=== PATIENT | female | born 1955 | race Caucasian/White ===

== ENCOUNTER → 2017-05-24 | Outpatient (CLI) | payer BC ==
[~2017-05-24] MED LIST: ALBUAER19 INH; EPP3/2 IM; LEVO50TA PO; LIRA18IN SQ; OMEP40CA PO; ROPI1TAB PO; SYMIN/8045 INH; VENL-271 PO
[2017-05-24 10:05] LABS: ESTIMATED AVERAGE GLUCOSE 137 mg/dl; HA1C FLAG Normal (Normal)
[2017-05-24 10:18] LABS: ALT/SGPT 18 U/L (12-78); AST/SGOT 10 U/L (15-37); BLOOD UREA NITROGEN 12 mg/dl (7-18); BUN/CREATININE RATIO 15.1 (10-20); CALCIUM 9.1 mg/dl (8.5-10.1); CARBON DIOXIDE 30 mmol/L (21-32); CHLORIDE 105 mmol/L (98-107); CHOLESTEROL 181 mg/dl (0-200); CREATININE 0.82 mg/dl (0.60-1.20); GLUCOSE 112 mg/dl (70-99); POTASSIUM 4.3 mmol/L (3.5-5.1); SODIUM 140 mmol/L (136-145)
[2017-05-24 10:28] LABS: ALB/GLOB RATIO 1.2 (0.9-2); ALKALINE PHOSPHATASE 81 U/L (45-117); CHOLESTEROL/HDL RATIO 3.2; HDL CHOLESTEROL 56 mg/dl; LDL CHOLESTEROL CALCULATED 110 mg/dl; TRIGLYCERIDES 73 mg/dl (0-150); VERY LOW DENSITY LIPOPROT CALC 15 mg/dl
== END | disposition home or self-care (01) ==
LOC: C.LAB 08:24
PROVIDERS: ATTEND Physician Assistant
DX: E11.9 Type 2 diabetes mellitus without complications (principal)

== ENCOUNTER → 2017-05-30 | Outpatient (CLI) | payer BC ==
--- NOTE | 2017-05-30 16:01 | DIAGNOSTIC IMAGING REPORT ---
CHEST 2 VIEWS ROUTINE CLINICAL HISTORY: R05 cough COMPARISON STUDY: 07/14/2016 FINDINGS: The cardiac and mediastinal contours are normal. There is no evidence of focal pulmonary consolidation. There is no evidence of failure. No pleural effusions are visualized.[ IMPRESSION: No active disease in the chest. Electronically signed by: Jean-Claude Solorio M.D. 05/30/2017 4:00 PM Dictated Date/Time: 05/30/2017 4:00 PM
== END | disposition home or self-care (01) ==
LOC: C.RAD 15:24
PROVIDERS: ATTEND Nurse Practitioner Family
DX: R05 Cough (principal)

== ENCOUNTER → 2017-08-27 | Outpatient (CLI) | payer BC ==
[2017-08-27 13:03] LABS: ESTIMATED AVERAGE GLUCOSE 137 mg/dl; HA1C FLAG Normal (Normal)
[2017-08-27 13:29] LABS: THYROID STIMULATING HORMONE 1.76 uIu/ml (0.300-4.500)
[2017-08-27 13:46] LABS: RATIO 4.8 mcg/mg (0-30.0)
== END | disposition home or self-care (01) ==
LOC: C.LABPVFM 07:48
PROVIDERS: ATTEND Physician Assistant
DX: E11.9 Type 2 diabetes mellitus without complications (principal)

== ENCOUNTER → 2018-01-08 | Outpatient (CLI) | payer BC ==
--- NOTE | 2018-01-08 12:41 | DIAGNOSTIC IMAGING REPORT ---
CT LUNG SCREENING, LOW DOSE WITH COMPUTER-AIDED DETECTION (CAD) CLINICAL HISTORY: 62 years-old Female presenting with LOW DOSE LUNG SCREENING. CT DOSE (mGy.cm): The estimated cumulative dose is 94.72 mGy.cm. TECHNIQUE: Multidetector CT imaging of the chest was performed without the use of intravenous contrast. IV contrast: None. A dose lowering technique was used consistent with the principles of ALARA (as low as reasonably achievable). Additional postprocessing was performed on a separate In[employer] workstation by the radiologist for computer-aided detection and 3-D volumetric segmentation of pulmonary nodules. COMPARISON: None. FINDINGS: Manager Ems topogram: Unremarkable. On soft tissue windows, normal thyroid and thoracic inlet. No axillary, supraclavicular, or mediastinal lymphadenopathy. Evaluation of the sandi limited without intravenous contrast. Atherosclerosis of the aorta. Normal heart size. Minimal aortic valve calcification. No pericardial or pleural effusion. Minimal calcification noted in the liver. Upper abdomen otherwise normal. On lung windows, upper lobe predominant mild centrilobular emphysema. No focal nodule or infiltrate. Central airways patent. On bone windows, degenerative changes of the spine. CAD FINDINGS: Overall Lung RADS Category: 1 Lung RADS Management Recommendation: Continue annual lung cancer screening. Lung RADS Follow Up Date: 2019-01-08 Lung RADS Nodule ID: IMPRESSION: 1. Continue annual lung cancer screening. Electronically signed by: Zhang Courtney M.D. 01/08/2018 12:39 PM Dictated Date/Time: 01/08/2018 12:28 PM
== END | disposition home or self-care (01) ==
LOC: C.CTS 12:09
PROVIDERS: ATTEND Nurse Practitioner Family
DX: Z12.2 Encounter for screening for malignant neoplasm of respiratory organs (principal)

== ENCOUNTER 2021-09-14 17:15 | Inpatient (IN) ==
[2021-09-14] MEDS ORDERED: ALBUT/IPRATROP 3MG/0.5MG NEB 3 ML VIAL NEB STA (17:50)
[2021-09-14] MEDS ORDERED: SODIUM CHLORIDE 0.9% 1000ML 500 ML IV ONE (17:50)
--- NOTE | 2021-09-14 17:50 | Emergency Department Note ---
Impression & Plan Breathlessness, Tachycardia, Hypoxia, Acute exacerbation of chronic obstructive pulmonary disease ED Provider Note Provider: Miguel Thompson MD DATE OF SERVICE: 09/14/2021 CHIEF COMPLAINT: Shortness of breath HISTORY OF PRESENT ILLNESS: Patient is a 66-year-old female history of smoking and COPD presenting here today reporting worsening shortness of breath and cough over the past several days but worse this afternoon. Reports has had some breathing issues since Thanksgiving when she had a bit of a cough. Using a new ProAir inhaler the last several days and now her cough is nonproductive. Reports some mild fevers at times and again worsening breathing this afternoon. Took a nebulizer at home that did not seem to help much. No syncope or trauma reported. Denies pain. Denies abdominal symptoms including any nausea or diarrhea. Patient denies any leg swelling or recent travel. She states is vaccinated for pneumonia, flu, and Covid. Patient states her 's been a bit sick at home but minimally and no other sick contacts reported. She denies a history of blood clotting to me. She reports she has a history of persistent tachycardia and was previously evaluated by cardiology without significant finding. REVIEW OF SYSTEMS: A total of 10 review of systems was obtained and negative except as stated above in the HPI. PAST MEDICAL HISTORY: As noted above MEDICATIONS: Reviewed home medications SOCIAL HISTORY: Lives at home with , smoker PHYSICAL EXAM: GENERAL: alert and oriented laying on stretcher. Head: normocephalic and atraumatic EYES: No injection, discharge or icterus. NECK: Trachea midline. ENT: Mucous membranes pink and moist. LUNGS: Airway patent. No retractions. Breath sounds with some scattered wheeze, mild tachypnea noted. HEART: Regular tachycardic rate and rhythm. No chest wall tenderness ABDOMEN: Soft and non-tender, without guarding or rebound. SKIN: Acyanotic, warm, dry, without rashes EXTREMITIES: Without swelling, tenderness or deformity NEUROLOGICAL: No focal deficits. No aphasia. No facial droop or slurred speech. Ambulatory. EK bpm sinus tachycardia. No PVC or PAC. No acute ST segment elevation or depression. QTC 435. CONTINUOUS CARDIAC MONITORING: was ordered and showed a heart rate of 80s-150s bpm in sinus tachycardia/NSR with rare sinus arrhythmia Patient's laboratory studies and imaging reviewed. Differential includes pulmonary, infection, dehydration, metabolic abnormality, hypo/hyperglycemia, electrolyte disturbance, anemia, hypoxia, cardiac sources, intracerebral event, toxicologic, neurologic, as well as other pathologies. IMPRESSION/MEDICAL DECISION MAKING: Patient tachycardic with borderline fever upon arrival. Mildly hypoxic in triage and wheezing on exam. DuoNeb ordered. Covid and flu testing sent. Basic labs in addition to lactate and cultures as well as CRP and procalcitonin sent. X-ray ordered. EKG obtained shows a sinus tachycardia. Some IV fluids given as well as some Tylenol. Fever did come down. Still significantly tachycardic. Patient is unsure if she had significant improvement with DuoNeb. White blood cell count of 21.8 noted with elevated CRP. Negative Covid influenza and RSV testing. Procalcitonin 0.23. No troponin elevation. No severe electrolyte abnormality signs of renal dysfunction. Negative D-dimer but given the significant leukocytosis persistent tachycardia and mild oxygen requirement CT of the chest was completed to exclude PE other occult pathology. No evidence of PE but some tree-in-bud inflammatory changes noted. Given allergy profile given a dose of azithromycin for atypical coverage for any atypical bacteria present with the bronchitis/COPD exacerbation component. Discussed with patient given a dose of Solu-Medrol for steroid coverage as well. Patient's heart rate is improving some and she is less dyspneic on reevaluation. Discussed with her and her findings. Still requiring a small amount of oxygen. In discussion hospitalist will be consulted for further care. DIAGNOSIS: Shortness of breath, hypoxia, tachycardia, COPD exacerbation DISPOSITION: Hospitalist will evaluate Patient was agreeable with this plan. 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 Chronic obstructive pulmonary disease inhalers daily Chronic reflux esophagitis Depression currently off meds for 3 weeks Depression with anxiety Diabetes mellitus, type 2 Fibromyalgia Gastropathy GERD (gastroesophageal reflux disease) History of colon polyps Hypercholesterolemia Hypothyroidism Kidney stones Lichen sclerosus et atrophicus Lumbar canal stenosis Memory loss Nocturnal hypoxia Obesity Osteoarthritis Overweight Restless legs syndrome Sleep apnea had sleep study performed 07/2018 was instructed to start oxygen at night (drops to 86% when sleeping), has not started yet Snoring Tobacco use Urinary incontinence Surgical History History of colonoscopy History of dilatation and curettage History of right cataract extraction during procedure "pupil was damaged and no longer dilates" History of tooth extraction History of total right knee replacement (TKR) History of umbilical hernia repair History of wisdom tooth extraction Hx of eye surgery left laser for retinal bleed Family History Aunt History of anesthesia reaction Grandmother (Paternal) Family history of diabetes mellitus Grandfather (Maternal) Family hx of colon cancer Colon cancer Father Heart disease Stroke Mother Dementia Diabetes Macular degeneration Alzheimer disease Autoimmune disease Brother Squamous cell carcinoma of skin Atrial fibrillation Other Basal cell carcinoma Denies family history of Ovarian cancer Prostate cancer Myocardial infarction Breast cancer Social History (Updated 09/14/21 @ 21:23 by Luci Hollins MD) Smoking Status: Current every day smoker Age Started Using Tobacco: 18; packs per day: 1; Cigarettes Per Day: 1 pack; Second Hand Exposure: Yes (self); Do You Dip or Chew Tobacco: No; Hx Alcohol Use: Yes Alcohol type: hard liquor Alcohol Intake Frequency: Monthly or Less Hx Substance Use: No Preferred Language: Italian Communication Ability: Effective Visual Impairment: No Limitations Hearing Ability: Normal Interlocker Required: No Beliefs That Will Affect Care: None marital status: Current Living Situation: Spouse current occupational status: retired How many Children do You have: 2 Other Information That Helps Us Care for You: No Feels Safe at Home: Yes Childhood Exposure to Second-Hand Smoke: Yes Diet Comment: no specific diet Dental Care, Regularly: Yes Physical Activity Frequency: 1-2 Times per Week Seatbelt Use: always Sunscreen Use: Yes Do you think of yourself as: straight/heterosexual Assistive Devices: Glasses Allergies Allergies Allergy/AdvReac Type Severity Reaction Status Date / Time bee venom protein (honey bee) Allergy Severe HIVES AND Verified 09/14/21 20:31 ANAPHYLAXIS Penicillins Allergy Severe HIVES Verified 09/14/21 20:31 Sulfa (Sulfonamide Allergy Severe High Verified 09/14/21 20:31 Antibiotics) fever, broke out with spider veins all over doxycycline Allergy Unknown Unknown Verified 09/14/21 20:31 egg Allergy Unknown Unknown Verified 09/14/21 20:31 grass pollen Allergy Verified 09/14/21 20:31 milk AdvReac Mild Diarrhea Verified 09/14/21 20:31 BUG BITES Allergy EXTREME Uncoded 09/14/21 20:31 SWELLING Home Meds Home Medications Medication Instructions Recorded Confirmed albuterol sulfate 90 mcg/actuation 1 - 2 puff INHALATION Q4 PRN 02/20/19 aerosol inhaler (ProAir HFA) clobetasol 0.05 % topical ointment 1 appln TOP BID PRN gm 02/18/20 09/14/21 cyclobenzaprine 5 mg tablet 5 mg PO HS 09/14/21 09/14/21 rosuvastatin 5 mg tablet 5 mg PO WK 09/14/21 09/14/21 Previous Rx's Medication Instructions Recorded epinephrine 0.3 mg/0.3 mL 0.3 mg IM Q3H PRN #1 ea 03/02/20 injection, auto-injector (EpiPen) ipratropium 0.5 mg-albuterol 3 mg 3 ml INHALATION QID PRN #90 ml 07/01/20 (2.5 mg base)/3 mL nebulization soln omeprazole 40 mg capsule,delayed 40 mg PO DAILY PRN #30 cap 12/28/20 release venlafaxine 75 mg capsule,extended 75 mg PO DAILY #90 cap 12/30/20 release 24 hr (Effexor XR) metformin 500 mg tablet,extended 1,000 mg PO BID 30 Days #120 tab 06/03/21 release 24 hr fluticasone propionate 115 2 puff INH BID #12 g 07/12/21 mcg-salmeterol 21 mcg/actuation HFA inhaler (Advair HFA) levothyroxine 75 mcg tablet 75 mcg PO DAILY #30 tab 07/18/21 terbinafine HCl 250 mg tablet 250 mg PO DAILY 14 Days #14 tab 08/31/21 Results & Data (ED) Vital Signs Vital Signs - 24 hr 09/14/21 17:26 09/14/21 17:41 09/14/21 17:58 Temperature 37.8 C H Temperature Source Oral Pulse Rate 134 H 109 H Pulse Rate [Apical] 109 H Pulse Rhythm Regular Pulse Strength Normal Respiratory Rate Respiratory Effort / Characteristics Labored Spontaneous Short of Breath Respiratory Depth Respiratory Pattern Regular Blood Pressure 135/79 Blood Pressure [Right Arm] 120/83 Blood Pressure Mean 97 Blood Pressure Mean [Right Arm] 95 Blood Pressure Position Sitting Blood Pressure Position [Right Arm] Semi-fowlers Pulse Oximetry 87 L 91 91 Oxygen Delivery Method Room Air Room Air Room Air Oxygen Flow Rate Sepsis Recent Fever Within 48 Hours No Sepsis New/Unexplained Change in Mental Status No Sepsis Action Taken by Nursing No Action Required Oxygen Flow Rate - Titration Pulse Oximetry Post Tiitration 09/14/21 18:29 09/14/21 18:48 09/14/21 20:22 Temperature 37.4 C Temperature Source Oral Pulse Rate Pulse Rate [Apical] 110 H 115 H 98 H Pulse Rhythm Pulse Strength Respiratory Rate 25 H 26 H 26 H Respiratory Effort / Characteristics Non-Labored Spontaneous Respiratory Depth Normal Respiratory Pattern Blood Pressure Blood Pressure [Right Arm] 129/83 137/86 Blood Pressure Mean Blood Pressure Mean [Right Arm] 98 103 Blood Pressure Position Blood Pressure Position [Right Arm] Sitting Pulse Oximetry 91 94 93 Oxygen Delivery Method Room Air Nasal Cannula Nasal Cannula Oxygen Flow Rate 1.5 1 Sepsis Recent Fever Within 48 Hours Sepsis New/Unexplained Change in Mental Status Sepsis Action Taken by Nursing Oxygen Flow Rate - Titration 1.5 Pulse Oximetry Post Tiitration 94 Laboratory Data Result diagrams: 09/14/21 17:55 09/14/21 17:55 Lab Results 09/14/21 09/14/21 09/14/21 Range/Units 17:50 17:55 17:55 WBC 21.88 H (4.8-10.8) K/uL RBC 5.13 (4.2-5.4) M/uL Hgb 14.9 (12.0-16.0) g/dL Hct 45.3 (37-47) % MCV 88.3 (80-100) fL MCH 29.0 (25-34) pg MCHC 32.9 (32-36) g/dL RDW Std Deviation 46.0 (36.4-46.3) fL RDW Coeff of Palak 14.2 (11.5-14.5) % Plt Count 338 (130-400) K/uL MPV 9.5 (7.4-10.4) fL Immature Gran % (Auto) 0.3 % Neut % (Auto) 87.1 % Lymph % (Auto) 8.0 % Callaway % (Auto) 4.6 % Eos % (Auto) 0.0 % Baso % (Auto) 0.0 % Neut # (Auto) 19.04 H (1.4-6.5) K/uL Lymph # (Auto) 1.75 (1.2-3.4) K/uL Callaway # (Auto) 1.01 H (0.11-0.59) K/uL Eos # (Auto) 0.01 (0-0.5) K/uL Baso # (Auto) 0.01 (0-0.2) K/uL Immature Gran # (Auto) 0.06 H (0.00-0.02) K/uL PT (9.0-12.0) Seconds INR (0.9-1.1) D-Dimer (0-500) ug/L FEU Sodium 136 (136-145) mmol/L Potassium 4.3 (3.5-5.1) mmol/L Chloride 104 (98-107) mmol/L Carbon Dioxide 28 (21-32) mmol/L Anion Gap 4.0 (3-11) BUN 15 (7-18) mg/dl Creatinine 0.85 (0.6-1.2) mg/dl Est Cr Clr Drug Dosing 69.9 ml/min Est GFR ( Amer) 82.2 ml/min Est GFR (Non-Af Amer) 70.9 ml/min BUN/Creatinine Ratio 17.1 (10-20) Glucose 260 H (70-99) mg/dl Lactate (0.4-2.0) mmol/L Calcium 8.9 (8.5-10.1) mg/dl Total Bilirubin 0.7 (0.2-1) mg/dl AST 10 L (15-37) U/L ALT 29 (12-78) Alkaline Phosphatase 84 (45-117) U/L Troponin I < 0.015 (0-0.045) ng/ml C-Reactive Protein 18.50 H (0-0.29) mg/dl Total Protein 7.3 (6.4-8.2) gm/dl Albumin 3.2 L (3.4-5.0) gm/dl Globulin 4.1 H (2.5-4.0) gm/dl Albumin/Globulin Ratio 0.8 L (0.9-2) Procalcitonin (0-0.5) ng/ml SARS-CoV-2 (PCR) NEGATIVE (Negative) Influenza Type A (PCR) Negative (Neg) Influenza Type B (PCR) Negative (Neg) RSV (RT-PCR) Negative (Neg) 09/14/21 09/14/21 09/14/21 Range/Units 17:55 17:55 17:55 WBC (4.8-10.8) K/uL RBC (4.2-5.4) M/uL Hgb (12.0-16.0) g/dL Hct (37-47) % MCV (80-100) fL MCH (25-34) pg MCHC (32-36) g/dL RDW Std Deviation (36.4-46.3) fL RDW Coeff of Palak (11.5-14.5) % Plt Count (130-400) K/uL MPV (7.4-10.4) fL Immature Gran % (Auto) % Neut % (Auto) % Lymph % (Auto) % Callaway % (Auto) % Eos % (Auto) % Baso % (Auto) % Neut # (Auto) (1.4-6.5) K/uL Lymph # (Auto) (1.2-3.4) K/uL Callaway # (Auto) (0.11-0.59) K/uL Eos # (Auto) (0-0.5) K/uL Baso # (Auto) (0-0.2) K/uL Immature Gran # (Auto) (0.00-0.02) K/uL PT 10.4 (9.0-12.0) Seconds INR 1.0 (0.9-1.1) D-Dimer 490 (0-500) ug/L FEU Sodium (136-145) mmol/L Potassium (3.5-5.1) mmol/L Chloride (98-107) mmol/L Carbon Dioxide (21-32) mmol/L Anion Gap (3-11) BUN (7-18) mg/dl Creatinine (0.6-1.2) mg/dl Est Cr Clr Drug Dosing ml/min Est GFR ( Amer) ml/min Est GFR (Non-Af Amer) ml/min BUN/Creatinine Ratio (10-20) Glucose (70-99) mg/dl Lactate 1.2 (0.4-2.0) mmol/L Calcium (8.5-10.1) mg/dl Total Bilirubin (0.2-1) mg/dl AST (15-37) U/L ALT (12-78) Alkaline Phosphatase (45-117) U/L Troponin I (0-0.045) ng/ml C-Reactive Protein (0-0.29) mg/dl Total Protein (6.4-8.2) gm/dl Albumin (3.4-5.0) gm/dl Globulin (2.5-4.0) gm/dl Albumin/Globulin Ratio (0.9-2) Procalcitonin 0.23 (0-0.5) ng/ml SARS-CoV-2 (PCR) (Negative) Influenza Type A (PCR) (Neg) Influenza Type B (PCR) (Neg) RSV (RT-PCR) (Neg) Administered Medications Albuterol (Albut/Ipratrop 3mg/0.5mg Neb 3 Ml Vial) 3 ml NEB QIDR ISMAEL; Protocol Stop: 10/14/21 21:09 Last Admin: 09/14/21 21:29 Dose: 3 ml Documented by: [id number] Discontinued Medications Acetaminophen (Acetaminophen 500 Mg Tab) 1,000 mg PO NOW STA Stop: 09/14/21 17:55 Last Admin: 09/14/21 18:06 Dose: 1,000 mg Documented by: [id number] Albuterol (Albut/Ipratrop 3mg/0.5mg Neb 3 Ml Vial) 3 ml NEB NOW STA; Protocol Stop: 09/14/21 17:51 Last Admin: 09/14/21 18:08 Dose: 3 ml Documented by: [id number] Azithromycin (Azithromycin 250 Mg Tab) 500 mg PO NOW ONE Stop: 09/14/21 20:21 Last Admin: 09/14/21 20:26 Dose: 500 mg Documented by: [id number] Sodium Chloride (Nss 1000ml) 500 mls @ 999 mls/hr IV .Q31M ONE Stop: 09/14/21 18:20 Last Infusion: 09/14/21 18:49 Dose: 0 mls/hr Documented by: [id number] Admin: 09/14/21 18:08 Dose: 999 mls/hr Documented by: [id number] Ioversol (Optiray 320 125ml) 120 ml IV ONCE ONE Stop: 09/14/21 19:46 Last Admin: 09/14/21 19:47 Dose: 120 ml Documented by: [id number] Methylprednisolone (Methylprednisolone 125 Mg/2 Ml Vial) 60 mg IV NOW STA Stop: 09/14/21 19:56 Last Admin: 09/14/21 20:20 Dose: 60 mg Documented by: [id number] Imaging Data Radiologist's Impression: Chest X-Ray 09/14/21 17:41 SINGLE VIEW CHEST CLINICAL HISTORY: Dyspnea. FINDINGS: 2 AP, portable, upright chest radiographs are compared to study dated 03/02/2019. Correlation is made with chest CT dated 01/08/2018. The examination is degraded by portable technique and apical lordotic positioning. The heart is top normal for projection. The pulmonary vasculature is noncongested. Emphysema and chronic interstitial thickening is similar to previous. Scarring/atelectasis is noted at the lung bases. No airspace consolidation or large pleural effusion is identified. No pneumothorax is seen. The skeletal structures are osteopenic. The bony thorax is grossly intact. Calcific tendinopathy is noted in the right shoulder. IMPRESSION: Emphysematous change with no acute cardiopulmonary abnormality. ACT 112: Negative or not required by law. Electronically signed by: Andrea White M.D. 09/14/2021 6:46 PM Chest CTA 09/14/21 18:52 CT ANGIOGRAM OF THE CHEST CLINICAL HISTORY: Tachycardia. Hypoxia. Leukocytosis. Fever. COMPARISON STUDY: Chest x-ray dated 09/14/2021. Chest CT dated 01/08/2018. TECHNIQUE: Following the IV administration of 120 cc of Optiray 320, CT angiogram of the chest was performed from the upper abdomen to the thoracic inlet utilizing the pulmonary embolus protocol. Images are reviewed in the axial, sagittal, and coronal planes. 3-D MIPS images are created and assessed. IV contrast was administered without complication. A dose lowering technique was utilized adhering to the principles of ALARA. The examination is modestly degraded by motion artifact. CT DOSE: 385.81 mGy.cm FINDINGS: Thyroid: Imaged portions of the thyroid gland are normal in size and attenuation. Thoracic aorta: There is mild atherosclerotic calcification of the thoracic aorta, which is normal in caliber and demonstrates standard 3-vessel arch anatomy. No dissection is seen. Pulmonary vasculature: The pulmonary trunk is normal in caliber. There are no filling defects identified in main, lobar, or segmental pulmonary branches to suggest pulmonary embolus. Heart: The heart is normal in size and without pericardial effusion. Lungs and pleural spaces: Evaluation of the lung parenchyma is degraded by motion artifact. Moderate emphysematous change is identified. There are scattered tiny foci of tree-in-bud nodularity. No lobar consolidation or pleural effusion is identified. The trachea and central airways are clear. Diffuse peribronchial thickening is observed. A small fat-containing Bochdalek hernia is seen at the right lung base. A 2 mm right apical pulmonary nodule on image #269 is unchanged from 18 and of doubtful significance. Mediastinum: Mildly enlarged prevascular nodes measure up to 10 mm in short axis. Christa: Mildly enlarged hilar nodes measure up to 12 mm in short axis. Axillae: There is no axillary lymphadenopathy. Upper abdomen: A 2.8 cm right adrenal nodule meets CT criteria for a fat- containing adenoma. There is a tiny hiatal hernia. Partially visualized upper abdominal viscera is otherwise grossly unremarkable. Skeletal structures: The skeletal structures are osteopenic. No lytic or blastic bony lesions are seen. Degenerative change is noted in the shoulders and t horacic spine. IMPRESSION: 1. There is no evidence of pulmonary embolus in the main, lobar, or segmental pulmonary arteries. 2. Emphysema. 3. There is no lobar consolidation or pleural effusion. 4. Mild scattered foci of tree-in-bud nodularity are likely on an infectious/inflammatory basis. Clinical correlation required. 5. Diffuse peribronchial thickening suggests bronchitis/reactive airway disease. Clinical correlation will be required. 6. Mildly enlarged mediastinal and hilar lymph nodes are likely reactive ACT 112: Negative or not required by law. Electronically signed by: Andrea White M.D. 09/14/2021 8:17 PM Discharge Plan Visit Data Chief Complaint: Shortness of Breath/Dyspnea Stated Complaint: DIFF BREATHING, COUGH, DR REFERRED ED Provider: Miguel Thompson Discharge Problem: Breathlessness, Tachycardia, Hypoxia, Acute exacerbation of chronic obstructive pulmonary disease Patient Disposition: Being Evaluated by Hospitalist Discharge Instructions Interventions: ED Discharge Assessment Last Done: 09/14/21 22:31
[2021-09-14] MEDS ORDERED: ACETAMINOPHEN 500 MG TAB PO STA (17:54)
[2021-09-14 18:09] LABS: Basophils # (auto) 0.01 K/uL (0-0.2); Eosinophils # (auto) 0.01 K/uL (0-0.5); Hematocrit (blood only) 45.3 % (37-47); Hemoglobin 14.9 g/dL (12.0-16.0); Immature Granulocytes # (auto) 0.06 K/uL (0.00-0.02); Immature Granulocytes % (auto) 0.3 %; Lymphocytes # (auto) 1.75 K/uL (1.2-3.4); Mean Corpuscular Hgb Conc 32.9 g/dL (32-36); Mean Corpuscular Volume 88.3 fL (80-100); Mean Platelet Volume 9.5 fL (7.4-10.4); Monocytes # (auto) 1.01 K/uL (0.11-0.59); Monocytes % (auto) 4.6 %; Neutrophils # (auto) 19.04 K/uL (1.4-6.5); Neutrophils % (auto) 87.1 %; Platelet Count 338 K/uL (130-400); RDW Coefficient of Variation 14.2 % (11.5-14.5); Red Blood Count 5.13 M/uL (4.2-5.4); White Blood Count 21.88 K/uL (4.8-10.8)
[2021-09-14 18:29] LABS: Alanine Aminotransferase 29 (12-78); Albumin Level 3.2 gm/dl (3.4-5.0); Aspartate Aminotransferase 10 U/L (15-37); BUN Creatinine Ratio 17.1 (10-20); Blood Urea Nitrogen 15 mg/dl (7-18); Calcium 8.9 mg/dl (8.5-10.1); Carbon Dioxide 28 mmol/L (21-32); Chloride 104 mmol/L (98-107); Creatinine Clr Calc Pharmacy 69.9 ml/min; Est GFR (African American) 82.2 ml/min; Est GFR (Non-African American) 70.9 ml/min; Glucose 260 mg/dl (70-99); Potassium 4.3 mmol/L (3.5-5.1); Sodium 136 mmol/L (136-145)
[2021-09-14 18:34] LABS: Albumin Globulin Ratio 0.8 (0.9-2); Alkaline Phosphatase 84 U/L (45-117); D Dimer 490 ug/L FEU (0-500); Globulin 4.1 gm/dl (2.5-4.0); Prothrombin Time 10.4 Seconds (9.0-12.0); Total Protein 7.3 gm/dl (6.4-8.2); Troponin I < 0.015 ng/ml (0-0.045)
--- NOTE | 2021-09-14 18:48 | XRay Report ---
SINGLE VIEW CHEST CLINICAL HISTORY: Dyspnea. FINDINGS: 2 AP, portable, upright chest radiographs are compared to study dated 03/02/2019. Correlatio n is made with chest CT dated 01/08/2018. The examination is degraded by portable technique and apical lordotic positioning. The heart is top normal for projection. The pulmonary vasculature is noncongest ed. Emphysema and chronic interstitial thickening is similar to previous. Scarring/atelectasis is not ed at the lung bases. No airspace consolidation or large pleural effusion is identified. No pneumotho rax is seen. The skeletal structures are osteopenic. The bony thorax is grossly intact. Calcific tend inopathy is noted in the right shoulder. IMPRESSION: Emphysematous change with no acute cardiopulmonary abnormality. ACT 112: Negative or not required by law. Electronically signed by: Andrea White M.D. 09/14/2021 6:46 PM
[2021-09-14 18:49] LABS: Influenza A virus by PCR Negative (Neg); Influenza B virus by PCR Negative (Neg); RSV by PCR Negative (Neg); SARS CoV2 RNA(COVID-19) InHosp NEGATIVE (Negative)
[2021-09-14 19:15] LABS: Bilirubin,Total 0.7 mg/dl (0.2-1)
[2021-09-14] MEDS ORDERED: OPTIRAY 320 125ml IV ONE (19:45)
[2021-09-14] MEDS ORDERED: methylPREDNISolone 125 MG/2 ML VIAL IV STA (19:55)
--- NOTE | 2021-09-14 20:18 | CT Scan Report ---
CT ANGIOGRAM OF THE CHEST CLINICAL HISTORY: Tachycardia. Hypoxia. Leukocytosis. Fever. COMPARISON STUDY: Chest x-ray dated 09/14/2021. Chest CT dated 01/08/2018. TECHNIQUE: Following the IV administration of 120 cc of Optiray 320, CT angiogram of the chest was pe rformed from the upper abdomen to the thoracic inlet utilizing the pulmonary embolus protocol. Images are reviewed in the axial, sagittal, and coronal planes. 3-D MIPS images are created and assessed. I V contrast was administered without complication. A dose lowering technique was utilized adhering to the principles of ALARA. The examination is modestly degraded by motion artifact. CT DOSE: 385.81 mGy.cm FINDINGS: Thyroid: Imaged portions of the thyroid gland are normal in size and attenuation. Thoracic aorta: There is mild atherosclerotic calcification of the thoracic aorta, which is normal in caliber and demonstrates standard 3-vessel arch anatomy. No dissection is seen. Pulmonary vasculature: The pulmonary trunk is normal in caliber. There are no filling defects identif ied in main, lobar, or segmental pulmonary branches to suggest pulmonary embolus. Heart: The heart is normal in size and without pericardial effusion. Lungs and pleural spaces: Evaluation of the lung parenchyma is degraded by motion artifact. Moderate emphysematous change is identified. There are scattered tiny foci of tree-in-bud nodularity. No lobar consolidation or pleural effusion is identified. The trachea and central airways are clear. Diffuse peribronchial thickening is observed. A small fat-containing Bochdalek hernia is seen at the right vivek ng base. A 2 mm right apical pulmonary nodule on image #269 is unchanged from 18 and of doubtful sign ificance. Mediastinum: Mildly enlarged prevascular nodes measure up to 10 mm in short axis. Christa: Mildly enlarged hilar nodes measure up to 12 mm in short axis. Axillae: There is no axillary lymphadenopathy. Upper abdomen: A 2.8 cm right adrenal nodule meets CT criteria for a fat-containing adenoma. There is a tiny hiatal hernia. Partially visualized upper abdominal viscera is otherwise grossly unremarkable . Skeletal structures: The skeletal structures are osteopenic. No lytic or blastic bony lesions are see n. Degenerative change is noted in the shoulders and thoracic spine. IMPRESSION: 1. There is no evidence of pulmonary embolus in the main, lobar, or segmental pulmonary arteries. 2. Emphysema. 3. There is no lobar consolidation or pleural effusion. 4. Mild scattered foci of tree-in-bud nodularity are likely on an infectious/inflammatory basis. Clin ical correlation required. 5. Diffuse peribronchial thickening suggests bronchitis/reactive airway disease. Clinical correlation will be required. 6. Mildly enlarged mediastinal and hilar lymph nodes are likely reactive ACT 112: Negative or not required by law. Electronically signed by: Andrea White M.D. 09/14/2021 8:17 PM
[2021-09-14] MEDS ORDERED: AZITHROMYCIN 250 MG TAB PO ONE (20:20)
--- NOTE | 2021-09-14 21:07 | History & Physical Report ---
Date of Service September 14, 2021 Assessment & Plan (1) Acute exacerbation of chronic obstructive pulmonary disease: Plan: 66 yo F with HLD, DM2, COPD, PAD, PACs, current smoker admitted for management of COPD exacerbation. COPD Exacerbation with Hypoxia - new oxygen requirement of 1L NC - chronically requires oxygen at nighttime per sleep study in 2018 - iv methylpred 60 given in ER, continued daily steroids - iv azithromycin - reportedly not using her daily advair inhaler. Ordered for BID dosing. - QID duonebs scheduled, PRN Q4h. 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 States that she and her were both ill with viral infections around ,and have been dealing with remnant coughs afterward. She was seen by her PCP and told her lungs were clear and cough should self resolve. Shortly after ari, her cough changed from being productive to nonproductive. Denies any fevers or chills. Over the last two days has been increasingly short of breath at rest. She denies using any daily inh sidney. She started using her proair HFA 2 days ago 4 times a day, and yesterday started using an albuterol nebulizer treatment for the shortness of breath. 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 She has a 40+ pack year hx, and actively smokes a pack per day. She has received her influenza, pneumonia and covid19 vaccines as well as her booster. Allergies Allergy/AdvReac Type Severity Reaction Status Date / Time bee venom protein (honey bee) Allergy Severe HIVES AND Verified 09/14/21 20:31 ANAPHYLAXIS Penicillins Allergy Severe HIVES Verified 09/14/21 20:31 Sulfa (Sulfonamide Allergy Severe High Verified 09/14/21 20:31 Antibiotics) fever, broke out with spider veins all over doxycycline Allergy Unknown Unknown Verified 09/14/21 20:31 egg Allergy Unknown Unknown Verified 09/14/21 20:31 grass pollen Allergy Unknown Unknown Verified 09/15/21 20:28 milk AdvReac Mild Diarrhea Verified 09/14/21 20:31 Home Medications Medication Instructions Recorded Confirmed Type albuterol sulfate 90 mcg/actuation 1 - 2 puff INHALATION Q4 PRN 02/20/19 09/14/21 History aerosol inhaler (ProAir HFA) clobetasol 0.05 % topical ointment 1 appln TOP BID PRN gm 02/18/20 09/14/21 History epinephrine 0.3 mg/0.3 mL 0.3 mg IM Q3H PRN #1 ea 03/02/20 09/14/21 Rx injection, auto-injector (EpiPen) ipratropium 0.5 mg-albuterol 3 mg 3 ml INHALATION QID PRN #90 ml 07/01/20 09/14/21 Rx (2.5 mg base)/3 mL nebulization soln omeprazole 40 mg capsule,delayed 40 mg PO DAILY PRN #30 cap 12/28/20 09/14/21 Rx release venlafaxine 75 mg capsule,extended 75 mg PO DAILY #90 cap 12/30/20 09/14/21 Rx release 24 hr (Effexor XR) metformin 500 mg tablet,extended 1,000 mg PO BID 30 Days #120 tab 06/03/21 09/14/21 Rx release 24 hr fluticasone propionate 115 2 puff INH BID #12 g 07/12/21 09/14/21 Rx mcg-salmeterol 21 mcg/actuation HFA inhaler (Advair HFA) levothyroxine 75 mcg tablet 75 mcg PO DAILY #30 tab 07/18/21 09/14/21 Rx terbinafine HCl 250 mg tablet 250 mg PO DAILY 14 Days #14 tab 08/31/21 09/14/21 Rx cyclobenzaprine 5 mg tablet 5 mg PO HS 09/14/21 09/14/21 History rosuvastatin 5 mg tablet 5 mg PO WK 09/14/21 09/14/21 History Past Med/Surg History Medical History (Updated 09/14/21 @ 21:25 by Luci Hollins MD) Allergy to bugs Cardiac murmur 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 Chronic obstructive pulmonary disease inhalers daily Chronic reflux esophagitis Depression currently off meds for 3 weeks Depression with anxiety Diabetes mellitus, type 2 Fibromyalgia Gastropathy GERD (gastroesophageal reflux disease) History of colon polyps Hypercholesterolemia Hypothyroidism Kidney stones Lichen sclerosus et atrophicus Lumbar canal stenosis Memory loss Nocturnal hypoxia Obesity Osteoarthritis Overweight Restless legs syndrome Sleep apnea had sleep study performed 07/2018 was instructed to start oxygen at night (drops to 86% when sleeping), has not started yet Snoring Tobacco use Urinary incontinence Surgical History History of colonoscopy History of dilatation and curettage History of right cataract extraction during procedure "pupil was damaged and no longer dilates" History of tooth extraction History of total right knee replacement (TKR) History of umbilical hernia repair History of wisdom tooth extraction Hx of eye surgery left laser for retinal bleed Family History Aunt History of anesthesia reaction Grandmother (Paternal) Family history of diabetes mellitus Grandfather (Maternal) Family hx of colon cancer Colon cancer Father Heart disease Stroke Mother Dementia Diabetes Macular degeneration Alzheimer disease Autoimmune disease Brother Squamous cell carcinoma of skin Atrial fibrillation Other Basal cell carcinoma Denies family history of Ovarian cancer Prostate cancer Myocardial infarction Breast cancer Social History (Updated 09/14/21 @ 21:23 by Luci Hollins MD) Smoking Status: Current every day smoker Age Started Using Tobacco: 18; packs per day: 1; Cigarettes Per Day: 1 pack; Second Hand Exposure: Yes (self); Do You Dip or Chew Tobacco: No; Hx Alcohol Use: Yes Alcohol type: hard liquor Alcohol Intake Frequency: Monthly or Less Hx Substance Use: No Preferred Language: Yoruba Communication Ability: Effective Visual Impairment: No Limitations Hearing Ability: Normal Software Support Representative Required: No Beliefs That Will Affect Care: None marital status: Current Living Situation: Spouse current occupational status: retired How many Children do You have: 2 Other Information That Helps Us Care for You: No Feels Safe at Home: Yes Childhood Exposure to Second-Hand Smoke: Yes Diet Comment: no specific diet Dental Care, Regularly: Yes Physical Activity Frequency: 1-2 Times per Week Seatbelt Use: always Sunscreen Use: Yes Do you think of yourself as: straight/heterosexual Assistive Devices: Oxygen - at Night Review of Systems Constitutional: no fever, no chills, no body aches and no fatigue Respiratory: + cough, + change in sputum, + dyspnea and + wheezing; no hemoptysis, no pain on inspiration and no pain with cough Cardiovascular: + dyspnea at rest; no chest pain, no dyspnea, no lightheadedness and no edema Gastrointestinal: no abdominal pain, no nausea, no vomiting, no constipation and no diarrhea/loose stools Genitourinary: no dysuria Neurologic: no tingling, no numbness, no dizziness and no confusion Physical Exam Physical Exam: Constitutional: middle aged woman in no apparent distress, sitting comfortably in bed. Eyes: EOMI, pupils equal and reactive bilaterally, no scleral icterus Cardiac: RRR, no murmurs, gallops or rubs. Normal S1, S2 Pulm: breathing comfortably on 1L NC, inspiratory and expiratory wheezes throughout all sections, no focal rhonchi or crackles Abd: soft, nontender, nondistended, normal bowel sounds, no rebound or guarding Extremities: 2+ peripheral pulses, no edema Neuro: no focal deficits, moving all 4 limbs, A&Ox3 Results & Data Results & Data ([facility]) Vital Signs (Past 12 Hours) Vital Signs Temp Pulse Pulse Resp BP BP Pulse Ox 09/14/21 20:22 98 H 26 H 137/86 93 09/14/21 18:48 37.4 C 115 H 26 H 94 09/14/21 18:29 110 H 25 H 129/83 91 09/14/21 17:58 109 H 21 120/83 91 09/14/21 17:41 109 H 22 91 09/14/21 17:26 37.8 C H 134 H 24 135/79 87 L Laboratory Results Laboratory Results WBC 21.88 K/uL (4.8-10.8) H 09/14/21 17:55 RBC 5.13 M/uL (4.2-5.4) 09/14/21 17:55 Hgb 14.9 g/dL (12.0-16.0) 09/14/21 17:55 Hct 45.3 % (37-47) 09/14/21 17:55 MCV 88.3 fL (80-100) 09/14/21 17:55 MCH 29.0 pg (25-34) 09/14/21 17:55 MCHC 32.9 g/dL (32-36) 09/14/21 17:55 RDW Std Deviation 46.0 fL (36.4-46.3) 09/14/21 17:55 RDW Coeff of Palak 14.2 % (11.5-14.5) 09/14/21 17: Plt Count 338 K/uL (130-400) 09/14/21 17:55 MPV 9.5 fL (7.4-10.4) 09/14/21 17:55 Immature Gran % (Auto) 0.3 % 09/14/21 17:55 Neut % (Auto) 87.1 % 09/14/21 17:55 Lymph % (Auto) 8.0 % 09/14/21 17:55 Stevens % (Auto) 4.6 % 09/14/21 17:55 Eos % (Auto) 0.0 % 09/14/21 17:55 Baso % (Auto) 0.0 % 09/14/21 17:55 Neut # (Auto) 19.04 K/uL (1.4-6.5) H 09/14/21 17:55 Lymph # (Auto) 1.75 K/uL (1.2-3.4) 09/14/21 17:55 Stevens # (Auto) 1.01 K/uL (0.11-0.59) H 09/14/21 17:55 Eos # (Auto) 0.01 K/uL (0-0.5) 09/14/21 17:55 Baso # (Auto) 0.01 K/uL (0-0.2) 09/14/21 17:55 Immature Gran # (Auto) 0.06 K/uL (0.00-0.02) H 09/14/21 17:55 PT 10.4 Seconds (9.0-12.0) 09/14/21 17:55 INR 1.0 (0.9-1.1) 09/14/21 17:55 D-Dimer 490 ug/L FEU (0-500) 09/14/21 17:55 Sodium 136 mmol/L (136-145) 09/14/21 17:55 Potassium 4.3 mmol/L (3.5-5.1) 09/14/21 17:55 Chloride 104 mmol/L (98-107) 09/14/21 17:55 Carbon Dioxide 28 mmol/L (21-32) 09/14/21 17:55 Anion Gap 4.0 (3-11) 09/14/21 17:55 BUN 15 mg/dl (7-18) 09/14/21 17:55 Creatinine 0.85 mg/dl (0.6-1.2) 09/14/21 17:55 Est Cr Clr Drug Dosing 69.9 ml/min 09/14/21 17:55 Est GFR ( Amer) 82.2 ml/min 09/14/21 17:55 Est GFR (Non-Af Amer) 70.9 ml/min 09/14/21 17:55 BUN/Creatinine Ratio 17.1 (10-20) 09/14/21 17:55 Glucose 260 mg/dl (70-99) H 09/14/21 17:55 Lactate 1.2 mmol/L (0.4-2.0) 09/14/21 17:55 Calcium 8.9 mg/dl (8.5-10.1) 09/14/21 17:55 Total Bilirubin 0.7 mg/dl (0.2-1) 09/14/21 17:55 AST 10 U/L (15-37) L 09/14/21 17:55 ALT 29 (12-78) 09/14/21 17:55 Alkaline Phosphatase 84 U/L (45-117) 09/14/21 17:55 Troponin I < 0.015 ng/ml (0-0.045) 09/14/21 17:55 C-Reactive Protein 18.50 mg/dl (0-0.29) H 09/14/21 17:55 Total Protein 7.3 gm/dl (6.4-8.2) 09/14/21 17:55 Albumin 3.2 gm/dl (3.4-5.0) L 09/14/21 17:55 Globulin 4.1 gm/dl (2.5-4.0) H 09/14/21 17:55 Albumin/Globulin Ratio 0.8 (0.9-2) L 09/14/21 17:55 Procalcitonin 0.23 ng/ml (0-0.5) 09/14/21 17:55 SARS-CoV-2 (PCR) NEGATIVE (Negative) 09/14/21 17:50 Influenza Type A (PCR) Negative (Neg) 09/14/21 17:50 Influenza Type B (PCR) Negative (Neg) 09/14/21 17:50 RSV (RT-PCR) Negative (Neg) 09/14/21 17:50 Impressions Chest X-Ray 09/14/21 17:41 SINGLE VIEW CHEST CLINICAL HISTORY: Dyspnea. FINDINGS: 2 AP, portable, upright chest radiographs are compared to study dated 03/02/2019. Correlation is made with chest CT dated 01/08/2018. The examination is degraded by portable technique and apical lordotic positioning. The heart is top normal for projection. The pulmonary vasculature is noncongested. Emphysema and chronic interstitial thickening is similar to previous. Scarring/atelectasis is noted at the lung bases. No airspace consolidation or large pleural effusion is identified. No pneumothorax is seen. The skeletal structures are osteopenic. The bony thorax is grossly intact. Calcific tendinopathy is noted in the right shoulder. IMPRESSION: Emphysematous change with no acute cardiopulmonary abnormality. ACT 112: Negative or not required by law. Electronically signed by: Andrea White M.D. 09/14/2021 6:46 PM Chest CTA 09/14/21 18:52 CT ANGIOGRAM OF THE CHEST CLINICAL HISTORY: Tachycardia. Hypoxia. Leukocytosis. Fever. COMPARISON STUDY: Chest x-ray dated 09/14/2021. Chest CT dated 01/08/2018. TECHNIQUE: Following the IV administration of 120 cc of Optiray 320, CT angiogram of the chest was performed from the upper abdomen to the thoracic inlet utilizing the pulmonary embolus protocol. Images are reviewed in the axial , sagittal, and coronal planes. 3-D MIPS images are created and assessed. IV contrast was administered without complication. A dose lowering technique was utilized adhering to the principles of ALARA. The examination is modestly degraded by motion artifact. CT DOSE: 385.81 mGy.cm FINDINGS: Thyroid: Imaged portions of the thyroid gland are normal in size and attenuation. Thoracic aorta: There is mild atherosclerotic calcification of the thoracic aorta, which is normal in caliber and demonstrates standard 3-vessel arch anatomy. No dissection is seen. Pulmonary vasculature: The pulmonary trunk is normal in caliber. There are no filling defects identified in main, lobar, or segmental pulmonary branches to suggest pulmonary embolus. Heart: The heart is normal in size and without pericardial effusion. Lungs and pleural spaces: Evaluation of the lung parenchyma is degraded by motion artifact. Moderate emphysematous change is identified. There are scattered tiny foci of tree-in-bud nodularity. No lobar consolidation or pleural effusion is identified. The trachea and central airways are clear. Diffuse peribronchial thickening is observed. A small fat-containing Bochdalek hernia is seen at the right lung base. A 2 mm right apical pulmonary nodule on image #269 is unchanged from 18 and of doubtful significance. Mediastinum: Mildly enlarged prevascular nodes measure up to 10 mm in short axis. Christa: Mildly enlarged hilar nodes measure up to 12 mm in short axis. Axillae: There is no axillary lymphadenopathy. Upper abdomen: A 2.8 cm right adrenal nodule meets CT criteria for a fat- containing adenoma. There is a tiny hiatal hernia. Partially visualized upper abdominal viscera is otherwise grossly unremarkable. Skeletal structures: The skeletal structures are osteopenic. No lytic or blastic bony lesions are seen. Degenerative change is noted in the shoulders and thoracic spine. IMPRESSION: 1. There is no evidence of pulmonary embolus in the main, lobar, or segmental pulmonary arteries. 2. Emphysema. 3. There is no lobar consolidation or pleural effusion. 4. Mild scattered foci of tree-in-bud nodularity are likely on an infectious/inflammatory basis. Clinical correlation required. 5. Diffuse peribronchial thickening suggests bronchitis/reactive airway disease. Clinical correlation will be required. 6. Mildly enlarged mediastinal and hilar lymph nodes are likely reactive ACT 112: Negative or not required by law. Electronically signed by: Andrea White M.D. 09/14/2021 8:17 PM Supervising Physician Co-Signing Physician Notes Attending addendum: I have physically seen this patient, have supervised the medical residents activities, and agree with the H&P unless as otherwise noted. Assessment and Plan: COPD exacerbation/bronchitis with hypoxia- Status post methylprednisolone 60 mg IV, azithromycin 500 mg IV, Tylenol 1 g IV and NSS 500 cc bolus by the ED Duonebs every 4 hours while awake and every 2 hours when necessary. Azithromycin 500 milligrams IV daily Guaifenesin extended release 12 mg p.o. twice daily Methylprednisolone 40 mg IV every 8 hours Oxygen supplementation titrate to keep pulse ox 92-94% Remaining orders and notations as noted Resident Activity Tracking Resident Involvement: Resident Care Provided Care Provided: Adult Hospital Medicine (1) Hypothyroidism Hypothyroidism type: acquired Qualified Code(s): E03.9 - Hypothyroidism, unspecified
[2021-09-14] MEDS: ALBUT/IPRATROP 3MG/0.5MG NEB 3 ML VIAL NEB SCH (21:29)
[2021-09-14] MEDS ORDERED: GLUCOSE 10 TABS/TUBE PO PRN (22:33)
[2021-09-14] MEDS ORDERED: CARBOHYDRATES FOR HYPOGLYCEMIA PO PRN (22:33)
[2021-09-14] MEDS ORDERED: GLUCOSE 40% GEL 15 GM TUBE PO PRN (22:33)
[2021-09-14] MEDS ORDERED: GLUCAGON FOR INJ 1 MG VIAL SQ PRN (22:33)
[2021-09-14] MEDS ORDERED: ACETAMINOPHEN 325 MG TAB PO PRN (22:33)
[2021-09-14] MEDS ORDERED: POLYETHYLENE (MIRALAX) 17 GM PACK PO PRN (22:33)
[2021-09-14] MEDS ORDERED: DEXTROSE 50% 50 ML SYRINGE IV PRN (22:33)
[2021-09-14] MEDS ORDERED: NITROGLYCERIN SL 0.4 MG/TAB TAB SL PRN (22:33)
[2021-09-14 22:36] LABS: Appearance Urine Clear (Clear); Bacteria Urine Automated Negative (Negative); Bilirubin Urine Negative (Negative); Blood Urine 1+ (Negative); Color Urine Yellow; Epithelial Cell Urine Auto >30 /lpf (0-5); Glucose Urine UA Trace (Negative); Ketones Urine Trace (Negative); Leukocyte Esterase Urine Negative (Negative); Nitrite Urine Negative (Negative); Protein Urine Trace (Negative); Specific Gravity Urine > 1.045 (1.000-1.030); Urobilinogen Urine Negative (Negative); pH Urine 5.5 (4.5-7.5)
[2021-09-14] MEDS ORDERED: PANTOprazole 40 MG TAB PO PRN (23:20)
[2021-09-15] MEDS ORDERED: INSULIN ASPART PER UNIT SC SCH
[2021-09-15 05:59] LABS: Basophils # (auto) 0.01 K/uL (0-0.2); Basophils % (auto) 0.1 %; Hematocrit (blood only) 46.5 % (37-47); Immature Granulocytes # (auto) 0.05 K/uL (0.00-0.02); Immature Granulocytes % (auto) 0.3 %; Lymphocytes # (auto) 0.59 K/uL (1.2-3.4); Lymphocytes % (auto) 3.6 %; Mean Corpuscular Hemoglobin 28.8 pg (25-34); Mean Corpuscular Hgb Conc 32.3 g/dL (32-36); Mean Corpuscular Volume 89.4 fL (80-100); Mean Platelet Volume 9.4 fL (7.4-10.4); Monocytes # (auto) 0.35 K/uL (0.11-0.59); Monocytes % (auto) 2.1 %; Neutrophils # (auto) 15.52 K/uL (1.4-6.5); Neutrophils % (auto) 93.9 %; Platelet Count 322 K/uL (130-400); RDW Coefficient of Variation 14.2 % (11.5-14.5); RDW Standard Deviation 46.2 fL (36.4-46.3); White Blood Count 16.52 K/uL (4.8-10.8)
[2021-09-15] MEDS: LEVOTHYROXINE SODIUM 75 MCG TABLET PO SCH (06:34)
[2021-09-15 07:08] LABS: Estimated Average Glucose 137 mg/dl; Hemoglobin A1C 6.4 % (4.5-5.6)
[2021-09-15] MEDS: ALBUT/IPRATROP 3MG/0.5MG NEB 3 ML VIAL NEB SCH ×2 (07:10→10:28)
--- NOTE | 2021-09-15 07:28 | Hospitalist Progress Note ---
Date of Service September 15, 2021 Assessment & Plan (1) Acute exacerbation of chronic obstructive pulmonary disease: Plan: 66 yo F with HLD, DM2, COPD, PAD, PACs, current smoker admitted for management of COPD exacerbation. COPD Exacerbation with Hypoxia - new oxygen requirement of 1L NC - chronically requires oxygen at nighttime per sleep study in 2018 - iv methylpred 60 given in ER, continued daily steroids, possible transition to PO prednisone tomorrow. - iv azithromycin and ceftriaxone added. - reportedly not using her daily advair inhaler. Fluticasone/vilante ordered for BID dosing. - QID duonebs scheduled, PRN Q4h. - Monitor vitals, O2 saturation to get back to baseline no oxygen use. Leukocytosis - wbc 21.88, likely due to COPD exacerbation - wbc this morning 16.52 - crp elevated but afebrile, mostly neutrophils - procal negative - CT chest not showing any signs of pneumonia, postinflammatory changes as above exacerbation - AM CBC, continue to trend. DM2 - holding metformin - SSI while on steroids Tobacco use - Discussed smoking cessation with patient, she has tried to quit in the past without much success, going for only a couple days at a time. - Told patient her COPD may get worse with her continued cigarette use and encouraged quitting again. - ppd smoker, 14 mcg nicotine patch Chronic Conditions HLD: statin weekly Restless legs/lumbar stenosis and pain: flexeril HS Depression/Anxiety: cont venlafaxine Hypothyroidism: cont levothyroxine DVT ppx: low risk, ambulate PRN FEN/GI: Dm2 diet, on pantoprazole Bowel regimen: prn miralax Code Status: FULL CODE, does not wish to be maintained on life support/ventilated long-term Dispo: Med/TEle (2) PAD (peripheral artery disease): (3) PAC (premature atrial contraction): (4) Type II diabetes mellitus with manifestations: (5) Hypothyroidism: (6) Tobacco use: (7) Nocturnal hypoxia: (8) Depression with anxiety: (9) Chronic reflux esophagitis: Admission and Anticipated Discharge Date Admission Date: September 14, 2021 Supervising Physician Co-Signing Physician Notes Patient seen and examined at bedside. Patient has acute COPD exacerbation. During face to face encounter, performed obtained brief history of today's symptoms and physical examination. Patient reports no signficant improvement from yesterday. Will add ceftriaxone. will continue current IV steroids. O2 sat goal 88-92 Discussed plan of care with Dr. Wood and patient. I reviewed above note and agree with it. Subjective Patient seen at bedside this morning. Patient states that she feels her shortness of breath has improved while at rest and laying down in bed but is still experiencing dyspnea on exertion when walking to and from bathroom. Patient says at home she usually uses her advair inhaler once or twice every 1 to 2 months. Patient has had frequent night time wakenings with coughing over the past few days. 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 Denies fevers, chills. Review of Systems Review of Systems: All systems reviewed & are unremarkable except as noted in HPI & below Physical Exam Constitutional: WD/WN, vitals as above Respiratory: Expiratory wheeze present at left upper lung field, otherwise clear. Cardiovascular: RRR, no murmur, no edema Gastrointestinal (Abdomen): normal bowel sounds, soft, nontender, no hepatosplenomegaly Results & Data Results & Data ([facility]) Vital Signs (Past 12 Hours) Vital Signs Temp Pulse Resp BP Pulse Ox 09/15/21 07:18 100 H 16 98 09/15/21 06:35 36.5 C 104 H 21 141/87 H 97 09/15/21 02:43 36.4 C L 93 H 18 124/72 95 09/14/21 22:16 36.8 C 103 H 18 140/93 96 09/14/21 20:22 98 H 26 H 137/86 93 Resident Activity Tracking Resident Involvement: Resident Care Provided Care Provided: Adult Hospital Medicine (1) Hypothyroidism Hypothyroidism type: acquired Qualified Code(s): E03.9 - Hypothyroidism, unspecified
[2021-09-15] MEDS: INSULIN ASPART PER UNIT SC SCH ×4 (09:06→21:10)
[2021-09-15] MEDS: NICOTINE 14 MG/24 HR PATCH TD SCH (09:13)
[2021-09-15] MEDS: methylPREDNISolone 40 MG in SYRINGE 0 ML IV SCH (09:43)
[2021-09-15] MEDS: VENLAFAXINE HCL XR 75 MG CAPXR PO SCH (09:43)
[2021-09-15] MEDS: FLUTICASONE/VILANTEROL 100/25MCG 14 PUFFS/INHALER INH SCH (09:44)
[2021-09-15] MEDS ORDERED: cefTRIAXone SODIUM 1,000 MG in DEXTROSE 5% 50 ML IV ONE (21:00)
[2021-09-15] MEDS ORDERED: CYCLOBENZAPRINE HCL 5 MG TAB PO SCH (21:00)
--- NOTE | 2021-09-15 21:02 | Billing Data ---
Date of Service September 15, 2021 Coding Level of Care Code 83015 Subseq Hosp Care Lvl 3 Time Spent (min) 35 Comment update patient, discussion with resident
[2021-09-15] MEDS ORDERED: cefTRIAXone SODIUM 1,000 MG in DEXTROSE 5% 50 ML IV SCH (21:13)
[2021-09-15] MEDS: ALBUT/IPRATROP 3MG/0.5MG NEB 3 ML VIAL NEB PRN (21:15)
[2021-09-15] MEDS: AZITHROMYCIN 500 MG in DEXTROSE 5% 250 ML IV SCH (21:15)
--- NOTE | 2021-09-15 21:45 | Electrocardiogram Report ---
Test Reason : Blood Pressure : / mmHG Vent. Rate : 132 BPM Atrial Rate : 132 BPM P-R Int : 146 ms QRS Dur : 072 ms QT Int : 294 ms P-R-T Axes : 074 089 065 degrees QTc Int : 435 ms Sinus tachycardia Premature atrial complexes When compared with ECG of 02-MAR-2019 20:36, Vent. rate has increased BY 48 BPM Premature atrial complexes are now Present Confirmed by Gerson Colon ([id number]) on 09/15/2021 9:45:12 PM Referred By: REFERRED SELF Confirmed By:Gerson Colon
--- NOTE | 2021-09-15 22:07 | Billing Data ---
Date of Service September 15, 2021 Coding Level of Care Code 20937 Initial Inpt Care Lvl 3
[2021-09-16] MEDS ORDERED: LORazepam 0.5 MG/1 ML VIAL IV STA (01:24)
[2021-09-16] MEDS ORDERED: MoRPHine SULFATE 2 MG/ML CARP IV STA ×2 (01:56→02:58)
[2021-09-16 02:23] LABS: Hematocrit (blood only) 46.6 % (37-47); Hemoglobin 15.2 g/dL (12.0-16.0); Mean Corpuscular Hemoglobin 29.4 pg (25-34); Mean Corpuscular Hgb Conc 32.6 g/dL (32-36); Mean Corpuscular Volume 90.1 fL (80-100); Mean Platelet Volume 9.6 fL (7.4-10.4); Platelet Count 430 K/uL (130-400); RDW Coefficient of Variation 14.2 % (11.5-14.5); RDW Standard Deviation 46.8 fL (36.4-46.3); Red Blood Count 5.17 M/uL (4.2-5.4); White Blood Count 27.19 K/uL (4.8-10.8)
[2021-09-16] MEDS: ALBUT/IPRATROP 3MG/0.5MG NEB 3 ML VIAL NEB PRN (02:25)
[2021-09-16 02:29] LABS: Base Excess ABG -0.4 mEq/L (-9-1.8); HCO3 ABG 30 mmol/L (19-24); Oxygen Saturation ABG 95.6 % (90-95); PCO2 ABG 75 mmHg (35-46); PO2 ABG 89 mmHg (80-95); pH ABG 7.22 (7.35-7.45)
[2021-09-16 02:30] LABS: Allen Test Pos (Pos)
--- NOTE | 2021-09-16 02:36 | Communication Note ---
Date of Service: September 16, 2021 Notified by nursing of patient having tachycardia 120s. Patient seen at bedside, visibly anxious, tachypneic. Satting 94 on 1LNC. 0.5 mg IV ativan ordered to help with anxiety and patient coached to slow breathing. On re-examination, O2 sat 91-94 on 4LNC, increased work of breathing, diaphoretic, tachypneic and tachycardic. ABG, CBC ordered. Respiratory called to place her on bipap mask. Received continuous duoneb treatment, but remains persistently tachycardic and increased work of breathing. ABG resulted 7.22/75/89/30 on 1LNC. WBC increased from 16k to 27k. Afebrile. CXR ordered. MRSA nares ordered. Currently on ceftriaxone and azithromycin.
[2021-09-16 02:37] LABS: Basophils # (auto) 0.02 K/uL (0-0.2); Basophils % (auto) 0.1 %; Immature Granulocytes # (auto) 0.09 K/uL (0.00-0.02); Immature Granulocytes % (auto) 0.3 %; Lymphocytes % (auto) 8.8 %; Monocytes # (auto) 4.85 K/uL (0.11-0.59); Monocytes % (auto) 17.8 %; Neutrophils # (auto) 19.83 K/uL (1.4-6.5); RBC Morphology Unremarkable
[2021-09-16] MEDS ORDERED: ALBUT/IPRATROP 3MG/0.5MG NEB 3 ML VIAL NEB ONE (02:38)
[2021-09-16 02:39] LABS: Calcium 9.2 mg/dl (8.5-10.1); Creatinine Clr Calc Pharmacy 69.7 ml/min; Est GFR (African American) 82.2 ml/min; Est GFR (Non-African American) 70.9 ml/min; Potassium 4.5 mmol/L (3.5-5.1)
[2021-09-16] MEDS ORDERED: methylPREDNISolone 125 MG in SYRINGE 0 ML IV STA (02:58)
[2021-09-16] MEDS ORDERED: methylPREDNISolone 125 MG/2 ML VIAL IV STA (03:03)
[2021-09-16] MEDS ORDERED: LORazepam 1 MG/2 ML VIAL IV PRN (03:10)
[2021-09-16] MEDS ORDERED: LORazepam 3 MG/6 ML VIAL IV PRN (03:10)
[2021-09-16] MEDS ORDERED: LORazepam 2 MG/4 ML VIAL IV PRN ×2 (03:10→11:03)
[2021-09-16] MEDS ORDERED: ATIVAN IV ALCOHOL WITHDRAWL IV PRN (03:10)
[2021-09-16] MEDS ORDERED: METOPROLOL TARTRATE 1 MG/ML VIAL IV ONE (03:52)
[2021-09-16] MEDS ORDERED: METOPROLOL TARTRATE 1 MG/ML VIAL IV STA (03:52)
[2021-09-16] MEDS ORDERED: ETOMIDATE 2 MG/ML 20 ML VIAL IV ONE (04:05)
[2021-09-16] MEDS ORDERED: SUCCINYLCHOLINE CHLORIDE 20 MG/ML 10 ML VIAL IV ONE (04:06)
[2021-09-16] MEDS ORDERED: PROPOFOL IV EMULSION 10 MG/ML 100 ML VIAL IV ONE (04:06)
--- NOTE | 2021-09-16 04:25 | Procedure Note ---
Procedure Note Date of Service September 16, 2021 Note I was asked by the inpatient team to assist with intubation of this patient for decompensating respiratory status, acute respiratory failure with hypercarbia. On my evaluation the patient is in respiratory distress on BiPAP, her mentation is diminished and she does not respond well to sternal rub. We will proceed with endotracheal intubation emergently. Endotracheal intubation: Rapid sequence intubation medications: 20 mg of etomidate, 80 mg of succinylcholine Utilizing glide scope sized [3.0] glide scope blade was advanced to the vallecula with visualization of the vocal cords following suctioning of thick mucus surrounding the vocal cords. Size [7.5] endotracheal tube was advanced utilizing glide scope stylette and passed through the vocal cords under direct visualization. ET tube balloon was inflated and secured at 23 cm at the lip. Appropriate color change was achieved with capnography. Breath sounds auscultated bilaterally following placement of the ET tube. Postprocedural chest x-ray was reviewed and shows appropriate positioning of the ET tube several centimeters above the madie. Patient tolerated the procedure well. Coding
[2021-09-16] MEDS: propofoL 1,000 MG/100 ML VIAL IV SCH ×6 (05:00→20:10)
[2021-09-16] MEDS ORDERED: STAT IV Infusion **Titration per Protocol STA ×3 (05:23→10:57)
[2021-09-16] MEDS ORDERED: PROPOFOL BOLUS FROM BAG IV PRN (05:23)
[2021-09-16] MEDS ORDERED: fentaNYL citrate 2,500 MCG/250 ML BAG IV ONE (05:25)
[2021-09-16] MEDS: fentaNYL citrate 2,500 MCG/250 ML BAG IV SCH (05:31)
[2021-09-16] MEDS ORDERED: ICU PROTOCOL FOR HYPERGLYCEMIA PRN (06:00)
--- NOTE | 2021-09-16 06:00 | Critical Care Consultation ---
Date of Consultation September 16, 2021 Assessment & Plan (1) Admitted to intensive care unit: Reason Critically Ill: 66-year-old female with acute COPD exacerbation with hypercapnic respiratory failure requiring emergent endotracheal intubation. NEURO - * CAM ICU: Unable to assess secondary to level of sedation. * Sedation: Propofol * Pain: Fentanyl CARDIAC/VASCULAR - * Tachycardia: * Patient has been evaluated in the outpatient setting for intermittent episodes of asymptomatic tachycardia. * Patient hemodynamically stable. * EKG: Sinus tachycardia at [address] or T wave changes noted. QTc 444 ms. * Monitor on telemetry. RESPIRATORY - * Acute hypoxic respiratory failure with hypercapnia in the setting of COPD exacerbation. * Per nursing staff, the patient became increasingly anxious and tachypneic throughout the night. She did not respond to anxiolytics. Did not appear to improve with BiPAP. Patient required emergent endotracheal intubation. * ABG as follows: 7.//30 * Will increase sedation to help better ventilate patient. * Continue w/ DuoNebs. * Currently receiving IV Solu-Medrol, Rocephin, Azithromycin. * Serial ABGs to aid in ventilator management. * Encourage smoking cessation when appropriate. GI/NUTRITION - * OGT in place * Prophylaxis: Famotidine RENAL/LYTES - * No significant electrolyte derangements. - * Peña in place - Strict I&Os. ENDO - * DMII * BSGs per unit protocol. ISS --> gtt per unit policy. HEME - * Stable H&H. * Marked leukocytosis on this AMs labs. * Again, broadly covered with antibiotics. * Possible degree of demargination w/ increased steroid dosing. ID - * COPD exacerbation: * Given patient's underlying lung pathology, chronicity of illness, and worsening respiratory status, agree w/ current antibiotics. * Order for sputum cultures. LINES/IV ACCESS - * PIVs x2 * ET Tube * Peña * OG DVT PROPHYLAXIS - * Lovenox * SCDs I have personally spent 45 minutes of critical care time in the direct management of this patient. This is a life/limb threatening event. This includes time spent evaluating patient, direct bedside care, chart review, placing orders, interpretation of diagnostic studies, discussion with consultants, patient, and family members, as well as other required patient management activities. This time is exclusive of all separately billable procedures, and teaching time and separate from and in addition to any other critical care service time. Thank you for allowing us to participate in the care of this patient. Please refer to my attending physician's documentation for any further recommendations. (2) Acute exacerbation of chronic obstructive pulmonary disease: (3) Respiratory failure with hypercapnia: (4) Tachycardia: (5) Hypoxia: History of Present Illness Attending Physician: Zhang Thompson MD History of Present Illness Patient is a 66-year-old female with a significant past medical history of COPD, depression with anxiety, hypercholesterolemia, restless leg syndrome, type 2 diabetes, and intermittent tachycardia. Patient presented to the emergency department on 09/14 with complaints of worsening shortness of breath and nonproductive cough. The patient has been ill for approximately 1 month. She continues to smoke approximately 1 pack/day. Patient had been receiving IV steroids, ceftriaxone, and azithromycin with concerns for COPD exacerbation with possible secondary pneumonia. Unfortunately, earlier this morning, the patient developed worsening tachypnea. Blood gas was suggestive of respiratory acidosis with hypercapnia. Patient required intubation in the emergency department. Upon my assessment in the emergency department, the patient is intubated and sedated. She has diffuse wheezing throughout all lung mina. She is dyssynchronous with the ventilator. Increase in sedation in progress. Allergies Allergy/AdvReac Type Severity Reaction Status Date / Time bee venom protein (honey bee) Allergy Severe HIVES AND Verified 09/14/21 20:31 ANAPHYLAXIS Penicillins Allergy Severe HIVES Verified 09/14/21 20:31 Sulfa (Sulfonamide Allergy Severe High Verified 09/14/21 20:31 Antibiotics) fever, broke out with spider veins all over doxycycline Allergy Unknown Unknown Verified 09/14/21 20:31 egg Allergy Unknown Unknown Verified 09/14/21 20:31 grass pollen Allergy Unknown Unknown Verified 09/15/21 20:28 milk AdvReac Mild Diarrhea Verified 09/14/21 20:31 Home Medications Medication Instructions Recorded Confirmed Type albuterol sulfate 90 mcg/actuation 1 - 2 puff INHALATION Q4 PRN 02/20/19 09/14/21 History aerosol inhaler (ProAir HFA) clobetasol 0.05 % topical ointment 1 appln TOP BID PRN gm 02/18/20 09/14/21 History epinephrine 0.3 mg/0.3 mL 0.3 mg IM Q3H PRN #1 ea 03/02/20 09/14/21 Rx injection, auto-injector (EpiPen) ipratropium 0.5 mg-albuterol 3 mg 3 ml INHALATION QID PRN #90 ml 07/01/20 09/14/21 Rx (2.5 mg base)/3 mL nebulization soln omeprazole 40 mg capsule,delayed 40 mg PO DAILY PRN #30 cap 12/28/20 09/14/21 Rx release venlafaxine 75 mg capsule,extended 75 mg PO DAILY #90 cap 12/30/20 09/14/21 Rx release 24 hr (Effexor XR) metformin 500 mg tablet,extended 1,000 mg PO BID 30 Days #120 tab 06/03/21 09/14/21 Rx release 24 hr fluticasone propionate 115 2 puff INH BID #12 g 07/12/21 09/14/21 Rx mcg-salmeterol 21 mcg/actuation HFA inhaler (Advair HFA) levothyroxine 75 mcg tablet 75 mcg PO DAILY #30 tab 07/18/21 09/14/21 Rx terbinafine HCl 250 mg tablet 250 mg PO DAILY 14 Days #14 tab 08/31/21 09/14/21 Rx cyclobenzaprine 5 mg tablet 5 mg PO HS 09/14/21 09/14/21 History rosuvastatin 5 mg tablet 5 mg PO WK 09/14/21 09/14/21 History Patient History Medical History (Updated 09/16/21 @ 05:51 by Wali Newby PA-C) Allergy to bugs 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 Chronic obstructive pulmonary disease inhalers daily Chronic reflux esophagitis Depression currently off meds for 3 weeks Depression with anxiety Diabetes mellitus, type 2 Fibromyalgia Gastropathy GERD (gastroesophageal reflux disease) History of colon polyps Hypercholesterolemia Hypothyroidism Kidney stones Lichen sclerosus et atrophicus Lumbar canal stenosis Memory loss Nocturnal hypoxia Obesity Osteoarthritis Overweight Restless legs syndrome Sleep apnea had sleep study performed 07/2018 was instructed to start oxygen at night (drops to 86% when sleeping), has not started yet Snoring Tobacco use Urinary incontinence Surgical History History of colonoscopy History of dilatation and curettage History of right cataract extraction during procedure "pupil was damaged and no longer dilates" History of tooth extraction History of total right knee replacement (TKR) History of umbilical hernia repair History of wisdom tooth extraction Hx of eye surgery left laser for retinal bleed Family History Aunt History of anesthesia reaction "her heart stopped with any anesthesia"--no one else in the family has any issues Grandmother (Paternal) Family history of diabetes mellitus Grandfather (Maternal) Family hx of colon cancer Colon cancer Father Heart disease Stroke Mother Dementia Diabetes Macular degeneration Alzheimer disease Autoimmune disease Brother Squamous cell carcinoma of skin Atrial fibrillation Other Basal cell carcinoma Denies family history of Ovarian cancer Prostate cancer Myocardial infarction Breast cancer Social History Smoking Status: Current every day smoker Age Started Using Tobacco: 18; packs per day: 1; Cigarettes Per Day: 1 pack; Second Hand Exposure: Yes (self); Do You Dip or Chew Tobacco: No; Hx Alcohol Use: Yes Alcohol type: hard liquor Alcohol Intake Frequency: Monthly or Less Hx Substance Use: No Preferred Language: Korean Communication Ability: Effective Visual Impairment: No Limitations Hearing Ability: Normal Lease Administration Supervisor Required: No Beliefs That Will Affect Care: None marital status: Current Living Situation: Spouse current occupational status: retired How many Children do You have: 2 Other Information That Helps Us Care for You: No Feels Safe at Home: Yes Childhood Exposure to Second-Hand Smoke: Yes Diet Comment: no specific diet Dental Care, Regularly: Yes Physical Activity Frequency: 1-2 Times per Week Seatbelt Use: always Sunscreen Use: Yes Do you think of yourself as: straight/heterosexual Assistive Devices: Oxygen - Continuous Review of Systems Review of Systems: Unobtainable due to endotracheal tube and Unobtainable due to reduced consciousness Physical Exam Physical Exam: VITAL SIGNS - Vital signs and nursing notes were reviewed. GENERAL - 66-year-old female appearing her stated age who is intubated and sedated. HEAD - NC/AT. EYES - PERRL with EOMI bilaterally. Sclera anicteric. EARS - No deformities of external structures noted on gross examination bilaterally. NOSE - Midline and without cyanosis. No epistaxis or purulent drainage noted. MOUTH/OROPHARYNX - ET Tube in place. Without perioral cyanosis. NECK - Neck with FROM. Supple to palpation. LUNGS - Accessory muscle use noted. Diffuse inspiratory and expiratory wheezes noted throughout all lung mina. CARDIAC - RRR with S1/S2. No murmur, rubs, or gallops appreciated. ABDOMEN - Abdominal contour obese without pulsations or visible masses. BS normoactive all four quadrants. No tenderness, palpable masses, hepatosplenomeg alina, or ascites noted. EXTREMITIES - No clubbing or peripheral cyanosis. No pretibial edema present. +3/5 radial and dorsalis pedis pulses palpated throughout. NEUROLOGIC - Cranial nerves II through XII grossly intact. Moves upper and lower extremities equally bilaterally. Unable to perform further assessment secondary to level of sedation. Results & Data Results & Data ([facility]) Vital Signs (Past 12 Hours) Vital Signs Temp Pulse Pulse Resp BP Pulse Ox 09/16/21 04:34 109 H 24 125/107 H 97 09/16/21 04:20 98 H 26 H 95 09/16/21 02:40 84 36 H 95 09/16/21 02:39 127 H 35 H 95 09/16/21 02:38 36.4 C L 09/16/21 02:25 130 H 30 H 96 09/16/21 02:17 127 H 36 H 95 09/16/21 02:00 136 H 34 H 94 09/16/21 00:11 36.9 C 110 H 24 139/96 94 09/15/21 23:00 124 H 20 135/88 92 09/15/21 21:13 37.0 C 110 H 18 136/94 93 09/15/21 18:43 99 H 22 141/81 H 95 Coding Level of Care Code Critical Care 1st 30-74 mins Diagnoses Admitted to intensive care unit Z78.9 Acute exacerbation of chronic obstructive pulmonary disease J44.1 Respiratory failure with hypercapnia J96.92 Tachycardia R00.0 Hypoxia R09.02 Time Spent (min) 45
[2021-09-16] MEDS: FAMOTIDINE 20 MG in SYRINGE 3 ML IV SCH ×2 (06:21→16:49)
[2021-09-16] MEDS: LEVOTHYROXINE SODIUM 75 MCG TABLET PO SCH (06:21)
[2021-09-16] MEDS: ENOXAPARIN INJ 40 MG/0.4 ML SYR SQ SCH (06:23)
[2021-09-16] MEDS ORDERED: NOREPINEPHRINE/D5W 8 MG/508 ML IV ONE (06:24)
[2021-09-16] MEDS: NOREPINEPHRINE/D5W 8 MG/508 ML BAG IV SCH (06:26)
--- NOTE | 2021-09-16 07:04 | Hospitalist Progress Note ---
Date of Service September 16, 2021 Assessment & Plan (1) Acute exacerbation of chronic obstructive pulmonary disease: Plan: 66 yo F with HLD, DM2, COPD, PAD, PACs, current smoker admitted for management of COPD exacerbation. COPD Exacerbation with Hypoxia - Patient came in with new O2 requirement of 1L - Night of 09/15 developed tachypnea, tachycardia, diaphoresis without improvement with duoneb, ativan, or Bipap. - Required intubation for worsening respiratory effort despite the above interventions. - Transferred to ICU. - Monitor vitals, continue current regimen for COPD exacerbation, serial ABGs to aid in vent management. - chronically requires oxygen at nighttime per sleep study in 2018 - IV methylpred 60 given in ER, given Solu-medrol for possible vocal cord spasm. - IV azithromycin and ceftriaxone for COPD exacerbation and possible underlying infection. - reportedly not using her daily advair inhaler. Fluticasone/vilante ordered for BID dosing. - QID duonebs scheduled, PRN Q4h. - Continue ICU monitoring. Leukocytosis - wbc 21.88, likely due to COPD exacerbation - wbc this morning 27.19, likely increased this morning 2/2 stress from last night. - crp elevated but afebrile, mostly neutrophils - procal negative - CT chest not showing any signs of pneumonia, postinflammatory changes as above exacerbation - Sputum cultures ordered. DM2 - holding metformin - SSI while on steroids Tobacco use - Discussed smoking cessation with patient, she has tried to quit in the past without much success, going for only a couple days at a time. - Told patient her COPD may get worse with her continued cigarette use and encouraged quitting again. - ppd smoker, 14 mcg nicotine patch Chronic Conditions HLD: statin weekly Restless legs/lumbar stenosis and pain: flexeril HS Depression/Anxiety: cont venlafaxine Hypothyroidism: cont levothyroxine DVT ppx: Lovenox, SCDs FEN/GI: Dm2 diet, on pantoprazole Bowel regimen: prn miralax Code Status: FULL CODE, does not wish to be maintained on life support/ventilated machine long goods helper Dispo: ICU (2) PAD (peripheral artery disease): (3) PAC (premature atrial contraction): (4) Type II diabetes mellitus with manifestations: (5) Hypothyroidism: (6) Tobacco use: (7) Nocturnal hypoxia: (8) Depression with anxiety: (9) Chronic reflux esophagitis: Admission and Anticipated Discharge Date Admission Date: September 15, 2021 Supervising Physician Co-Signing Physician Notes Patient seen and examined, chart reviewed, case discussed with Dr. Wood and I agree with the assessment and plan as above except as otherwise noted a brenda. General: Sedated. Opens eyes transiently to touch. NAD. Cooperative. HEENT: Atraumatic, normocephalic. Pulm:Ventilated. Symmetrical chest rise. No increase work of breathing. No respiratory distress. Cardiac: RRR, -mrg. Radial pulses intact and symmetrical. Abdominal: Nontender, nondistended, soft. BS present. All labs and images reviewed [facility]2 Ao COPD: Anxious with tachypnea, several days of worsening sx. COVID negative at admit. Steroids/Azithro/Rocephin. ABG 7.22/75/89/30, intubated and sedated. Hypotensive following sedative agents, on low dose norepi. Sputum culture pending. Leukocytosis 27, NLR ~8.3. Procal 0.23. CTA: There is no evidence of pulmonary embolus in the main, lobar, or segmental pulmonary arteries. Emphysema. There is no lobar consolidation or pleural effusion. Mild scattered foci of tree-in-bud nodularity are likely on an infectious/inflammatory basis. Clinical correlation required. Diffuse peribronchial thickening suggests bronchitis/reactive airway disease. Clinical correlation will be required. Mildly enlarged mediastinal and hilar lymph nodes are likely reactive DM2: Insulin gtt ICU protocol Lovenox DVT PPx NPO 2/2 mechanical vent, OG with trickle feeds Subjective Patient seen at the bedside this morning. Patient had developed tachypnea, tachycardia, and diaphoresis last night without improvement with duonebs, ativan, or bipap. Subsequently patient intubated and moved to ICU. Physical Exam Eyes: PERRL, conjunctivae normal, anicteric sclerae Respiratory: Wheezes throughout lungs bilaterally. On ventilator. Cardiovascular: RRR, no murmur, no edema Psychiatric: Sedated. Results & Data Results & Data ([facility]) Vital Signs (Past 12 Hours) Vital Signs Temp Pulse Pulse Resp BP BP Pulse Ox 09/16/21 06:21 37.2 C 94 H 20 75/51 L 94 09/16/21 06:14 37.1 C 95 H 20 76/49 L 94 09/16/21 06:13 37.2 C 94 H 20 66/49 L 95 09/16/21 06:00 37.1 C 99 H 14 123/98 89 L 09/16/21 05:34 36.7 C 102 H 22 107/73 94 09/16/21 05:33 36.6 C 103 H 21 92/74 L 94 09/16/21 05:30 36.4 C L 104 H 22 98/73 L 95 09/16/21 05:21 35.0 C L 113 H 23 149/80 H 94 09/16/21 05:18 34.1 C L 108 H 22 99/77 L 96 09/16/21 04:34 109 H 24 125/107 H 97 09/16/21 04:20 98 H 26 H 95 09/16/21 02:40 84 36 H 95 09/16/21 02:39 127 H 35 H 95 09/16/21 02:38 36.4 C L 09/16/21 02:25 130 H 30 H 96 09/16/21 02:17 127 H 36 H 95 09/16/21 02:00 136 H 34 H 94 09/16/21 00:11 36.9 C 110 H 24 139/96 94 09/15/21 23:00 124 H 20 135/88 92 09/15/21 21:13 37.0 C 110 H 18 136/94 93 Resident Activity Tracking Resident Involvement: Resident Care Provided Care Provided: Adult Hospital Medicine (1) Hypothyroidism Hypothyroidism type: acquired Qualified Code(s): E03.9 - Hypothyroidism, unspecified
--- NOTE | 2021-09-16 07:25 | XRay Report ---
XR chest 1V portable HISTORY: 66 years-old Female tachypneia acute shortness of breath COMPARISON: Chest radiograph and CTA chest 09/14/2021 TECHNIQUE: Portable AP view of the chest FINDINGS: The cardiomediastinal and hilar silhouettes are within normal limits. There is no pneumothorax, pleur al effusion or overt pulmonary edema. No airspace consolidation typical for pneumonia. Emphysema. Sub tle reticular nodular densities are better seen on the comparison CTA of the chest. Degenerative thomas ges of the shoulders and spine. IMPRESSION: Emphysema with subtle reticular nodular opacities suggestive of an infectious or inflamma tory bronchiolitis are better characterized on the 09/14/2021 CTA of the chest. ACT 112: Negative or not required by law. The above report was generated using voice recognition software. It may contain grammatical, syntax o r spelling errors. Electronically signed by: Jose Cao M.D. 09/16/2021 7:24 AM
--- NOTE | 2021-09-16 07:27 | XRay Report ---
XR chest 1V portable HISTORY: 66 years-old Female s/p intubation acute respiratory failure COMPARISON: Chest radiograph 09/16/2021, CTA chest 09/14/2021 TECHNIQUE: Portable AP view of the chest FINDINGS: Endotracheal tube overlies the midline, 2.5 cm superior to the madie. The cardiomediastinal and sandi r silhouettes are within normal limits. There is no pneumothorax, pleural effusion or overt pulmonary edema. No airspace consolidation typical for pneumonia. Emphysema. Subtle reticular nodular densitie s are better seen on the comparison CTA of the chest. Corticated bone fragment along the suture dawson n of the right humeral head is suggestive of a chronic fracture fragment versus rotator cuff calcific tendinosis. Degenerative changes of the shoulders and spine. IMPRESSION: 1. Endotracheal tube overlies the midline, 2.5 cm superior to the madie. 2. Emphysema with subtle reticular nodular opacities suggestive of an infectious or inflammatory bron chiolitis are better characterized on the 09/14/2021 CTA of the chest. ACT 112: Negative or not required by law. The above report was generated using voice recognition software. It may contain grammatical, syntax o r spelling errors. Electronically signed by: Jose Cao M.D. 09/16/2021 7:26 AM
[2021-09-16] MEDS: FLUTICASONE/VILANTEROL 100/25MCG 14 PUFFS/INHALER INH SCH (08:11)
[2021-09-16] MEDS: NICOTINE 14 MG/24 HR PATCH TD SCH (08:12)
[2021-09-16] MEDS: methylPREDNISolone 40 MG in SYRINGE 0 ML IV SCH (08:12)
[2021-09-16] MEDS: VENLAFAXINE HCL XR 75 MG CAPXR PO SCH (08:12)
[2021-09-16] MEDS: INSULIN ASPART PER UNIT SC SCH ×4 (08:13→20:09)
[2021-09-16 09:16] LABS: Magnesium 2.3 mg/dl (1.8-2.4); Phosphorus 3.9 mg/dl (2.5-4.9)
[2021-09-16 09:40] LABS: iSTAT Allen Test Pass; iSTAT Arterial Blood Gas HCO3 29 meg/L (19-24); iSTAT Arterial Blood Gas pCO2 55 mmHg (35-46); iSTAT Arterial Blood Gas pH 7.33 (7.35-7.45); iSTAT Arterial Blood Gas pO2 74 mmHg (80-95); iSTAT Carbon Dioxide 30 mmol/L (24-31); iSTAT FiO2 30 %; iSTAT Site R Radial
[2021-09-16] MEDS ORDERED: INSULIN PROTOCOL GOAL RANGE ONE (10:57)
[2021-09-16] MEDS ORDERED: NovoLIN-R BOLUS FROM BAG IV ONE (11:15)
[2021-09-16] MEDS ORDERED: PEPTAMEN INTENSE VHP 1.0 CAL 1,000 ML BAG OG SCH (11:30)
[2021-09-16] MEDS: INSULIN REGULAR 250 UNITS in SODIUM CHLORIDE 0.9% 247.5 ML IV SCH (11:39)
[2021-09-16] MEDS: TUBE FEEDING WATER FLUSH OG SCH ×4 (12:11→23:49)
--- NOTE | 2021-09-16 16:14 | Electrocardiogram Report ---
Test Reason : Blood Pressure : / mmHG Vent. Rate : 125 BPM Atrial Rate : 125 BPM P-R Int : 150 ms QRS Dur : 072 ms QT Int : 308 ms P-R-T Axes : 078 076 065 degrees QTc Int : 444 ms Sinus tachycardia Otherwise normal ECG When compared with ECG of 14-SEP-2021 17:41, Premature atrial complexes are no longer Present Confirmed by Saleem Rosario ([id number]) on 09/16/2021 4:14:23 PM Referred By: REFERRED SELF Confirmed By:Saleem Rosario
--- NOTE | 2021-09-16 17:38 | Billing Data ---
Date of Service September 16, 2021 Coding Level of Care Code 39352 Subseq Hosp Care Lvl 1
--- NOTE | 2021-09-16 17:53 | Communication Note ---
Date of Service: September 16, 2021 Critical CARE addendum: Patient seen and examined at bedside. No acute distress, no adverse events overnight. On propofol 50 and fentanyl 50 at the time of examination. She was also on Levophed 0.05 Patient was breathing event. Constitutional: No acute distress HEENT: PERRLA, positive ETT Respiratory system: Decreased air entry bilaterally, no wheeze, rhonchi, mild crackles bilateral lower lobes CVS: S1-S2 positive, no murmurs or gallops Abdomen: Soft, nontender, nondistended, positive bowel sounds x4 Extremities: +2 pulses bilaterally radialis/ dorsalis pedis, no cyanosis, no edema Neuro: Breathing with the vent, positive corneal, positive gag Psych: Unable to assess G/U: Positive Peña --Prophylaxis VTE: Lovenox GI: Pepcid Lines: Peripheral Diet: N.p.o. Plan: In/out: +601, urine output 150 AB.22/75/89 on FiO2 30%, tidal volume 400 with respiratory 20 Tidal volume was increased to 430 Chest x-ray does not show any clear infiltrate. Continue with Solu-Medrol along with azithromycin and Rocephin. QTC 446 Change patient's Effexor ER to regular release. Discussed with RN and pharmacy I have personally spent additional 30 minutes of critical care time in the direct management of this patient. This is a life/limb threatening event. This includes time spent evaluating patient, direct bedside care, chart review, placing orders, interpretation of diagnostic studies, discussion with consultants, patient, and family members, as well as other required patient management activities. This time is exclusive of all separately billable procedures, and teaching time and separate from and in addition to any other critical care service time. Please note the above document was generated using voice recognition software. It may contain grammatical, syntax or spelling errors. Coding Level of Care Code Critical Care dez whittingtont'l 30 min
[2021-09-16] MEDS: VENLAFAXINE HCL 37.5 MG TAB PO SCH (20:10)
[2021-09-16] MEDS: AZITHROMYCIN 500 MG in DEXTROSE 5% 250 ML IV SCH (20:12)
[2021-09-16] MEDS: cefTRIAXone SODIUM 2,000 MG in DEXTROSE 5% 50 ML IV SCH (23:49)
[2021-09-17] MEDS: propofoL 1,000 MG/100 ML VIAL IV SCH ×8 (02:04→20:59)
[2021-09-17] MEDS: TUBE FEEDING WATER FLUSH OG SCH ×5 (04:05→20:58)
[2021-09-17 04:59] LABS: iSTAT Allen Test Pass; iSTAT Arterial Blood Gas HCO3 27 meg/L (19-24); iSTAT Arterial Blood Gas pCO2 46 mmHg (35-46); iSTAT Arterial Blood Gas pH 7.38 (7.35-7.45); iSTAT Arterial Blood Gas pO2 75 mmHg (80-95); iSTAT Carbon Dioxide 29 mmol/L (24-31); iSTAT FiO2 30 %; iSTAT Site R Radial
[2021-09-17] MEDS: FAMOTIDINE 20 MG in SYRINGE 3 ML IV SCH ×2 (06:06→17:42)
[2021-09-17] MEDS: ENOXAPARIN INJ 40 MG/0.4 ML SYR SQ SCH (06:06)
[2021-09-17] MEDS: LEVOTHYROXINE SODIUM 75 MCG TABLET PO SCH (06:07)
[2021-09-17 06:32] LABS: Hematocrit (blood only) 39.9 % (37-47); Hemoglobin 12.9 g/dL (12.0-16.0); Mean Corpuscular Hemoglobin 28.5 pg (25-34); Mean Corpuscular Hgb Conc 32.3 g/dL (32-36); Mean Corpuscular Volume 88.1 fL (80-100); Mean Platelet Volume 9.5 fL (7.4-10.4); Platelet Count 399 K/uL (130-400); RDW Coefficient of Variation 14.3 % (11.5-14.5); RDW Standard Deviation 46.1 fL (36.4-46.3); Red Blood Count 4.53 M/uL (4.2-5.4); White Blood Count 17.12 K/uL (4.8-10.8)
[2021-09-17 06:33] LABS: Basophils # (auto) 0.03 K/uL (0-0.2); Basophils % (auto) 0.2 %; Immature Granulocytes # (auto) 0.04 K/uL (0.00-0.02); Immature Granulocytes % (auto) 0.2 %; Lymphocytes # (auto) 1.57 K/uL (1.2-3.4); Lymphocytes % (auto) 9.2 %; Monocytes # (auto) 2.67 K/uL (0.11-0.59); Monocytes % (auto) 15.6 %; Neutrophils # (auto) 12.81 K/uL (1.4-6.5); Neutrophils % (auto) 74.8 %
[2021-09-17 07:08] LABS: BUN Creatinine Ratio 29.8 (10-20); Calcium 9.2 mg/dl (8.5-10.1); Creatinine Clr Calc Pharmacy 33.3 ml/min; Est GFR (African American) 34.3 ml/min; Est GFR (Non-African American) 29.6 ml/min; Magnesium 2.6 mg/dl (1.8-2.4); Phosphorus 4.9 mg/dl (2.5-4.9); Potassium 4.6 mmol/L (3.5-5.1)
--- NOTE | 2021-09-17 07:12 | Hospitalist Progress Note ---
Date of Service September 17, 2021 Assessment & Plan (1) Acute exacerbation of chronic obstructive pulmonary disease: Plan: 66 yo F with HLD, DM2, COPD, PAD, PACs, current smoker admitted for management of COPD exacerbation. COPD Exacerbation with Hypoxia - Patient came in with new O2 requirement of 1L - Night of 09/15 developed tachypnea, tachycardia, diaphoresis without improvement with duoneb, ativan, or Bipap. - Required intubation for worsening respiratory effort despite the above interventions. - Transferred to ICU. - Monitor vitals, continue current regimen for COPD exacerbation, serial ABGs to aid in vent management. - chronically requires oxygen at nighttime per sleep study in 2018 - IV methylpred 60 given in ER, given Solu-medrol for possible vocal cord spasm. - IV azithromycin and ceftriaxone for COPD exacerbation and possible underlying infection. - reportedly not using her daily advair inhaler. Fluticasone/vilante ordered for BID dosing. - QID duonebs scheduled, PRN Q4h. - Continue ICU monitoring. Leukocytosis - wbc 21.88, likely due to COPD exacerbation - wbc this morning 17.12, down from 27.19, likely increased this morning 2/2 stress from last night. - crp elevated but afebrile, mostly neutrophils - procal negative - CT chest not showing any signs of pneumonia, postinflammatory changes as above exacerbation - Sputum cultures ordered, blood cultures negative 2/2. DM2 - holding metformin - SSI while on steroids Tobacco use - Discussed smoking cessation with patient, she has tried to quit in the past without much success, going for only a couple days at a time. - Told patient her COPD may get worse with her continued cigarette use and encouraged quitting again. 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 Wood and I agree with the assessment and plan as above except as otherwise noted above. General: Sedated. Opens eyes transiently to touch. NAD. Cooperative. HEENT: Atraumatic, normocephalic. Pulm:Ventilated. Symmetrical chest rise. No increase work of breathing. No respiratory distress. Cardiac: RRR, -mrg. Radial pulses intact and symmetrical. Abdominal: Nontender, nondistended, soft. BS present. labs and images reviewed [facility] 2/2 Ao COPD: Anxious with tachypnea, several days of worsening sx. COVID negative at admit. Continued on Rocephin, Solu-Medrol, and azithromycin. Intubated and sedated. Hypotensive following sedative agents, on low dose norepi weaned and restarted, currently at 0.03 MCG/KG/MIN. Leukocytosis 27 initially, downtrending. On admit NLR ~8.3. Procal 0.23. CTA: There is no evidence of pulmonary embolus in the main, lobar, or segmental pulmonary arteries. Emphysema. There is no lobar consolidation or pleural effusion. Mild scattered foci of tree-in-bud nodularity are likely on an infectious/inflammatory basis. Clinical correlation required. Diffuse peribronchial thickening suggests bronchitis/reactive airway disease. Clinical correlation will be required. Mildly enlarged mediastinal and hilar lymph nodes are likely reactive. Repeat chest x-ray Interval improvement of peribronchial thickening. Findings likely represent improving infectious/inflammatory process. morning blood gas 7.3 /75/27 Creatinine: Elevated to 1.75 from normal baseline, likely prerenal. On trickle feeds, NSS 125/h fluid maintenance, norepi as above. DM2: Insulin gtt ICU protocol Lovenox DVT PPx NPO 2/2 mechanical vent, OG with trickle feeds Subjective Patient seen at the bedside this morning. Patient laying in bed with intubation and sedated. Physical Exam Respiratory: Expiratory wheezes present bilaterally. Intubated. Cardiovascular: RRR, no murmur, no edema Gastrointestinal (Abdomen): normal bowel sounds, soft, nontender, no hepatosplenomegaly Results & Data Results & Data ([facility]) Vital Signs (Past 12 Hours) Vital Signs Temp Pulse Resp BP Pulse Ox 09/17/21 03:00 68 20 94 09/16/21 23:25 71 21 93 09/16/21 23:00 37.4 C 73 20 102/64 93 09/16/21 22:45 37.4 C 74 20 98/65 L 93 09/16/21 22:30 37.4 C 77 20 101/65 93 09/16/21 22:15 37.4 C 77 20 98/63 L 92 09/16/21 22:00 37.4 C 78 20 98/64 L 92 09/16/21 21:45 37.4 C 81 20 102/64 92 09/16/21 21:30 37.4 C 82 20 99/63 L 91 09/16/21 21:15 37.5 C 82 20 100/65 91 09/16/21 21:00 37.5 C 87 20 106/65 93 09/16/21 20:45 37.5 C 74 20 90/60 L 93 09/16/21 20:30 37.6 C H 69 18 96/62 L 94 09/16/21 20:20 85 20 94 09/16/21 20:15 37.5 C 69 18 94/60 L 94 09/16/21 20:00 37.5 C 71 17 91/59 L 94 09/16/21 19:45 37.6 C H 72 18 95/61 L 93 09/16/21 19:30 37.5 C 72 20 93/61 L 93 09/16/21 19:15 37.5 C 72 18 90/59 L 93 Resident Activity Tracking Resident Involvement: Resident Care Provided Care Provided: Adult Hospital Medicine (1) Hypothyroidism Hypothyroidism type: acquired Qualified Code(s): E03.9 - Hypothyroidism, unspecified
[2021-09-17] MEDS: INSULIN ASPART PER UNIT SC SCH ×4 (07:56→20:59)
[2021-09-17] MEDS: NICOTINE 14 MG/24 HR PATCH TD SCH (08:45)
[2021-09-17] MEDS: VENLAFAXINE HCL 37.5 MG TAB PO SCH ×2 (08:45→21:00)
[2021-09-17] MEDS: MULTI VIT W/MINERALS LIQUID 15 ML UDP NG SCH (08:45)
[2021-09-17] MEDS: methylPREDNISolone 40 MG in SYRINGE 0 ML IV SCH (08:46)
--- NOTE | 2021-09-17 08:46 | Critical Care Progress Note ---
Date of Service September 17, 2021 Assessment & Plan (1) Respiratory failure with hypercapnia: (2) Admitted to intensive care unit: (3) Acute exacerbation of chronic obstructive pulmonary disease: (4) Family history of atrial fibrillation: (5) Lumbosacral radiculopathy at L4: (6) Type II diabetes mellitus with manifestations: (7) Chronic obstructive pulmonary disease: (8) Tobacco use: Plan: Reason Critically Ill: 66-year-old female with acute COPD exacerbation with hypercapnic respiratory failure requiring emergent endotracheal intubation. NEURO - * CAM ICU: Unable to assess secondary to level of sedation. * Sedation: Propofol * Pain: Fentanyl CARDIAC/VASCULAR - * EKG: Sinus tachycardia at [address] or T wave changes noted. QTc 444 ms. * Monitor on telemetry RESPIRATORY - * VDRF secondary to acute hypoxic respiratory failure with hypercapnia in the setting of COPD exacerbation. * Intubated 09/16/2021 * COVID-19 PCR negative * Nasal MRSA negative * Sputum culture negative to date * Continue w/ DuoNebs. * Currently receiving IV Solu-Medrol, Rocephin, Azithromycin. GI/NUTRITION - * OGT in place * Prophylaxis: Famotidine RENAL/LYTES - * -- BRANDON Likely prerenal from hypotension Monitor BUN/creatinine Avoid nephrotoxic medications Strict ins and outs - * Peña in place - Strict I&Os. ENDO - * DMII * BSGs per unit protocol. ISS --> gtt per unit policy. HEME - * Stable H&H. ID - * COPD exacerbation: * Given patient's underlying lung pathology, chronicity of illness, and worsening respiratory status, agree w/ current antibiotics. * Sputum culture negative to date --Prophylaxis VTE: Lovenox GI: Pepcid Lines: Peripheral Diet: Tube feeds Plan: In/out: +682, urine output 600 AB.38/46/75 on PEEP of 530% We'll try to go down on the sedation so the patient is breathing over the vent. There is no active wheeze once the patient starts to wake up will give a trial of SBT For the BRANDON and will give the patient normal saline 125 mils an hour for 12 hours. Keep a close eye on urine output. I have personally spent additional 35 minutes of critical care time in the direct management of this patient. This is a life/limb threatening event. This includes time spent evaluating patient, direct bedside care, chart review, placing orders, interpretation of diagnostic studies, discussion with consultants, patient, and family members, as well as other required patient management activities. This time is exclusive of all separately billable procedures, and teaching time and separate from and in addition to any other critical care service time. Please note the above document was generated using voice recognition software. It may contain grammatical, syntax or spelling errors. Admission and Anticipated Discharge Date Admission Date: September 15, 2021 Subjective Patient seen and examined at bedside. No acute distress, no adverse events overnight. Patient was breathing with the vent. She was on propofol 40, fentanyl 50 at the time of examination She was only responding to sternal rub. RASS -3 Review of Systems Review of Systems: Unobtainable due to endotracheal tube Physical Exam Physical Exam: Constitutional: No acute distress HEENT: PERRLA on the left, right pupil deformed, positive ETT Respiratory system: Decreased air entry bilaterally, no wheeze, rhonchi, mild crackles bilateral lower lobes CVS: S1-S2 positive, no murmurs or gallops Abdomen: Soft, nontender, nondistended, positive bowel sounds x4 Extremities: +2 pulses bilaterally radialis/ dorsalis pedis, no cyanosis, no edema Neuro: Breathing with the vent, positive corneal, positive gag, moves all extremities on sternal rub Psych: Unable to assess G/U: Positive Peña Skin: no rashes, warm and dry Lymphatic: no cervical or axillary lymphadenopathy Results & Data Results & Data ([facility]) Vital Signs (Past 12 Hours) Vital Signs Temp Pulse Resp BP Pulse Ox 09/17/21 03:00 68 20 94 09/16/21 23:25 71 21 93 09/16/21 23:00 37.4 C 73 20 102/64 93 09/16/21 22:45 37.4 C 74 20 98/65 L 93 09/16/21 22:30 37.4 C 77 20 101/65 93 09/16/21 22:15 37.4 C 77 20 98/63 L 92 09/16/21 22:00 37.4 C 78 20 98/64 L 92 09/16/21 21:45 37.4 C 81 20 102/64 92 09/16/21 21:30 37.4 C 82 20 99/63 L 91 09/16/21 21:15 37.5 C 82 20 100/65 91 09/16/21 21:00 37.5 C 87 20 106/65 93 09/16/21 20:45 37.5 C 74 20 90/60 L 93 Laboratory Results 09/17/21 05:31 09/17/21 05:31 Coding Level of Care Code Critical Care 1st 30-74 mins Diagnoses Respiratory failure with hypercapnia J96.92 Admitted to intensive care unit Z78.9 Acute exacerbation of chronic obstructive pulmonary disease J44.1 Family history of atrial fibrillation Z82.49 Lumbosacral radiculopathy at L4 M54.17 Type II diabetes mellitus with manifestations E11.8 Chronic obstructive pulmonary disease J43.9 COPD type: emphysema Emphysema type: unspecified Tobacco use Z72.0 Time Spent (min) 35 (1) Chronic obstructive pulmonary disease COPD type: emphysema Emphysema type: unspecified Qualified Code(s): J43.9 - Emphysema, unspecified
[2021-09-17] MEDS: SODIUM CHLORIDE 0.9% 1,000 ML IV SCH ×2 (09:00→17:34)
--- NOTE | 2021-09-17 12:28 | XRay Report ---
XR chest 1V portable CLINICAL HISTORY: Presurgery failure TECHNIQUE: Single frontal radiograph of the chest was obtained. Comparison: Comparison is made to chest one view 09/16/2021 FINDINGS: Lines and tubes are stable. The cardiomediastinal silhouette is normal. Previous seen noted peribronc hial thickening is less evident on today's exam. No evidence of pleural effusion or pneumothorax. IMPRESSION: Interval improvement of peribronchial thickening. Findings likely represent improving infectious/infl ammatory process. ACT 112: Negative or not required by law. Electronically signed by: Chung Barksdale M.D. 09/17/2021 12:26 PM
--- NOTE | 2021-09-17 13:03 | Billing Data ---
Date of Service September 17, 2021 Coding Level of Care Code 04038 Subseq Hosp Care Lvl 1
[2021-09-17] MEDS: ALBUT/IPRATROP 3MG/0.5MG NEB 3 ML VIAL NEB PRN (15:15)
[2021-09-17] MEDS: NOREPINEPHRINE/D5W 8 MG/508 ML BAG IV SCH (17:34)
[2021-09-17] MEDS: INSULIN REGULAR 250 UNITS in SODIUM CHLORIDE 0.9% 247.5 ML IV SCH (19:30)
[2021-09-17] MEDS: AZITHROMYCIN 500 MG in DEXTROSE 5% 250 ML IV SCH (21:00)
[2021-09-18] MEDS: TUBE FEEDING WATER FLUSH OG SCH ×6 (00:08→20:32)
[2021-09-18] MEDS: cefTRIAXone SODIUM 2,000 MG in DEXTROSE 5% 50 ML IV SCH (00:08)
[2021-09-18] MEDS: fentaNYL citrate 2,500 MCG/250 ML BAG IV SCH ×3 (02:10→19:33)
[2021-09-18] MEDS: propofoL 1,000 MG/100 ML VIAL IV SCH ×6 (02:10→19:34)
[2021-09-18 06:15] LABS: iSTAT Allen Test Pass; iSTAT Arterial Blood Gas HCO3 27 meg/L (19-24); iSTAT Arterial Blood Gas pCO2 44 mmHg (35-46); iSTAT Arterial Blood Gas pH 7.39 (7.35-7.45); iSTAT Arterial Blood Gas pO2 81 mmHg (80-95); iSTAT Carbon Dioxide 28 mmol/L (24-31); iSTAT FiO2 30 %; iSTAT Site R Radial
[2021-09-18] MEDS: ENOXAPARIN INJ 40 MG/0.4 ML SYR SQ SCH (06:15)
[2021-09-18] MEDS: FAMOTIDINE 20 MG in SYRINGE 3 ML IV SCH ×2 (06:15→17:32)
[2021-09-18] MEDS: LEVOTHYROXINE SODIUM 75 MCG TABLET PO SCH (06:16)
--- NOTE | 2021-09-18 07:01 | Hospitalist Progress Note ---
Date of Service September 18, 2021 Assessment & Plan (1) Acute exacerbation of chronic obstructive pulmonary disease: Plan: 66 yo F with HLD, DM2, COPD, PAD, PACs, current smoker admitted for management of COPD exacerbation. COPD Exacerbation with Hypoxia - Patient came in with new O2 requirement of 1L - Night of 09/15 developed tachypnea, tachycardia, diaphoresis without improvement with duoneb, ativan, or Bipap. - Required intubation for worsening respiratory effort despite the above interventions. - Transferred to ICU. - Monitor vitals, continue current regimen for COPD exacerbation, serial ABGs to aid in vent management. - Patient on 0.03mcg/min Norepi, attempted to wean off yesterday w/o success. -ABG this morning pH 7.39, Co2 44, O2 81, HCO3 27 - chronically requires oxygen at nighttime per sleep study in 2018 - IV methylpred 60 given in ER, given Solu-medrol for possible vocal cord spasm. - IV azithromycin and ceftriaxone for COPD exacerbation and possible underlying infection. - reportedly not using her daily advair inhaler. Fluticasone/vilante ordered for BID dosing. - QID duonebs scheduled, PRN Q4h. - Sedated on propofol 20mg - Wean off pressor (levophed) and spontaneous trial of breathing as ICU sees fi t. - Continue ICU monitoring. Leukocytosis - wbc 21.88, likely due to COPD exacerbation - wbc this morning 13.88, down from 27.19, likely increased this morning 2/2 stress from last night. - crp elevated but afebrile, mostly neutrophils - procal negative - CT chest not showing any signs of pneumonia, postinflammatory changes as above exacerbation - Sputum cultures showed light normal yancy, blood cultures negative 2/2. DM2 - holding metformin - insulin gtt, ICU protocol. Tobacco use - Discussed smoking cessation with patient, she has tried to quit in the past without much success, going for only a couple days at a time. - Told patient her COPD may get worse with her continued cigarette use and encouraged quitting again. 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 Wood and I agree with the assessment and plan as above except as otherwise noted above. Failed weaning due to nausea/vomiting. General: Sedated. Opens eyes transiently to touch. NAD. Cooperative. HEENT: Atraumatic, normocephalic. Pulm:Ventilated. Symmetrical chest rise. No increase work of breathing. No respiratory distress. Cardiac: RRR, -mrg. Radial pulses intact and symmetrical. Abdominal: Nontender, nondistended, soft. BS present. labs and images reviewed [facility] 2/2 [facility] COPD: Anxious with tachypnea, several days of worsening sx. COVID negative at admit. Continued on Rocephin, Solu-Medrol, and azithromycin. Intubated and sedated. Hypotensive following sedative agents, on low dose norepi weaned and restarted, currently at 0.03 MCG/KG/MIN. Leukocytosis 27 initially, downtrending. On admit NLR ~8.3. Procal 0.23. CTA: There is no evidence of pulmonary embolus in the main, lobar, or segmental pulmonary arteries. Emphysema. There is no lobar consolidation or pleural effusion. Mild scattered foci of tree-in-bud nodularity are likely on an infectious/inflammatory basis. Clinical correlation required. Diffuse peribronchial thickening suggests bronchitis/reactive airway disease. Clinical correlation will be required. Mildly enlarged mediastinal and hilar lymph nodes are likely reactive. Repeat chest x-ray Interval improvement of peribronchial thickening. Findings likely represent improving infectious/inflammatory process. morning blood gas 7.3 8/46/75/27 Creatinine: IMPROVED TO 0.95 likely prerenal. On trickle feeds, NSS fluid maintenance, norepi as above. DM2: Insulin gtt ICU protocol Lovenox DVT PPx NPO 2/2 mechanical vent, OG with trickle feeds Subjective Patient seen at the bedside this morning. Patient sedated at current time resting in bed. Physical Exam Respiratory: Auscultation: + rhonchi Intubated. Cardiovascular: Rate/Rhythm: regular rate and regular rhythm Heart Sounds: normal S1 and normal S2 Chest (Breasts): Additional Comments: Even chest rise. Psychiatric: Sedated. Results & Data Results & Data ([facility]) Vital Signs (Past 12 Hours) Vital Signs Temp Pulse Resp BP Pulse Ox 09/18/21 02:00 36.6 C 63 20 129/71 98 09/18/21 01:45 36.6 C 65 20 137/70 98 09/18/21 01:30 36.6 C 64 20 127/64 97 09/18/21 01:15 36.5 C 65 20 120/65 96 09/18/21 01:00 36.5 C 65 20 134/76 96 09/18/21 00:45 36.6 C 64 20 137/67 98 09/18/21 00:30 36.6 C 63 20 127/65 96 09/18/21 00:15 36.6 C 71 20 110/58 L 95 09/18/21 00:00 36.6 C 68 20 117/57 L 96 09/17/21 23:45 36.6 C 70 20 122/70 94 09/17/21 23:30 36.6 C 72 20 111/61 97 09/17/21 23:29 69 20 97 09/17/21 23:15 36.7 C 77 20 112/58 L 96 09/17/21 23:00 36.7 C 79 20 108/68 96 09/17/21 22:46 36.6 C 85 20 142/72 H 09/17/21 22:30 36.6 C 78 20 114/62 95 09/17/21 22:15 36.7 C 77 20 120/65 94 09/17/21 22:00 36.6 C 94 H 20 135/66 78 L 09/17/21 21:45 36.6 C 73 20 125/64 96 09/17/21 21:30 36.6 C 71 20 120/67 95 09/17/21 21:15 36.6 C 52 L 22 144/79 H 94 09/17/21 21:00 36.6 C 59 L 20 141/75 H 93 09/17/21 20:45 36.6 C 60 20 142/76 H 95 09/17/21 20:30 36.6 C 58 L 20 141/76 H 95 09/17/21 20:15 36.6 C 60 20 146/78 H 95 09/17/21 20:00 36.7 C 60 20 135/77 94 09/17/21 19:55 73 21 95 Resident Activity Tracking Resident Involvement: Resident Care Provided Care Provided: Adult Hospital Medicine (1) Hypothyroidism Hypothyroidism type: acquired Qualified Code(s): E03.9 - Hypothyroidism, unspecified
[2021-09-18 07:02] LABS: Basophils # (auto) 0.03 K/uL (0-0.2); Basophils % (auto) 0.2 %; Eosinophils # (auto) 0.03 K/uL (0-0.5); Eosinophils % (auto) 0.2 %; Hematocrit (blood only) 39.3 % (37-47); Hemoglobin 12.6 g/dL (12.0-16.0); Immature Granulocytes # (auto) 0.13 K/uL (0.00-0.02); Immature Granulocytes % (auto) 0.9 %; Lymphocytes # (auto) 2.35 K/uL (1.2-3.4); Lymphocytes % (auto) 16.9 %; Mean Corpuscular Hemoglobin 28.3 pg (25-34); Mean Corpuscular Hgb Conc 32.1 g/dL (32-36); Mean Corpuscular Volume 88.1 fL (80-100); Mean Platelet Volume 9.2 fL (7.4-10.4); Monocytes # (auto) 1.82 K/uL (0.11-0.59); Monocytes % (auto) 13.1 %; Neutrophils # (auto) 9.52 K/uL (1.4-6.5); Neutrophils % (auto) 68.7 %; Platelet Count 366 K/uL (130-400); RDW Coefficient of Variation 14.2 % (11.5-14.5); Red Blood Count 4.46 M/uL (4.2-5.4); White Blood Count 13.88 K/uL (4.8-10.8)
[2021-09-18 07:35] LABS: BUN Creatinine Ratio 39.5 (10-20); Calcium 8.6 mg/dl (8.5-10.1); Creatinine Clr Calc Pharmacy 62.4 ml/min; Est GFR (African American) 71.8 ml/min; Magnesium 2.7 mg/dl (1.8-2.4); Phosphorus 3.2 mg/dl (2.5-4.9); Potassium 4.1 mmol/L (3.5-5.1)
[2021-09-18] MEDS: INSULIN ASPART PER UNIT SC SCH ×4 (07:58→20:32)
[2021-09-18] MEDS: NICOTINE 14 MG/24 HR PATCH TD SCH (08:57)
[2021-09-18] MEDS: VENLAFAXINE HCL 37.5 MG TAB PO SCH ×2 (08:57→20:33)
[2021-09-18] MEDS: methylPREDNISolone 40 MG in SYRINGE 0 ML IV SCH ×2 (08:57→17:33)
[2021-09-18] MEDS: MULTI VIT W/MINERALS LIQUID 15 ML UDP NG SCH (08:57)
--- NOTE | 2021-09-18 09:03 | XRay Report ---
XR chest 1V portable HISTORY: Shortness of breath. COMPARISON: Chest 09/17/2021. FINDINGS: No pneumothorax. No pleural effusions. The heart is normal in size. The endotracheal tube t erminates 3.1 cm from the madie. Nasogastric tube terminates below the diaphragm. Mild chronic inter stitial thickening persists. No new focal lung consolidations to suggest pneumonia. No evidence for p ulmonary edema. IMPRESSION: 1. Satisfactory support line placement. 2. Mild chronic interstitial thickening persists. No new focal lung consolidations. ACT 112: Negative or not required by law. Electronically signed by: Efren Cardozo M.D. 09/18/2021 9:02 AM
[2021-09-18] MEDS ORDERED: STAT IV Infusion **Titration per Protocol STA (09:44)
[2021-09-18] MEDS: DEXMEDETOMIDINE HCL 200 MCG in SODIUM CHLORIDE 0.9% 48 ML IV SCH ×3 (10:03→20:33)
--- NOTE | 2021-09-18 13:39 | Critical Care Progress Note ---
Date of Service September 18, 2021 Assessment & Plan (1) Respiratory failure with hypercapnia: (2) Admitted to intensive care unit: (3) Acute exacerbation of chronic obstructive pulmonary disease: (4) Family history of atrial fibrillation: (5) Lumbosacral radiculopathy at L4: (6) Type II diabetes mellitus with manifestations: (7) Chronic obstructive pulmonary disease: (8) Tobacco use: Plan: Reason Critically Ill: 66-year-old female with acute COPD exacerbation with hypercapnic respiratory failure requiring emergent endotracheal intubation. NEURO - * CAM ICU: Negative * Sedation: Propofol * Pain: Fentanyl CARDIAC/VASCULAR - * EKG: Sinus tachycardia at [address] or T wave changes noted. QTc 444 ms. * Monitor on telemetry RESPIRATORY - * VDRF secondary to acute hypoxic respiratory failure with hypercapnia in the setting of COPD exacerbation. * Intubated 09/16/2021 * COVID-19 PCR negative * Nasal MRSA negative * Sputum culture negative to date * Continue w/ DuoNebs. * Currently receiving IV Solu-Medrol, Rocephin, Azithromycin. GI/NUTRITION - * OGT in place * Prophylaxis: Famotidine RENAL/LYTES - * -- BRANDON --> improving Likely prerenal from hypotension Monitor BUN/creatinine Avoid nephrotoxic medications Strict ins and outs - * Peña in place - Strict I&Os. ENDO - * DMII * BSGs per unit protocol. ISS --> gtt per unit policy. HEME - * Stable H&H. ID - * COPD exacerbation: * Given patient's underlying lung pathology, chronicity of illness, and worsening respiratory status, agree w/ current antibiotics. * Sputum culture negative to date --Prophylaxis VTE: Lovenox GI: Pepcid Lines: Peripheral Diet: Tube feeds --> on hold Plan: In/out: +1.7 L, urine output 1525 AB.39/44/71 on PEEP of 5,30% Patient was actively wheezing on spontaneous breathing trial. I will increase her Solu-Medrol to 40 mg every 8 While the patient was on SVBT patient had 2 bouts of vomiting. I will hold on extubation for the time being. Patient does have copious secretions. Sputum culture have been negative to date Hold tube feeds. DC IV fluids SBT trial tomorrow if feasible. Will likely need Precedex prior to extubation I have personally spent additional 35 minutes of critical care time in the direct management of this patient. This is a life/limb threatening event. This includes time spent evaluating patient, direct bedside care, chart review, placing orders, interpretation of diagnostic studies, discussion with consultants, patient, and family members, as well as other required patient management activities. This time is exclusive of all separately billable procedures, and teaching time and separate from and in addition to any other critical care service time. Please note the above document was generated using voice recognition software. It may contain grammatical, syntax or spelling errors. Admission and Anticipated Discharge Date Admission Date: September 15, 2021 Subjective Patient seen and examined at bedside. No acute distress Patient was on propofol and fentanyl at time of examination She was RASS -1, following simple commands. Patient was on feeding which was stopped Any headache, no chest pain Wanted the note Review of Systems Review of Systems: All systems reviewed & are unremarkable except as noted in Subjective Physical Exam Physical Exam: Constitutional: No acute distress HEENT: PERRLA on the left, right pupil deformed, positive ETT Respiratory system: Decreased air entry bilaterally, no wheeze, rhonchi, mild crackles bilateral lower lobes CVS: S1-S2 positive, no murmurs or gallops Abdomen: Soft, nontender, nondistended, positive bowel sounds x4 Extremities: +2 pulses bilaterally radialis/ dorsalis pedis, no cyanosis, no edema Neuro: Breathing with the vent, following simple commands Psych: Unable to assess G/U: Positive Peña Skin: no rashes, warm and dry Lymphatic: no cervical or axillary lymphadenopathy Results & Data Results & Data ([facility]) Vital Signs (Past 12 Hours) Vital Signs Temp Pulse Resp BP Pulse Ox 09/18/21 11:45 36.7 C 93 H 95 09/18/21 11:30 36.6 C 94 H 94 09/18/21 11:15 36.6 C 107 H 93 09/18/21 11:00 36.6 C 107 H 150/100 H 95 09/18/21 10:54 36.6 C 119 H 154/92 H 93 09/18/21 10:50 20 09/18/21 10:45 36.6 C 125 H 100 09/18/21 10:30 36.6 C 111 H 24 100 09/18/21 10:15 36.8 C 121 H 29 H 94 09/18/21 10:01 36.7 C 123 H 26 H 167/101 H 100 09/18/21 10:00 36.7 C 122 H 33 H 93 09/18/21 09:55 29 H 09/18/21 09:45 36.8 C 108 H 24 100 09/18/21 09:30 36.8 C 113 H 20 97 09/18/21 09:15 36.9 C 97 H 19 95 09/18/21 09:00 36.8 C 78 20 127/66 96 09/18/21 08:45 36.8 C 76 20 120/63 95 09/18/21 08:30 36.8 C 79 20 121/65 94 09/18/21 08:15 36.8 C 80 20 126/64 95 09/18/21 08:00 36.8 C 98 H 22 131/72 97 09/18/21 07:46 36.8 C 100 H 21 117/74 95 09/18/21 07:45 36.8 C 98 H 20 96 09/18/21 07:30 36.8 C 129 H 26 H 177/98 H 100 09/18/21 07:16 36.8 C 105 H 22 150/80 H 100 09/18/21 07:15 36.9 C 108 H 24 100 09/18/21 07:00 36.8 C 86 16 110/82 98 09/18/21 06:45 36.8 C 83 20 131/73 98 09/18/21 06:30 36.8 C 78 20 137/79 98 09/18/21 06:15 36.8 C 73 20 124/78 97 09/18/21 06:00 36.7 C 78 20 135/78 99 09/18/21 05:45 36.7 C 61 20 122/72 98 09/18/21 05:30 36.7 C 61 20 122/67 98 09/18/21 05:15 36.7 C 60 20 136/71 98 09/18/21 05:00 36.7 C 61 20 122/68 98 09/18/21 04:45 36.7 C 63 20 126/69 98 09/18/21 04:30 36.7 C 62 20 129/69 98 09/18/21 04:22 63 20 98 09/18/21 04:15 36.7 C 63 20 123/67 98 09/18/21 04:00 36.6 C 63 20 126/72 99 09/18/21 03:45 36.6 C 62 20 136/68 98 09/18/21 03:30 36.6 C 62 20 129/67 98 09/18/21 03:15 36.6 C 117 H 20 128/72 98 09/18/21 03:00 36.6 C 121 H 20 132/66 98 09/18/21 02:45 36.6 C 122 H 20 136/68 97 09/18/21 02:30 36.6 C 63 20 126/72 98 09/18/21 02:15 36.6 C 60 20 127/75 97 09/18/21 02:00 36.6 C 63 20 129/71 98 09/18/21 01:45 36.6 C 65 20 137/70 98 Laboratory Results 09/18/21 06:43 09/18/21 06:43 Coding Level of Care Code Critical Care 1st 30-74 mins Diagnoses Respiratory failure with hypercapnia J96.92 Admitted to intensive care unit Z78.9 Acute exacerbation of chronic obstructive pulmonary disease J44.1 Family history of atrial fibrillation Z82.49 Lumbosacral radiculopathy at L4 M54.17 Type II diabetes mellitus with manifestations E11.8 Chronic obstructive pulmonary disease J43.9 COPD type: emphysema Emphysema type: unspecified Tobacco use Z72.0 Time Spent (min) 35 (1) Chronic obstructive pulmonary disease COPD type: emphysema Emphysema type: unspecified Qualified Code(s): J43.9 - Emphysema, unspecified
--- NOTE | 2021-09-18 18:18 | Billing Data ---
Date of Service September 18, 2021 Coding Level of Care Code 73689 Subseq Hosp Care Lvl 2
[2021-09-18] MEDS: INSULIN REGULAR 250 UNITS in SODIUM CHLORIDE 0.9% 247.5 ML IV SCH (19:32)
[2021-09-18] MEDS: NOREPINEPHRINE/D5W 8 MG/508 ML BAG IV SCH (19:32)
[2021-09-18] MEDS: AZITHROMYCIN 500 MG in DEXTROSE 5% 250 ML IV SCH (20:31)
[2021-09-18] MEDS ORDERED: ROSUVASTATIN CALCIUM 5 MG TAB PO SCH (21:00)
[2021-09-19] MEDS: TUBE FEEDING WATER FLUSH OG SCH ×4 (00:23→12:32)
[2021-09-19] MEDS: propofoL 1,000 MG/100 ML VIAL IV SCH ×5 (00:23→09:12)
[2021-09-19] MEDS: methylPREDNISolone 40 MG in SYRINGE 0 ML IV SCH ×3 (00:25→16:15)
[2021-09-19] MEDS: cefTRIAXone SODIUM 2,000 MG in DEXTROSE 5% 50 ML IV SCH (00:25)
[2021-09-19] MEDS: DEXMEDETOMIDINE HCL 200 MCG in SODIUM CHLORIDE 0.9% 48 ML IV SCH ×2 (03:40→09:12)
[2021-09-19 04:00] LABS: iSTAT Allen Test Pass; iSTAT Art Bld Gas pCO2 Correct 47 mmHg (35-46); iSTAT Arterial Blood Gas HCO3 28 meg/L (19-24); iSTAT Arterial Blood Gas pCO2 48 mmHg (35-46); iSTAT Arterial Blood Gas pH 7.38 (7.35-7.45); iSTAT Arterial Blood Gas pO2 67 mmHg (80-95); iSTAT Arterial Blood Gas pO2 C 66; iSTAT Carbon Dioxide 30 mmol/L (24-31); iSTAT FiO2 30 %; iSTAT Hematocrit 37 % (37-47); iSTAT Hemoglobin 12.6 g/dl (12.0-16.0); iSTAT Potassium 4.9 mmol/L (3.3-5.0); iSTAT Site R Radial; iSTAT Sodium 139 mmol/L (135-144)
[2021-09-19 05:51] LABS: Basophils # (auto) 0.02 K/uL (0-0.2); Basophils % (auto) 0.2 %; Hematocrit (blood only) 36.2 % (37-47); Hemoglobin 11.6 g/dL (12.0-16.0); Immature Granulocytes # (auto) 0.13 K/uL (0.00-0.02); Immature Granulocytes % (auto) 1.4 %; Lymphocytes # (auto) 0.99 K/uL (1.2-3.4); Lymphocytes % (auto) 10.9 %; Mean Corpuscular Hemoglobin 28.4 pg (25-34); Mean Corpuscular Volume 88.7 fL (80-100); Mean Platelet Volume 9.3 fL (7.4-10.4); Monocytes # (auto) 0.39 K/uL (0.11-0.59); Monocytes % (auto) 4.3 %; Neutrophils # (auto) 7.57 K/uL (1.4-6.5); Neutrophils % (auto) 83.2 %; Platelet Count 334 K/uL (130-400); RDW Coefficient of Variation 14.2 % (11.5-14.5); RDW Standard Deviation 46.5 fL (36.4-46.3); Red Blood Count 4.08 M/uL (4.2-5.4)
[2021-09-19] MEDS: ENOXAPARIN INJ 40 MG/0.4 ML SYR SQ SCH (06:13)
[2021-09-19] MEDS: LEVOTHYROXINE SODIUM 75 MCG TABLET PO SCH (06:14)
[2021-09-19] MEDS: FAMOTIDINE 20 MG in SYRINGE 3 ML IV SCH (06:15)
[2021-09-19 06:31] LABS: BUN Creatinine Ratio 31.9 (10-20); Calcium 8.6 mg/dl (8.5-10.1); Creatinine Clr Calc Pharmacy 73.1 ml/min; Est GFR (African American) 85.8 ml/min; Magnesium 2.6 mg/dl (1.8-2.4); Phosphorus 4.3 mg/dl (2.5-4.9)
--- NOTE | 2021-09-19 06:46 | Hospitalist Progress Note ---
Date of Service September 19, 2021 Assessment & Plan (1) Acute exacerbation of chronic obstructive pulmonary disease: Plan: 66 yo F with HLD, DM2, COPD, PAD, PACs, current smoker admitted for management of COPD exacerbation. Acute respiratory distress w/ hypoxia: - Patient came in with new O2 requirement of 1L - Night of 09/15 developed tachypnea, tachycardia, diaphoresis without improvement with duoneb, ativan, or Bipap. - Required intubation for worsening respiratory effort despite the above interventions. - Transferred to ICU. - Extubated today and transitioned to nasal cannula on 1L. - Keep oxygen saturation between 88-92%, O2 as needed. - Continue monitoring progress. Hypotensive shock - ? sec to Sepsis due to pneumonia - Was kept on pressors. - now off pressors and hypertensive COPD Exacerbation sec to pneumonia: - Hx COPD w/ lingering cough since July and recent exacerbation. - CT chest not showing any signs of pneumonia, postinflammatory changes as above exacerbation - Sputum cultures showed light normal yancy, blood cultures negative 2/2 - Procal neg - IV methylpred 60 given in ER, continued on methylprednisolone 40mg Q8H. - IV azithromycin. d/edil ceftriaxone since cultures neg. - reportedly not using her daily advair inhaler. Fluticasone/vilante ordered for BID dosing. - QID duonebs scheduled, PRN Q4h. Nocturnal Hypoxia - chronically requires oxygen at nighttime per sleep study in 2017 DM2 - holding metformin - insulin gtt d/edil. - continue ssi - consulted pharmacy Tobacco use - ppd smoker, 14 mcg nicotine patch - Discussed smoking cessation with patient, she has tried to quit in the past without much success, going for only a couple days at a time. Concern of AUD per chart - AWSS scoring ordered. - thiamine daily. - get better history once more awake. Chronic Conditions HLD: statin weekly Restless legs/lumbar stenosis and pain: flexeril HS Depression/Anxiety: cont venlafaxine Hypothyroidism: cont levothyroxine DVT ppx: Lovenox, SCDs FEN/GI: Dm2 diet, on pantoprazole Bowel regimen: prn miralax Code Status: FULL CODE, does not wish to be maintained on life support/ventilated skilled nursing Dispo: ICU (2) PAD (peripheral artery disease): (3) PAC (premature atrial contraction): (4) Type II diabetes mellitus with manifestations: (5) Hypothyroidism: (6) Tobacco use: (7) Nocturnal hypoxia: (8) Depression with anxiety: (9) Chronic reflux esophagitis: Admission and Anticipated Discharge Date Admission Date: September 15, 2021 Supervising Physician Co-Signing Physician Notes Resident Physician Supervision Note: I independently interviewed and examined the patient and verified the haro history and physical, reviewed labs and image studies and agree with resident Dr. Wood findings and care plan. Subjective Patient seen at the bedside this morning. Undergoing extubation when I saw her earlier today. When I saw her later in the evening she was feeling like she wanted to sleep. Breathing comfortably on nasal cannula. Physical Exam Constitutional: Patient not in any acute distress, breathing comfortably on nasal cannula. Eyes: PERRL, conjunctivae normal, anicteric sclerae Respiratory: normal respiratory effort, lungs clear to auscultation On nasal cannula. Cardiovascular: RRR, no murmur, no edema Gastrointestinal (Abdomen): normal bowel sounds, soft, nontender, no hepatosplenomegaly Results & Data Results & Data ([facility]) Vital Signs (Past 12 Hours) Vital Signs Temp Pulse Resp BP Pulse Ox 09/19/21 01:00 36.6 C 56 L 20 102/60 09/19/21 00:00 36.7 C 54 L 20 102/58 L 94 09/18/21 23:00 36.8 C 56 L 20 101/57 L 94 09/18/21 22:47 56 L 20 96 09/18/21 22:00 37.0 C 55 L 20 92/57 L 94 09/18/21 21:00 37.0 C 56 L 20 103/58 L 91 09/18/21 20:00 37.1 C 60 20 91/58 L 96 09/18/21 19:45 77 27 H 96 09/18/21 19:00 37.3 C 75 20 108/67 Resident Activity Tracking Resident Involvement: Resident Care Provided Care Provided: Adult Hospital Medicine (1) Hypothyroidism Hypothyroidism type: acquired Qualified Code(s): E03.9 - Hypothyroidism, unspecified
--- NOTE | 2021-09-19 08:05 | XRay Report ---
XR chest 1V portable CLINICAL HISTORY: Dyspnea TECHNIQUE: Single frontal radiograph of the chest was obtained. Comparison: Comparison is made to chest one view 09/18/2021 FINDINGS: Lines and tubes are stable. The cardiomediastinal silhouette is normal. Stable mild chronic interstit ial thickening without evidence of airspace opacity. No evidence of pleural effusion or pneumothorax. IMPRESSION: Stable exam. Lines and tubes are stable and no new focal consolidations are seen. Mild chronic inters titial thickening is again noted. ACT 112: Negative or not required by law. Electronically signed by: Chung Barksdale M.D. 09/19/2021 8:04 AM
[2021-09-19] MEDS: MULTI VIT W/MINERALS LIQUID 15 ML UDP NG SCH (08:10)
[2021-09-19] MEDS ORDERED: METOPROLOL TARTRATE 1 MG/ML VIAL IV STA (08:10)
[2021-09-19] MEDS: NICOTINE 14 MG/24 HR PATCH TD SCH (08:10)
[2021-09-19] MEDS: INSULIN ASPART PER UNIT SC SCH ×5 (08:10→20:52)
[2021-09-19] MEDS: VENLAFAXINE HCL 37.5 MG TAB PO SCH ×2 (08:10→20:52)
--- NOTE | 2021-09-19 08:19 | Critical Care Progress Note ---
Date of Service September 19, 2021 Assessment & Plan (1) Respiratory failure with hypercapnia: (2) Admitted to intensive care unit: (3) Acute exacerbation of chronic obstructive pulmonary disease: (4) Family history of atrial fibrillation: (5) Lumbosacral radiculopathy at L4: (6) Type II diabetes mellitus with manifestations: (7) Chronic obstructive pulmonary disease: (8) Tobacco use: Plan: Impression: 66-year-old female with acute COPD exacerbation with hypercapnic respiratory failure requiring emergent endotracheal intubation. 24 hour events: Attempted SBT yesterday. Terminated due to agitation and episode of emesis. This morning she is back on pressure support ventilation. Her sedation is being weaned. She is hemodynamically stable. Recommendations: NEURO -currently sedated on fentanyl and propofol. We will continue to wean. If she has issues, may consider low-dose antipsychotics versus Precedex. Continue effexor CARDIAC/VASCULAR -sinus tach this morning. Slightly hypertensive as well. Will give low-dose of metoprolol this morning. Precedex may be beneficial if additional sedation is required RESPIRATORY -hypoxemic hypercarbic respiratory failure secondary to COPD. Intubated 09/16/2021. Currently on pressure support. We will wean sedation and once mental status is conducive, will liberate from mechanical ventilator. Currently receiving azithromycin. Will decrease to 250 mg. No indication for secondary pneumonia so Rocephin can be discontinued. Continue Solu-Medrol for now, patient is not bronchospastic and anticipate we should be able to transition to prednisone and relative short order. GI/NUTRITION - OGT in place, holding tube feeding in hopes of ventilator liberation today. H2 jocelin in place RENAL/LYTES -acid-base status improving. Mild chronic hypercapnic respiratory failure. Serum creatinine at baseline. Electrolytes stable. -no current issues. Peña while intubated ENDO -glycemic control per protocol. Continue Synthroid HEME -no current issues ID -COPD exacerbation: Decrease azithromycin to 50 mg daily. Discontinue Rocephin. Sputum cultures and all other cultures negative. --Prophylaxis VTE: Lovenox GI: Pepcid Lines: Peripheral Diet: Tube feeds --> on hold Discussed with ICU nurse at bedside and on multidisciplinary rounds. Total of 40 minutes spent reviewing case and coronation care of this patient. Please note the above document was generated using voice recognition software. It may contain grammatical, syntax or spelling errors. Admission and Anticipated Discharge Date Admission Date: September 15, 2021 Subjective intubated and sedated Review of Systems Review of Systems: Unobtainable due to endotracheal tube Physical Exam Constitutional: + mechanically ventilated sedated Neck: trachea midline, no thyromegaly Respiratory: normal respiratory effort, lungs clear to auscultation Cardiovascular: RRR, no murmur, no edema Gastrointestinal (Abdomen): normal bowel sounds, soft, nontender, no hepatosplenomegaly Musculoskeletal: Extremities: extremities normal to inspection Skin: no rashes, warm and dry Lymphatic: no cervical lymphadenopathy Results & Data Results & Data ([facility]) Vital Signs (Past 12 Hours) Vital Signs Temp Pulse Resp BP Pulse Ox 09/19/21 03:50 73 20 96 09/19/21 01:00 36.6 C 56 L 20 102/60 09/19/21 00:00 36.7 C 54 L 20 102/58 L 94 09/18/21 23:00 36.8 C 56 L 20 101/57 L 94 09/18/21 22:47 56 L 20 96 09/18/21 22:00 37.0 C 55 L 20 92/57 L 94 09/18/21 21:00 37.0 C 56 L 20 103/58 L 91 Critical Care Results & Data Vital Signs (Past 12 Hours) Vital Signs Temp Pulse Resp BP Pulse Ox 09/19/21 03:50 73 20 96 09/19/21 01:00 36.6 C 56 L 20 102/60 09/19/21 00:00 36.7 C 54 L 20 102/58 L 94 09/18/21 23:00 36.8 C 56 L 20 101/57 L 94 09/18/21 22:47 56 L 20 96 09/18/21 22:00 37.0 C 55 L 20 92/57 L 94 09/18/21 21:00 37.0 C 56 L 20 103/58 L 91 Lab & Micro Results (Past 24 Hours) RBC 4.08 M/uL (4.2-5.4) L 09/19/21 WBC 9.10 K/uL (4.8-10.8) 09/19/21 Hgb 11.6 g/dL (12.0-16.0) L 09/19/21 Hct 36.2 % (37-47) L 09/19/21 MCV 88.7 fL (80-100) 09/19/21 MCH 28.4 pg (25-34) 09/19/21 MCHC 32.0 g/dL (32-36) 09/19/21 RDW Standard Deviation 46.5 fL (36.4-46.3) H 09/19/21 RDW Coefficient of Variation 14.2 % (11.5-14.5) 09/19/21 Plt Count 334 K/uL (130-400) 09/19/21 MPV 9.3 fL (7.4-10.4) 09/19/21 Neutrophils (%) (Auto) 83.2 % 09/19/21 Lymphocytes (%) (Auto) 10.9 % 09/19/21 Monocytes # (Auto) 0.39 K/uL (0.11-0.59) 09/19/21 Eosinophils # (Auto) 0.00 K/uL (0-0.5) 09/19/21 Immature Granulocyte % (Auto) 1.4 % 09/19/21 Neutrophils # (Auto) 7.57 K/uL (1.4-6.5) H 09/19/21 Lymphocytes # (Auto) 0.99 K/uL (1.2-3.4) L 09/19/21 Monocytes # (Auto) 0.39 K/uL (0.11-0.59) 09/19/21 Eosinophils # (Auto) 0.00 K/uL (0-0.5) 09/19/21 Basophils # (Auto) 0.02 K/uL (0-0.2) 09/19/21 Immature Granulocyte # (Auto) 0.13 K/uL (0.00-0.02) H 09/19/21 Na 137 mmol/L (136-145) 09/19/21 K 5.0 mmol/L (3.5-5.1) 09/19/21 Cl 105 mmol/L (98-107) 09/19/21 CO2 28 mmol/L (21-32) 09/19/21 Anion Gap 4.0 (3-11) 09/19/21 BUN 26 mg/dl (7-18) H 09/19/21 Creatinine 0.82 mg/dl (0.6-1.2) 09/19/21 Estimated GFR ( Amer) 85.8 ml/min 09/19/21 Estimated GFR (Non-Af Amer) 74.0 ml/min 09/19/21 BUN/Creatinine Ratio 31.9 (10-20) H 09/19/21 Glu 154 mg/dl (70-99) H 09/19/21 Ca 8.6 mg/dl (8.5-10.1) 09/19/21 Phosphorus Level 4.3 mg/dl (2.5-4.9) 09/19/21 Mg 2.6 mg/dl (1.8-2.4) H 09/19/21 05:24 09/19/21 Calcium Level 8.6 mg/dl (8.5-10.1) 09/19/21 05:24 09/19/21 Rishi Test Pass 09/19/21 03:44 09/19/21 Microbiology 09/16/21 06:25 Gram Stain - Final Sputum,Vent Suction Sputum Culture - Final Light normal yancy. Diagnostic Findings (Past 24 Hours) Chest X-Ray 09/18/21 07:00 XR chest 1V portable HISTORY: Shortness of breath. COMPARISON: Chest 09/17/2021. FINDINGS: No pneumothorax. No pleural effusions. The heart is normal in size. The endotracheal tube terminates 3.1 cm from the madie. Nasogastric tube terminates below the diaphragm. Mild chronic interstitial thickening persists. No new focal lung consolidations to suggest pneumonia. No evidence for pulmonary edema. IMPRESSION: 1. Satisfactory support line placement. 2. Mild chronic interstitial thickening persists. No new focal lung consolidations. ACT 112: Negative or not required by law. Electronically signed by: Efren Cardozo M.D. 09/18/2021 9:02 AM Chest X-Ray 09/19/21 07:00 XR chest 1V portable CLINICAL HISTORY: Dyspnea TECHNIQUE: Single frontal radiograph of the chest was obtained. Comparison: Comparison is made to chest one view 09/18/2021 FINDINGS: Lines and tubes are stable. The cardiomediastinal silhouette is normal. Stable mild chronic interstitial thickening without evidence of airspace opacity. No evidence of pleural effusion or pneumothorax. IMPRESSION: Stable exam. Lines and tubes are stable and no new focal consolidations are seen. Mild chronic interstitial thickening is again noted. ACT 112: Negative or not required by law. Electronically signed by: Chung Barksdale M.D. 09/19/2021 8:04 AM I & O Totals 24 Hours 09/18/21 09/19/21 09/20/21 06:59 06:59 06:59 Intake Total 3239.699 / 3241.806 1115.375 / 1115.375 157.675 / 157.675 Output Total 1400 / 1400 1275 / 1275 Balance 1839.699 / 1841.806 -159.625 / -159.625 157.675 / 157.675 Cumulative 09/14/21 17:15 thru 09/19/21 08:08 Intake Total 7046.985 Output Total 3425 Balance 3621.985 RT Ventilator Mngmt (Last Documented) Ventilator Ordered Settings Ventilator Support Mode Assist Control 09/19/21 03:50 Respiratory Rate 20 09/19/21 03 :50 Ventilator Tidal Volume 430 09/19/21 03:50 Setting Minute Ventilation 8.7 09/19/21 03:50 Ventilator Positive Pressure 6 09/18/21 10:15 Support Setting Positive End Expiratory 5 09/19/21 03:50 Pressure Fraction of Inspired Oxygen 30 09/19/21 03:50 Machine Comment held off on extubation (patient 09/18/21 10:50 vomiting)/placed back on previous settings) Ventilator - PT Measurements Respiratory Rate 20 Exhaled Tidal Volume 430 Minute Ventilation 8.7 Peak Inspiratory Airway 26 Pressure Plateau Pressure 17.6 Respiratory Cycle Inspiratory: 1:3.0 Expiratory Ratio Inspiratory Phase Time 0.75 End-Tidal CO2 22 Static Lung Compliance 34.13 Dynamic Lung Compliance 20.48 Normal Static Lung Compliance 46.00 Coding Level of Care Code 84716 Subseq Hosp Care Lvl 3 Diagnoses Respiratory failure with hypercapnia J96.92 Admitted to intensive care unit Z78.9 Acute exacerbation of chronic obstructive pulmonary disease J44.1 Family history of atrial fibrillation Z82.49 Lumbosacral radiculopathy at L4 M54.17 Type II diabetes mellitus with manifestations E11.8 Chronic obstructive pulmonary disease J43.9 COPD type: emphysema Emphysema type: unspecified Tobacco use Z72.0 (1) Chronic obstructive pulmonary disease COPD type: emphysema Emphysema type: unspecified Qualified Code(s): J43.9 - Emphysema, unspecified
[2021-09-19] MEDS: ALBUT/IPRATROP 3MG/0.5MG NEB 3 ML VIAL NEB PRN ×2 (10:16→17:02)
[2021-09-19] MEDS: hydrALAZINE HCL 20 MG/ML VIAL IV PRN (15:45)
[2021-09-19] MEDS ORDERED: PHARMACY GLYCEMIC MGMT CONSULT PRN (20:25)
[2021-09-19] MEDS: AZITHROMYCIN 250 MG in DEXTROSE 5% 250 ML IV SCH (20:51)
[2021-09-20] MEDS ORDERED: ALBUT/IPRATROP 3MG/0.5MG NEB 3 ML VIAL NEB ONE (00:05)
[2021-09-20] MEDS: INSULIN ASPART PER UNIT SC SCH ×6 (00:07→20:20)
[2021-09-20] MEDS: methylPREDNISolone 40 MG in SYRINGE 0 ML IV SCH ×3 (00:07→16:55)
[2021-09-20] MEDS: ALBUT/IPRATROP 3MG/0.5MG NEB 3 ML VIAL NEB PRN ×2 (05:05→16:55)
[2021-09-20] MEDS: ENOXAPARIN INJ 40 MG/0.4 ML SYR SQ SCH (05:32)
[2021-09-20] MEDS: LEVOTHYROXINE SODIUM 75 MCG TABLET PO SCH (05:33)
[2021-09-20 05:44] LABS: Hematocrit (blood only) 42.4 % (37-47); Hemoglobin 13.7 g/dL (12.0-16.0); Mean Corpuscular Hemoglobin 28.5 pg (25-34); Mean Corpuscular Hgb Conc 32.3 g/dL (32-36); Mean Corpuscular Volume 88.3 fL (80-100); Mean Platelet Volume 9.4 fL (7.4-10.4); Platelet Count 394 K/uL (130-400); RDW Standard Deviation 45.6 fL (36.4-46.3); White Blood Count 15.03 K/uL (4.8-10.8)
[2021-09-20 06:27] LABS: BUN Creatinine Ratio 28.6 (10-20); Calcium 9.1 mg/dl (8.5-10.1); Creatinine Clr Calc Pharmacy 76.8 ml/min; Est GFR (African American) 92.6 ml/min; Est GFR (Non-African American) 79.9 ml/min; Magnesium 2.5 mg/dl (1.8-2.4); Potassium 4.5 mmol/L (3.5-5.1)
[2021-09-20 06:30] LABS: Phosphorus 2.8 mg/dl (2.5-4.9)
[2021-09-20 06:33] LABS: Basophils # (auto) 0.08 K/uL (0-0.2); Basophils % (auto) 0.5 %; Lymphocytes # (auto) 1.19 K/uL (1.2-3.4); Lymphocytes % (auto) 7.9 %; Monocytes # (auto) 1.46 K/uL (0.11-0.59); Monocytes % (auto) 9.7 %; Neutrophils % (auto) 77.9 %; RBC Morphology Unremarkable
--- NOTE | 2021-09-20 06:46 | Hospitalist Progress Note ---
Date of Service September 20, 2021 Assessment & Plan (1) Acute exacerbation of chronic obstructive pulmonary disease: Plan: 66 yo F with HLD, DM2, COPD, PAD, PACs, current smoker admitted for management of COPD exacerbation. Acute respiratory distress w/ hypoxia: - Patient came in with new O2 requirement of 1L - Night of 09/15 developed tachypnea, tachycardia, diaphoresis without improvement with duoneb, ativan, or Bipap. - Required intubation for worsening respiratory effort despite the above interventions. Extubated and currently on 1L O2 NC. - Keep oxygen saturation between 88-92%, O2 as needed. Hypotensive shock - ? sec to Sepsis due to pneumonia - Was kept on pressors. - now off pressors and hypertensive COPD Exacerbation sec to pneumonia: - Hx COPD w/ lingering cough since July and recent exacerbation. - CT chest not showing any signs of pneumonia, postinflammatory changes as above exacerbation - Sputum cultures showed light normal yancy, blood cultures negative 2/2 - Procal neg - IV methylpred 60 given in ER, continued on methylprednisolone 40mg Q8H. - IV azithromycin. d/edil ceftriaxone since cultures neg. - reportedly not using her daily advair inhaler. Fluticasone/vilante ordered for BID dosing. - QID duonebs scheduled, PRN Q4h. Nocturnal Hypoxia - chronically requires oxygen at nighttime per sleep study in 2018 DM2 - holding metformin - insulin gtt d/edil. - consulted pharmacy HTN: - systolic BPs in 140's to 180's past 24 hours. - Switched Metoprolol tartrate from 12.5mg to 25mg BID. Tobacco use - ppd smoker, 14 mcg nicotine patch - Discussed smoking cessation with patient, she has tried to quit in the past without much success, going for only a couple days at a time. Chronic Conditions HLD: statin weekly Restless legs/lumbar stenosis and pain: flexeril HS Depression/Anxiety: cont venlafaxine Hypothyroidism: cont levothyroxine DVT ppx: Lovenox, SCDs FEN/GI: Dm2 diet, on pantoprazole Bowel regimen: Loperamide for diarrhea Code Status: FULL CODE, does not wish to be maintained on life support/ventilated half-way Dispo: Med/Surg w/ Tele (2) PAD (peripheral artery disease): (3) PAC (premature atrial contraction): (4) Type II diabetes mellitus with manifestations: (5) Hypothyroidism: (6) Tobacco use: (7) Nocturnal hypoxia: (8) Depression with anxiety: (9) Chronic reflux esophagitis: Admission and Anticipated Discharge Date Admission Date: September 15, 2021 Supervising Physician Co-Signing Physician Notes Resident Physician Supervision Note: I independently interviewed and examined the patient and verified the haro history and physical, reviewed labs and image studies and agree with resident Dr. Wood findings and care plan. Subjective Patient seen at the bedside. Patient is still feeling tired today, otherwise does not endorse any pain, feeling feverish or chills. Patient has been having diarrhea. Physical Exam Constitutional: WD/WN, vitals as above Eyes: PERRL, conjunctivae normal, anicteric sclerae Respiratory: normal respiratory effort, lungs clear to auscultation On 1L O2 NC. Cardiovascular: RRR, no murmur, no edema Gastrointestinal (Abdomen): normal bowel sounds, soft, nontender, no hepatosplenomegaly Results & Data Results & Data ([facility]) Vital Signs (Past 12 Hours) Vital Signs Temp Pulse Pulse Resp BP Pulse Ox 09/20/21 05:09 98 H 16 100 09/20/21 00:24 104 H 104 H 22 100 09/20/21 00:00 37.0 C 104 H 23 159/111 H 100 09/19/21 23:00 36.8 C 86 20 167/90 H 97 09/19/21 22:00 37.1 C 90 16 143/89 H 95 09/19/21 21:00 37.0 C 93 H 14 188/89 H 97 09/19/21 20:00 37.1 C 100 H 19 159/89 H 94 09/19/21 19:00 37.0 C 96 H 16 164/79 H 93 Resident Activity Tracking Resident Involvement: Resident Care Provided Care Provided: Adult Hospital Medicine (1) Hypothyroidism Hypothyroidism type: acquired Qualified Code(s): E03.9 - Hypothyroidism, unspecified
--- NOTE | 2021-09-20 07:40 | XRay Report ---
XR chest 1V portable CLINICAL HISTORY: f/u COMPARISON STUDY: Chest CT September 14, 2021. Chest radiograph September 19, 2021. FINDINGS: Lung volumes are normal. Lungs are clear. There is no pneumothorax or pleural effusion. Car diac size is normal. Mediastinal contours are normal. There is no evidence for pulmonary edema. Emphy sema is better depicted on prior CT. IMPRESSION: No acute cardiopulmonary findings. Emphysema. ACT 112: Negative or not required by law. Electronically signed by: Brian Nieto M.D. 09/20/2021 7:38 AM
[2021-09-20] MEDS: VENLAFAXINE HCL 37.5 MG TAB PO SCH ×2 (08:04→20:19)
[2021-09-20] MEDS: NICOTINE 14 MG/24 HR PATCH TD SCH (08:04)
[2021-09-20] MEDS: INSULIN GLARGINE SOLOSTAR 100 UNITS/ML 3 ML PEN SC SCH (08:06)
[2021-09-20] MEDS: hydrALAZINE HCL 20 MG/ML VIAL IV PRN (08:11)
--- NOTE | 2021-09-20 08:41 | Critical Care Progress Note ---
Date of Service September 20, 2021 Assessment & Plan (1) Respiratory failure with hypercapnia: Plan: (2) Admitted to intensive care unit: (3) Acute exacerbation of chronic obstructive pulmonary disease: (4) Family history of atrial fibrillation: (5) Lumbosacral radiculopathy at L4: (6) Type II diabetes mellitus with manifestations: (7) Chronic obstructive pulmonary disease: (8) Tobacco use: Plan: Impression: 66-year-old female with acute COPD exacerbation with hypercapnic respiratory failure requiring emergent endotracheal intubation. 24 hour events: Patient successfully liberated from ventilator yesterday. She did have an episode of wheezing and shortness of breath overnight in which she underwent 1 hour-long treatment of DuoNeb. This morning she is stable, starting on Perforomist, budesonide and will continue Solu-Medrol. She is mildly tachycardic and hypertensive this morning and started on metoprolol and Norvasc. She is currently hemodynamically stable and maintaining oxygen saturation on 2 L nasal cannula. Patient okay to downgrade from ICU status at this time. Pulmonary consult placed. Recommendations: NEURO -alert and oriented. Continue effexor CARDIAC/VASCULAR -mild sinus tachycardia and hypertensive. Starting on low-dose metoprolol and Norvasc added. IV hydralazine as needed RESPIRATORY -hypoxemic hypercarbic respiratory failure secondary to COPD. Intubated 09/16/2021. Extubated 09/19/2021 and successfully liberated from ventilator. Currently receiving azithromycin 250 mg. Rocephin discontinued yesterday. Continue Solu-Medrol for now, patient is not bronchospastic and anticipate we should be able to transition to prednisone and relative short order. Starting budesonide, Perforomist, Incrus. DuoNeb as needed. Pulmonology consult placed. Patient will likely benefit from outpatient pulmonary clinic as well. GI/NUTRITION -patient passed bedside swallow test this morning and is currently taking p.o. meds and sips of water without issue. Diet advanced to clear liquid. H2 jocelin in place RENAL/LYTES -acid-base status improved. Mild chronic hypercapnic respiratory failure. Serum creatinine at baseline. Electrolytes stable. -remove Peña this a.m. ENDO -glycemic control per protocol. Continue Synthroid HEME -no current issues ID -COPD exacerbation: Azithromycin decreased yesterday to 250 mg daily. Rocephin discontinued yesterday Sputum cultures and all other cultures negative. --Prophylaxis VTE: Lovenox GI: Pepcid Lines: Peripheral Diet: Clear liquid, advance as tolerated Discussed with ICU nurse at bedside and on multidisciplinary rounds. Total of 35 minutes spent reviewing case and coronation care of this patient. Please note the above document was generated using voice recognition software. It may contain grammatical, syntax or spelling errors. Admission and Anticipated Discharge Date Admission Date: September 15, 2021 Supervising Physician Co-Signing Physician Notes Patient seen and examined. EMR reviewed. Discussed with critical care nurse at bedside and with overnight critical care ANN. Patient is doing well this morning. She had an episode last night requiring positive airway pressure. She is better this morning. She feels weak and deconditioned. We are working on getting her out of bed to chair and mobilizing as tolerated. We will start oral antihypertensives. Placed on performance and budesonide. Will need aggressive pulmonary toilet. Okay to transfer out of the intensive care unit. We will continue to follow for pulmonary issues. Physical Exam Constitutional: WD/WN, vitals as above cooperative and comfortable Eyes: PERRL, conjunctivae normal, anicteric sclerae ENMT: external ear and nose normal, oropharynx normal Neck: trachea midline, no thyromegaly Respiratory: normal respiratory effort, lungs clear to auscultation Auscultation: no diminished lung sounds, no crackles, no rales and no wheezes Cardiovascular: Rate/Rhythm: regular rate, regular rhythm and + tachycardic Heart Sounds: normal S1 and normal S2 Extremities: normal capillary refill; no edema Gastrointestinal (Abdomen): normal bowel sounds, soft, nontender, no hepatosplenomegaly Skin: no rashes, warm and dry Neurologic: PERRL, EOMI, accommodation nl, no face palsy, no dysarthria Psychiatric: A+Ox3, euthymic affect Genitourinary: Indwelling Peña catheter present Results & Data Results & Data ([facility]) Vital Signs (Past 12 Hours) Vital Signs Temp Pulse Pulse Resp BP Pulse Ox 09/20/21 05:09 98 H 16 100 09/20/21 00:24 104 H 104 H 22 100 09/20/21 00:00 37.0 C 104 H 23 159/111 H 100 09/19/21 23:00 36.8 C 86 20 167/90 H 97 09/19/21 22:00 37.1 C 90 16 143/89 H 95 09/19/21 21:00 37.0 C 93 H 14 188/89 H 97 Coding Level of Care Code 51397 Subseq Hosp Care Lvl 3 Diagnoses Respiratory failure with hypercapnia J96.92
[2021-09-20] MEDS ORDERED: METOPROLOL TARTRATE 25 MG TAB PO SCH (09:00)
[2021-09-20] MEDS: FORMOTEROL 20 MCG/2 ML VIAL NEB SCH ×2 (09:22→20:18)
[2021-09-20] MEDS: UMECLIDINIUM BROMIDE 62.5MCG/BLISTER 7 PUFFS/INHALER INH SCH (10:00)
[2021-09-20] MEDS: amLODIPine BESYLATE 5 MG TAB PO SCH (10:01)
[2021-09-20] MEDS: MULTI VIT W/MINERALS LIQUID 15 ML UDP NG SCH (10:01)
[2021-09-20] MEDS: FLUTICASONE FUROATE 100MCG 14 PUFFS/INHALER INH SCH (10:08)
[2021-09-20] MEDS: THIAMINE HCL 100 MG TAB PO SCH (11:06)
--- NOTE | 2021-09-20 15:26 | Pharmacy Report ---
Pharmacy Glycemic Short Note 2 - Date of Service September 20, 2021 - Glycemic Short BSG Results (Last 24 hours): 09/19/21 09/19/21 09/20/21 16:10 20:40 00:01 Glucose POC Glucose 145 H 134 H 151 H 09/20/21 09/20/21 09/20/21 04:13 05:17 07:09 Glucose 191 H POC Glucose 189 H 187 H 09/20/21 09/20/21 10:53 11:38 Glucose POC Glucose 166 H 158 H OUTPATIENT ANTIDIABETIC REGIMEN: * Metformin 500mg QD * A1c: 6.4% ASSESSMENT: * Patient admitted for COPD exacerbation likely experiencing steroid induced hyperglycemia. Patient was initiated on an insulin infusion by provider and successfully transitioned off yesterday. * Patient ordered a diet today however no documented carbs consumed thus far. Patient remains on IV solumedrol q8. * Fasting BSG trending up today and thus low dose lantus initiated. PLAN FOR INPATIENT GLYCEMIC CONTROL: * Hold outpatient oral diabetes medications * Basal insulin * Lantus 8 units SQ qam * Lantus scale this evening-See MAR for details. * Bolus insulin * NovoLog per scale ACHS or Q6hrs while NPO * Goal Range: Low 110 mg/dL - High 140 mg/dL * Correction Factor: 30 mg/dL/unit * Nutritional / Prandial insulin per carb ratio of 1 unit per 9 grams CHO consumed
[2021-09-20] MEDS: BENZONATATE 100 MG CAPSULE PO PRN (16:48)
[2021-09-20] MEDS ORDERED: LOPERAMIDE HCL 2 MG CAP PO STA (17:10)
[2021-09-20] MEDS: METOPROLOL TARTRATE 25 MG TAB PO SCH (20:20)
[2021-09-20] MEDS: AZITHROMYCIN 250 MG in DEXTROSE 5% 250 ML IV SCH (20:20)
[2021-09-20] MEDS ORDERED: INSULIN GLARGINE SOLOSTAR 100 UNITS/ML 3 ML PEN SC SCH (21:00)
[2021-09-20] MEDS: ONDANSETRON INJ 2 MG/ML 2 ML VIAL IV PRN (22:33)
[2021-09-21] MEDS: methylPREDNISolone 40 MG in SYRINGE 0 ML IV SCH ×3 (01:38→20:01)
[2021-09-21] MEDS ORDERED: INSULIN ASPART PER UNIT SC SCH (02:00)
[2021-09-21] MEDS: ALBUT/IPRATROP 3MG/0.5MG NEB 3 ML VIAL NEB PRN ×2 (02:53→11:33)
[2021-09-21] MEDS: LEVOTHYROXINE SODIUM 75 MCG TABLET PO SCH (06:35)
[2021-09-21] MEDS: ENOXAPARIN INJ 40 MG/0.4 ML SYR SQ SCH (06:35)
[2021-09-21 06:44] LABS: Hematocrit (blood only) 46.3 % (37-47); Mean Corpuscular Hemoglobin 28.4 pg (25-34); Mean Corpuscular Hgb Conc 32.4 g/dL (32-36); Mean Corpuscular Volume 87.5 fL (80-100); Mean Platelet Volume 9.1 fL (7.4-10.4); Platelet Count 429 K/uL (130-400); RDW Coefficient of Variation 13.9 % (11.5-14.5); RDW Standard Deviation 44.6 fL (36.4-46.3); Red Blood Count 5.29 M/uL (4.2-5.4); White Blood Count 15.71 K/uL (4.8-10.8)
[2021-09-21 07:00] LABS: BUN Creatinine Ratio 36.5 (10-20); Creatinine Clr Calc Pharmacy 93.2 ml/min; Est GFR (African American) 107.6 ml/min; Est GFR (Non-African American) 92.8 ml/min; Potassium 4.6 mmol/L (3.5-5.1)
--- NOTE | 2021-09-21 07:05 | Hospitalist Progress Note ---
Date of Service September 21, 2021 Assessment & Plan (1) Acute exacerbation of chronic obstructive pulmonary disease: Plan: 66 yo F with HLD, DM2, COPD, PAD, PACs, current smoker admitted for management of COPD exacerbation. Acute respiratory distress w/ hypoxia: - Patient came in with new O2 requirement of 1L - Night of 09/15 developed tachypnea, tachycardia, diaphoresis without improvement with duoneb, ativan, or Bipap. - Required intubation for worsening respiratory effort despite the above interventions. Extubated and currently on 1L O2 NC. - Keep oxygen saturation between 88-92%, O2 as needed. - Follow for need of 2 step. Hypotensive shock - ? sec to Sepsis due to pneumonia - Was kept on pressors. - now off pressors COPD Exacerbation sec to pneumonia: - Hx COPD w/ lingering cough since July and recent exacerbation. - CT chest not showing any signs of pneumonia, postinflammatory changes as above exacerbation - Sputum cultures showed light normal yancy, blood cultures negative 2/2 - Procal neg - IV methylpred 60 given in ER, continued on methylprednisolone 40mg Q12H. - IV azithromycin. d/edil ceftriaxone since cultures neg. - reportedly not using her daily advair inhaler. Fluticasone/vilante ordered for BID dosing. - QID duonebs scheduled, PRN Q4h. Nocturnal Hypoxia - chronically requires oxygen at nighttime per sleep study in 2017 DM2 - holding metformin - insulin gtt d/edil. - consulted pharmacy HTN: - systolic BPs in 140's to 180's past 24 hours. - Switched Metoprolol tartrate from 12.5mg to 25mg BID. Tobacco use - ppd smoker, 14 mcg nicotine patch - Discussed smoking cessation with patient, she has tried to quit in the past without much success, going for only a couple days at a time. Chronic Conditions HLD: statin weekly Restless legs/lumbar stenosis and pain: flexeril HS Depression/Anxiety: cont venlafaxine Hypothyroidism: cont levothyroxine DVT ppx: Lovenox, SCDs FEN/GI: Dm2 diet, on pantoprazole Bowel regimen: Loperamide for diarrhea Code Status: FULL CODE, does not wish to be maintained on life support/venti lated prison Dispo: Med/Surg w/ Tele. PT/OT recommend SNF upon discharge. (2) PAD (peripheral artery disease): (3) PAC (premature atrial contraction): (4) Type II diabetes mellitus with manifestations: (5) Hypothyroidism: (6) Tobacco use: (7) Nocturnal hypoxia: (8) Depression with anxiety: (9) Chronic reflux esophagitis: Admission and Anticipated Discharge Date Admission Date: September 15, 2021 Supervising Physician Co-Signing Physician Notes Resident Physician Supervision Note: I independently interviewed and examined the patient and verified the haro history and physical, reviewed labs and image studies and agree with resident Dr. Wood findings and care plan. Subjective Patient seen at the bedside this morning. Patient feeling tired today due to not sleeping well last night. She is still having diarrhea and nausea. Denies fevers, chills, shortness of breath or wheezing at rest. Physical Exam Constitutional: WD/WN, vitals as above Eyes: PERRL, conjunctivae normal, anicteric sclerae Respiratory: normal respiratory effort, lungs clear to auscultation Cardiovascular: RRR, no murmur, no edema Gastrointestinal (Abdomen): normal bowel sounds, soft, nontender, no hepatos plenomegaly Results & Data Results & Data ([facility]) Vital Signs (Past 12 Hours) Vital Signs Temp Pulse Pulse Pulse Resp BP BP 09/21/21 06:00 36.8 C 93 H 18 164/80 H 09/21/21 04:00 36.7 C 80 18 166/98 H 09/21/21 02:55 71 16 09/21/21 01:22 36.9 C 76 18 148/78 H 09/20/21 20:18 82 20 BP Pulse Ox 09/21/21 06:00 95 09/21/21 04:00 176/95 H 96 09/21/21 02:55 95 09/21/21 01:22 95 09/20/21 20:18 94 Resident Activity Tracking Resident Involvement: Resident Care Provided Care Provided: Adult Hospital Medicine (1) Hypothyroidism Hypothyroidism type: acquired Qualified Code(s): E03.9 - Hypothyroidism, u nspecified
[2021-09-21 07:11] LABS: Basophils # (auto) 0.09 K/uL (0-0.2); Basophils % (auto) 0.6 %; Immature Granulocytes # (auto) 1.17 K/uL (0.00-0.02); Immature Granulocytes % (auto) 7.4 %; Lymphocytes % (auto) 8.3 %; Monocytes # (auto) 1.23 K/uL (0.11-0.59); Monocytes % (auto) 7.8 %; Neutrophils # (auto) 11.92 K/uL (1.4-6.5); Neutrophils % (auto) 75.9 %
[2021-09-21] MEDS: FORMOTEROL 20 MCG/2 ML VIAL NEB SCH ×2 (07:32→20:28)
[2021-09-21] MEDS: NICOTINE 14 MG/24 HR PATCH TD SCH (08:17)
[2021-09-21] MEDS: MULTI VIT W/MINERALS LIQUID 15 ML UDP NG SCH (08:18)
[2021-09-21] MEDS: UMECLIDINIUM BROMIDE 62.5MCG/BLISTER 7 PUFFS/INHALER INH SCH (08:19)
[2021-09-21] MEDS: FLUTICASONE FUROATE 100MCG 14 PUFFS/INHALER INH SCH (08:20)
[2021-09-21] MEDS: THIAMINE HCL 100 MG TAB PO SCH (08:21)
[2021-09-21] MEDS: VENLAFAXINE HCL 37.5 MG TAB PO SCH ×2 (08:21→20:05)
[2021-09-21] MEDS: amLODIPine BESYLATE 5 MG TAB PO SCH (08:21)
[2021-09-21] MEDS: METOPROLOL TARTRATE 25 MG TAB PO SCH ×2 (08:21→20:04)
[2021-09-21] MEDS: INSULIN GLARGINE SOLOSTAR 100 UNITS/ML 3 ML PEN SC SCH (08:23)
[2021-09-21] MEDS: INSULIN ASPART PER UNIT SC SCH ×4 (08:26→21:03)
[2021-09-21] MEDS: ONDANSETRON INJ 2 MG/ML 2 ML VIAL IV PRN ×2 (10:06→17:48)
[2021-09-21] MEDS: ADVANCED PROBIOTIC 1250 MG CAPSULE PO SCH (12:43)
--- NOTE | 2021-09-21 17:10 | Pulmonology Progress Note ---
Date of Service September 21, 2021 Assessment & Plan (1) Respiratory failure with hypercapnia: (2) Acute exacerbation of chronic obstructive pulmonary disease: (3) Tobacco use: (4) Snoring: (5) Obesity: Plan: Attending: Dr. Glover Impression: 66-year-old female with 55-syck-nsow smoking history admitted 09/14/2021 with COPD exacerbation. She decompensated and she required endotracheal intubation with mechanical ventilation secondary to hypercarbia. Patient was successfully extubated on the 3 L/min via oxygen mask on 09/19/2021. She is currently saturating at 93% on 2 L/min via nasal cannula. She does not have any evidence of current exacerbation. She has no significant cough. She has no conversational dyspnea. She was seen by physical therapy today and is recommended for inpatient rehabilitation. Recommendations: 1. COPD exacerbation: * Home medications include Symbicort and nebulizer * I do not see records of pulmonary function testing and patient denies previous PFTs * Patient states that she follows with BRIEN Mathur but has not seen a batch room technician * Patient started on Perforomist and Incruse Ellipta. Recommend discharging on same * Follow-up in 2 to 3 months with pulmonary for pulmonary function testing after patient returns to baseline * Patient does follow with Dr. Benavidez and Shadia Hutton PA-C. She may prefer following Dr. Benavidez for pulmonary needs as well * Patient will need two-step evaluation prior to discharge. Most likely will need supplemental oxygen on discharge * Maintain SaO2 between 88 and 92% 2. Tobacco abuse: * Patient with 93-nyha-zohp smoking history * She smoked up until the day of admission * She states that she is motivated to quit smoking at this time. We discussed addictive properties of nicotine as well as behavioral addiction * Advised them to discard all nicotine products at home and work with primary care physician on tobacco abstention strategies 3. Overweight secondary to excess calories: * Discussed deconditioning as a result of weight may be contributing to shortness of breath and oxygen requirements * Work on walking and other forms of low impact exercise * Continue complete tobacco abstention * Work on calorie reduction while maintaining adequate protein intake 4. Excessive snoring: * Patient with a BMI of 29.0 kg/m and a weight of 81.4 kg with a height of 5 feet 6 inches. * Previously had polysomnography exam which showed no significant apnea or hypopneas * Patient did demonstrate nocturnal hypoxia and was placed on supplemental oxygen nocturnally at that time * Would recommend follow-up with Dr. Benavidez in the sleep lab on discharge 5. Nocturnal hypoxia: * Previously diagnosed by Dr. Benavidez in the outpatient lab * Continue with nocturnal supplemental oxygen as prescribed * Follow-up with Dr. Benavidez in the sleep clinic Thank you very much for including us in the care of this patient. Please refer to Dr. Glover's addendum for further recommendations. Admission and Anticipated Discharge Date Admission Date: September 15, 2021 Subjective Attending: Dr. Glover Patient seen and examined in room 289-2. Michele was in the room. Patient was a pack a day smoker 09/14/2021 on the day of admission. She has followed with Dr. Benavidez and Shadia Hutton PA-C for sleep disorder but has not seen a batch room technician in the past. She does have nocturnal hypoxia for which she is on supplemental oxygen at night. Her previous polysomnography exam did not show any significant apnea or hypopnea. I do not see any pulmonary function testing in the system. The patient and her deny awareness of having pulmonary function testing done in the past. Review of Systems Review of Systems: All systems reviewed & are unremarkable except as noted in Subjective Physical Exam Physical Exam: GENERAL : No acute distress. No conversational dyspnea EYES: No icterus, gaze conjugate NOSE: No evidence of epistaxis. Nasal cannula in place MOUTH: No lesions or candidiasis NECK: Supple LUNGS: Mild wheezes but generally clear to auscultation. Good inspirational effort with no induced cough. HEART: Regular, rate controlled ABDOMEN: Soft, NT, ND, BS Present : Peña catheter in place to gravity EXTREMITIES: No LE edema, pedal pulses intact NEURO: A&OX3 Results & Data Results & Data ([facility]) Vital Signs (Past 12 Hours) Vital Signs Temp Pulse Pulse Pulse Resp BP Pulse Ox 09/21/21 15:40 36.7 C 83 18 156/90 H 93 09/21/21 15:00 85 09/21/21 11:33 70 20 98 09/21/21 11:32 36.5 C 64 18 150/90 H 97 09/21/21 07:58 36.7 C 79 20 165/84 H 96 09/21/21 07:29 76 09/21/21 06:00 36.8 C 93 H 18 164/80 H 95 Critical Care Results & Data Vital Signs (Past 12 Hours) Vital Signs Temp Pulse Pulse Pulse Resp BP Pulse Ox 09/21/21 15:40 36.7 C 83 18 156/90 H 93 09/21/21 15:00 85 09/21/21 11:33 70 20 98 09/21/21 11:32 36.5 C 64 18 150/90 H 97 09/21/21 07:58 36.7 C 79 20 165/84 H 96 09/21/21 07:29 76 Lab & Micro Results (Past 24 Hours) RBC 5.29 M/uL (4.2-5.4) 09/21/21 WBC 15.71 K/uL (4.8-10.8) H 09/21/21 Hgb 15.0 g/dL (12.0-16.0) 09/21/21 Hct 46.3 % (37-47) 09/21/21 MCV 87.5 fL (80-100) 09/21/21 MCH 28.4 pg (25-34) 09/21/21 MCHC 32.4 g/dL (32-36) 09/21/21 RDW Standard Deviation 44.6 fL (36.4-46.3) 09/21/21 RDW Coefficient of Variation 13.9 % (11.5-14.5) 09/21/21 Plt Count 429 K/uL (130-400) H 09/21/21 MPV 9.1 fL (7.4-10.4) 09/21/21 Neutrophils (%) (Auto) 75.9 % 09/21/21 Lymphocytes (%) (Auto) 8.3 % 09/21/21 Monocytes # (Auto) 1.23 K/uL (0.11-0.59) H 09/21/21 Eosinophils # (Auto) 0.00 K/uL (0-0.5) 09/21/21 Immature Granulocyte % (Auto) 7.4 % 09/21/21 Neutrophils # (Auto) 11.92 K/uL (1.4-6.5) H 09/21/21 Lymphocytes # (Auto) 1.30 K/uL (1.2-3.4) 09/21/21 Monocytes # (Auto) 1.23 K/uL (0.11-0.59) H 09/21/21 Eosinophils # (Auto) 0.00 K/uL (0-0.5) 09/21/21 Basophils # (Auto) 0.09 K/uL (0-0.2) 09/21/21 Immature Granulocyte # (Auto) 1.17 K/uL (0.00-0.02) H 09/21/21 Na 141 mmol/L (136-145) 09/21/21 K 4.6 mmol/L (3.5-5.1) 09/21/21 Cl 105 mmol/L (98-107) 09/21/21 CO2 29 mmol/L (21-32) 09/21/21 Anion Gap 7 (3-11) 09/21/21 BUN 23 mg/dl (6-23) 09/21/21 Creatinine 0.63 mg/dl (0.6-1.2) 09/21/21 Estimated GFR ( Amer) 107.6 ml/min 09/21/21 Estimated GFR (Non-Af Amer) 92.8 ml/min 09/21/21 BUN/Creatinine Ratio 36.5 (10-20) H 09/21/21 Glu 111 mg/dl (70-99) H 09/21/21 Ca 9.0 mg/dl (8.5-10.1) 09/21/21 Phosphorus Level 4.0 mg/dl (2.5-4.9) 09/21/21 Mg 2.0 mg/dl (1.7-2.4) 09/21/21 06:01 09/21/21 Calcium Level 9.0 mg/dl (8.5-10.1) 09/21/21 06:01 09/21/21 I & O Totals 24 Hours 09/20/21 09/21/21 09/22/21 06:59 06:59 06:59 Intake Total 459.547 / 459.547 642.5 / 642.5 480 / 480 Output Total 1051 / 1051 283 / 283 Balance -591.453 / -591.453 359.5 / 359.5 480 / 480 Cumulative 09/14/21 17:15 thru 09/21/21 12:54 Intake Total 8471.357 Output Total 4759 Balance 3712.357 RT Ventilator Mngmt (Last Documented) Ventilator Ordered Settings Ventilator Support Mode CPAP 09/19/21 07:50 Respiratory Rate 18 09/21/21 15:40 Ventilator Tidal Volume 430 09/19/21 03:50 Setting Minute Ventilation 6.9 09/19/21 07:50 Ventilator Positive Pressure 6 09/19/21 07:50 Support Setting Positive End Expiratory 5 09/19/21 07:50 Pressure Fraction of Inspired Oxygen 30 09/20/21 05:09 Machine Comment held off on extubation (patient 09/18/21 10:50 vomiting)/placed back on previous settings) Ventilator - PT Measurements Respiratory Rate 18 Exhaled Tidal Volume 582 Minute Ventilation 6.9 Peak Inspiratory Airway 13 Pressure Plateau Pressure 17.6 Respiratory Cycle Inspiratory: 1:3.0 Expiratory Ratio Inspiratory Phase Time 1.6 End-Tidal CO2 35 Static Lung Compliance 34.13 Dynamic Lung Compliance 72.75 Normal Static Lung Compliance 49.00 Patient Measurements Comment extubated to 3L oxy mask, SPO2 97% PG Care Time/CCT Total # of Minutes Spent Total Time Spent with Patient: Total time spent is greater than 50% in coordination of care (as documented) at patient's floor/unit and/or counseling patient: Coding Level of Care Code 68859 Subseq Hosp Care Lvl 3 Diagnoses Respiratory failure with hypercapnia J96.92 Acute exacerbation of chronic obstructive pulmonary disease J44.1 Tobacco use Z72.0 Snoring R06.83 Obesity E66.9 Time Spent (min) 30
[2021-09-21] MEDS: PROMETHAZINE HCL 12.5 MG/10 ML UDP PO PRN (19:58)
[2021-09-21] MEDS: AZITHROMYCIN 250 MG in DEXTROSE 5% 250 ML IV SCH (20:00)
[2021-09-22] MEDS: LEVOTHYROXINE SODIUM 75 MCG TABLET PO SCH (06:31)
[2021-09-22] MEDS: ENOXAPARIN INJ 40 MG/0.4 ML SYR SQ SCH (06:32)
--- NOTE | 2021-09-22 07:01 | Hospitalist Progress Note ---
Date of Service September 22, 2021 Assessment & Plan (1) Acute exacerbation of chronic obstructive pulmonary disease: Plan: 66 yo F with HLD, DM2, COPD, PAD, PACs, current smoker admitted for management of COPD exacerbation. Acute respiratory distress w/ hypoxia: - Patient came in with new O2 requirement of 1L - Night of 09/15 developed tachypnea, tachycardia, diaphoresis without improvement with duoneb, ativan, or Bipap. - Required intubation for worsening respiratory effort despite the above interventions. Extubated and currently on 1L O2 NC. - Keep oxygen saturation between 88-92%, O2 as needed. - Follow for need of 2 step. Hypotensive shock - ? sec to Sepsis due to pneumonia - Was kept on pressors. - now off pressors COPD Exacerbation sec to pneumonia: - Hx COPD w/ lingering cough since July and recent exacerbation. - CT chest not showing any signs of pneumonia, postinflammatory changes as above exacerbation - Sputum cultures showed light normal yancy, blood cultures negative 2/2 - Procal neg - IV methylpred 60 given in ER, D/C'ed methylpred 40mg Q12 today. - IV azithromycin. d/edil ceftriaxone since cultures neg. - reportedly not using her daily advair inhaler. Fluticasone/vilante ordered for BID dosing. - QID duonebs scheduled, PRN Q4h. Nausea/Vomiting: - Patient with N/V throughout night and into morning. - possibly from gastritis - add H2 jocelin - d/cing steroids should help - Zofran 4mg IV and Phenergan 12.5 PO not effective. - Patient says not related to ingestion of food. - Will trial yogurt and crackers for dinner tonight. Nocturnal Hypoxia - chronically requires oxygen at nighttime per sleep study in 2018 DM2 - holding metformin - insulin gtt d/edil. - consulted pharmacy HTN: - systolic BPs in 140's to 180's past 24 hours. - Switched Metoprolol tartrate from 12.5mg to 25mg BID. Tobacco use - ppd smoker, 14 mcg nicotine patch - Discussed smoking cessation with patient, she has tried to quit in the past without much success, going for only a couple days at a time. Chronic Conditions HLD: statin weekly Restless legs/lumbar stenosis and pain: flexeril HS Depression/Anxiety: cont venlafaxine Hypothyroidism: cont levothyroxine DVT ppx: Lovenox, SCDs FEN/GI: Dm2 diet, on pantoprazole Bowel regimen: Loperamide for diarrhea Code Status: FULL CODE, does not wish to be maintained on life support/ventilated [facility]p Dispo: Med/Surg w/ Tele. PT/OT recommend SNF upon discharge. (2) PAD (peripheral artery disease): (3) PAC (premature atrial contraction): (4) Type II diabetes mellitus with manifestations: (5) Hypothyroidism: (6) Tobacco use: (7) Nocturnal hypoxia: (8) Depression with anxiety: (9) Chronic reflux esophagitis: Admission and Anticipated Discharge Date Admission Date: September 15, 2021 Supervising Physician Co-Signing Physician Notes Resident Physician Supervision Note: I independently interviewed and examined the patient and verified the haro history and physical, reviewed labs and image studies and agree with resident Dr. Wood findings and care plan. Subjective Patient seen at the bedside this morning. Patient says she felt very nauseated last night and threw up 3 times. This continued into the morning and patient threw up an additional time. Since then patient has had dry heaving but no vomiting. She says the N/V does not come about with any trigger, she denied vomiting with food intake although has not eaten anything today due to poor ap petite. Denies shortness of breath, wheezing, fevers, chills. Physical Exam Constitutional: WD/WN, vitals as above Eyes: PERRL, conjunctivae normal, anicteric sclerae Respiratory: normal respiratory effort, lungs clear to auscultation Auscultation: + rhonchi Mild end expiratory wheezes auscultated at bilaterally. Cardiovascular: RRR, no murmur, no edema Rate/Rhythm: regular rate and regular rhythm Heart Sounds: normal S1 and normal S2 Gastrointestinal (Abdomen): normal bowel sounds, soft, nontender, no hepatosplenomegaly Results & Data Results & Data ([facility]) Vital Signs (Past 12 Hours) Vital Signs Temp Pulse Pulse Resp BP Pulse Ox 09/22/21 04:45 36.7 C 74 18 170/92 H 97 09/22/21 00:00 72 09/21/21 23:42 36.9 C 74 20 164/77 H 94 09/21/21 22:00 72 09/21/21 20:29 94 H 18 94 09/21/21 19:29 36.8 C 81 20 171/85 H 97 Resident Activity Tracking Resident Involvement: Resident Care Provided Care Provided: Adult Hospital Medicine (1) Hypothyroidism Hypothyroidism type: acquired Qualified Code(s): E03.9 - Hypothyroidism, unspecified
[2021-09-22 07:22] LABS: Hematocrit (blood only) 49.4 % (37-47); Hemoglobin 15.7 g/dL (12.0-16.0); Mean Corpuscular Hemoglobin 28.2 pg (25-34); Mean Corpuscular Hgb Conc 31.8 g/dL (32-36); Mean Corpuscular Volume 88.7 fL (80-100); Mean Platelet Volume 9.5 fL (7.4-10.4); Platelet Count 444 K/uL (130-400); RDW Coefficient of Variation 13.8 % (11.5-14.5); RDW Standard Deviation 44.8 fL (36.4-46.3); Red Blood Count 5.57 M/uL (4.2-5.4); White Blood Count 20.87 K/uL (4.8-10.8)
[2021-09-22] MEDS: ONDANSETRON INJ 2 MG/ML 2 ML VIAL IV PRN ×2 (07:31→13:45)
[2021-09-22] MEDS: FORMOTEROL 20 MCG/2 ML VIAL NEB SCH ×2 (07:42→19:14)
[2021-09-22 07:43] LABS: BUN Creatinine Ratio 35.9 (10-20); Creatinine Clr Calc Pharmacy 92.2 ml/min; Est GFR (Non-African American) 92.3 ml/min; Potassium 4.2 mmol/L (3.5-5.1)
[2021-09-22] MEDS: INSULIN ASPART PER UNIT SC SCH ×4 (08:13→20:07)
[2021-09-22] MEDS: FLUTICASONE FUROATE 100MCG 14 PUFFS/INHALER INH SCH (08:42)
[2021-09-22] MEDS: UMECLIDINIUM BROMIDE 62.5MCG/BLISTER 7 PUFFS/INHALER INH SCH (08:42)
[2021-09-22] MEDS: INSULIN GLARGINE SOLOSTAR 100 UNITS/ML 3 ML PEN SC SCH (08:42)
[2021-09-22] MEDS: NICOTINE 14 MG/24 HR PATCH TD SCH (08:45)
[2021-09-22] MEDS: methylPREDNISolone 40 MG in SYRINGE 0 ML IV SCH (08:45)
[2021-09-22] MEDS ORDERED: ALUMINUM/MAGNESIUM SUSP 30 ML UDC PO PRN (08:52)
[2021-09-22 09:05] LABS: Basophils # (auto) 0.06 K/uL (0-0.2); Basophils % (auto) 0.3 %; Eosinophils # (auto) 0.01 K/uL (0-0.5); Immature Granulocytes # (auto) 0.82 K/uL (0.00-0.02); Immature Granulocytes % (auto) 3.9 %; Lymphocytes # (auto) 2.17 K/uL (1.2-3.4); Lymphocytes % (auto) 10.4 %; Monocytes # (auto) 2.27 K/uL (0.11-0.59); Monocytes % (auto) 10.9 %; Neutrophils # (auto) 15.54 K/uL (1.4-6.5); Neutrophils % (auto) 74.5 %
[2021-09-22] MEDS: PROMETHAZINE HCL 12.5 MG/10 ML UDP PO PRN (10:10)
[2021-09-22] MEDS: METOPROLOL TARTRATE 25 MG TAB PO SCH ×2 (10:42→20:08)
[2021-09-22] MEDS: THIAMINE HCL 100 MG TAB PO SCH (10:42)
[2021-09-22] MEDS: VENLAFAXINE HCL 37.5 MG TAB PO SCH ×2 (10:43→20:08)
[2021-09-22] MEDS: amLODIPine BESYLATE 5 MG TAB PO SCH (10:43)
[2021-09-22] MEDS: MULTI VIT W/MINERALS LIQUID 15 ML UDP NG SCH (10:43)
[2021-09-22] MEDS: ADVANCED PROBIOTIC 1250 MG CAPSULE PO SCH (10:45)
--- NOTE | 2021-09-22 11:27 | Pharmacy Report ---
Pharmacy Glycemic Short Note 2 - Date of Service September 22, 2021 - Glycemic Short BSG Results (Last 24 hours): 09/21/21 09/21/21 09/21/21 11:52 16:57 20:46 Glucose POC Glucose 97 120 H 114 H 09/22/21 09/22/21 06:37 07:35 Glucose 146 H POC Glucose 139 H OUTPATIENT ANTIDIABETIC REGIMEN: * Metformin 500mg QD * A1c: 6.4% ASSESSMENT: 09/22/21: * BSGs have been relatively stable on ~15 units of insulin per day the past 2 days. * Pt remains on SoluMedrol 40mg IV q12h. * No changes required at this time. Expect that patient's insulin requirements will decrease as steroids taper. Insulin regimen will require adjustment when this occurs to prevent hypoglycemia. 09/20 * Patient admitted for COPD exacerbation likely experiencing steroid induced hyperglycemia. Patient was initiated on an insulin infusion by provider and successfully transitioned off yesterday. * Patient ordered a diet today however no documented carbs consumed thus far. Patient remains on IV solumedrol q8. * Fasting BSG trending up today and thus low dose lantus initiated. PLAN FOR INPATIENT GLYCEMIC CONTROL: * Hold outpatient oral diabetes medications * Basal insulin * Lantus 8 units SQ qam * Bolus insulin * NovoLog per scale ACHS or Q6hrs while NPO * Goal Range: Low 110 mg/dL - High 140 mg/dL * Correction Factor: 35 mg/dL/unit * Nutritional / Prandial insulin per carb ratio of 1 unit per 12 grams CHO consumed
[2021-09-22] MEDS: ALBUT/IPRATROP 3MG/0.5MG NEB 3 ML VIAL NEB PRN (11:50)
--- NOTE | 2021-09-22 12:22 | XRay Report ---
CHEST ONE VIEW; KUB HISTORY: Acute nausea nausea COMPARISON: Chest radiograph September 20, 2021 FINDINGS: CHEST: Cardiac mediastinal and hilar silhouettes are within normal limits. No pneumothorax, pleural effusion , airspace consolidation or overt pulmonary edema. Unchanged ill-defined left basilar densities favor ing atelectasis. Degenerative changes of the shoulders and spine. Mild mid thoracic dextroscoliosis. Right shoulder rotator cuff calcific tendinosis. KUB: The bowel gas pattern is non-obstructive. Moderate gaseous distention of the stomach. There is no org anomegaly. No renal calculi. No ureteral calculi. No pneumoperitoneum or pneumatosis. Degenerative c hanges of the spine. No fracture. IMPRESSION: 1. No acute processes of the chest. 2. Nonobstructive bowel gas pattern. 3. Moderate gaseous distention of the stomach. ACT 112: Negative or not required by law. The above report was generated using voice recognition software. It may contain grammatical, syntax o r spelling errors. Electronically signed by: Jose Cao M.D. 09/22/2021 12:21 PM
[2021-09-22] MEDS: PANTOprazole 40 MG TAB PO SCH (13:18)
[2021-09-22] MEDS: BENZONATATE 100 MG CAPSULE PO PRN ×2 (13:18→23:35)
--- NOTE | 2021-09-22 18:28 | Pulmonology Progress Note ---
Date of Service September 22, 2021 Assessment & Plan (1) Respiratory failure with hypercapnia: (2) Acute exacerbation of chronic obstructive pulmonary disease: (3) Tobacco use: (4) Snoring: (5) Obesity: Plan: Attending: Dr. Glover Impression: 66-year-old female with [id number]-vecu smoking history admitted 09/14/2021 with COPD exacerbation. She decompensated and she required endotracheal intubation with mechanical ventilation secondary to hypercarbia. Patient was successfully extubated on the 3 L/min via oxygen mask on 09/19/2021. She is currently saturating at 93% on 2 L/min via nasal cannula. She does not have any evidence of current exacerbation. She has no significant cough. She has no conversational dyspnea. She was seen by physical therapy and is recommended for inpatient rehabilitation. Recommendations: 1. COPD exacerbation: * Home medications include Symbicort and nebulizer * I do not see records of pulmonary function testing and patient denies previous PFTs * Patient states that she follows with BRIEN Mathur but has not seen a costumer * Patient started on Perforomist and Incruse Ellipta. Recommend discharging on same * Follow-up in 2 to 3 months with pulmonary for pulmonary function testing after patient returns to baseline * Patient does follow with Dr. Benavidez and Shadia Hutton PA-C. She may prefer following Dr. Benavidez for pulmonary needs as well * Patient will need two-step evaluation prior to discharge. Most likely will need supplemental oxygen on discharge * Maintain SaO2 between 88 and 92% 2. Tobacco abuse: * Patient with [id number]-[id number] smoking history * She smoked up until the day of admission * She states that she is motivated to quit smoking at this time. We discussed addictive properties of nicotine as well as behavioral addiction * Advised them to discard all nicotine products at home and work with primary care physician on tobacco abstention strategies 3. Overweight secondary to excess calories: * Discussed deconditioning as a result of weight may be contributing to shortness of breath and oxygen requirements * Work on walking and other forms of low impact exercise * Continue complete tobacco abstention * Work on calorie reduction while maintaining adequate protein intake 4. Excessive snoring: * Patient with a BMI of 29.0 kg/m and a weight of 81.4 kg with a height of 5 feet 6 inches. * Previously had polysomnography exam which showed no significant apnea or hypopneas * Patient did demonstrate nocturnal hypoxia and was placed on supplemental oxygen nocturnally at that time * Would recommend follow-up with Dr. Benavidez in the sleep lab on discharge 5. Nocturnal hypoxia: * Previously diagnosed by Dr. Benavidez in the outpatient lab * Continue with nocturnal supplemental oxygen as prescribed * Follow-up with Dr. Benavidez in the sleep clinic Thank you very much for including us in the care of this patient. Patient oxygenating well on 2 L/min via nasal cannula. Continue with pulmonary toileting and supplemental oxygen at night. Patient's chest x-ray shows no acute findings today. At this time, the pulmonary service will sign off. Please feel free to call with any further questions or needs. Admission and Anticipated Discharge Date Admission Date: September 15, 2021 Subjective Attending: Dr. Glover Patient seen and examined in room 289 today. She has reports of nausea and vomiting. She also has increased cough. She has not been significantly more hypoxic and continues to maintain saturations with 2 L/min via nasal cannula. Patient does report episodes of bowel incontinence. She also continues with cough. She denies fever, chills, sweats, rigors. No significant abdominal pain. No hematemesis. She is unaware of any melena, hematochezia or bright red blood per rectum. She feels as though her abdomen is slightly distended but no significant pain. She reports that she had difficulty sleeping last night. Review of Systems Review of Systems: All systems reviewed & are unremarkable except as noted in Subjective Physical Exam Physical Exam: GENERAL : Patient appears ill EYES: No icterus, gaze conjugate NOSE: No evidence of epistaxis. Nasal cannula is in place MOUTH: No lesions or candidiasis tongue is midline NECK: Supple LUNGS: Scattered wheezes. Slight crackles at the bilateral bases. No appreciation of rhonchi. HEART: Regular, rate controlled in the 70s. ABDOMEN: Soft, NT, ND, BS Present. No rebound tenderness. No tenderness to deep palpation EXTREMITIES: No LE edema, pedal pulses intact NEURO: A&OX3 Results & Data Results & Data ([facility]) Vital Signs (Past 12 Hours) Vital Signs Temp Pulse Pulse Resp BP Pulse Ox 09/22/21 16:00 37 C 74 18 164/78 H 96 09/22/21 14:59 77 09/22/21 11:54 36.8 C 69 16 146/76 H 97 09/22/21 11:51 73 16 97 09/22/21 08:00 37.1 C 69 18 148/79 H 95 09/22/21 07:42 90 18 95 09/22/21 07:22 90 Laboratory Results 09/22/21 06:37 09/22/21 06:37 Diagnostic Findings KUB X-Ray 09/22/21 11:14 CHEST ONE VIEW; KUB HISTORY: Acute nausea nausea COMPARISON: Chest radiograph September 20, 2021 FINDINGS: CHEST: Cardiac mediastinal and hilar silhouettes are within normal limits. No pneumothorax, pleural effusion, airspace consolidation or overt pulmonary edema. Unchanged ill-defined left basilar densities favoring atelectasis. Degenerative changes of the shoulders and spine. Mild mid thoracic dextroscoliosis. Right shoulder rotator cuff calcific tendinosis. KUB: The bowel gas pattern is non-obstructive. Moderate gaseous distention of the stomach. There is no organomegaly. No renal calculi. No ureteral calculi. No pneumoperitoneum or pneumatosis. Degenerative changes of the spine. No fracture. IMPRESSION: 1. No acute processes of the chest. 2. Nonobstructive bowel gas pattern. 3. Moderate gaseous distention of the stomach. ACT 112: Negative or not required by law. The above report was generated using voice recognition software. It may contain grammatical, syntax or spelling errors. Electronically signed by: Jose Cao M.D. 09/22/2021 12:21 PM Chest X-Ray 09/22/21 11:53 CHEST ONE VIEW; KUB HISTORY: Acute nausea nausea COMPARISON: Chest radiograph September 20, 2021 FINDINGS: CHEST: Cardiac mediastinal and hilar silhouettes are within normal limits. No pn eumothorax, pleural effusion, airspace consolidation or overt pulmonary edema. Unchanged ill-defined left basilar densities favoring atelectasis. Degenerative changes of the shoulders and spine. Mild mid thoracic dextroscoliosis. Right shoulder rotator cuff calcific tendinosis. KUB: The bowel gas pattern is non-obstructive. Moderate gaseous distention of the stomach. There is no organomegaly. No renal calculi. No ureteral calculi. No pneumoperitoneum or pneumatosis. Degenerative changes of the spine. No fracture. IMPRESSION: 1. No acute processes of the chest. 2. Nonobstructive bowel gas pattern. 3. Moderate gaseous distention of the stomach. ACT 112: Negative or not required by law. The above report was generated using voice recognition software. It may contain grammatical, syntax or spelling errors. Electronically signed by: Jose Cao M.D. 09/22/2021 12:21 PM PG Care Time/CCT Total # of Minutes Spent Total Time Spent with Patient: Total time spent is greater than 50% in coordination of care (as documented) at patient's floor/unit and/or counseling patient: Coding Level of Care Code 78243 Subseq Hosp Care Lvl 2 Diagnoses Respiratory failure with hypercapnia J96.92 Acute exacerbation of chronic obstructive pulmonary disease J44.1 Tobacco use Z72.0 Snoring R06.83 Obesity E66.9 Time Spent (min) 30
[2021-09-22] MEDS ORDERED: guaiFENesin/CODEINE 100MG/10MG 5ML UDC PO PRN (19:49)
[2021-09-22] MEDS: AZITHROMYCIN 250 MG in DEXTROSE 5% 250 ML IV SCH (20:09)
[2021-09-23] MEDS: LEVOTHYROXINE SODIUM 75 MCG TABLET PO SCH (05:33)
[2021-09-23] MEDS: ENOXAPARIN INJ 40 MG/0.4 ML SYR SQ SCH (05:33)
[2021-09-23 06:38] LABS: Basophils # (auto) 0.04 K/uL (0-0.2); Basophils % (auto) 0.2 %; Eosinophils # (auto) 0.06 K/uL (0-0.5); Eosinophils % (auto) 0.4 %; Hematocrit (blood only) 45.4 % (37-47); Hemoglobin 14.6 g/dL (12.0-16.0); Immature Granulocytes # (auto) 0.59 K/uL (0.00-0.02); Immature Granulocytes % (auto) 3.7 %; Lymphocytes # (auto) 3.13 K/uL (1.2-3.4); Lymphocytes % (auto) 19.5 %; Mean Corpuscular Hemoglobin 28.6 pg (25-34); Mean Corpuscular Hgb Conc 32.2 g/dL (32-36); Mean Corpuscular Volume 88.8 fL (80-100); Mean Platelet Volume 9.4 fL (7.4-10.4); Monocytes # (auto) 1.56 K/uL (0.11-0.59); Monocytes % (auto) 9.7 %; Neutrophils % (auto) 66.5 %; Platelet Count 381 K/uL (130-400); RDW Coefficient of Variation 13.6 % (11.5-14.5); RDW Standard Deviation 44.3 fL (36.4-46.3); Red Blood Count 5.11 M/uL (4.2-5.4); White Blood Count 16.08 K/uL (4.8-10.8)
[2021-09-23 07:11] LABS: BUN Creatinine Ratio 31.7 (10-20); Calcium 8.3 mg/dl (8.5-10.1); Creatinine Clr Calc Pharmacy 94.1 ml/min; Est GFR (African American) 107.6 ml/min; Est GFR (Non-African American) 92.8 ml/min; Potassium 3.9 mmol/L (3.5-5.1)
--- NOTE | 2021-09-23 07:15 | Hospitalist Progress Note ---
Date of Service September 23, 2021 Assessment & Plan (1) Acute exacerbation of chronic obstructive pulmonary disease: Plan: 66 yo F with HLD, DM2, COPD, PAD, PACs, current smoker admitted for management of COPD exacerbation. Acute respiratory distress w/ hypoxia: - Patient came in with new O2 requirement of 1L - Night of 09/15 developed tachypnea, tachycardia, diaphoresis without improvement with duoneb, ativan, or Bipap. - Required intubation for worsening respiratory effort despite the above interventions. Extubated and currently on 1L O2 NC. - Keep oxygen saturation between 88-92%, O2 as needed. Hypotensive shock - ? sec to Sepsis due to pneumonia - Was kept on pressors. - now off pressors COPD Exacerbation sec to pneumonia: - Hx COPD w/ lingering cough since July and recent exacerbation. - CT chest not showing any signs of pneumonia, postinflammatory changes as above exacerbation - Sputum cultures showed light normal yancy, blood cultures negative 2/2 - Procal neg - IV methylpred 60 given in ER, D/C'ed methylpred 40mg Q12. - d/edil ceftriaxone since cultures neg. Finished course of azithromycin. - reportedly not using her daily advair inhaler. Fluticasone/vilante ordered for BID dosing. - QID duonebs scheduled, PRN Q4h. Diarrhea: - Persistent episodes of diarrhea since extubation. - C. diff negative. - Loperamide x2 did not help - Ordered Psyllium husk. - Reassess in the morning. Nausea/Vomiting: - possibly from gastritis - added H2 jocelin - Zofran 4mg IV and Phenergan 12.5 PO not effective. - Patient w/o nausea/vomiting last night. resolved. Nocturnal Hypoxia - chronically requires oxygen at nighttime per sleep study in 2018 DM2 - holding metformin - insulin gtt d/edil. - consulted pharmacy HTN: - systolic BPs in 140's to 180's past 24 hours. - Switched Metoprolol tartrate from 12.5mg to 25mg BID. Tobacco use - ppd smoker, 14 mcg nicotine patch - Discussed smoking cessation with patient, she has tried to quit in the past without much success, going for only a couple days at a time. 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 PT/OT recommend SNF upon discharge. (2) PAD (peripheral artery disease): (3) PAC (premature atrial contraction): (4) Type II diabetes mellitus with manifestations: (5) Hypothyroidism: (6) Tobacco use: (7) Nocturnal hypoxia: (8) Depression with anxiety: (9) Chronic reflux esophagitis: Admission and Anticipated Discharge Date Admission Date: September 15, 2021 Supervising Physician Co-Signing Physician Notes Resident Physician Supervision Note: I independently interviewed and examined the patient and verified the haro history and physical, reviewed labs and image studies and agree with resident Dr. Wood findings and care plan. Subjective Patient seen at the bedside this morning. Patient stated she tolerated her food well yesterday night and this morning. She did not have any nausea last night and slept well. Denies any shortness of breath, wheezing, chest pain, fevers, chills. Patient said she did have one episode of loose stool this morning requiring clean up. Physical Exam Constitutional: WD/WN, vitals as above Eyes: PERRL, conjunctivae normal, anicteric sclerae Respiratory: normal respiratory effort, lungs clear to auscultation Cardiovascular: RRR, no murmur, no edema Gastrointestinal (Abdomen): normal bowel sounds, soft, nontender, no hepatosplenomegaly Results & Data Results & Data ([facility]) Vital Signs (Past 12 Hours) Vital Signs Temp Pulse Pulse Resp BP Pulse Ox 09/23/21 03:40 37.0 C 102 H 20 146/68 H 92 09/22/21 23:05 37.2 C 68 18 129/72 96 09/22/21 22:19 71 09/22/21 19:43 36.7 C 100 H 16 156/83 H 93 09/22/21 19:15 102 H 20 93 Resident Activity Tracking Resident Involvement: Resident Care Provided Care Provided: Adult Hospital Medicine (1) Hypothyroidism Hypothyroidism type: acquired Qualified Code(s): E03.9 - Hypothyroidism, unspecified
[2021-09-23] MEDS: FORMOTEROL 20 MCG/2 ML VIAL NEB SCH (07:20)
[2021-09-23] MEDS ORDERED: LOPERAMIDE HCL 2 MG CAP PO STA (08:09)
[2021-09-23] MEDS: INSULIN ASPART PER UNIT SC SCH ×4 (08:14→20:12)
[2021-09-23] MEDS: INSULIN GLARGINE SOLOSTAR 100 UNITS/ML 3 ML PEN SC SCH (08:15)
[2021-09-23] MEDS: PANTOprazole 40 MG TAB PO SCH (08:16)
[2021-09-23] MEDS: NICOTINE 14 MG/24 HR PATCH TD SCH (08:16)
[2021-09-23] MEDS: ADVANCED PROBIOTIC 1250 MG CAPSULE PO SCH (08:16)
[2021-09-23] MEDS: VENLAFAXINE HCL 37.5 MG TAB PO SCH ×2 (08:17→20:13)
[2021-09-23] MEDS: METOPROLOL TARTRATE 25 MG TAB PO SCH ×2 (08:17→20:13)
[2021-09-23] MEDS: THIAMINE HCL 100 MG TAB PO SCH (08:17)
[2021-09-23] MEDS: amLODIPine BESYLATE 5 MG TAB PO SCH (08:17)
[2021-09-23] MEDS: FLUTICASONE FUROATE 100MCG 14 PUFFS/INHALER INH SCH (08:17)
[2021-09-23] MEDS: UMECLIDINIUM BROMIDE 62.5MCG/BLISTER 7 PUFFS/INHALER INH SCH (08:18)
--- NOTE | 2021-09-23 08:21 | Pulmonology Progress Note ---
Date of Service September 23, 2021 Assessment & Plan (1) Respiratory failure with hypercapnia: (2) Acute exacerbation of chronic obstructive pulmonary disease: (3) Tobacco use: (4) Snoring: (5) Obesity: Plan: Impression: 66-year-old female with 83-[id number]-neta smoking history admitted 09/14/2021 with COPD exacerbation. She decompensated and she required endotracheal intubation with mechanical ventilation secondary to hypercarbia. Patient was successfully extubated on the 3 L/min via oxygen mask on 09/19/2021. She appears to be doing well clinically Recommendations: 1. COPD exacerbation: Appears to be responding appropriately. Off steroids currently. She is completed an adequate course of azithromycin so we will discontinue. Can discontinue Incruse and transition to Anoro as she appears to be having a good clinical response. As needed nebulizers. Consider outpatient pulmonary rehab. Can follow-up with Dr. Benavidez for outpatient pulmonary needs. Needs aggressive rehab, PT OT and out of bed to chair and ambulatory as tolerated 2. Tobacco abuse: Smoking cessation recommended. 3. Hypoxemia: Continue supplemental oxygen titrated to keep saturations at or above 88%. Pulmonary will sign off at this point time. Feel free to contact us if we can be of additional assistance Admission and Anticipated Discharge Date Admission Date: September 15, 2021 Subjective Patient seen and examined. EMR reviewed. Patient is up in chair. She states she slept well last night. Is not having any issues with breathing. She received a breathing treatment this morning. She denies wheezing chest tightness cough or sputum production. She tolerating a diet. Review of Systems Review of Systems: All systems reviewed & are unremarkable except as noted in Subjective Physical Exam Constitutional: WD/WN, vitals as above Neck: trachea midline, no thyromegaly Respiratory: normal respiratory effort, lungs clear to auscultation Cardiovascular: RRR, no murmur, no edema Gastrointestinal (Abdomen): normal bowel sounds, soft, nontender, no hepatosplenomegaly Musculoskeletal: Extremities: extremities normal to inspection Skin: no rashes, warm and dry Neurologic: Nonfocal exam Lymphatic: no cervical lymphadenopathy Results & Data Results & Data ([facility]) Vital Signs (Past 12 Hours) Vital Signs Temp Pulse Pulse Resp BP Pulse Ox 09/23/21 08:00 37.1 C 89 20 147/76 H 99 01/14/22 03:40 37.0 C 102 H 20 146/68 H 92 09/22/21 23:05 37.2 C 68 18 129/72 96 09/22/21 22:19 71 Laboratory Results 09/23/21 05:22 09/23/21 05:22 Diagnostic Findings No new imaging PG Care Time/CCT Total # of Minutes Spent Total Time Spent with Patient: Total time spent is greater than 50% in coordination of care (as documented) at patient's floor/unit and/or counseling patient: Coding Level of Care Code 81435 Subseq Hosp Care Lvl 2 Diagnoses Respiratory failure with hypercapnia J96.92 Acute exacerbation of chronic obstructive pulmonary disease J44.1 Tobacco use Z72.0 Snoring R06.83 Obesity E66.9
[2021-09-23] MEDS: CEROVITE ADV FORMULA TAB PO SCH (09:39)
[2021-09-23] MEDS: UMECLIDINIUM/VILANTEROL 62.5/25MCG 7 PUFFS/INHALER INH SCH (09:50)
--- NOTE | 2021-09-23 14:04 | Pharmacy Report ---
Pharmacy Glycemic Short Note 2 - Date of Service September 23, 2021 - Glycemic Short BSG Results (Last 24 hours): 09/22/21 09/22/21 09/23/21 16:37 19:49 05:22 Glucose 88 POC Glucose 113 H 94 09/23/21 09/23/21 07:53 11:41 Glucose POC Glucose 107 H 100 H OUTPATIENT ANTIDIABETIC REGIMEN: * Metformin 500mg QD * A1c: 6.4% ASSESSMENT: 09/23: * BSGs were acceptable yesterday. Pt received 12 units of insulin total (8 units Lantus + 4 units Novolog) * Steroids were discontinued yesterday afternoon. Unlikely patient will require basal insulin moving forward. * Will loosen Novolog for today since patient already received Lantus. May need tightened back tomorrow. 09/22: * BSGs have been relatively stable on ~15 units of insulin per day the past 2 days. * Pt remains on SoluMedrol 40mg IV q12h. * No changes required at this time. Expect that patient's insulin requirements will decrease as steroids taper. Insulin regimen will require adjustment when this occurs to prevent hypoglycemia. PLAN FOR INPATIENT GLYCEMIC CONTROL: * Hold outpatient oral diabetes medications * Basal insulin * Lantus 8 units SC AM - last dose this AM * Discontinued starting 09/24/21 * Bolus insulin * NovoLog per scale ACHS or Q6hrs while NPO * Goal Range: Low 110 mg/dL - High 140 mg/dL * Correction Factor: 45 mg/dL/unit * Nutritional / Prandial insulin per carb ratio of 1 unit per 15 grams CHO consumed RECOMMENDATIONS FOR DISCHARGE: * HbA1c of 6.4% is at goal for this patient. Continue outpatient regimen upon discharge.
[2021-09-23] MEDS: PSYLLIUM 58.6% POWDER PACKET PO SCH (15:03)
[2021-09-24] MEDS: LEVOTHYROXINE SODIUM 75 MCG TABLET PO SCH (05:34)
[2021-09-24] MEDS: ENOXAPARIN INJ 40 MG/0.4 ML SYR SQ SCH (05:34)
[2021-09-24] MEDS: VENLAFAXINE HCL 37.5 MG TAB PO SCH ×2 (08:39→21:21)
[2021-09-24] MEDS: ADVANCED PROBIOTIC 1250 MG CAPSULE PO SCH (08:39)
[2021-09-24] MEDS: METOPROLOL TARTRATE 25 MG TAB PO SCH ×2 (08:40→21:22)
[2021-09-24] MEDS: PSYLLIUM 58.6% POWDER PACKET PO SCH (08:40)
[2021-09-24] MEDS: PANTOprazole 40 MG TAB PO SCH (08:41)
[2021-09-24] MEDS: CEROVITE ADV FORMULA TAB PO SCH (08:41)
[2021-09-24] MEDS: amLODIPine BESYLATE 5 MG TAB PO SCH (08:41)
[2021-09-24] MEDS: THIAMINE HCL 100 MG TAB PO SCH (08:41)
[2021-09-24] MEDS: NICOTINE 14 MG/24 HR PATCH TD SCH (08:42)
[2021-09-24] MEDS: FLUTICASONE FUROATE 100MCG 14 PUFFS/INHALER INH SCH (08:44)
[2021-09-24] MEDS: UMECLIDINIUM/VILANTEROL 62.5/25MCG 7 PUFFS/INHALER INH SCH (08:45)
[2021-09-24] MEDS: INSULIN ASPART PER UNIT SC SCH ×4 (08:46→21:22)
[2021-09-24 09:26] LABS: Basophils # (auto) 0.04 K/uL (0-0.2); Basophils % (auto) 0.2 %; Eosinophils # (auto) 0.16 K/uL (0-0.5); Eosinophils % (auto) 0.9 %; Hematocrit (blood only) 46.9 % (37-47); Hemoglobin 15.1 g/dL (12.0-16.0); Immature Granulocytes # (auto) 0.31 K/uL (0.00-0.02); Immature Granulocytes % (auto) 1.8 %; Lymphocytes # (auto) 2.93 K/uL (1.2-3.4); Lymphocytes % (auto) 17.3 %; Mean Corpuscular Hemoglobin 28.7 pg (25-34); Mean Corpuscular Hgb Conc 32.2 g/dL (32-36); Mean Platelet Volume 9.4 fL (7.4-10.4); Monocytes # (auto) 1.52 K/uL (0.11-0.59); Neutrophils # (auto) 11.96 K/uL (1.4-6.5); Neutrophils % (auto) 70.8 %; Platelet Count 376 K/uL (130-400); RDW Coefficient of Variation 13.5 % (11.5-14.5); Red Blood Count 5.27 M/uL (4.2-5.4); White Blood Count 16.92 K/uL (4.8-10.8)
[2021-09-24 09:50] LABS: BUN Creatinine Ratio 29.3 (10-20); Calcium 8.4 mg/dl (8.5-10.1); Creatinine Clr Calc Pharmacy 98.7 ml/min; Est GFR (African American) 110.5 ml/min; Est GFR (Non-African American) 95.4 ml/min; Potassium 3.5 mmol/L (3.5-5.1)
[2021-09-24] MEDS ORDERED: DIPHENOXYLATE/ATROPINE 2.5/0.025MG TAB PO ONE (10:32)
--- NOTE | 2021-09-24 11:38 | Hospitalist Progress Note ---
Date of Service September 24, 2021 Assessment & Plan (1) Acute exacerbation of chronic obstructive pulmonary disease: Plan: 66 yo F with HLD, DM2, COPD, PAD, PACs, current smoker admitted for management of COPD exacerbation. Acute respiratory distress w/ hypoxia: - Patient came in with new O2 requirement of 1L - Night of 09/15 developed tachypnea, tachycardia, diaphoresis without improvement with duoneb, ativan, on Bipap. - Required intubation for worsening respiratory effort despite the above interventions. Extubated on 09/19 and currently on 2L O2 NC. - O2 saturation goal 88-92%, supplement O2 as needed. COPD exacerbation secondary to pneumonia: - Hx COPD w/ lingering cough since July 2021 and recent exacerbation. - CT chest without acute process/pneumonia, postinflammatory changes consistent with exacerbation - Sputum cultures showed light normal yancy. BCx neg - Completed methylprednisone, ceftriaxone, azithromycin - Reportedly not using her daily advair inhaler. - Albuterol nebulizer PRN q4h - Continue Anoro - Continue fluticasone - Plan for d/c to rehab to [facility], likely cannot go until 09/26 per case management Acute non-bloody diarrhea: - Persistent diarrhea since extubation on 09/19 - C. diff negative. Possibly medication-induced vs infectious - Stool ova/parasites ordered 09/24 - No significant improvement on loperamide or psyllium - Initiated lomotil on 09/24, anticipate continuing on discharge Nausea/vomiting: - Possibly from gastritis, contribution from steroid treatment - S/p zofran, phenergan. Resolved as of 09/22 - Continue pantoprazole Nocturnal hypoxia - Chronically requires oxygen at nighttime per sleep study in 2018 DM2 - Holding home metformin - ISS HTN: - Continue amlodipine 5 mg - Continue metoprolol 25 mg BID Tobacco use - Continue 14 mcg nicotine patch - Discussed smoking cessation with patient, she has tried to quit in the past without much success, going for only a couple days at a time - Will recommend f/u with PCP Chronic Conditions HLD: statin weekly Restless legs/lumbar stenosis and pain: flexeril HS Depression/Anxiety: cont venlafaxine Hypothyroidism: cont levothyroxine DVT ppx: Lovenox, SCDs FEN/GI: Dm2 diet, on pantoprazole Bowel regimen: Lomotil for diarrhea Code Status: FULL CODE, does not wish to be maintained on life support/ventilated intermediate Dispo: Med/Surg w/ Tele. PT/OT recommend SNF upon discharge. (2) PAD (peripheral artery disease): (3) PAC (premature atrial contraction): (4) Type II diabetes mellitus with manifestations: (5) Hypothyroidism: (6) Tobacco use: (7) Nocturnal hypoxia: (8) Depression with anxiety: (9) Chronic reflux esophagitis: Admission and Anticipated Discharge Date Admission Date: September 15, 2021 Supervising Physician Co-Signing Physician Notes Resident Physician Supervision Note: I independently interviewed and examined the patient and verified the haro history and physical, reviewed labs and image studies and agree with resident Dr. Arora findings and care plan. Subjective No acute events overnight. Eating and drinking without issue. Did have 2 episodes of loose stool- green/brown colored, similar consistency/appearance to previous diarrhea. No abdominal pain, nausea or vomiting. Denies any other acute complaints or concerns. Review of Systems Review of Systems: Per subjective Physical Exam Constitutional: WD/WN, vitals as above Respiratory: normal respiratory effort, lungs clear to auscultation Mild expiratory wheeze b/l Cardiovascular: RRR, no murmur, no edema Rate/Rhythm: regular rate and regular rhythm Heart Sounds: normal S1 and normal S2 Gastrointestinal (Abdomen): Inspection/Auscultation: abdomen normal to inspection; abdomen not distended Percussion/Palpation: abdomen soft; abdomen nontender Results & Data Results & Data ([facility]) Vital Signs (Past 12 Hours) Vital Signs Temp Pulse Pulse Resp BP Pulse Ox 09/24/21 10:59 37.2 C 50 L 18 123/76 99 09/24/21 07:22 105 H 09/24/21 07:18 36.7 C 98 H 18 135/77 98 09/24/21 03:32 37.3 C 66 18 131/68 95 Resident Activity Tracking Resident Involvement: Resident Care Provided Care Provided: Adult Hospital Medicine (1) Hypothyroidism Hypothyroidism type: acquired Qualified Code(s): E03.9 - Hypothyroidism, unspecified
[2021-09-25] MEDS: ENOXAPARIN INJ 40 MG/0.4 ML SYR SQ SCH (05:46)
[2021-09-25] MEDS: LEVOTHYROXINE SODIUM 75 MCG TABLET PO SCH (05:47)
[2021-09-25 08:15] LABS: Hemoglobin 14.1 g/dL (12.0-16.0); Mean Corpuscular Hemoglobin 28.4 pg (25-34); Mean Corpuscular Hgb Conc 31.3 g/dL (32-36); Mean Corpuscular Volume 90.7 fL (80-100); Mean Platelet Volume 9.5 fL (7.4-10.4); Platelet Count 362 K/uL (130-400); RDW Coefficient of Variation 13.7 % (11.5-14.5); RDW Standard Deviation 45.2 fL (36.4-46.3); Red Blood Count 4.96 M/uL (4.2-5.4); White Blood Count 12.51 K/uL (4.8-10.8)
[2021-09-25] MEDS: NICOTINE 14 MG/24 HR PATCH TD SCH (08:52)
[2021-09-25] MEDS: VENLAFAXINE HCL 37.5 MG TAB PO SCH ×2 (08:55→20:39)
[2021-09-25] MEDS: METOPROLOL TARTRATE 25 MG TAB PO SCH ×2 (08:56→20:39)
[2021-09-25] MEDS: amLODIPine BESYLATE 5 MG TAB PO SCH (08:56)
[2021-09-25] MEDS: PANTOprazole 40 MG TAB PO SCH (08:56)
[2021-09-25 08:57] LABS: BUN Creatinine Ratio 27.8 (10-20); Calcium 8.1 mg/dl (8.5-10.1); Creatinine Clr Calc Pharmacy 106.1 ml/min; Est GFR (African American) 113.2 ml/min; Est GFR (Non-African American) 97.6 ml/min; Potassium 3.8 mmol/L (3.5-5.1)
[2021-09-25] MEDS: THIAMINE HCL 100 MG TAB PO SCH (08:57)
[2021-09-25] MEDS: ADVANCED PROBIOTIC 1250 MG CAPSULE PO SCH (08:57)
[2021-09-25] MEDS: CEROVITE ADV FORMULA TAB PO SCH (08:57)
[2021-09-25] MEDS: DIPHENOXYLATE/ATROPINE 2.5/0.025MG TAB PO PRN (08:57)
[2021-09-25] MEDS: FLUTICASONE FUROATE 100MCG 14 PUFFS/INHALER INH SCH (08:58)
[2021-09-25] MEDS: UMECLIDINIUM/VILANTEROL 62.5/25MCG 7 PUFFS/INHALER INH SCH (08:58)
[2021-09-25] MEDS: INSULIN ASPART PER UNIT SC SCH ×4 (08:59→20:38)
[2021-09-25] MEDS ORDERED: ALBUT/IPRATROP 3MG/0.5MG NEB 3 ML VIAL NEB STA (10:24)
--- NOTE | 2021-09-25 12:31 | Hospitalist Progress Note ---
Date of Service September 25, 2021 Assessment & Plan (1) Acute exacerbation of chronic obstructive pulmonary disease: Plan: 66 yo F with HLD, DM2, COPD, PAD, PACs, current smoker admitted for management of COPD exacerbation. Acute respiratory distress w/ hypoxia: - Patient came in with new O2 requirement of 1L - Night of 09/15 developed tachypnea, tachycardia, diaphoresis without improvement with duoneb, ativan, on Bipap. - Required intubation for worsening respiratory effort despite the above interventions. Extubated on 09/19 and currently on 4L NC. - O2 saturation goal 88-92%, supplement O2 as needed. - 09/25- increased O2 requirement overnight, may be due to pneumonia although persistently afebrile. Less concern for fluid overload/pulmonary edema based on exam - Duoneb ordered for PM, will obtain CXR if no improvement COPD exacerbation secondary to community-acquired pneumonia: - Hx COPD, cough since July 2021 and recent exacerbation. Daily smoker, reportedly does not use daily Advair at home - CT chest without acute process/pneumonia, postinflammatory changes consistent with exacerbation - Sputum cultures showed light normal yancy. BCx neg - S/p methylprednisone, ceftriaxone, azithromycin - Continue Anoro, fluticasone. Albuterol nebulizer PRN. - Plan for d/c to rehab to [facility], likely cannot go until 09/26 per case management - No record of PFTs in chart, consider obtaining as outpatient Acute non-bloody diarrhea, improving: - Persistent diarrhea since extubation on 09/19 - C. diff negative. Possibly medication-induced vs infectious - Stool ova/parasites ordered 09/24 - No significant improvement on loperamide or psyllium - Initiated lomotil on 09/24, significant improvement since - Continue lomotil Nausea/vomiting: - Possibly from gastritis, contribution from steroid treatment - S/p zofran, phenergan. Resolved as of 09/22 - Continue pantoprazole Nocturnal hypoxia - Chronically requires oxygen at nighttime per sleep study in 2018 DM2 - Holding home metformin - ISS HTN: - Continue amlodipine 5 mg - Continue metoprolol 25 mg BID Tobacco use - Continue 14 mcg nicotine patch - Discussed smoking cessation with patient, she has tried to quit in the past without much success, going for only a couple days at a time - Will recommend f/u with PCP Chronic Conditions HLD: statin weekly Restless legs/lumbar stenosis and pain: flexeril HS Depression/Anxiety: cont venlafaxine Hypothyroidism: cont levothyroxine DVT ppx: Lovenox, SCDs FEN/GI: Dm2 diet, on pantoprazole Bowel regimen: Lomotil for diarrhea Code Status: FULL CODE, does not wish to be maintained on life support/ventilated assisted Dispo: Med/Surg w/ Tele. PT/OT recommend SNF upon discharge. (2) PAD (peripheral artery disease): (3) PAC (premature atrial contraction): (4) Type II diabetes mellitus with manifestations: (5) Hypothyroidism: (6) Tobacco use: (7) Nocturnal hypoxia: (8) Depression with anxiety: (9) Chronic reflux esophagitis: Admission and Anticipated Discharge Date Admission Date: September 15, 2021 Supervising Physician Co-Signing Physician Notes Resident Physician Supervision Note: I independently interviewed and examined the patient and verified the haro history and physical, reviewed labs and image studies and agree with resident Dr. Arora findings and care plan. Subjective No acute events overnight. No incidents of respiratory distress or desaturations, though oxygen was increased to 6L and subsequently decreased to 4L by time of evaluation in AM. Denies dyspnea or chest pain. Reports having 1 small, loose green stool overnight, states her diarrhea has significantly improved after Lomotil initiated day prior. No acute concerns or complaints, reports feeling well. Review of Systems Review of Systems: Per subjective Physical Exam Constitutional: WD/WN, vitals as above Respiratory: Mild upper inspiratory and expiratory wheezes b/l, no retractions/accessory muscle use, equal chest rise and fall Cardiovascular: RRR, no murmur, no edema Rate/Rhythm: regular rate and regular rhythm Heart Sounds: normal S1 and normal S2 Gastrointestinal (Abdomen): Inspection/Auscultation: abdomen normal to inspection; abdomen not distended Percussion/Palpation: abdomen soft; abdomen nontender Results & Data Results & Data ([facility]) Vital Signs (Past 12 Hours) Vital Signs Temp Pulse Pulse Resp BP BP Pulse Ox 09/25/21 12:01 36.9 C 82 20 130/81 99 09/25/21 07:56 37.1 C 82 22 134/74 100 09/25/21 07:13 88 09/25/21 04:00 36.9 C 86 18 114/66 94 Resident Activity Tracking Resident Involvement: Resident Care Provided Care Provided: Adult Hospital Medicine (1) Hypothyroidism Hypothyroidism type: acquired Qualified Code(s): E03.9 - Hypothyroidism, unspecified
[2021-09-25] MEDS ORDERED: ALBUT/IPRATROP 3MG/0.5MG NEB 3 ML VIAL NEB PRN (12:49)
--- NOTE | 2021-09-25 14:16 | XRay Report ---
XR chest 1V portable CLINICAL HISTORY: Increased O2 requirement. COMPARISON STUDY: 09/22/2021 TECHNIQUE: 1 view of the chest FINDINGS: Single frontal view of the chest demonstrates the cardiomediastinal silhouette to be within normal li mits. The lungs are clear of alveolar opacities. There is no evidence for pleural effusion. There is no evidence for vascular congestion. There is no acute osseous pathology. IMPRESSION: No acute cardiopulmonary disease. ACT 112: Negative or not required by law. Electronically signed by: Sai Gudino M.D. 09/25/2021 2:15 PM
[2021-09-26] MEDS: ENOXAPARIN INJ 40 MG/0.4 ML SYR SQ SCH (06:16)
[2021-09-26] MEDS: LEVOTHYROXINE SODIUM 75 MCG TABLET PO SCH (06:16)
--- NOTE | 2021-09-26 07:22 | Hospitalist Progress Note ---
Date of Service September 26, 2021 Assessment & Plan (1) Acute exacerbation of chronic obstructive pulmonary disease: Plan: 66 yo F with HLD, DM2, COPD, PAD, PACs, current smoker admitted for management of COPD exacerbation. Acute respiratory distress w/ hypoxia: - O2 saturation goal 88-92% met; - 09/25- increased O2 requirement overnight - 09/26-morning saturation 87%, consistent with diagnosis of nocturnal hypoxia following sleep study in 2018 - Currently saturating at 97% on 2 L nasal cannula; 96% on room air * P.m. DuoNeb * Nighttime O2 for nighttime hypoxia; otherwise, consider hypoxia resolved COPD exacerbation secondary to community-acquired pneumonia: - Hx COPD, cough since July 2021 and recent exacerbation. Daily smoker, reportedly does not use daily Advair at home - CT chest without acute process/pneumonia, postinflammatory changes consistent with exacerbation - Sputum cultures showed light normal yancy. BCx neg - Completed course of methylprednisone, ceftriaxone, azithromycin * Continue Anoro, fluticasone * Albuterol nebulizer PRN. * Plan for d/c to rehab to [facility] * No record of PFTs in chart, consider obtaining as outpatient Acute non-bloody diarrhea, improving: - Persistent diarrhea since extubation on 09/19 - C. diff negative. Possibly medication-induced vs infectious - Stool ova/parasites ordered 09/24 - No significant improvement on loperamide or psyllium - Initiated Lomotil on 09/24, significant improvement since - Stopped Lomotilpatient now >24 hours without BM Nausea/vomiting: - Unlear etiology (from gastritis, contribution from steroid treatment) - S/p zofran, phenergan. Resolved as of 09/22 * Continue pantoprazole Nocturnal hypoxia - Chronically requires oxygen at nighttime per sleep study in 2018 DM2 - Holding home metformin - ISS HTN -Blood pressures elevated to the 180s systolic while in the ICU -Started on amlodipine 5 mg, metoprolol 25 mg BID -Stopped upon discharge; f/u w/ PCP regarding elevated pressures Tobacco use - Continue 14 mcg nicotine patch - Discussed smoking cessation with patient, she has tried to quit in the past without much success, going for only a couple days at a time - Will recommend f/u with PCP Chronic Conditions HLD: statin weekly Restless legs/lumbar stenosis and pain: Flexeril HS Depression/Anxiety: cont venlafaxine Hypothyroidism: cont levothyroxine DVT ppx: Lovenox, SCDs FEN/GI: Dm2 diet, on pantoprazole Bowel regimen: Lomotil for diarrhea Code Status: FULL CODE Dispo: Discharge to SNF. (2) PAD (peripheral artery disease): (3) PAC (premature atrial contraction): (4) Type II diabetes mellitus with manifestations: (5) Hypothyroidism: (6) Tobacco use: (7) Nocturnal hypoxia: (8) Depression with anxiety: (9) Chronic reflux esophagitis: Admission and Anticipated Discharge Date Admission Date: September 15, 2021 Supervising Physician Co-Signing Physician Notes I personally examined the patient and verified all haro points of history and exam, discussed case, and agree with decision making with Dr Webster feeling better breathing better. anticipates rehab vitals noted nad heent nc at mmm breathing unlabored no accessory muscles good effort lungs more quiet no adventitious sounds no r/r/w though COPD exac - doing better continue current care deconditioning - for rehab otherwise as above Results & Data Results & Data ([facility]) Vital Signs (Past 12 Hours) Vital Signs Temp Pulse Pulse Resp BP Pulse Ox 09/26/21 04:36 36.7 C 86 18 137/83 92 09/25/21 23:38 37.1 C 89 20 100/50 L 91 09/25/21 22:20 110 H (1) Hypothyroidism Hypothyroidism type: acquired Qualified Code(s): E03.9 - Hypothyroidism, unspecified
[2021-09-26 07:48] LABS: Hematocrit (blood only) 41.7 % (37-47); Hemoglobin 13.2 g/dL (12.0-16.0); Mean Corpuscular Hemoglobin 28.3 pg (25-34); Mean Corpuscular Hgb Conc 31.7 g/dL (32-36); Mean Corpuscular Volume 89.3 fL (80-100); Mean Platelet Volume 9.2 fL (7.4-10.4); Platelet Count 353 K/uL (130-400); RDW Coefficient of Variation 13.6 % (11.5-14.5); RDW Standard Deviation 44.9 fL (36.4-46.3); Red Blood Count 4.67 M/uL (4.2-5.4); White Blood Count 11.32 K/uL (4.8-10.8)
[2021-09-26] MEDS ORDERED: metFORMIN HCL ER 500 MG TABCR PO SCH ×2 (08:00→17:00)
[2021-09-26] MEDS: THIAMINE HCL 100 MG TAB PO SCH (08:01)
[2021-09-26] MEDS: CEROVITE ADV FORMULA TAB PO SCH (08:01)
[2021-09-26] MEDS: ADVANCED PROBIOTIC 1250 MG CAPSULE PO SCH (08:01)
[2021-09-26] MEDS: VENLAFAXINE HCL 37.5 MG TAB PO SCH (08:01)
[2021-09-26] MEDS: METOPROLOL TARTRATE 25 MG TAB PO SCH (08:01)
[2021-09-26] MEDS: PANTOprazole 40 MG TAB PO SCH (08:01)
[2021-09-26] MEDS: DIPHENOXYLATE/ATROPINE 2.5/0.025MG TAB PO PRN (08:02)
[2021-09-26] MEDS: amLODIPine BESYLATE 5 MG TAB PO SCH (08:02)
[2021-09-26] MEDS: NICOTINE 14 MG/24 HR PATCH TD SCH (08:03)
[2021-09-26] MEDS: UMECLIDINIUM/VILANTEROL 62.5/25MCG 7 PUFFS/INHALER INH SCH (08:07)
[2021-09-26] MEDS: FLUTICASONE FUROATE 100MCG 14 PUFFS/INHALER INH SCH (08:08)
[2021-09-26] MEDS: INSULIN ASPART PER UNIT SC SCH ×2 (08:09→12:16)
[2021-09-26 08:14] LABS: Calcium 7.9 mg/dl (8.5-10.1); Creatinine Clr Calc Pharmacy 82.2 ml/min; Est GFR (African American) 103.9 ml/min; Est GFR (Non-African American) 89.7 ml/min; Potassium 4.2 mmol/L (3.5-5.1)
[2021-09-26 08:41] LABS: BUN Creatinine Ratio 22.9 (10-20)
--- NOTE | 2021-09-26 11:11 | Pharmacy Report ---
Pharmacy Glycemic Short Note 2 - Date of Service September 26, 2021 - Glycemic Short BSG Results (Last 24 hours): 09/25/21 09/25/21 09/25/21 11:11 16:50 19:59 Glucose POC Glucose 149 H 76 83 09/26/21 09/26/21 07:20 07:50 Glucose 116 H POC Glucose 117 H OUTPATIENT ANTIDIABETIC REGIMEN: * Metformin ER 500 mg tabs * Per last endocrinology note, 500 mg PO with breakfast, 1000 mg PO with dinner. May increase to 1000 mg PO BIDM as tolerated. * HbA1c: 6.4% (09/15/21) ASSESSMENT: 09/26: * BSGs have remained well-controlled, perhaps too tightly controlled (ranging 76-149 mg/dL yesterday) * Patient nearing time for discharge, will convert back to outpatient metformin and remove Novolog carb coverage * Fasting BSG of 116 mg/dL - no need for basal insulin 09/23: * BSGs were acceptable yesterday. Pt received 12 units of insulin total (8 units Lantus + 4 units Novolog) * Steroids were discontinued yesterday afternoon. Unlikely patient will require basal insulin moving forward. * Will loosen Novolog for today since patient already received Lantus. May need tightened back tomorrow. 09/22: * BSGs have been relatively stable on ~15 units of insulin per day the past 2 days. * Pt remains on SoluMedrol 40mg IV q12h. * No changes required at this time. Expect that patient's insulin requirements will decrease as steroids taper. Insulin regimen will require adjustment when this occurs to prevent hypoglycemia. PLAN FOR INPATIENT GLYCEMIC CONTROL: * Restart metformin ER * 500 mg PO BIDM * May continue to titrate up as tolerated * Basal insulin * Hold * Bolus insulin - hold carb coverage * NovoLog per scale ACHS or Q6hrs while NPO * Goal Range: Low 110 mg/dL - High 140 mg/dL * Correction Factor: 45 mg/dL/unit * Nutritional / Prandial insulin per carb ratio of 1 unit per - grams CHO consumed RECOMMENDATIONS FOR DISCHARGE: * HbA1c of 6.4% is at goal for this patient. Continue outpatient regimen upon discharge.
--- NOTE | 2021-09-26 14:32 | Billing Data ---
Date of Service September 26, 2021 Coding Level of Care Code D/C DAY MANAGEMENT <30 MINS
--- NOTE | 2021-09-26 15:16 | Discharge Summary ---
Date of Service September 26, 2021 Admission HPI Per Admitting Provider 66 yo F with PMH COPD, HLD, PACs, PAD, DM2 brought to the ER by private vehicle for symptoms of SOB. States that she and her were both ill with viral infections around ,and have been dealing with remnant coughs afterward. She was seen by her PCP and told her lungs were clear and cough should self resolve. Shortly after ari, her cough changed from being productive to nonproductive. Denies any fevers or chills. Over the last two days has been increasingly short of breath at rest. She denies using any daily inhalers. She started using her proair HFA 2 days ago 4 times a day, and yesterday started using an albuterol nebulizer treatment for the shortness of breath. 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 She has a 40+ pack year hx, and actively smokes a pack per day. She has received her influenza, pneumonia and covid19 vaccines as well as her booster. Admission Exam Per Admitting Provider Constitutional: middle aged woman in no apparent distress, sitting comfortably in bed. Eyes: EOMI, pupils equal and reactive bilaterally, no scleral icterus Cardiac: RRR, no murmurs, gallops or rubs. Normal S1, S2 Pulm: breathing comfortably on 1L NC, inspiratory and expiratory wheezes throughout all sections, no focal rhonchi or crackles Abd: soft, nontender, nondistended, normal bowel sounds, no rebound or guarding Extremities: 2+ peripheral pulses, no edema Neuro: no focal deficits, moving all 4 limbs, A&Ox3 Principal Diagnosis Community-acquired pneumonia, hypoxia secondary to acute on chronic COPD exacerbation Discharge Exam Constitutional WD/WN, vitals as above Respiratory normal respiratory effort, lungs clear to auscultation Cardiovascular RRR, no murmur, no edema Gastrointestinal (Abdomen) normal bowel sounds, soft, nontender, no hepatosplenomegaly Musculoskeletal no cyanosis or clubbing, extremities motor strength 5/5 Discharge Data Allergies Allergy/AdvReac Type Severity Reaction Status Date / Time bee venom protein (honey bee) Allergy Severe HIVES AND Verified 09/14/21 20:31 ANAPHYLAXIS Penicillins Allergy Severe HIVES Verified 09/14/21 20:31 Sulfa (Sulfonamide Allergy Severe High Verified 09/14/21 20:31 Antibiotics) fever, broke out with spider veins all over doxycycline Allergy Unknown Unknown Verified 09/14/21 20:31 grass pollen Allergy Unknown Unknown Verified 09/15/21 20:28 Consultations 09/14/21 20:40 ED Decision to Admit Stat 09/16/21 07:26 Consult Tie Sawyer Routine Ordered Studies 09/14/21 18:52 CT angio chest PE protocol Stat Hospital Course (1) Acute exacerbation of chronic obstructive pulmonary disease: 66 yo F with HLD, DM2, COPD, PAD, PACs, current smoker admitted for management of COPD exacerbation. Acute respiratory distress w/ hypoxia: - O2 saturation goal 88-92% met; - 09/25- increased O2 requirement overnight - 09/26-morning saturation 87%, consistent with diagnosis of nocturnal hypoxia following 2018 sleep study - Currently saturating at 97% on 2 L nasal cannula; 96% on room air * P.m. DuoNeb * Nighttime O2 requirement for nighttime hypoxia; otherwise, consider hypoxia resolved COPD exacerbation secondary to community-acquired pneumonia: - Hx COPD, cough since July 2021 and recent exacerbation. Daily smoker, reportedly does not use daily Advair at home - CT chest without acute process/pneumonia, postinflammatory changes consistent with exacerbation - Sputum cultures showed light normal yancy. BCx neg - Completed course of methylprednisone, ceftriaxone, azithromycin * Continue Anoro, fluticasone * Albuterol nebulizer PRN. * Plan for d/c to rehab to [facility] * Discussed getting pulmonary function testing done on an outpatient basis Acute non-bloody diarrhea, improving: - Persistent diarrhea since extubation on 09/19 - C. diff negative. Possibly medication-induced vs infectious - Stool ova/parasites ordered 09/24 - No significant improvement on loperamide or psyllium - Initiated Lomotil on 09/24, significant improvement since - Stopped Lomotil, as patient now >24 hours without BM - Diarrhea now resolved Nausea/vomiting: - Unlear etiology (gastritisvs. contribution from steroid treatment) - S/p zofran, phenergan. Resolved as of 09/22 * Continue pantoprazole Nocturnal hypoxia - Chronically requires oxygen at nighttime per sleep study in 2018. DM2 - Holding home metformin - ISS HTN -Blood pressures elevated to the 180s systolic while in the ICU -Started on amlodipine 5 mg, metoprolol 25 mg BID -Stopped upon discharge; f/u w/ PCP regarding elevated pressures Tobacco use - Continue 14 mcg nicotine patch - Discussed smoking cessation with patient, she has tried to quit in the past without much success, going for only a couple days at a time - Patient now eager to quit for good - Outpatient PCP f/u Chronic Conditions HLD: statin weekly Restless legs/lumbar stenosis and pain: Flexeril HS Depression/Anxiety: continued home regimen of venlafaxine Hypothyroidism: continued home regimen of levothyroxine DVT ppx: Lovenox FEN/GI: Dm2 diet, on pantoprazole Bowel regimen: Lomotil for diarrhea Code Status: FULL CODE Dispo: Discharge to SNF (2) PAD (peripheral artery disease): (3) PAC (premature atrial contraction): (4) Type II diabetes mellitus with manifestations: (5) Hypothyroidism: (6) Tobacco use: (7) Nocturnal hypoxia: (8) Depression with anxiety: (9) Chronic reflux esophagitis: Total Time Total Time Spent Total Time Spent (In Minutes): 10 Discharge Plan Discharge Items Patient Disposition: Transfer Inpatient Rehab Fac Reason For Visit: SOB, COPD EX Discharge Diagnosis: Community-acquired pneumonia, will hypoxia secondary to acute on chronic COPD exacerbation Activity: Per Instructions section Non-emergency contact: Primary Care Provider Call non-emergency contact if: you have any medication questions and your symptoms worsen Follow-up/Referrals: Jaime Niño III, CRNP [Primary Care Provider] - Diet: Regular Addtl Attending Provider Instructions: You were admitted to the hospital for community-acquired pneumonia and hypoxia, or lower than normal oxygen in your blood. You were treated with antibiotics to treat the infection in your lungs, as well as other drugs to help you breathe better. A discharge summary will be sent to your primary care physician to ensure continuity of care. Please bring this discharge summary with you to your next office appointment so that your provider can review it at that time. Follow-up appointments: * Make a follow-up appointment with your PCP within the next week. It is very important that you follow up with them shortly after discharge from the hospital. Medications: Your medication list has been reviewed and reconciled upon discharge to ensure accuracy and continuity of care. An updated list of all your medications is included with your hospital discharge paperwork. Please review this list closely, and make note of any changes. * No changes or additions were made to your list of medications Take your medications as instructed; do not skip a dose of your medicines. Make sure all of your doctors know every medicine you are taking (including idah-jly-gpzkuvx medicines, vitamins, and supplements). Call your primary care provider before taking any new medicines (including yjbr-wxm-jqcenvu medicines, vitamins, and supplements), because some of these may interact with your current medications, or may make your symptoms worse. Tell your primary care provider if you cannot afford your medications. Recommendations: * During your stay at [facility], you will require nighttime oxygen, about 2L of more via NC, as you were hypoxic at night during your stay here. * If you are unable to obtain nighttime oxygen while at [facility], you should follow-up with your primary care provider. CONTACT YOUR PRIMARY CARE PROVIDER if you experience any of the following: * Sudden difficulty breathing * Shortness of breath with exertion * Difficulty following your treatment plan, or difficulty taking medications CALL 911 OR GO TO THE EMERGENCY DEPARTMENT if you experience any of the following: * Sudden, severe abdominal pain or nausea/vomiting * Severe chest pain, or chest pain that radiates (moves) to your jaw or arm * Sudden, severe shortness of breath or difficulty breathing Thank you for allowing us to participate in your care. Pending Studies at Discharge: No Stand-Alone Forms: My [facility] Skilled Items Patient informed of condition?: Yes DNR: No Discharge Level of Care: Skilled Communicable Disease: No Discharge Prognosis: Improving Lines: None Urinary Catheter: No Medications and DC Order Prescriptions: Continued epinephrine [EpiPen] 0.3 mg/0.3 mL auto-injector 0.3 mg IM Q3H PRN (Reason: Anaphylaxis) Qty: 1 RF: 2 omeprazole 40 mg capsule,delayed release(DR/EC) 40 mg PO DAILY PRN (Reason: Acid Reflux) Qty: 30 RF: 5 Advair HFA 115-21 mcg/actuation HFA aerosol inhaler 2 puff INH BID Qty: 12 RF: 1 levothyroxine 75 mcg tablet 75 mcg PO DAILY Qty: 30 RF: 1 clobetasol 0.05 % ointment 1 appln TOP BID PRN (Reason: Skin Irritation) RF: 0 venlafaxine [Effexor XR] 75 mg capsule,extended release 24hr 75 mg PO DAILY Qty: 90 RF: 3 terbinafine HCl 250 mg tablet 250 mg PO DAILY 14 Days Qty: 14 RF: 0 metformin 500 mg tablet extended release 24 hr 1,000 mg PO BID 30 Days Qty: 120 RF: 2 albuterol sulfate [ProAir HFA] 90 mcg/actuation HFA aerosol inhaler 1 - 2 puff INHALATION Q4 PRN (Reason: Shortness Of Breath) RF: 0 ipratropium-albuterol 0.5 mg-3 mg(2.5 mg base)/3 mL solution for nebulization 3 ml inhalation QID PRN (Reason: wheezing) Qty: 90 RF: 0 cyclobenzaprine 5 mg tablet 5 mg PO HS RF: 0 rosuvastatin 5 mg tablet 5 mg PO WK RF: 0 Discharge Orders: Discharge Order (Routine); Ordered 09/26/21 Ordered By: Nikki Macias/Other Patient Handouts: A1C, Managing Type 2 Diabetes Admission Data Admit Date/Time: 09/15/21 14:44 Attending Provider: Derrick Drake Admit Provider: Luci Hollins Primary Care Provider: Jaime Niño III Other Providers: Pernell Sanchez ; Mackenzie Piedra ; [facility] ; Estrellita Lopez Supervising Physician Co-Signing Physician Notes I personally examined the patient and verified all haro points of history and exam, discussed case, and agree with decision making with Dr. Webster feeling better breathing better. anticipates rehab vitals noted nad heent nc at mmm breathing unlabored no accessory muscles good effort lungs more quiet no adventitious sounds no r/r/w though COPD exac - doing better continue current care deconditioning - for rehab otherwise as above Resident Activity Tracking Resident Involvement: Resident Care Provided Care Provided: Adult Hospital Medicine
--- NOTE | 2021-10-12 10:10 | Coding Query ---
SEPSIS To promote full compliance with coding requirements relating to patient care, physician participation is requested in all cases of clinical coder uncertainty. Please assist us with the question(s) below: In responding to this query, please exercise your independent professional judgement. The fact that a question is asked does not imply that any particular answer is desired or expected. We appreciate your clarification on this issue. Throughout the medical record, you have clearly documented a localized infection and your patient has clinical evidence of a generalized sepsis or severe sepsis. The term urosepsis is a nonspecific entity and is coded as an UTI. If the patient has sepsis, severe sepsis, from an urinary source or some other source, please clarify in your response below. The medical record reflects the following clinical findings: Patient admitted wtih COPD exacerbation and Pneumonia. 09/23 and other progress notes document sepsis / shock. Pt was intubated /ventilated on 09/16. Please check below the phrase, if applicable, that describes the diagnosis that was treated during the course of this inpatient stay. Thank you. Mando Gabriel [facility] ____ ( )Bacteremia (Nonspecific laboratory finding of bacteria in the blood) Specify Organism ( ) Present on Admission ) Not present on admission ( ) Unable to clinically determine ( ) Septicemia (Systemic disease associated with the presence of pathogenic microorganisms in the blood): Specify Organism ( ) Present on Admission ( ) Not present on admission ( ) Unable to clinically determine ( x) Sepsis Specify Organism Specify Associated Condition/Diagnosis pneumonia (x ) Present on Admission ( ) Not present on admission ( ) Unable to clinically determine ( ) Severe Sepsis (Sepsis associated with acute organ dysfunction) Specify Organism Specify Associated Condition/Diagnosis ( ) Present on Admission ( ) Not present on admission ( ) Unable to clinically determine ( ) Septic Shock (Severe sepsis with acute circulatory failure, unexplained by other causes) ( ) Present on Admission ( ) Not present on admission ( ) Unable to clinically determine ( ) Other, patient has: MTDD
== END 2021-09-26 16:35 | DRG 871 ==
LOC: EDINP 17:15 → ED 17:15 → SUATTDRO 21:00 → EDINP 22:31 → SUATTDRO 09-15 14:44 → 1E 09-16 05:01 → 2N 09-21 00:15
DX: Z83.3 Family history of diabetes mellitus; J18.9 Pneumonia, unspecified organism; E11.9 Type 2 diabetes mellitus without complications; N17.9 Acute kidney failure, unspecified; Z88.2 Allergy status to sulfonamides; F41.8 Other specified anxiety disorders; K21.00 Gastro-esophageal reflux disease with esophagitis, without bleeding; J96.01 Acute respiratory failure with hypoxia; J44.0 Chronic obstructive pulmonary disease with (acute) lower respiratory infection; G25.81 Restless legs syndrome; Z88.0 Allergy status to penicillin; J96.92 Respiratory failure, unspecified with hypercapnia; M54.17 Radiculopathy, lumbosacral region; R19.7 Diarrhea, unspecified; M48.061 Spinal stenosis, lumbar region without neurogenic claudication; J96.02 Acute respiratory failure with hypercapnia; Z99.11 Dependence on respirator [ventilator] status; A41.9 Sepsis, unspecified organism; Z79.84 Long term (current) use of oral hypoglycemic drugs; J96.22 Acute and chronic respiratory failure with hypercapnia; F17.210 Nicotine dependence, cigarettes, uncomplicated; J44.1 Chronic obstructive pulmonary disease with (acute) exacerbation; R57.8 Other shock; Z96.651 Presence of right artificial knee joint; E78.5 Hyperlipidemia, unspecified; R11.2 Nausea with vomiting, unspecified

== ENCOUNTER 2022-10-17 15:56 | Inpatient (IN) ==
--- NOTE | 2022-10-17 16:19 | ED Triage Note ---
Date of Service October 17, 2022 History of Present Illness This patient was briefly evaluated while in triage. An abbreviated physical exam was performed. This patient is a 67-year-old Female with past medical history of COPD who presents to the ED for evaluation of shortness of breath. Patient has had p roductive cough with shortness of breath. She has require supplemental oxygen during the day and usually only uses this at night. Physical Exam VITALS: Vitals are noted on the nurse's note and reviewed by myself. GENERAL: This is a 67-year-old female, appears to be short of breath. HEART: Regular rate and rhythm without murmurs gallops or rubs. LUNGS: Diffuse wheezes noted. NEURO: Patient was alert and oriented to person place and time. Initial orders for labs and / or imaging were placed. Patient was placed on supplemental oxygen and placed in the next available room. Please see final note for full ED course.
[2022-10-17] MEDS ORDERED: ALBUT/IPRATROP 3MG/0.5MG NEB 3 ML VIAL NEB STA (16:47)
--- NOTE | 2022-10-17 16:48 | Emergency Department Note ---
Impression & Plan COPD exacerbation ADMIT ED Provider Note HPI: The patient is a 67-year-old female with history of COPD, presents to the emergency department with worsening shortness of breath over the past 3 to 4 days. Patient was seen today by her PCP, referred to the ED for further management. On arrival to the ED the patient has oxygen saturations in the 80s on room air, she was placed on nasal cannula oxygen with good improvement, on my initial assessment patient exhibits some bilateral expiratory wheezing and mild increased work of breathing, she denies any chest pain, patient is mildly tachycardic and saturating well on nasal cannula oxygen with slight tachypnea on my initial evaluation. ROS: - Per HPI *Outpatient medications and allergy history reviewed. *Pertinent external medical records reviewed. PE: General: Alert HEENT: Normocephalic, trachea midline Eyes: Extraocular eye movement is intact, no scleral erythema Pulmonary: Diminished breath sounds bilaterally with mild expiratory wheezing Cardio: Tachycardic rate and regular rhythm GI: Abdomen is soft, nontender : No suprapubic tenderness MSK: No evidence of trauma or malformation of the extremities, no edema Skin: No evidence of rash Neuro: Alert, no focal deficits Psychiatric: Cooperative alarm security or surveillance monitor: - An order was placed for continuous cardiac monitoring - Patient was noted to be in sinus tachycardia with a rate of 115 EKG: (As interpreted by myself): Rate: 125 Rhythm: Sinus tachycardia Intervals: Within normal limits ST changes: No ST elevation Time: 1627 Interventions provided in ED: -IV Solu-Medrol, DuoNeb breathing treatment Medical Decision Making: Patient presented to the emergency department with hypoxia and increased work of breathing in the setting of underlying COPD, she is normally on nasal cannula oxygen at night. Today she presents with hypoxia on room air, IV was established, lab work obtained, patient was placed on nasal cannula oxygen with good improvement in her saturations. She was given a DuoNeb breathing treatment and treated initially with IV Solu-Medrol. Chest x-ray does not show any evidence of pneumonia, venous blood gas shows elevated PCO2 level of 58 although pH is within normal limits. Lab work does not show any critical findings on CBC, no critical electrolyte abnormalities, troponin is slightly elevated at 18, patient denies any chest pain, EKG shows sinus tachycardia without acute ischemic changes. Patient states that her resting heart rate is normally somewhat high in the 110s. On my reassessment the patient appears improved from previous although she still does have some expiratory wheezing, I feel that she will require admission given her history of COPD previously requiring intubation. She is at high risk of decompensation and therefore I think admission for close monitoring and nebulizer treatments is appropriate, in addition to the fact that she is requiring nasal cannula oxygen which she normally does not wear during the day. Patient is in agreement for admission, case was discussed with the on-call hospitalist, Dr. Cole, and the patient was placed for admission in improved condition for further care. Consultants: Hospitalist service, Dr. Cole Disposition discussion held by myself with: Patient * CRITICAL CARE TIME: (42) minutes -Stabilization of hypoxia with oxygen saturations less than 90% on room air requiring supplemental oxygen for improvement, time spent at the bedside, interpretation of diagnostic studies and EKG, discussion with other physicians and arrangement of admission Diagnosis: 1. COPD exacerbation with hypoxia, acute 2. Hypercarbic respiratory failure, acute 3. Elevated high-sensitivity troponin level Disposition: Admission Douglas Luna DO Emergency Medicine Past Med/Surg History Medical History (Updated 10/17/22 @ 21:52 by Douglas Luna DO) Acute exacerbation of chronic obstructive pulmonary disease hx of severe exacerbation in Sep 2021--had to be hospitalized and intubated---pt states she has made a full recovery---does use inhalers daily/prn and nebulizer prn, oxgyen 1 L n/c at hs Allergy to bugs Cardiac murmur follows with Dr. Colon Chronic obstructive pulmonary disease inhalers daily/prn, nebulizer prn, oxygen 1L N/C at hs Chronic reflux esophagitis Depression with anxiety Diabetes mellitus, type 2 Fibromyalgia Gastropathy GERD (gastroesophageal reflux disease) History of anesthesia reaction states she did not receive enough anesthesia with 1st cataract sx on right eye History of colon polyps Hypercholesterolemia Hypothyroidism Kidney stones hx of Lichen sclerosus et atrophicus Lumbar canal stenosis Memory loss Nocturnal hypoxia Obesity On home oxygen therapy 1L N/C at hs Osteoarthritis Overweight Restless legs syndrome Sleep apnea had sleep study performed 07/2018 was instructed to start oxygen at night (drops to 86% when sleeping), has not started yet Snoring Tobacco use Urinary incontinence Surgical History History of colonoscopy History of dilatation and curettage History of right cataract extraction during procedure "pupil was damaged and no longer dilates" History of tooth extraction History of total right knee replacement (TKR) History of umbilical hernia repair History of wisdom tooth extraction Hx of eye surgery left laser for retinal bleed Family History Aunt History of anesthesia reaction "her heart stopped with any anesthesia"--no one else in the family has any issues Grandmother (Paternal) Family history of diabetes mellitus Grandfather (Maternal) Family hx of colon cancer Colon cancer Father Heart disease Stroke Mother Dementia Diabetes Macular degeneration Alzheimer disease Autoimmune disease Brother Squamous cell carcinoma of skin Atrial fibrillation Other Basal cell carcinoma Denies family history of Ovarian cancer Prostate cancer Myocardial infarction Breast cancer Social History Smoking Status: Current every day smoker Tobacco Type: Cigarettes Age Started Using Tobacco: 18; packs per day: 0.25; Cigarettes Per Day: 4; Second Hand Exposure: Yes (self); Hx Alcohol Use: Yes Alcohol type: hard liquor Alcohol Intake Frequency: Monthly or Less Hx Substance Use: No Preferred Language: German Communication Ability: Effective Visual Impairment: No Limitations Hearing Ability: Normal Sap Pi Architect Required: No Beliefs That Will Affect Care: None marital status: Current Living Situation: Spouse current occupational status: retired How many Children do You have: 2 Feels Safe at Home: Yes Childhood Exposure to Second-Hand Smoke: Yes Diet Comment: no specific diet Dental Care, Regularly: Yes Physical Activity Frequency: 1-2 Times per Week Seatbelt Use: always Sunscreen Use: Yes Do you think of yourself as: straight/heterosexual Assistive Devices: Glasses, Nebulizer and Oxygen - at Night Allergies Allergies Allergy/AdvReac Type Severity Reaction Status Date / Time bee venom protein (honey bee) Allergy Severe HIVES AND Verified 10/17/22 18:37 ANAPHYLAXIS Penicillins Allergy Severe HIVES Verified 10/17/22 18:37 Sulfa (Sulfonamide Allergy Severe High Verified 10/17/22 18:37 Antibiotics) fever, broke out with spider veins all over grass pollen Allergy Intermediate hay fever Verified 10/17/22 18:37 symptoms doxycycline AdvReac Intermediate Gastrointestinal Verified 10/17/22 18:37 Upset Home Meds Home Medications Medication Instructions Recorded Confirmed clobetasol 0.05 % topical ointment 1 appln topical BID PRN Skin 02/18/20 10/17/22 Irritation metformin 500 mg tablet,extended 500 mg PO HS 07/14/22 10/17/22 release 24 hr rosuvastatin 5 mg tablet 5 mg PO WK 07/14/22 10/17/22 tiotropium bromide 1.25 2 puff inhalation QPM 07/14/22 10/17/22 mcg/actuation mist for inhalation (Spiriva Respimat) venlafaxine 75 mg capsule,extended 75 mg PO HS 07/14/22 10/17/22 release 24 hr (Effexor XR) fluticasone propionate 115 2 puff inhalation BID 10/17/22 10/17/22 mcg-salmeterol 21 mcg/actuation HFA inhaler (Advair HFA) Previous Rx's Medication Instructions Recorded epinephrine 0.3 mg/0.3 mL 0.3 mg (0.3 mL) IM Q3H PRN 03/02/20 injection, auto-injector (EpiPen) Anaphylaxis #1 ea ipratropium 0.5 mg-albuterol 3 mg 3 ml inhalation QID PRN wheezing 07/01/20 (2.5 mg base)/3 mL nebulization #90 mL soln omeprazole 40 mg capsule,delayed 40 mg PO DAILY PRN Acid Reflux #30 12/28/20 release caps albuterol sulfate 90 mcg/actuation 1 - 2 puff inhalation Q4 PRN 12/16/21 aerosol inhaler (ProAir HFA) Shortness Of Breath #8.5 grams cyclobenzaprine 5 mg tablet 5 mg PO HS #90 tabs 02/14/22 levothyroxine 75 mcg tablet 75 mcg PO QAM #90 tabs 07/27/22 Results & Data (ED) Vital Signs Vital Signs - 24 hr 10/17/22 16:09 10/17/22 16:58 10/17/22 17:00 Temperature 36.6 C Temperature Source Temporal Artery Scan Pulse Rate 130 H 112 H 112 H Pulse Rate [Apical] Pulse Rhythm Regular Respiratory Rate 28 H 18 24 Blood Pressure 155/90 H 147/112 H Blood Pressure [Left Arm] Blood Pressure Mean 111 123 Blood Pressure Mean [Left Arm] Pulse Oximetry 87 L 97 97 Oxygen Delivery Method Room Air Nasal Cannula Nasal Cannula Oxygen Flow Rate 3 3 Sepsis Recent Fever Within 48 Hours No Sepsis New/Unexplained Change in Mental Status No Sepsis Action Taken by Nursing No Action Required 10/17/22 17:30 10/17/22 18:00 10/17/22 21:01 Temperature Temperature Source Pulse Rate 113 H 112 H Pulse Rate [Apical] 128 H Pulse Rhythm Respiratory Rate 22 24 24 Blood Pressure 140/98 170/98 H Blood Pressure [Left Arm] 173/96 H Blood Pressure Mean 112 122 Blood Pressure Mean [Left Arm] 121 Pulse Oximetry 95 92 95 Oxygen Delivery Method Nasal Cannula Nasal Cannula Oxygen Flow Rate 3 3 Sepsis Recent Fever Within 48 Hours Sepsis New/Unexplained Change in Mental Status Sepsis Action Taken by Nursing Laboratory Data 10/17/22 16:58 10/17/22 16:58 Lab Results 10/17/22 10/17/22 10/17/22 Range/Units 16:43 16:58 16:58 WBC 9.32 (4.8-10.8) K/ul RBC 4.97 (4.20-5.40) M/uL Hgb 13.9 (12.0-16.0) g/dl Hct 43.6 (37.0-47.0) % MCV 87.7 (80.0-100.0) fL MCH 28.0 (25.0-34.0) pg MCHC 31.9 L (32.0-36.0) g/dL RDW Std Deviation 44.3 (36.4-46.3) fL RDW Coeff of Palak 13.8 (11.5-14.5) % Plt Count 373 (130-400) K/uL MPV 9.6 (9.4-12.4) fL Immature Gran % (Auto) 0.4 % Neut % (Auto) 91.4 % Lymph % (Auto) 3.5 % Hamilton % (Auto) 4.5 % Eos % (Auto) 0.0 % Baso % (Auto) 0.2 % Neut # (Auto) 8.51 H (1.40-6.50) K/uL Lymph # (Auto) 0.33 L (1.2-3.4) K/uL Hamilton # (Auto) 0.42 (0.11-0.59) K/uL Eos # (Auto) 0.00 (0-0.50) K/uL Baso # (Auto) 0.02 (0-0.2) K/uL Immature Gran # (Auto) 0.04 (0.01-0.20) K/uL VBG pH (7.36-7.41) VBG pCO2 (38-50) mmHg VBG pO2 mmHg VBG HCO3 mmol/L VBG O2 Saturation % VBG Base Excess mEq/L Sodium 139 (136-145) mmol/L Potassium 4.6 (3.5-5.1) mmol/L Chloride 101 (98-107) mmol/L Carbon Dioxide 34 H (21-32) mmol/L Anion Gap 4 (3-11) BUN 14 (6-23) mg/dl Creatinine 0.87 (0.6-1.2) mg/dl Est Cr Clr Drug Dosing 65.9 ml/min Est GFR ( Amer) 79.3 ml/min Est GFR (Non-Af Amer) 68.5 ml/min BUN/Creatinine Ratio 16.1 (10-20) Glucose 300 H (70-99(Fasting)) mg/dl Calcium 10.4 H (8.5-10.1) mg/dl Total Bilirubin 0.3 (0.2-1.0) mg/dl AST 13 (13-39) U/L ALT 12 (7-52) U/L Alkaline Phosphatase 85 (34-104) U/L Troponin I High Sens 18.6 H (0-14) pg/ml Total Protein 7.7 (6.0-8.3) gm/dl Albumin 4.4 (3.4-5.0) gm/dl Globulin 3.3 (2.5-4.0) gm/dl Albumin/Globulin Ratio 1.3 (0.9-2) Adenovirus (PCR) Not Detected (NotDetected) B. pertussis DNA (PCR) Not Detected (NotDetected) B.parapertussis DNA PCR Not Detected (NotDetected) C. pneumoniae DNA (PCR) Not Detected (NotDetected) Coronavirus OC43 (PCR) Not Detected (NotDetected) Coronavirus HKU1 (PCR) Not Detected (NotDetected) Coronavirus 229E (PCR) Not Detected (NotDetected) SARS-CoV-2 (PCR) Not Detected (NotDetected) Coronavirus NL63 (PCR) Not Detected (NotDetected) Human Metapneumovir PCR Not Detected (NotDetected) Influenza Type A (PCR) Not Detected (NotDetected) Influenza Type B (PCR) Not Detected (NotDetected) M. pneumoniae (PCR) Not Detected (NotDetected) Parainfluenza 1 (PCR) Not Detected (NotDetected) Parainfluenza 2 (PCR) Not Detected (NotDetected) Parainfluenza 3 (PCR) Not Detected (NotDetected) Parainfluenza 4 (PCR) Not Detected (NotDetected) RSV (PCR) Not Detected (NotDetected) Entero/Rhino (PCR) DETECTED A* (NotDetected) 10/17/22 Range/Units 16:58 WBC (4.8-10.8) K/ul RBC (4.20-5.40) M/uL Hgb (12.0-16.0) g/dl Hct (37.0-47.0) % MCV (80.0-100.0) fL MCH (25.0-34.0) pg MCHC (32.0-36.0) g/dL RDW Std Deviation (36.4-46.3) fL RDW Coeff of Palak (11.5-14.5) % Plt Count (130-400) K/uL MPV (9.4-12.4) fL Immature Gran % (Auto) % Neut % (Auto) % Lymph % (Auto) % Hamilton % (Auto) % Eos % (Auto) % Baso % (Auto) % Neut # (Auto) (1.40-6.50) K/uL Lymph # (Auto) (1.2-3.4) K/uL Hamilton # (Auto) (0.11-0.59) K/uL Eos # (Auto) (0-0.50) K/uL Baso # (Auto) (0-0.2) K/uL Immature Gran # (Auto) (0.01-0.20) K/uL VBG pH 7.41 (7.36-7.41) VBG pCO2 58 H (38-50) mmHg VBG pO2 45 mmHg VBG HCO3 37 mmol/L VBG O2 Saturation 78.1 % VBG Base Excess 9.9 mEq/L Sodium (136-145) mmol/L Potassium (3.5-5.1) mmol/L Chloride (98-107) mmol/L Carbon Dioxide (21-32) mmol/L Anion Gap (3-11) BUN (6-23) mg/dl Creatinine (0.6-1.2) mg/dl Est Cr Clr Drug Dosing ml/min Est GFR ( Amer) ml/min Est GFR (Non-Af Amer) ml/min BUN/Creatinine Ratio (10-20) Glucose (70-99(Fasting)) mg/dl Calcium (8.5-10.1) mg/dl Total Bilirubin (0.2-1.0) mg/dl AST (13-39) U/L ALT (7-52) U/L Alkaline Phosphatase (34-104) U/L Troponin I High Sens (0-14) pg/ml Total Protein (6.0-8.3) gm/dl Albumin (3.4-5.0) gm/dl Globulin (2.5-4.0) gm/dl Albumin/Globulin Ratio (0.9-2) Adenovirus (PCR) (NotDetected) B. pertussis DNA (PCR) (NotDetected) B.parapertussis DNA PCR (NotDetected) C. pneumoniae DNA (PCR) (NotDetected) Coronavirus OC43 (PCR) (NotDetected) Coronavirus HKU1 (PCR) (NotDetected) Coronavirus 229E (PCR) (NotDetected) SARS-CoV-2 (PCR) (NotDetected) Coronavirus NL63 (PCR) (NotDetected) Human Metapneumovir PCR (NotDetected) Influenza Type A (PCR) (NotDetected) Influenza Type B (PCR) (NotDetected) M. pneumoniae (PCR) (NotDetected) Parainfluenza 1 (PCR) (NotDetected) Parainfluenza 2 (PCR) (NotDetected) Parainfluenza 3 (PCR) (NotDetected) Parainfluenza 4 (PCR) (NotDetected) RSV (PCR) (NotDetected) Entero/Rhino (PCR) (NotDetected) Administered Medications Discontinued Medications Albuterol (Albut/Ipratrop 3mg/0.5mg Neb 3 Ml Vial) 3 ml NEB NOW STA; Protocol Stop: 10/17/22 16:48 Last Admin: 10/17/22 17:02 Dose: 3 ml Documented By: NELI Guaifenesin (Guaifenesin Sugar Free 100 Mg/5 Ml Udc) 100 mg PO NOW STA Stop: 10/17/22 21:12 Last Admin: 10/17/22 21:14 Dose: 100 mg Documented By: MED Levalbuterol HCl (Levalbuterol 1.25mg/0.5ml Neb) 1.25 mg NEB NOW STA; Protocol Stop: 10/17/22 20:56 Last Admin: 10/17/22 20:59 Dose: 1.25 mg Documented By: MED Methylprednisolone (Methylprednisolone 40 Mg/Ml Vial) 40 mg IV NOW STA Stop: 10/17/22 16:48 Last Admin: 10/17/22 17:02 Dose: 40 mg Documented By: NELI Imaging Data Radiologist's Impression: Chest X-Ray 10/17/22 16:13 XR chest 1V portable HISTORY: 67 years-old Female Shortness of breath acute shortness of breath COMPARISON: 01/16/2022 TECHNIQUE: AP view of the chest FINDINGS: Cardiomediastinal and hilar silhouettes are within normal limits. No pneumothorax, pleural effusion, airspace consolidation or overt pulmonary edema. Degenerative changes of the shoulders and spine. Unchanged corticated ossification superior to the right humeral head. IMPRESSION: No acute process. ACT 112: Negative or not required by law. The above report was generated using voice recognition software. It may contain grammatical, syntax or spelling errors. Electronically signed by: Jose Cao M.D. 10/17/2022 6:07 PM Discharge Plan Visit Data Chief Complaint: Referred by Doctor Stated Complaint: REF BY DOC,COPD ED Provider: Douglas Luna Discharge Problem: COPD exacerbation Forms Stand Alone Forms: My [facility] [employer] Prescriptions Prescriptions: No Action epinephrine [EpiPen] 0.3 mg/0.3 mL auto-injector 0.3 mg IM Q3H PRN (Reason: Anaphylaxis) Qty: 1 2RF omeprazole 40 mg capsule,delayed release(DR/EC) 40 mg PO DAILY PRN (Reason: Acid Reflux) Qty: 30 5RF albuterol sulfate [ProAir HFA] 90 mcg/actuation HFA aerosol inhaler 1 - 2 puff INHALATION Q4 PRN (Reason: Shortness Of Breath) Qty: 8.5 1RF levothyroxine 75 mcg tablet 75 mcg PO QAM Qty: 90 1RF clobetasol 0.05 % ointment 1 appln TOP BID PRN (Reason: Skin Irritation) cyclobenzaprine 5 mg tablet 5 mg PO HS Qty: 90 3RF ipratropium-albuterol 0.5 mg-3 mg(2.5 mg base)/3 mL solution for nebulization 3 ml inhalation QID PRN (Reason: wheezing) Qty: 90 0RF venlafaxine [Effexor XR] 75 mg capsule,extended release 24hr 75 mg PO HS metformin 500 mg tablet extended release 24 hr 500 mg PO HS rosuvastatin 5 mg tablet 5 mg PO WK Label Comments: takes sunday am Spiriva Respimat 1.25 mcg/actuation mist 2 puff inhalation QPM Advair HFA 115-21 mcg/actuation HFA aerosol inhaler 2 puff inhalation BID Rx Instructions: INHALE 2 PUFFS TWICE A DAY. Referrals Referrals: Jaime Niño III, CRNP [Primary Care Provider] -
[2022-10-17 17:19] LABS: Hematocrit (blood only) 43.6 % (37.0-47.0); Hemoglobin 13.9 g/dl (12.0-16.0); Mean Corpuscular Hgb Conc 31.9 g/dL (32.0-36.0); Mean Corpuscular Volume 87.7 fL (80.0-100.0); Mean Platelet Volume 9.6 fL (9.4-12.4); Platelet Count 373 K/uL (130-400); RDW Coefficient of Variation 13.8 % (11.5-14.5); RDW Standard Deviation 44.3 fL (36.4-46.3); Red Blood Count 4.97 M/uL (4.20-5.40); White Blood Count 9.32 K/ul (4.8-10.8)
[2022-10-17 17:28] LABS: Base Excess VBG 9.9 mEq/L; HCO3 VBG 37 mmol/L; Oxygen Saturation VBG 78.1 %; PCO2 VBG 58 mmHg (38-50); PO2 VBG 45 mmHg; pH VBG 7.41 (7.36-7.41)
[2022-10-17 17:38] LABS: Basophils # (auto) 0.02 K/uL (0-0.2); Basophils % (auto) 0.2 %; Immature Granulocytes # (auto) 0.04 K/uL (0.01-0.20); Immature Granulocytes % (auto) 0.4 %; Lymphocytes # (auto) 0.33 K/uL (1.2-3.4); Lymphocytes % (auto) 3.5 %; Monocytes # (auto) 0.42 K/uL (0.11-0.59); Monocytes % (auto) 4.5 %; Neutrophils # (auto) 8.51 K/uL (1.40-6.50); Neutrophils % (auto) 91.4 %
[2022-10-17 17:40] LABS: Albumin Globulin Ratio 1.3 (0.9-2); Albumin Level 4.4 gm/dl (3.4-5.0); BUN Creatinine Ratio 16.1 (10-20); Bilirubin,Total 0.3 mg/dl (0.2-1.0); Calcium 10.4 mg/dl (8.5-10.1); Creatinine Clr Calc Pharmacy 65.9 ml/min; Est GFR (African American) 79.3 ml/min; Est GFR (Non-African American) 68.5 ml/min; Globulin 3.3 gm/dl (2.5-4.0); Potassium 4.6 mmol/L (3.5-5.1); Total Protein 7.7 gm/dl (6.0-8.3)
[2022-10-17 17:46] LABS: Troponin I High Sensitivity 18.6 pg/ml (0-14)
[2022-10-17 17:48] LABS: Adenovirus PCR Not Detected (NotDetected); Bordetella parapertussis PCR Not Detected (NotDetected); Bordetella pertussis PCR Not Detected (NotDetected); Chlamydia pneumoniae PCR Not Detected (NotDetected); Coronavirus 229E PCR Not Detected (NotDetected); Coronavirus CoV-2 (COVID19)PCR Not Detected (NotDetected); Coronavirus HKU1 PCR Not Detected (NotDetected); Coronavirus NL63 PCR Not Detected (NotDetected); Coronavirus OC43PCR Not Detected (NotDetected); Human Metapneumovirus PCR Not Detected (NotDetected); Influenza A PCR Not Detected (NotDetected); Influenza B PCR Not Detected (NotDetected); Mycoplasma pneumoniae PCR Not Detected (NotDetected); Parainfluenza Virus 1 PCR Not Detected (NotDetected); Parainfluenza Virus 2 PCR Not Detected (NotDetected); Parainfluenza Virus 3 PCR Not Detected (NotDetected); Parainfluenza Virus 4 PCR Not Detected (NotDetected); Respiratory Syncytial VirusPCR Not Detected (NotDetected)
--- NOTE | 2022-10-17 18:08 | XRay Report ---
XR chest 1V portable HISTORY: 67 years-old Female Shortness of breath acute shortness of breath COMPARISON: 01/16/2022 TECHNIQUE: AP view of the chest FINDINGS: Cardiomediastinal and hilar silhouettes are within normal limits. No pneumothorax, pleural effusion, airspace consolidation or overt pulmonary edema. Degenerative changes of the shoulders and spine. Unc hanged corticated ossification superior to the right humeral head. IMPRESSION: No acute process. ACT 112: Negative or not required by law. The above report was generated using voice recognition software. It may contain grammatical, syntax o r spelling errors. Electronically signed by: Jose Cao M.D. 10/17/2022 6:07 PM
[2022-10-17 18:13] LABS: Rhinovirus/Enterovirus PCR DETECTED (NotDetected)
--- NOTE | 2022-10-17 19:49 | History & Physical Report ---
Date of Service October 17, 2022 Assessment & Plan (1) Chronic obstructive pulmonary disease: Plan: 67yo female with chronic hypoxic/hypercarbic respiratory failure secondary to severe COPD (PFTs in February 2022 with FEV1 0.8L/32% predicted), on supplemental O2 2L qHS presenting with 4-5 days of worsening dyspnea, productive cough and wheeze. Found to be POSITIVE for Enterovirus on respiratory Bio[employer] panel. She reports being in contact recently with her grandchildren who had colds. Suspect acute exacerbation of COPD secondary to URI. Patient continues to smoke 5-6 cigarettes per day. VBG with compensated - 7.41/58/45 CXR with no focal infiltrate -Admit to PCU for continuous cardiac monitoring, high risk for needing rescue BiPAP -Continue DuoNeb q 4 hours -Xopenex q 2 hours PRN - patient with episode of SVT in the ER -Breo Ellipta 100/25 inhaled daily -Continue Solumedrol 40mg IV TID -Azithromycin 500mg IV now and 250mg IV daily -Mucinex BID -Incentive spirometry and Flutter valve -Continue supplemental O2 - goal saturation 88- 92% -BiPAP as needed for increased work of breathing -Tessalon as needed for cough (2) SVT (supraventricular tachycardia): Plan: Patient with episode of narrow complex tachycardia with rate of 160-170 while in the ER. Self limiting - resolved after she began coughing. Most likely SVT in setting of COPD exacerbation, Albuterol administration -Check Mg level, TSH -PCU admission for continuous cardiac monitoring -Gentle IVF with LR at 100mL/hr -Xopenex nebs PRN (3) GERD (gastroesophageal reflux disease): Plan: Chronic. -Protonix 40mg po daily (4) Anxiety: Plan: Chronic -Continue Venlafaxine 75mg po qHS -Patient may need some PRN anxiolytic - will continue to monitor for need (5) Hypercholesterolemia: Plan: Chronic -Continue Crestor 5mg po weekly (6) Hypothyroidism: Plan: Chronic. -Check TSH -Continue Synthroid 75mcg po daily (7) Diabetes mellitus, type 2: Plan: Chronic. Fairly well controlled - last HlvC7V=5.7 on 05/16/22. Patient on Metformin therapy at home. Blood sugar elevated today at 300. Patient will continue to receive IV Solumedrol for now - 40mg TID -Lantus 10u BID -ISS -Goal blood sugar 110 - 140 F/E/N - LR at 100mL/hr x 1 liter Ppx - Lovenox Code -Full per discussion with patient, at bedside Dispo -Admit to PCU History of Present Illness Chief Complaint: shortness of breath Primary Care Provider: Jaime Niño, III, BRIEN Luz Maria Adrian is a 67yo female with chronic hypoxemic/hypercarbic respiratory failure secondary to severe COPD on 2L O2 at night. She had PFTs performed on 02/22/2022 with FEV1 of 0.8L/32% predicted, FVC of 1.68L/51% predicted. She follows with Pulmonary medicine - last seen in April 2022. She presents today with 4-5 days of progressive cough productive for yellow/thick sputum, RAMIRES and wheezing. She reports becoming short of breath with minimal exertion, chest tightness. Patient has been using her home nebulizer at least three times daily which improves her symptoms for approximately 1 hour. She has been taking Tussin and using her supplemental O2 during the daytime as well as at night. She has also been on oral steroids for the last 2 days. Denies chest pain, palpitations, fever, chills, night sweats, abdominal pain, nausea, vomiting, diarrhea or constipation. Denies prior VTE. Upon arrival to the ER patient tachycardic with HR of 132, saturating 87% on room air. She was placed on supplemental O2 by NC at 3L with improvement in saturation to 92%. With increased work of breathing. ER Course: Solumedrol 40mg IV Albuterol 3mL Allergies Allergy/AdvReac Type Severity Reaction Status Date / Time bee venom protein (honey bee) Allergy Severe HIVES AND Verified 10/17/22 18:37 ANAPHYLAXIS Penicillins Allergy Severe HIVES Verified 10/17/22 18:37 Sulfa (Sulfonamide Allergy Severe High Verified 10/17/22 18:37 Antibiotics) fever, broke out with spider veins all over grass pollen Allergy Intermediate hay fever Verified 10/17/22 18:37 symptoms doxycycline AdvReac Intermediate Gastrointestinal Verified 10/17/22 18:37 Upset Home Medications Medication Instructions Recorded Confirmed Type clobetasol 0.05 % topical ointment 1 appln topical BID PRN Skin 02/18/20 10/17/22 History Irritation epinephrine 0.3 mg/0.3 mL 0.3 mg (0.3 mL) IM Q3H PRN 03/02/20 10/17/22 Rx injection, auto-injector (EpiPen) Anaphylaxis #1 ea ipratropium 0.5 mg-albuterol 3 mg 3 ml inhalation QID PRN wheezing 07/01/20 10/17/22 Rx (2.5 mg base)/3 mL nebulization #90 mL soln omeprazole 40 mg capsule,delayed 40 mg PO DAILY PRN Acid Reflux #30 12/28/20 10/17/22 Rx release caps albuterol sulfate 90 mcg/actuation 1 - 2 puff inhalation Q4 PRN 12/16/21 0 10/17/22 Rx aerosol inhaler (ProAir HFA) Shortness Of Breath #8.5 grams cyclobenzaprine 5 mg tablet 5 mg PO HS #90 tabs 02/14/22 10/17/22 Rx metformin 500 mg tablet,extended 500 mg PO HS 07/14/22 10/17/22 History release 24 hr rosuvastatin 5 mg tablet 5 mg PO WK 07/14/22 10/17/22 History tiotropium bromide 1.25 2 puff inhalation QPM 07/14/22 10/17/22 History mcg/actuation mist for inhalation (Spiriva Respimat) venlafaxine 75 mg capsule,extended 75 mg PO HS 07/14/22 10/17/22 History release 24 hr (Effexor XR) levothyroxine 75 mcg tablet 75 mcg PO QAM #90 tabs 07/27/22 10/17/22 Rx fluticasone propionate 115 2 puff inhalation BID 10/17/22 10/17/22 History mcg-salmeterol 21 mcg/actuation HFA inhaler (Advair HFA) Past Med/Surg History Medical History (Updated 10/17/22 @ 20:58 by Mabel Cole DO) Acute exacerbation of chronic obstructive pulmonary disease hx of severe exacerbation in Sep 2021--had to be hospitalized and intubated---pt states she has made a full recovery---does use inhalers daily/prn and nebulizer prn, oxgyen 1 L n/c at hs Allergy to bugs Cardiac murmur follows with Dr. Isaiah Chronic obstructive pulmonary disease inhalers daily/prn, nebulizer prn, oxygen 1L N/C at hs Chronic reflux esophagitis Depression with anxiety Diabetes mellitus, type 2 Fibromyalgia Gastropathy GERD (gastroesophageal reflux disease) History of anesthesia reaction states she did not receive enough anesthesia with 1st cataract sx on right eye History of colon polyps Hypercholesterolemia Hypothyroidism Kidney stones hx of Lichen sclerosus et atrophicus Lumbar canal stenosis Memory loss Nocturnal hypoxia Obesity On home oxygen therapy 1L N/C at hs Osteoarthritis Overweight Restless legs syndrome Sleep apnea had sleep study performed 07/2018 was instructed to start oxygen at night (drops to 86% when sleeping), has not started yet Snoring Tobacco use Urinary incontinence Surgical History History of colonoscopy History of dilatation and curettage History of right cataract extraction during procedure "pupil was damaged and no longer dilates" History of tooth extraction History of total right knee replacement (TKR) History of umbilical hernia repair History of wisdom tooth extraction Hx of eye surgery left laser for retinal bleed Family History Aunt History of anesthesia reaction "her heart stopped with any anesthesia"--no one else in the family has any issues Grandmother (Paternal) Family history of diabetes mellitus Grandfather (Maternal) Family hx of colon cancer Colon cancer Father Heart disease Stroke Mother Dementia Diabetes Macular degeneration Alzheimer disease Autoimmune disease Brother Squamous cell carcinoma of skin Atrial fibrillation Other Basal cell carcinoma Denies family history of Ovarian cancer Prostate cancer Myocardial infarction Breast cancer Social History Smoking Status: Current every day smoker Tobacco Type: Cigarettes Age Started Using Tobacco: 18; packs per day: 0.25; Cigarettes Per Day: 4; Second Hand Exposure: Yes (self); Hx Alcohol Use: Yes Alcohol type: hard liquor Alcohol Intake Frequency: Monthly or Less Hx Substance Use: No Preferred Language: Danish Communication Ability: Effective Visual Impairment: No Limitations Hearing Ability: Normal Insurance Executive Required: No Beliefs That Will Affect Care: None marital status: Current Living Situation: Spouse current occupational status: retired How many Children do You have: 2 Feels Safe at Home: Yes Childhood Exposure to Second-Hand Smoke: Yes Diet Comment: no specific diet Dental Care, Regularly: Yes Physical Activity Frequency: 1-2 Times per Week Seatbelt Use: always Sunscreen Use: Yes Do you think of yourself as: straight/heterosexual Assistive Devices: Glasses, Nebulizer and Oxygen - at Night Review of Systems Review of Systems: All systems reviewed & are unremarkable except as noted in HPI & below Physical Exam Physical Exam: General: patient resting comfortably in bed, partially reclined, NAD, non-toxic in appearance, AA&O x 4, speaking in complete sentences Skin: warm, dry, intact, no rashes or lesions HEENT: NC/AT, PERRL, EOMI, anicteric sclera, conjunctiva without injection, external ear normal to inspection and nontender, nares patent, moist mucus membranes, dentition intact, no oropharyngeal lesions, neck supple, trachea midline, no LAD, no thyromegaly, no JVD Heart: +S1/S2, regular, tachycardic, no m/r/g Lungs: diminished breath sounds bilaterally with diffuse end-expiratory wheezing, no rales/rhonchi Abd: +BS, soft, NT/ND, no masses/organomegaly/ascites Ext: warm, 2+ pulses in UE/LE bilaterally, no clubbing/cyanosis or edema Neuro: nonfocal, patient AA&O x 4, speech intact, no facial droop, moving all extremities on command with equal strength 5/5, right pupil dilated an unreactive to light (secondary to surgical procedure 5+ years ago), left pupil is round and briskly reactive Results & Data Results & Data ([facility]) Vital Signs (Past 12 Hours) Vital Signs Temp Pulse Resp BP Pulse Ox O2 Del Method O2 Flow Rate 10/17/22 18:00 112 H 24 170/98 H 92 Nasal Cannula 3 10/17/22 17:30 113 H 22 140/98 95 Nasal Cannula 3 10/17/22 17:00 112 H 24 147/112 H 97 Nasal Cannula 3 10/17/22 16:58 112 H 18 97 Nasal Cannula 3 10/17/22 16:09 36.6 C 130 H 28 H 155/90 H 87 L Room Air Laboratory Results Laboratory Results WBC 9.32 K/ul (4.8-10.8) 10/17/22 16:58 RBC 4.97 M/uL (4.20-5.40) 10/17/22 16:58 Hgb 13.9 g/dl (12.0-16.0) 10/17/22 16:58 Hct 43.6 % (37.0-47.0) 10/17/22 16:58 MCV 87.7 fL (80.0-100.0) 10/17/22 16:58 MCH 28.0 pg (25.0-34.0) 10/17/22 16:58 MCHC 31.9 g/dL (32.0-36.0) L 10/17/22 16:58 RDW Std Deviation 44.3 fL (36.4-46.3) 10/17/22 16:58 RDW Coeff of Palak 13.8 % (11.5-14.5) 10/17/22 16:58 Plt Count 373 K/uL (130-400) 10/17/22 16:58 MPV 9.6 fL (9.4-12.4) 10/17/22 16:58 Immature Gran % (Auto) 0.4 % 10/17/22 16:58 Neut % (Auto) 91.4 % 10/17/22 16:58 Lymph % (Auto) 3.5 % 10/17/22 16:58 [place] % (Auto) 4.5 % 10/17/22 16:58 Eos % (Auto) 0.0 % 10/17/22 16:58 Baso % (Auto) 0.2 % 10/17/22 16:58 Neut # (Auto) 8.51 K/uL (1.40-6.50) H 10/17/22 16:58 Lymph # (Auto) 0.33 K/uL (1.2-3.4) L 10/17/22 16:58 [place] # (Auto) 0.42 K/uL (0.11-0.59) 10/17/22 16:58 Eos # (Auto) 0.00 K/uL (0-0.50) 10/17/22 16:58 Baso # (Auto) 0.02 K/uL (0-0.2) 10/17/22 16:58 Immature Gran # (Auto) 0.04 K/uL (0.01-0.20) 10/17/22 16:58 VBG pH 7.41 (7.36-7.41) 10/17/22 16:58 VBG pCO2 58 mmHg (38-50) H 10/17/22 16:58 VBG pO2 45 mmHg 10/17/22 16:58 VBG HCO3 37 mmol/L 10/17/22 16:58 VBG O2 Saturation 78.1 % 10/17/22 16:58 VBG Base Excess 9.9 mEq/L 10/17/22 16:58 Sodium 139 mmol/L (136-145) 10/17/22 16:58 Potassium 4.6 mmol/L (3.5-5.1) 10/17/22 16:58 Chloride 101 mmol/L (98-107) 10/17/22 16:58 Carbon Dioxide 34 mmol/L (21-32) H 10/17/22 16:58 Anion Gap 4 (3-11) 10/17/22 16:58 BUN 14 mg/dl (6-23) 10/17/22 16:58 Creatinine 0.87 mg/dl (0.6-1.2) 10/17/22 16:58 Est Cr Clr Drug Dosing 65.9 ml/min 10/17/22 16:58 Est GFR ( Amer) 79.3 ml/min 10/17/22 16:58 Est GFR (Non-Af Amer) 68.5 ml/min 10/17/22 16:58 BUN/Creatinine Ratio 16.1 (10-20) 10/17/22 16:58 Glucose 300 mg/dl (70-99(Fasting)) H 10/17/22 16:58 Calcium 10.4 mg/dl (8.5-10.1) H 10/17/22 16:58 Total Bilirubin 0.3 mg/dl (0.2-1.0) 10/17/22 16:58 AST 13 U/L (13-39) 10/17/22 16:58 ALT 12 U/L (7-52) 10/17/22 16:58 Alkaline Phosphatase 85 U/L (34-104) 10/17/22 16:58 Troponin I High Sens 18.6 pg/ml (0-14) H 10/17/22 16:58 Total Protein 7.7 gm/dl (6.0-8.3) 10/17/22 16:58 Albumin 4.4 gm/dl (3.4-5.0) 10/17/22 16:58 Globulin 3.3 gm/dl (2.5-4.0) 10/17/22 16:58 Albumin/Globulin Ratio 1.3 (0.9-2) 10/17/22 16:58 Adenovirus (PCR) Not Detected (NotDetected) 10/17/22 16:43 B. pertussis DNA (PCR) Not Detected (NotDetected) 10/17/22 16:43 B.parapertussis DNA PCR Not Detected (NotDetected) 10/17/22 16:43 C. pneumoniae DNA (PCR) Not Detected (NotDetected) 10/17/22 16:43 Coronavirus OC43 (PCR) Not Detected (NotDetected) 10/17/22 16:43 Coronavirus HKU1 (PCR) Not Detected (NotDetected) 10/17/22 16:43 Coronavirus 229E (PCR) Not Detected (NotDetected) 10/17/22 16:43 SARS-CoV-2 (PCR) Not Detected (NotDetected) 10/17/22 16:43 Coronavirus NL63 (PCR) Not Detected (NotDetected) 10/17/22 16:43 Human Metapneumovir PCR Not Detected (NotDetected) 10/17/22 16:43 Influenza Type A (PCR) Not Detected (NotDetected) 10/17/22 16:43 Influenza Type B (PCR) Not Detected (NotDetected) 10/17/22 16:43 M. pneumoniae (PCR) Not Detected (NotDetected) 10/17/22 16:43 Parainfluenza 1 (PCR) Not Detected (NotDetected) 10/17/22 16:43 Parainfluenza 2 (PCR) Not Detected (NotDetected) 10/17/22 16:43 Parainfluenza 3 (PCR) Not Detected (NotDetected) 10/17/22 16:43 Parainfluenza 4 (PCR) Not Detected (NotDetected) 10/17/22 16:43 RSV (PCR) Not Detected (NotDetected) 10/17/22 16:43 Entero/Rhino (PCR) DETECTED (NotDetected) A* 10/17/22 16:43 Impressions Chest X-Ray 10/17/22 16:13 XR chest 1V portable HISTORY: 67 years-old Female Shortness of breath acute shortness of breath COMPARISON: 01/16/2022 TECHNIQUE: AP view of the chest FINDINGS: Cardiomediastinal and hilar silhouettes are within normal limits. No pneumothorax, pleural effusion, airspace consolidation or overt pulmonary edema. Degenerative changes of the shoulders and spine. Unchanged corticated ossification superior to the right humeral head. IMPRESSION: No acute process. ACT 112: Negative or not required by law. The above report was generated using voice recognition software. It may contain grammatical, syntax or spelling errors. Electronically signed by: Jose Cao M.D. 10/17/2022 6:07 PM ECG Additional Comments: Per my interpretatio - ST at 125bpm, left axis deviation, NG=423, QRS=72, TUk=616 Code Status & VTE Plan VTE Prophylaxis Plan VTE Prophylaxis will be ordered: Yes PG Care Time/CCT Total # of Minutes Spent Total Time Spent with Patient: Total time spent is greater than 50% in coordination of care (as documented) at patient's floor/unit and/or counseling patient: Coding Level of Care Code 88228 INT INP/OBS CARE 375MIN Diagnoses Chronic obstructive pulmonary disease J43.9 COPD type: emphysema Emphysema type: unspecified SVT (supraventricular tachycardia) I47.1 GERD (gastroesophageal reflux disease) K21.0 Esophagitis presence: with esophagitis Anxiety F41.9 Hypercholesterolemia E78.00 Hypothyroidism E03.9 Hypothyroidism type: acquired Diabetes mellitus, type 2 E11.9 (1) Hypothyroidism Hypothyroidism type: acquired Qualified Code(s): E03.9 - Hypothyroidism, unspecified (2) Chronic obstructive pulmonary disease COPD type: emphysema Emphysema type: unspecified Qualified Code(s): J43.9 - Emphysema, unspecified (3) GERD (gastroesophageal reflux disease) Esophagitis presence: with esophagitis Qualified Code(s): K21.0 - Gastro- esophageal reflux disease with esophagitis
[2022-10-17] MEDS ORDERED: LEVALBUTEROL 1.25MG/0.5ML NEB NEB STA (20:55)
[2022-10-17] MEDS ORDERED: guaiFENesin SUGAR FREE 100 MG/5 ML UDC PO STA (21:11)
[2022-10-17] MEDS ORDERED: LORazepam 2 MG/1 ML VIAL IV STA (21:57)
[2022-10-17] MEDS ORDERED: LACTATED RINGER'S 1,000 ML IV SCH (22:08)
[2022-10-17] MEDS ORDERED: GLUCOSE 40% GEL 15 GM TUBE PO PRN (22:08)
[2022-10-17] MEDS ORDERED: GLUCAGON FOR INJ 1 MG VIAL SQ PRN (22:08)
[2022-10-17] MEDS ORDERED: LEVALBUTEROL 0.31MG/3 ML VIAL NEB PRN (22:08)
[2022-10-17] MEDS ORDERED: DEXTROSE 50% 50 ML SYRINGE IV PRN (22:08)
[2022-10-17] MEDS ORDERED: ACETAMINOPHEN 325 MG TAB PO PRN (22:08)
[2022-10-17] MEDS ORDERED: GLUCOSE 10 TAB/TUBE PO PRN (22:08)
[2022-10-17] MEDS ORDERED: ONDANSETRON INJ 2 MG/ML 2 ML VIAL IV PRN (22:08)
[2022-10-17] MEDS ORDERED: AZITHROMYCIN 500 MG in DEXTROSE 5% 250 ML IV ONE (22:30)
[2022-10-17] MEDS: guaiFENesin 600 MG TABCR PO SCH (22:38)
[2022-10-17] MEDS: CYCLOBENZAPRINE HCL 5 MG TAB PO SCH (22:38)
[2022-10-17] MEDS: VENLAFAXINE HCL XR 75 MG CAPXR PO SCH (22:39)
[2022-10-17] MEDS: methylPREDNISolone 40 MG in SYRINGE 0 ML IV SCH (22:41)
[2022-10-17 22:52] LABS: Phosphorus 3.3 mg/dl (2.5-4.9)
[2022-10-17] MEDS: INSULIN ASPART PER UNIT CHARGE SC SCH (23:06)
[2022-10-17] MEDS: LANTUS PER UNIT CHARGE SQ SCH (23:07)
[2022-10-17] MEDS: ENOXAPARIN INJ 40 MG/0.4 ML SYR SQ SCH (23:11)
[2022-10-17] MEDS: ALBUT/IPRATROP 3MG/0.5MG NEB 3 ML VIAL NEB SCH (23:33)
[2022-10-18] MEDS ORDERED: LORazepam 2 MG/1 ML VIAL IV PRN (01:10)
[2022-10-18] MEDS: ALBUT/IPRATROP 3MG/0.5MG NEB 3 ML VIAL NEB SCH ×2 (03:18→07:44)
[2022-10-18 04:09] LABS: Hematocrit (blood only) 43.9 % (37.0-47.0); Hemoglobin 13.9 g/dl (12.0-16.0); Mean Corpuscular Hemoglobin 28.2 pg (25.0-34.0); Mean Corpuscular Hgb Conc 31.7 g/dL (32.0-36.0); Mean Platelet Volume 9.4 fL (9.4-12.4); Platelet Count 389 K/uL (130-400); RDW Coefficient of Variation 13.8 % (11.5-14.5); RDW Standard Deviation 44.8 fL (36.4-46.3); Red Blood Count 4.93 M/uL (4.20-5.40); White Blood Count 11.54 K/ul (4.8-10.8)
[2022-10-18 04:29] LABS: BUN Creatinine Ratio 22.5 (10-20); Calcium 9.5 mg/dl (8.5-10.1); Creatinine Clr Calc Pharmacy 80.8 ml/min; Est GFR (African American) 101.4 ml/min; Est GFR (Non-African American) 87.5 ml/min; Potassium 4.9 mmol/L (3.5-5.1)
[2022-10-18 04:41] LABS: Troponin I High Sensitivity 13.7 pg/ml (0-14)
[2022-10-18] MEDS: LEVOTHYROXINE SODIUM 75 MCG TABLET PO SCH (06:05)
[2022-10-18] MEDS: methylPREDNISolone 40 MG in SYRINGE 0 ML IV SCH ×3 (06:08→20:57)
[2022-10-18] MEDS ORDERED: OPTIRAY 320 500ml IV ONE (08:20)
--- NOTE | 2022-10-18 08:39 | Electrocardiogram Report ---
Test Reason : Blood Pressure : / mmHG Vent. Rate : 125 BPM Atrial Rate : 125 BPM P-R Int : 150 ms QRS Dur : 072 ms QT Int : 296 ms P-R-T Axes : 082 -44 067 degrees QTc Int : 427 ms Poor data quality, interpretation may be adversely affected Sinus tachycardia Left axis deviation Pulmonary disease pattern Abnormal ECG When compared with ECG of 15-SEP-2021 23:35, No significant change Confirmed by Johan Joe ([id number]) on 10/18/2022 8:39:00 AM Referred By: Jaime Niño Confirmed By:Johan Joe
[2022-10-18] MEDS ORDERED: FLUTICASONE/VILANTEROL 100/25MCG 14 PUFFS/INHALER INH SCH (09:00)
[2022-10-18] MEDS: IPRATROPIUM BROMIDE NEB SOLN 0.02% 2.5 ML VIAL INH SCH ×3 (09:02→22:26)
[2022-10-18] MEDS: LEVALBUTEROL HCL 0.63 MG/3 ML NEB NEB SCH ×2 (09:02→12:58)
--- NOTE | 2022-10-18 09:42 | CT Scan Report ---
CHEST CTA for PULMONARY ARTERIES CT DOSE: 385.02 mGy.cm HISTORY: Shortness of breath. TECHNIQUE: Multiaxial CT images of the chest were performed following the intravenous administration of contrast to evaluate the pulmonary arteries. Maximal intensity projection images were also obtaine d. A dose lowering technique was utilized adhering to the principles of ALARA. COMPARISON STUDY: Chest CTA 09/14/2021. FINDINGS: Normal caliber thoracic aorta with no evidence for a dissection. The heart is normal in siz e. No pleural or pericardial effusions. No filling defects within the pulmonary arteries to suggest a pulmonary embolus. Right subdiaphragmatic 8 mm calcification remains stable. Otherwise, the visualiz ed liver, spleen, left adrenal gland unremarkable. Stable 2.8 cm right adrenal adenoma. The thyroid g land enhances normally. Normal caliber esophagus. Stable borderline enlarged mediastinal and hilar ly mph nodes. Dominant left hilar lymph node on image 157 measures 9 mm in short axis diameter. No acute fractures identified. No pneumothorax. Mild diffuse bronchial wall thickening, unchanged. Emphysema. Scattered tree-in-bud nodular opacities are similar to the prior study. These are most pronounced wi thin the lung bases and favor a mild chronic bronchiolitis. Otherwise, no new focal lung consolidatio ns identified. No evidence for pulmonary edema. IMPRESSION: 1. No evidence for a pulmonary embolus. 2. Emphysema. 3. Scattered foci of tree-in-bud nodularity again noted within the lungs. This is similar to the prio r study and favors a mild chronic infectious bronchiolitis. 4. Stable borderline enlarged mediastinal and hilar lymph nodes. 5. Additional findings as described above. ACT 112: Negative or not required by law. Electronically signed by: Efren Cardozo M.D. 10/18/2022 9:40 AM
[2022-10-18] MEDS: PANTOprazole 40 MG TAB PO SCH (10:12)
[2022-10-18] MEDS: guaiFENesin 600 MG TABCR PO SCH ×2 (10:12→20:57)
[2022-10-18] MEDS: LANTUS PER UNIT CHARGE SQ SCH ×2 (10:12→20:47)
[2022-10-18] MEDS: INSULIN ASPART PER UNIT CHARGE SC SCH ×4 (10:20→20:47)
--- NOTE | 2022-10-18 10:57 | Electrocardiogram Report ---
Test Reason : Blood Pressure : / mmHG Vent. Rate : 133 BPM Atrial Rate : 133 BPM P-R Int : 098 ms QRS Dur : 068 ms QT Int : 284 ms P-R-T Axes : 074 078 056 degrees QTc Int : 422 ms Poor data quality, interpretation may be adversely affected Sinus tachycardia Abnormal ECG When compared with ECG of 17-OCT-2022 16:27, Artifact now present Otherwise no significant change Confirmed by Johan Joe ([id number]) on 10/18/2022 10:57:13 AM Referred By: Jaime Niño Confirmed By:Johan Joe
[2022-10-18 12:01] LABS: Base Excess ABG 7.6 mEq/L (-9-1.8); HCO3 ABG 35 mmol/L (19-24); Oxygen Saturation ABG 98.9 % (90-95); PCO2 ABG 59 mmHg (35-46); PO2 ABG 101 mmHg (80-95); pH ABG 7.38 (7.35-7.45)
[2022-10-18] MEDS: BENZONATATE 100 MG CAPSULE PO PRN (12:20)
[2022-10-18 12:42] LABS: Allen Test Pos (Pos)
[2022-10-18] MEDS ORDERED: XOPENEX/ATROVENT 0.63mg/0.5MG NEB COMBO NEB SCH (13:00)
--- NOTE | 2022-10-18 15:08 | Hospitalist Progress Note ---
Date of Service October 18, 2022 Assessment & Plan (1) Chronic obstructive pulmonary disease: Plan: 67yo female with chronic hypoxic/hypercarbic respiratory failure secondary to severe COPD (PFTs in February 2022 with FEV1 0.8L/32% predicted), on supplemental O2 2L qHS presenting with 4-5 days of worsening dyspnea, productive cough and wheeze. Found to be POSITIVE for Enterovirus on respiratory Biofire panel. She reports being in contact recently with her grandchildren who had colds. Suspect acute exacerbation of COPD secondary to URI. Patient continues to smoke 5-6 cigarettes per day. -CXR with no focal infiltrate -Continue DuoNeb q 4 hours -Xopenex q 2 hours PRN - patient with episode of sinus tachycardia, which according to patient is chronic -Breo Ellipta 100/25 inhaled daily -Continue Solumedrol 40mg IV TID -Azithromycin 500mg IV now and 250mg IV daily -Mucinex BID -Incentive spirometry and Flutter valve -Continue supplemental O2 - goal saturation 88- 92% -BiPAP as needed for increased work of breathing -Tessalon as needed for cough (2) SVT (supraventricular tachycardia): Plan: Patient with episode of narrow complex tachycardia -Patient admits to a history of tachycardia, which has been thoroughly investigated by cardiology, she said cardiology decided not to put her on any meds -Check Mg level, TSH -PCU admission for continuous cardiac monitoring -Gentle IVF with LR at 100mL/hr -Xopenex nebs PRN (3) GERD (gastroesophageal reflux disease): Plan: Chronic. -Protonix 40mg po daily (4) Anxiety: Plan: Chronic -Continue Venlafaxine 75mg po qHS -Patient may need some PRN anxiolytic - will continue to monitor for need (5) Hypercholesterolemia: Plan: Chronic -Continue Crestor 5mg po weekly (6) Acute and chronic respiratory failure with hypoxia: Plan: Secondary to enterovirus, leading to COPD exacerbation (7) Hypothyroidism: Plan: Chronic. -Check TSH -Continue Synthroid 75mcg po daily (8) Diabetes mellitus, type 2: Plan: Chronic. Fairly well controlled - last [id number]=8.7 on 05/16/22. Patient on Metformin therapy at home. -Monitor glucose in view of steroid therapy -Lantus 10u BID -ISS -Goal blood sugar 110 - 140 Plan F/E/N - LR at 100mL/hr x 1 liter Ppx - Lovenox Code -Full per discussion with patient, at bedside Dispo - monitor Admission and Anticipated Discharge Date Admission Date: October 17, 2022 Subjective patient seen and examined, SOB is better Review of Systems Review of Systems: All systems reviewed are negative, apart from the ones contained in the history. Physical Exam Physical Exam: The patient is awake, alert and oriented 3, well developed and well nourished, normocephalic and atraumatic, lying in bed and in no acute distress. HEENT--PERRL, EOMI, mucous membranes and oropharynx mildly dry Neck--supple. No JVD. No bruits. Thyroid normal, trachea midline, no adenopathy. Heart--normal S1 and S2. No murmurs, rubs or gallops. Lungs--Reduced air entry on ausculation, some wheeze Abdomen--normal bowel sounds and soft. Mild epigastric and left sided abdominal pain Extremities--no cyanosis or clubbing. No edema. Dermatologic--normal skin turgor, normal color, no abnormal lymph nodes, no rash. Neurologic--cranial nerves II through XII grossly intact. Rheumatologic--normal range of motion. Psychiatric--normal affect. Results & Data Results & Data ([facility]) Vital Signs (Past 12 Hours) Vital Signs Pulse Pulse Resp BP BP Pulse Ox O2 Del Method 10/18/22 14:15 136 H 10/18/22 14:11 201/169 H 10/18/22 14:11 178 H 34 H 95 BiPAP 10/18/22 14:00 24 93 Oxymask 10/18/22 14:00 182/111 H 10/18/22 13:30 121 H 29 H 97 Oxymask 10/18/22 13:12 171/100 H 10/18/22 13:12 126 H 29 H 95 BiPAP 10/18/22 13:01 188/103 H 10/18/22 13:01 120 H 26 H 98 BiPAP 10/18/22 13:00 21 98 BiPAP 10/18/22 12:30 120 H 23 96 Oxymask 10/18/22 12:58 120 H 29 H 97 10/18/22 12:58 120 H 32 H 95 BiPAP 10/18/22 12:00 117 H 27 H 95 BiPAP 10/18/22 12:00 154/96 H 10/18/22 11:30 134 H 27 H 93 BiPAP 10/18/22 11:00 131 H 28 H 97 BiPAP 10/18/22 11:00 148/99 H 10/18/22 10:30 121 H 23 95 BiPAP 10/18/22 10:00 117 H 28 H 94 BiPAP 10/18/22 10:00 154/107 H 10/18/22 09:30 117 H 25 H 95 BiPAP 10/18/22 09:00 116 H 25 H 95 BiPAP 10/18/22 09:00 158/115 H 10/18/22 08:30 118 H 24 96 BiPAP 10/18/22 08:28 120 H 27 H 97 BiPAP 10/18/22 08:28 169/107 H 10/18/22 08:00 117 H 21 95 BiPAP 10/18/22 08:00 159/103 H 10/18/22 07:30 124 H 16 95 BiPAP 10/18/22 09:03 118 H 25 H 97 10/18/22 09:03 119 H 23 95 BiPAP 10/18/22 07:15 135 H 26 H 95 BiPAP 10/18/22 07:10 150/86 H 10/18/22 07:10 135 H 22 95 BiPAP 10/18/22 07:00 132 H 94 BiPAP 10/18/22 06:45 133 H 24 94 BiPAP 10/18/22 07:16 BiPAP 10/18/22 06:47 138 H 25 H 93 10/18/22 06:47 BiPAP 10/18/22 05:09 112 H 23 168/108 H 93 BiPAP 10/18/22 03:20 128 H 24 94 BiPAP 10/18/22 03:18 128 H 32 H 94 O2 Flow Rate FiO2 10/18/22 14:15 10/18/22 14:11 10/18/22 14:11 30 10/18/22 14:00 6 10/18/22 14:00 10/18/22 13:30 6 10/18/22 13:12 10/18/22 13:12 30 10/18/22 13:01 10/18/22 13:01 30 10/18/22 13:00 30 10/18/22 12:30 6 10/18/22 12:58 30 10/18/22 12:58 30 10/18/22 12:00 30 10/18/22 12:00 10/18/22 11:30 30 10/18/22 11:00 30 10/18/22 11:00 10/18/22 10:30 30 10/18/22 10:00 30 10/18/22 10:00 10/18/22 09:30 30 10/18/22 09:00 30 10/18/22 09:00 10/18/22 08:30 30 10/18/22 08:28 30 10/18/22 08:28 10/18/22 08:00 30 10/18/22 08:00 10/18/22 07:30 30 10/18/22 09:03 30 10/18/22 09:03 30 10/18/22 07:15 30 10/18/22 07:10 10/18/22 07:10 30 10/18/22 07:00 30 10/18/22 06:45 30 10/18/22 07:16 30 10/18/22 06:47 30 10/18/22 06:47 10/18/22 05:09 10/18/22 03:20 30 10/18/22 03:18 30 PG Care Time/CCT Total # of Minutes Spent Total Time Spent with Patient: Total time spent is greater than 50% in coordination of care (as documented) at patient's floor/unit and/or counseling patient: Coding Level of Care Code 06030 SUB INP/OBS CARE 235MIN Diagnoses Chronic obstructive pulmonary disease J43.9 COPD type: emphysema Emphysema type: unspecified SVT (supraventricular tachycardia) I47.1 GERD (gastroesophageal reflux disease) K21.0 Esophagitis presence: with esophagitis Anxiety F41.9 Hypercholesterolemia E78.00 Acute and chronic respiratory failure with hypoxia J96.21 Hypothyroidism E03.9 Hypothyroidism type: acquired Diabetes mellitus, type 2 E11.9 Time Spent (min) 35 (1) Chronic obstructive pulmonary disease COPD type: emphysema Emphysema type: unspecified Qualified Code(s): J43.9 - Emphysema, unspecified (2) GERD (gastroesophageal reflux disease) Esophagitis presence: with esophagitis Qualified Code(s): K21.0 - Gastro- esophageal reflux disease with esophagitis (3) Hypothyroidism Hypothyroidism type: acquired Qualified Code(s): E03.9 - Hypothyroidism, unspecified
[2022-10-18 16:02] LABS: iSTAT Arterial Blood Gas HCO3 37 meg/L (19-24); iSTAT Arterial Blood Gas pCO2 78 mmHg (35-46); iSTAT Arterial Blood Gas pH 7.29 (7.35-7.45); iSTAT Arterial Blood Gas pO2 78 mmHg (80-95); iSTAT Carbon Dioxide 39 mmol/L (24-31); iSTAT Hematocrit 43 % (37-47); iSTAT Hemoglobin 14.6 g/dl (12.0-16.0); iSTAT Potassium 4.7 mmol/L (3.3-5.0); iSTAT Sodium 141 mmol/L (135-144)
--- NOTE | 2022-10-18 16:33 | Pulmonary Consultation ---
Date of Consultation October 18, 2022 Assessment & Plan (1) Acute on chronic respiratory failure with hypoxia and hypercapnia: (2) COPD exacerbation: (3) Current smoker: (4) Encephalopathy: Plan CT chest 10/18/2022 personally reviewed: Severe centrilobular and paraseptal emphysema appreciated bilaterally Minimally enlarged left hilar lymph node ABG 10/18/2022: 7.29/78/78 -- Acute hypoxic hypercapnic respiratory failure Respiratory bio fire positive for entero/rhinovirus COVID-19 PCR, influenza A/B, RSV negative -- Severe COPD with emphysema On Advair and Spiriva at home Follows up with Dr. Glover as an outpatient, last note from 04/11/2022 personally reviewed PFT 02/22/2022 personally reviewed: Severe COPD with emphysema, air trapping, mild decrease in DLCO FVC 1.68 L 51%, FEV1 0.80 L 32%, FEV1/FVC 47%, RV 163%, TLC 93%, RV/TLC 156%, DLCO 69%, DLCO/VA 87% Plan: Repeat ABG in an hour Continue with azithromycin and Solu-Medrol Continue with nebulized inhalers Mucinex with antitussive medication [id number] Continue with BiPAP nightly and as needed shortness of breath Avoid sedating medications Case was discussed with RN and RT Please note the above document was generated using voice recognition software. It may contain grammatical, syntax or spelling errors.Any formal questions or concerns about the content, text or information contained within the body of this dictation should be directly addressed to the provider for clarification. History of Present Illness Attending Physician: Dain Nash MD History of Present Illness 67-year-old female present to the hospital with complaints of shortness of breath Past medical history: Chronic hypoxic respiratory failure on 2 L oxygen with COPD, GERD, anxiety, hypothyroidism, diabetes type 2 Pulmonary consulted for hypercapnic respiratory failure Follows up with Dr. Glover as an outpatient, last note from 04/11/2022 personally reviewed At the time of examination patient's was also in the room Patient says she has been having shortness of breath which has been gradually getting worse since a week or so. She is complaining of cough and difficulty bringing up the phlegm Denies any nausea or vomiting Does have difficulty bringing up the phlegm. No headache, no blurry vision. No fever or chills. No dysuria, no diarrhea Patient is compliant with her inhalers at home Social history: Greater than [id number] smoking history, currently smoking 5 packs a day Pets: Has a dog at home. No birds or poultry nearby Allergies Allergy/AdvReac Type Severity Reaction Status Date / Time bee venom protein (honey bee) Allergy Severe HIVES AND Verified 10/17/22 18:37 ANAPHYLAXIS Penicillins Allergy Severe HIVES Verified 10/17/22 18:37 Sulfa (Sulfonamide Allergy Severe High Verified 10/17/22 18:37 Antibiotics) fever, broke out with spider veins all over grass pollen Allergy Intermediate hay fever Verified 10/17/22 18:37 symptoms doxycycline AdvReac Intermediate Gastrointestinal Verified 10/17/22 18:37 Upset Home Medications Medication Instructions Recorded Confirmed Type clobetasol 0.05 % topical ointment 1 appln topical BID PRN Skin 02/18/20 10/17/22 History Irritation epinephrine 0.3 mg/0.3 mL 0.3 mg (0.3 mL) IM Q3H PRN 03/02/20 10/17/22 Rx injection, auto-injector (EpiPen) Anaphylaxis #1 ea ipratropium 0.5 mg-albuterol 3 mg 3 ml inhalation QID PRN wheezing 07/01/20 10/17/22 Rx (2.5 mg base)/3 mL nebulization #90 mL soln omeprazole 40 mg capsule,delayed 40 mg PO DAILY PRN Acid Reflux #30 12/28/20 10/17/22 Rx release caps albuterol sulfate 90 mcg/actuation 1 - 2 puff inhalation Q4 PRN 12/16/21 10/17/22 Rx aerosol inhaler (ProAir HFA) Shortness Of Breath #8.5 grams cyclobenzaprine 5 mg tablet 5 mg PO HS #90 tabs 02/14/22 10/17/22 Rx metformin 500 mg tablet,extended 500 mg PO HS 07/14/22 10/17/22 History release 24 hr rosuvastatin 5 mg tablet 5 mg PO WK 07/14/22 10/17/22 History tiotropium bromide 1.25 2 puff inhalation QPM 07/14/22 10/17/22 History mcg/actuation mist for inhalation (Spiriva Respimat) venlafaxine 75 mg capsule,extended 75 mg PO HS 07/14/22 10/17/22 History release 24 hr (Effexor XR) levothyroxine 75 mcg tablet 75 mcg PO QAM #90 tabs 07/27/22 10/17/22 Rx fluticasone propionate 115 2 puff inhalation BID 10/17/22 10/17/22 History mcg-salmeterol 21 mcg/actuation HFA inhaler (Advair HFA) Patient History Medical History (Updated 10/18/22 @ 19:14 by Mackenzie Piedra MD, [facility]) Acute exacerbation of chronic obstructive pulmonary disease hx of severe exacerbation in Sep 2021--had to be hospitalized and intubated---pt states she has made a full recovery---does use inhalers d aily/prn and nebulizer prn, oxgyen 1 L n/c at hs Allergy to bugs Cardiac murmur follows with Dr. Colon Chronic obstructive pulmonary disease inhalers daily/prn, nebulizer prn, oxygen 1L N/C at hs Chronic reflux esophagitis Depression with anxiety Diabetes mellitus, type 2 Fibromyalgia Gastropathy GERD (gastroesophageal reflux disease) History of anesthesia reaction states she did not receive enough anesthesia with 1st cataract sx on right eye History of colon polyps Hypercholesterolemia Hypothyroidism Kidney stones hx of Lichen sclerosus et atrophicus Lumbar canal stenosis Memory loss Nocturnal hypoxia Obesity On home oxygen therapy 1L N/C at hs Osteoarthritis Overweight Restless legs syndrome Sleep apnea had sleep study performed 07/2018 was instructed to start oxygen at night ( drops to 86% when sleeping), has not started yet Snoring Tobacco use Urinary incontinence Surgical History History of colonoscopy History of dilatation and curettage History of right cataract extraction during procedure "pupil was damaged and no longer dilates" History of tooth extraction History of total right knee replacement (TKR) History of umbilical hernia repair History of wisdom tooth extraction Hx of eye surgery left laser for retinal bleed Family History Aunt History of anesthesia reaction "her heart stopped with any anesthesia"--no one else in the family has any issues Grandmother (Paternal) Family history of diabetes mellitus Grandfather (Maternal) Family hx of colon cancer Colon cancer Father Heart disease Stroke Mother Dementia Diabetes Macular degeneration Alzheimer disease Autoimmune disease Brother Squamous cell carcinoma of skin Atrial fibrillation Other Basal cell carcinoma Denies family history of Ovarian cancer Prostate cancer Myocardial infarction Breast cancer Social History Smoking Status: Current every day smoker Tobacco Type: Cigarettes Age Started Using Tobacco: 18; packs per day: 0.25; Cigarettes Per Day: 5; Second Hand Exposure: No; Hx Alcohol Use: Yes Alcohol type: wine and hard liquor Alcohol Intake Frequency: Monthly or Less Hx Substance Use: No Preferred Language: Yoruba Communication Ability: Effective Visual Impairment: No Limitations Hearing Ability: Normal Form Stripper Required: No Beliefs That Will Affect Care: None marital status: Current Living Situation: Spouse current occupational status: retired How many Children do You have: 2 Feels Safe at Home: Yes Childhood Exposure to Second-Hand Smoke: Yes Diet Comment: no specific diet Dental Care, Regularly: Yes Physical Activity Frequency: 1-2 Times per Week Seatbelt Use: always Sunscreen Use: Yes Do you think of yourself as: straight/heterosexual Assistive Devices: Glasses and Oxygen - at Night Review of Systems Review of Systems: All systems reviewed & are unremarkable except as noted in HPI & below Physical Exam Physical Exam: Constitutional: No acute distress HEENT: EOMI, PERRLA Respiratory system: Decreased air entry bilaterally, no rhonchi, positive crackles bilateral lower lobes, positive expiratory wheeze bilaterally CVS: S1-S2 positive, no murmurs or gallops, 2 Cardia Abdomen: Soft, nontender, nondistended, positive bowel sounds x4 Extremities: +2 pulses bilaterally radialis/ dorsalis pedis, no cyanosis, no edema Neuro: Awake alert oriented x3 Psych: Normal mood and affect G/U: No Peña Skin: no rashes, warm and dry Lymphatic: no cervical or axillary lymphadenopathy Results & Data Results & Data ([facility]) Vital Signs (Past 12 Hours) Vital Signs Pulse Pulse Resp BP BP Pulse Ox O2 Del Method 10/18/22 15:01 127 H 28 H 91 10/18/22 14:15 136 H 10/18/22 14:11 201/169 H 10/18/22 14:11 178 H 34 H 95 BiPAP 10/18/22 14:00 24 93 Oxymask 10/18/22 14:00 182/111 H 10/18/22 13:30 121 H 29 H 97 Oxymask 10/18/22 13:12 171/100 H 10/18/22 13:12 126 H 29 H 95 BiPAP 10/18/22 13:01 188/103 H 10/18/22 13:01 120 H 26 H 98 BiPAP 10/18/22 13:00 21 98 BiPAP 10/18/22 12:30 120 H 23 96 Oxymask 10/18/22 12:58 120 H 29 H 97 10/18/22 12:58 120 H 32 H 95 BiPAP 10/18/22 12:00 117 H 27 H 95 BiPAP 10/18/22 12:00 154/96 H 10/18/22 11:30 134 H 27 H 93 BiPAP 10/18/22 11:00 131 H 28 H 97 BiPAP 10/18/22 11:00 148/99 H 10/18/22 10:30 121 H 23 95 BiPAP 10/18/22 10:00 117 H 28 H 94 BiPAP 10/18/22 10:00 154/107 H 10/18/22 09:30 117 H 25 H 95 BiPAP 10/18/22 09:00 116 H 25 H 95 BiPAP 10/18/22 09:00 158/115 H 10/18/22 08:30 118 H 24 96 BiPAP 10/18/22 08:28 120 H 27 H 97 BiPAP 10/18/22 08:28 169/107 H 10/18/22 08:00 117 H 21 95 BiPAP 10/18/22 08:00 159/103 H 10/18/22 07:30 124 H 16 95 BiPAP 10/18/22 09:03 118 H 25 H 97 10/18/22 09:03 119 H 23 95 BiPAP 10/18/22 07:15 135 H 26 H 95 BiPAP 10/18/22 07:10 150/86 H 10/18/22 07:10 135 H 22 95 BiPAP 10/18/22 07:00 132 H 94 BiPAP 10/18/22 06:45 133 H 24 94 BiPAP 10/18/22 07:16 BiPAP 10/18/22 06:47 138 H 25 H 93 10/18/22 06:47 BiPAP 10/18/22 05:09 112 H 23 168/108 H 93 BiPAP O2 Flow Rate FiO2 10/18/22 15:01 30 10/18/22 14:15 10/18/22 14:11 10/18/22 14:11 30 10/18/22 14:00 6 10/18/22 14:00 10/18/22 13:30 6 10/18/22 13:12 10/18/22 13:12 30 10/18/22 13:01 10/18/22 13:01 30 10/18/22 13:00 30 10/18/22 12:30 6 10/18/22 12:58 30 10/18/22 12:58 30 10/18/22 12:00 30 10/18/22 12:00 10/18/22 11:30 30 10/18/22 11:00 30 10/18/22 11:00 10/18/22 10:30 30 10/18/22 10:00 30 10/18/22 10:00 10/18/22 09:30 30 10/18/22 09:00 30 10/18/22 09:00 10/18/22 08:30 30 10/18/22 08:28 30 10/18/22 08:28 10/18/22 08:00 30 10/18/22 08:00 10/18/22 07:30 30 10/18/22 09:03 30 10/18/22 09:03 30 10/18/22 07:15 30 10/18/22 07:10 10/18/22 07:10 30 10/18/22 07:00 30 10/18/22 06:45 30 10/18/22 07:16 30 10/18/22 06:47 30 10/18/22 06:47 10/18/22 05:09 Laboratory Results 10/18/22 03:50 10/18/22 03:50 PG Care Time/CCT Total # of Minutes Spent Total Time Spent with Patient: Total time spent is greater than 50% in coordination of care (as documented) at patient's floor/unit and/or counseling patient: Coding Level of Care Code 10820 INT INP/OBS CARE 3/75MIN Diagnoses Acute on chronic respiratory failure with hypoxia and hypercapnia J96.21; J96.22 COPD exacerbation J44.1 Current smoker F17.200 Encephalopathy G93.40
[2022-10-18 17:24] LABS: iSTAT Allen Test Pass; iSTAT Arterial Blood Gas HCO3 38 meg/L (19-24); iSTAT Arterial Blood Gas pCO2 61 mmHg (35-46); iSTAT Arterial Blood Gas pO2 63 mmHg (80-95); iSTAT Carbon Dioxide 39 mmol/L (24-31); iSTAT FiO2 25 %; iSTAT Site R Radial
[2022-10-18] MEDS ORDERED: COUGH DROP (SUGAR FREE) LOZ 24 LOZ/1 BOX BUCCAL STA (17:30)
[2022-10-18] MEDS ORDERED: COUGH DROP (SUGAR FREE) LOZ 24 LOZ/1 BOX BUCCAL ONE (17:34)
[2022-10-18] MEDS ORDERED: LEVALBUTEROL 1.25MG/0.5ML NEB ONE (19:07)
[2022-10-18] MEDS ORDERED: IPRATROPIUM BROMIDE NEB SOLN 0.02% 2.5 ML VIAL ONE (19:07)
[2022-10-18] MEDS: CYCLOBENZAPRINE HCL 5 MG TAB PO SCH (20:56)
[2022-10-18] MEDS: ENOXAPARIN INJ 40 MG/0.4 ML SYR SQ SCH (20:56)
[2022-10-18] MEDS: VENLAFAXINE HCL XR 75 MG CAPXR PO SCH (20:57)
[2022-10-18] MEDS: AZITHROMYCIN 250 MG in DEXTROSE 5% 250 ML IV SCH (20:57)
[2022-10-18] MEDS: cloNIDine HCL 0.1 MG TAB PO SCH (20:57)
[2022-10-18] MEDS: guaiFENesin/DEXTROM SYRUP 200MG/20MG 10ML UDC PO SCH (21:12)
[2022-10-18] MEDS: LEVALBUTEROL 1.25MG/0.5ML NEB NEB SCH (22:26)
[2022-10-19] MEDS: BENZONATATE 100 MG CAPSULE PO PRN ×2 (03:55→12:29)
[2022-10-19] MEDS: guaiFENesin/DEXTROM SYRUP 200MG/20MG 10ML UDC PO SCH ×3 (05:11→21:00)
[2022-10-19] MEDS: LEVOTHYROXINE SODIUM 75 MCG TABLET PO SCH (05:11)
[2022-10-19] MEDS: methylPREDNISolone 40 MG in SYRINGE 0 ML IV SCH ×3 (05:11→21:00)
[2022-10-19] MEDS: LEVALBUTEROL 1.25MG/0.5ML NEB NEB SCH ×3 (07:15→23:02)
[2022-10-19] MEDS: SODIUM CHLOR 7% 4 ML NEB NEB SCH ×2 (07:15→19:33)
[2022-10-19] MEDS: IPRATROPIUM BROMIDE NEB SOLN 0.02% 2.5 ML VIAL INH SCH ×3 (07:15→23:01)
[2022-10-19] MEDS: cloNIDine HCL 0.1 MG TAB PO SCH (07:39)
[2022-10-19] MEDS: guaiFENesin 600 MG TABCR PO SCH ×2 (07:39→21:01)
--- NOTE | 2022-10-19 07:42 | Pulmonology Progress Note ---
Date of Service October 19, 2022 Assessment & Plan (1) Acute on chronic respiratory failure with hypoxia and hypercapnia: (2) COPD exacerbation: (3) Current smoker: (4) Encephalopathy: Plan CT chest 10/18/2022 personally reviewed: Severe centrilobular and paraseptal emphysema appreciated bilaterally Minimally enlarged left hilar lymph node ABG 10/18/2022: 7.29/78/78 --> 7.40/61/63 on 25% -- Acute hypoxic hypercapnic respiratory failure Respiratory bio fire positive for entero/rhinovirus COVID-19 PCR, influenza A/B, RSV negative -- Severe COPD with emphysema On Advair and Spiriva at home Follows up with Dr. Glover as an outpatient, last note from 04/11/2022 personally reviewed PFT 02/22/2022 personally reviewed: Severe COPD with emphysema, air trapping, mild decrease in DLCO FVC 1.68 L 51%, FEV1 0.80 L 32%, FEV1/FVC 47%, RV 163%, TLC 93%, RV/TLC 156%, DLCO 69%, DLCO/VA 87% Plan: Repeat ABG tomorrow to see if patient will benefit from AVAPs Continue with azithromycin and Solu-Medrol Continue with nebulized inhalers DC Breo and instead give Brovana and budesonide nebulized Mucinex with antitussive medication [id number] Continue with BiPAP nightly and as needed shortness of breath Avoid sedating medications Case was discussed with RN and Dr Nash Please note the above document was generated using voice recognition software. It may contain grammatical, syntax or spelling errors.Any formal questions or concerns about the content, text or information contained within the body of this dictation should be directly addressed to the provider for clarification. Admission and Anticipated Discharge Date Admission Date: October 17, 2022 Subjective Patient was seen and examined at bedside. No acute distress, no adverse events overnight Patient was saturating 91-92% on 3 L nasal cannula at rest Overall she says that she feels better compared to yesterday She did use her BiPAP overnight Fair appetite, no nausea vomiting No headache, no blurry vision Review of Systems Review of Systems: All systems reviewed & are unremarkable except as noted in Subjective Physical Exam 2 Physical Exam: Constitutional: No acute distress HEENT: EOMI, PERRLA Respiratory system: Decreased air entry bilaterally, no rhonchi, positive cr ackles bilateral lower lobes, positive expiratory wheeze bilaterally CVS: S1-S2 positive, no murmurs or gallops Abdomen: Soft, nontender, nondistended, positive bowel sounds x4 Extremities: +2 pulses bilaterally radialis/ dorsalis pedis, no cyanosis, no edema Neuro: Awake alert oriented x3 Psych: Normal mood and affect G/U: No Peña Skin: no rashes, warm and dry Lymphatic: no cervical or axillary lymphadenopathy Results & Data Results & Data ([facility]) Vital Signs (Past 12 Hours) Vital Signs Temp Pulse Pulse Resp BP Pulse Ox O2 Del Method 10/19/22 07:18 123 H 20 92 10/19/22 07:16 123 H 22 92 BiPAP 10/19/22 02:41 85 22 94 10/19/22 02:40 36.7 C 94 H 20 144/86 H 92 BiPAP 10/18/22 22:03 107 H 10/18/22 20:00 Nasal Cannula 10/18/22 23:00 36.9 C 98 H 22 165/95 H 95 BiPAP 10/18/22 22:27 93 H 24 94 BiPAP 10/18/22 22:20 105 H 24 94 O2 Flow Rate FiO2 10/19/22 07:18 30 10/19/22 07:16 30 10/19/22 02:41 30 10/19/22 02:40 10/18/22 22:03 10/18/22 20:00 3 10/18/22 23:00 10/18/22 22:27 30 10/18/22 22:20 30 Laboratory Results 10/18/22 03:50 10/18/22 03:50 PG Care Time/CCT Total # of Minutes Spent Total Time Spent with Patient: Total time spent is greater than 50% in coordination of care (as documented) at patient's floor/unit and/or counseling patient: Coding Level of Care Code 56623 SUB INP/OBS CARE 3/50MIN Diagnoses Acute on chronic respiratory failure with hypoxia and hypercapnia J96.21; J96.22 COPD exacerbation J44.1 Current smoker F17.200 Encephalopathy G93.40
[2022-10-19] MEDS: INSULIN ASPART PER UNIT CHARGE SC SCH ×4 (08:07→20:42)
[2022-10-19] MEDS: LANTUS PER UNIT CHARGE SQ SCH ×2 (08:08→20:57)
[2022-10-19] MEDS: PANTOprazole 40 MG TAB PO SCH (08:08)
--- NOTE | 2022-10-19 13:53 | Hospitalist Progress Note ---
Date of Service October 19, 2022 Assessment & Plan (1) Acute and chronic respiratory failure with hypoxia: Plan: Secondary to enterovirus, leading to COPD exacerbation -CXR with no focal infiltrate -Continue DuoNeb q 4 hours -Xopenex q 2 hours PRN - patient with episode of sinus tachycardia, which according to patient is chronic -Breo Ellipta 100/25 inhaled daily -Continue Solumedrol 40mg IV TID -Azithromycin 500mg IV now and 250mg IV daily -Mucinex BID -Incentive spirometry and Flutter valve -Continue supplemental O2 - goal saturation 88- 92% -BiPAP as needed for increased work of breathing -Tessalon as needed for cough -Clinically much improved today, still some wheeze on exam (2) Chronic obstructive pulmonary disease: Plan: Hx of COPD (PFTs in February 2022 with FEV1 0.8L/32% predicted), on supplemental O2 2L Patient continues to smoke 5-6 cigarettes per day. Has been adviced to quit tobacco (3) SVT (supraventricular tachycardia): Plan: Patient with episode of narrow complex tachycardia, likely sinus tachycardia -Patient admits to a history of tachycardia, which has been thoroughly investigated by cardiology, she said cardiology decided not to put her on any meds -Check Mg level, TSH -PCU admission for continuous cardiac monitoring -Gentle IVF with LR at 100mL/hr -Xopenex nebs PRN (4) GERD (gastroesophageal reflux disease): Plan: Chronic. -Protonix 40mg po daily (5) Anxiety: Plan: Chronic -Continue Venlafaxine 75mg po qHS -Patient may need some PRN anxiolytic - will continue to monitor for need (6) Hypercholesterolemia: Plan: Chronic -Continue Crestor 5mg po weekly (7) Hypothyroidism: Plan: Chronic. -Check TSH -Continue Synthroid 75mcg po daily (8) Diabetes mellitus, type 2: Plan: Chronic. Fairly well controlled - last [id number]=9.7 on 05/16/22. Patient on Metformin therapy at home. -Monitor glucose in view of steroid therapy -Lantus 10u BID -ISS -Goal blood sugar 110 - 140 Plan F/E/N - LR at 100mL/hr x 1 liter Ppx - Lovenox Code -Full per discussion with patient, Dispo - monitor Admission and Anticipated Discharge Date Admission Date: October 17, 2022 Subjective patient seen and examined, feels better, still some wheeze, used her BIPAP overnight Review of Systems Review of Systems: All systems reviewed are negative, apart from the ones contained in the history. Physical Exam Physical Exam: The patient is awake, alert and oriented 3, well developed and well nourished, normocephalic and atraumatic, lying in bed and in no acute distress. HEENT--PERRL, EOMI, mucous membranes and oropharynx mildly dry Neck--supple. No JVD. No bruits. Thyroid normal, trachea midline, no a denopathy. Heart--normal S1 and S2. No murmurs, rubs or gallops. Lungs--Reduced air entry on ausculation, some wheeze Abdomen--normal bowel sounds and soft. Mild epigastric and left sided abdominal pain Extremities--no cyanosis or clubbing. No edema. Dermatologic--normal skin turgor, normal color, no abnormal lymph nodes, no rash. Neurologic--cranial nerves II through XII grossly intact. Rheumatologic--normal range of motion. Psychiatric--normal affect. Results & Data Results & Data ([facility]) Vital Signs (Past 12 Hours) Vital Signs Temp Pulse Pulse Resp BP Pulse Ox O2 Del Method 10/19/22 11:21 99.0 F 105 H 20 97/75 L 94 Nasal Cannula 10/19/22 08:00 Nasal Cannula 10/19/22 08:00 101 H 10/19/22 07:50 98.8 F 127 H 22 139/95 93 Nasal Cannula 10/19/22 07:18 123 H 20 92 10/19/22 07:16 123 H 22 92 BiPAP 10/19/22 02:41 85 22 94 10/19/22 02:40 98.1 F 94 H 20 144/86 H 92 BiPAP O2 Flow Rate FiO2 10/19/22 11:21 3.0 10/19/22 08:00 3 10/19/22 08:00 10/19/22 07:50 3.0 10/19/22 07:18 30 10/19/22 07:16 30 10/19/22 02:41 30 10/19/22 02:40 PG Care Time/CCT Total # of Minutes Spent Total Time Spent with Patient: Total time spent is greater than 50% in coordination of care (as documented) at patient's floor/unit and/or counseling patient: Coding Level of Care Code 51231 SUB INP/OBS CARE 35MIN Diagnoses Acute and chronic respiratory failure with hypoxia J96.21 Chronic obstructive pulmonary disease J43.9 COPD type: emphysema Emphysema type: unspecified SVT (supraventricular tachycardia) I47.1 GERD (gastroesophageal reflux disease) K21.0 Esophagitis presence: with esophagitis Anxiety F41.9 Hypercholesterolemia E78.00 Hypothyroidism E03.9 Hypothyroidism type: acquired Diabetes mellitus, type 2 E11.9 Time Spent (min) 35 (1) Chronic obstructive pulmonary disease COPD type: emphysema Emphysema type: unspecified Qualified Code(s): J43.9 - Emphysema, unspecified (2) GERD (gastroesophageal reflux disease) Esophagitis presence: with esophagitis Qualified Code(s): K21.0 - Gastro- esophageal reflux disease with esophagitis (3) Hypothyroidism Hypothyroidism type: acquired Qualified Code(s): E03.9 - Hypothyroidism, unspecified
[2022-10-19] MEDS ORDERED: ARFORMOTEROL TART 15MCG/2ML VIAL INH SCH (19:00)
[2022-10-19] MEDS: BUDESONIDE 0.25 MG/2 ML VIAL (PULMICORT) NEB SCH (19:33)
[2022-10-19] MEDS: FORMOTEROL 20 MCG/2 ML VIAL INH SCH (19:34)
[2022-10-19] MEDS: AZITHROMYCIN 250 MG in DEXTROSE 5% 250 ML IV SCH (21:00)
[2022-10-19] MEDS: ENOXAPARIN INJ 40 MG/0.4 ML SYR SQ SCH (21:01)
[2022-10-19] MEDS: VENLAFAXINE HCL XR 75 MG CAPXR PO SCH (21:01)
[2022-10-19] MEDS: CYCLOBENZAPRINE HCL 5 MG TAB PO SCH (21:01)
[2022-10-20] MEDS: LEVOTHYROXINE SODIUM 75 MCG TABLET PO SCH (05:25)
[2022-10-20] MEDS: methylPREDNISolone 40 MG in SYRINGE 0 ML IV SCH ×2 (05:25→22:49)
[2022-10-20] MEDS: guaiFENesin/DEXTROM SYRUP 200MG/20MG 10ML UDC PO SCH ×3 (05:25→23:28)
[2022-10-20 05:50] LABS: Base Excess ABG 14.8 mEq/L (-9-1.8); HCO3 ABG 42 mmol/L (19-24); Oxygen Saturation ABG 98.3 % (90-95); PCO2 ABG 60 mmHg (35-46); PO2 ABG 77 mmHg (80-95); pH ABG 7.45 (7.35-7.45)
[2022-10-20 05:51] LABS: Hematocrit (blood only) 43.3 % (37.0-47.0); Hemoglobin 13.6 g/dl (12.0-16.0); Mean Corpuscular Hemoglobin 27.8 pg (25.0-34.0); Mean Corpuscular Hgb Conc 31.4 g/dL (32.0-36.0); Mean Corpuscular Volume 88.5 fL (80.0-100.0); Mean Platelet Volume 9.1 fL (9.4-12.4); Platelet Count 409 K/uL (130-400); RDW Coefficient of Variation 13.5 % (11.5-14.5); RDW Standard Deviation 43.8 fL (36.4-46.3); Red Blood Count 4.89 M/uL (4.20-5.40); White Blood Count 12.37 K/ul (4.8-10.8)
[2022-10-20 05:56] LABS: Allen Test Pos (Pos)
[2022-10-20 06:11] LABS: Potassium 4.4 mmol/L (3.5-5.1)
[2022-10-20 06:16] LABS: Creatinine Clr Calc Pharmacy 76.3 ml/min; Est GFR (African American) 94.9 ml/min; Est GFR (Non-African American) 81.9 ml/min
[2022-10-20] MEDS: LEVALBUTEROL 1.25MG/0.5ML NEB NEB SCH ×3 (06:55→23:05)
[2022-10-20] MEDS: SODIUM CHLOR 7% 4 ML NEB NEB SCH (06:55)
[2022-10-20] MEDS: IPRATROPIUM BROMIDE NEB SOLN 0.02% 2.5 ML VIAL INH SCH ×3 (06:55→23:05)
[2022-10-20] MEDS: BUDESONIDE 0.25 MG/2 ML VIAL (PULMICORT) NEB SCH ×2 (06:55→19:30)
[2022-10-20] MEDS: FORMOTEROL 20 MCG/2 ML VIAL INH SCH ×2 (06:55→19:31)
--- NOTE | 2022-10-20 07:57 | Pulmonology Progress Note ---
Date of Service October 20, 2022 Assessment & Plan (1) Acute on chronic respiratory failure with hypoxia and hypercapnia: (2) COPD exacerbation: (3) Current smoker: (4) Encephalopathy: Plan CT chest 10/18/2022 personally reviewed: Severe centrilobular and paraseptal emphysema appreciated bilaterally Minimally enlarged left hilar lymph node ABG 10/18/2022: 7.29/78/78 --> 7.40/61/63 on 25% --> 10/20/22 7.45/60/77 on 3 L -- Acute hypoxic hypercapnic respiratory failure Respiratory bio fire positive for entero/rhinovirus COVID-19 PCR, influenza A/B, RSV negative -- Severe COPD with emphysema On Advair and Spiriva at home Follows up with Dr. Glover as an outpatient, last note from 04/11/2022 personally reviewed PFT 02/22/2022 personally reviewed: Severe COPD with emphysema, air trapping, mild decrease in DLCO FVC 1.68 L 51%, FEV1 0.80 L 32%, FEV1/FVC 47%, RV 163%, TLC 93%, RV/TLC 156%, DLCO 69%, DLCO/VA 87% Plan: Due to chronic respiratory failure consequent to COPD, patient now requires a noninvasive home ventilator. Bilevel therapy with and without a rate would be ineffective as patient requires a volume targeted mode. Ventilation is required to decrease work of breathing and improve pulmonary status. Interruption of ventilator support would lead to decline of health status. NIMV settings should be AVAPS-AE; Breath rate: auto; Inspiratory time:auto; Sigh: off; Tidal Volume: 350-450, PS min: 4-10 PS max: 12-20; EPAP min: 6-10; EPAP max: 10-16; AVAPS rate: 14 during sleep and as needed Continue with azithromycin Decrease Solu-Medrol to 40 mg every 12 Continue with nebulized inhalers Continue with Brovana and budesonide nebulized Mucinex with antitussive medication [id number] Continue with BiPAP nightly and as needed shortness of breath Case was discussed with RN and Dr Nash Please note the above document was generated using voice recognition software. It may contain grammatical, syntax or spelling errors.Any formal questions or concerns about the content, text or information contained within the body of this dictation should be directly addressed to the provider for clarification. Admission and Anticipated Discharge Date Admission Date: October 17, 2022 Subjective Patient seen and examined at bedside. No acute distress, no adverse events over night Patient was saturating 94-95% on 2 L, I went down to 1 L She still complaining of cough bringing up clear phlegm. No hemoptysis Shortness of breath is improved. Fair appetite No nausea vomiting Review of Systems Review of Systems: All systems reviewed & are unremarkable except as noted in Subjective Physical Exam Physical Exam: Constitutional: No acute distress HEENT: EOMI, PERRLA Respiratory system: Decreased air entry bilaterally, no rhonchi, positive crackles bilateral lower lobes, positive expiratory wheeze bilaterally CVS: S1-S2 positive, no murmurs or gallops Abdomen: Soft, nontender, nondistended, positive bowel sounds x4 Extremities: +2 pulses bilaterally radialis/ dorsalis pedis, no cyanosis, no edema Neuro: Awake alert oriented x3 Psych: Normal mood and affect G/U: No Peña Skin: no rashes, warm and dry Lymphatic: no cervical or axillary lymphadenopathy Results & Data Results & Data ([facility]) Vital Signs (Past 12 Hours) Vital Signs Temp Pulse Pulse Resp BP Pulse Ox O2 Del Method 10/20/22 06:00 98 H 10/20/22 06:56 112 H 20 96 Nasal Cannula 10/20/22 04:45 36.6 C 103 H 20 133/102 H 97 Room Air, Nasal Cannula 10/19/22 22:02 124 H 10/20/22 02:33 104 H 20 96 10/19/22 20:00 Nasal Cannula 10/19/22 23:02 97 H 26 H 95 10/19/22 23:02 97 H 30 H 95 BiPAP 10/19/22 22:56 36.5 C 102 H 18 122/89 96 CPAP O2 Flow Rate FiO2 10/20/22 06:00 10/20/22 06:56 2 10/20/22 04:45 3 10/19/22 22:02 10/20/22 02:33 30 10/19/22 20:00 3 10/19/22 23:02 30 10/19/22 23:02 30 10/19/22 22:56 Laboratory Results 10/20/22 05:32 10/20/22 05:32 PG Care Time/CCT Total # of Minutes Spent Total Time Spent with Patient: Total time spent is greater than 50% in coordination of care (as documented) at patient's floor/unit and/or counseling patient: Coding Level of Care Code 18085 SUB INP/OBS CARE 3/50MIN Diagnoses Acute on chronic respiratory failure with hypoxia and hypercapnia J96.21; J96.22 COPD exacerbation J44.1 Current smoker F17.200 Encephalopathy G93.40
[2022-10-20] MEDS: cloNIDine HCL 0.1 MG TAB PO SCH (08:18)
[2022-10-20] MEDS: guaiFENesin 600 MG TABCR PO SCH ×2 (08:18→22:48)
[2022-10-20] MEDS: PANTOprazole 40 MG TAB PO SCH (08:19)
[2022-10-20] MEDS: LANTUS PER UNIT CHARGE SQ SCH ×2 (08:22→21:42)
[2022-10-20] MEDS: INSULIN ASPART PER UNIT CHARGE SC SCH ×5 (08:22→21:07)
[2022-10-20] MEDS: BENZONATATE 100 MG CAPSULE PO PRN (08:26)
[2022-10-20] MEDS: ALBUT/IPRATROP 3MG/0.5MG NEB 3 ML VIAL NEB PRN (11:09)
--- NOTE | 2022-10-20 11:22 | Hospitalist Progress Note ---
Date of Service October 20, 2022 Assessment & Plan (1) Acute and chronic respiratory failure with hypoxia: Plan: Secondary to enterovirus, leading to COPD exacerbation -CXR with no focal infiltrate -Continue Xopenex q 2 hours PRN - patient with episode of sinus tachycardia, which according to patient is chronic -Breo Ellipta 100/25 inhaled daily -Continue Solumedrol 40mg IV TID -Azithromycin 500mg IV now and 250mg IV daily -Mucinex BID -Incentive spirometry and Flutter valve -Continue supplemental O2 - goal saturation 88- 92% -BiPAP as needed for increased work of breathing -Tessalon as needed for cough -Clinically much improved today, still some wheeze on exam and some dry cough -Patient may need home Trelegy -Appreciate Pulm recs (2) Chronic obstructive pulmonary disease: Plan: Hx of COPD (PFTs in February 2022 with FEV1 0.8L/32% predicted), on supplemental O2 2L Patient continues to smoke 5-6 cigarettes per day. Has been adviced to quit tobacco (3) SVT (supraventricular tachycardia): Plan: Patient with episode of narrow complex tachycardia, likely sinus tachycardia -Patient admits to a history of tachycardia, which has been thoroughly investigated by cardiology, she said cardiology decided not to put her on any meds -Check Mg level, TSH -PCU admission for continuous cardiac monitoring -Gentle IVF with LR at 100mL/hr -Xopenex nebs PRN (4) GERD (gastroesophageal reflux disease): Plan: Chronic. -Protonix 40mg po daily (5) Anxiety: Plan: Chronic -Continue Venlafaxine 75mg po qHS -Patient may need some PRN anxiolytic - will continue to monitor for need (6) Hypercholesterolemia: Plan: Chronic -Continue Crestor 5mg po weekly (7) Hypothyroidism: Plan: Chronic. -Check TSH -Continue Synthroid 75mcg po daily (8) Diabetes mellitus, type 2: Plan: Chronic. Fairly well controlled - last [id number]=7.7 on 05/16/22. Patient on Metformin therapy at home. -Monitor glucose in view of steroid therapy -Lantus 10u BID -ISS -Goal blood sugar 110 - 140 Plan Ppx - Lovenox Code -Full per discussion with patient, Dispo - monitor Admission and Anticipated Discharge Date Admission Date: October 17, 2022 Subjective patient seen and examined, says SOB and wheeze are much better, but complains of dry cough Review of Systems Review of Systems: All systems reviewed are negative, apart from the ones co ntained in the history. Physical Exam Physical Exam: The patient is awake, alert and oriented 3, well developed and well nourished, normocephalic and atraumatic, lying in bed and in no acute distress. HEENT--PERRL, EOMI, mucous membranes and oropharynx mildly dry Neck--supple. No JVD. No bruits. Thyroid normal, trachea midline, no adenopathy. Heart--normal S1 and S2. No murmurs, rubs or gallops. Lungs--Reduced air entry on ausculation, some wheeze Abdomen--normal bowel sounds and soft. Mild epigastric and left sided abdominal pain Extremities--no cyanosis or clubbing. No edema. Dermatologic--normal skin turgor, normal color, no abnormal lymph nodes, no rash. Neurologic--cranial nerves II through XII grossly intact. Rheumatologic--normal range of motion. Psychiatric--normal affect. Results & Data Results & Data ([facility]) Vital Signs (Past 12 Hours) Vital Signs Temp Pulse Pulse Resp BP Pulse Ox O2 Del Method 10/20/22 11:09 96 H 20 95 Nasal Cannula 10/20/22 08:17 Nasal Cannula 10/20/22 08:37 98.2 F 118 H 18 149/92 H 94 Room Air 10/20/22 06:00 98 H 10/20/22 06:56 112 H 20 96 Nasal Cannula 10/20/22 04:45 97.9 F 103 H 20 133/102 H 97 Room Air, Nasal Cannula 10/20/22 02:33 104 H 20 96 O2 Flow Rate FiO2 10/20/22 11:09 2 10/20/22 08:17 3 10/20/22 08:37 10/20/22 06:00 10/20/22 06:56 2 10/20/22 04:45 3 10/20/22 02:33 30 PG Care Time/CCT Total # of Minutes Spent Total Time Spent with Patient: Total time spent is greater than 50% in coordination of care (as documented) at patient's floor/unit and/or counseling patient: Coding Level of Care Code 08346 SUB INP/OBS CARE 2/35MIN Diagnoses Acute and chronic respiratory failure with hypoxia J96.21 Chronic obstructive pulmonary disease J43.9 COPD type: emphysema Emphysema type: unspecified SVT (supraventricular tachycardia) I47.1 GERD (gastroesophageal reflux disease) K21.0 Esophagitis presence: with esophagitis Anxiety F41.9 Hypercholesterolemia E78.00 Hypothyroidism E03.9 Hypothyroidism type: acquired Diabetes mellitus, type 2 E11.9 Time Spent (min) 35 (1) Chronic obstructive pulmonary disease COPD type: emphysema Emphysema type: unspecified Qualified Code(s): J43.9 - Emphysema, unspecified (2) GERD (gastroesophageal reflux disease) Esophagitis presence: with esophagitis Qualified Code(s): K21.0 - Gastro-es ophageal reflux disease with esophagitis (3) Hypothyroidism Hypothyroidism type: acquired Qualified Code(s): E03.9 - Hypothyroidism, unspecified
[2022-10-20] MEDS: CARBOHYDRATES FOR HYPOGLYCEMIA PO PRN ×3 (16:20→20:35)
[2022-10-20] MEDS: AZITHROMYCIN 250 MG in DEXTROSE 5% 250 ML IV SCH (22:45)
[2022-10-20] MEDS: ENOXAPARIN INJ 40 MG/0.4 ML SYR SQ SCH (22:47)
[2022-10-20] MEDS: CYCLOBENZAPRINE HCL 5 MG TAB PO SCH (22:49)
[2022-10-20] MEDS: VENLAFAXINE HCL XR 75 MG CAPXR PO SCH (22:50)
[2022-10-21] MEDS: BENZONATATE 100 MG CAPSULE PO PRN ×2 (01:59→19:23)
[2022-10-21] MEDS: guaiFENesin/DEXTROM SYRUP 200MG/20MG 10ML UDC PO SCH ×3 (06:25→20:44)
[2022-10-21] MEDS: LEVOTHYROXINE SODIUM 75 MCG TABLET PO SCH (06:25)
[2022-10-21] MEDS: LEVALBUTEROL 1.25MG/0.5ML NEB NEB SCH ×3 (07:08→23:14)
[2022-10-21] MEDS: FORMOTEROL 20 MCG/2 ML VIAL INH SCH ×2 (07:08→19:15)
[2022-10-21] MEDS: IPRATROPIUM BROMIDE NEB SOLN 0.02% 2.5 ML VIAL INH SCH ×3 (07:08→23:14)
[2022-10-21] MEDS: BUDESONIDE 0.25 MG/2 ML VIAL (PULMICORT) NEB SCH ×2 (07:28→19:15)
[2022-10-21] MEDS: cloNIDine HCL 0.1 MG TAB PO SCH (09:48)
[2022-10-21] MEDS: PANTOprazole 40 MG TAB PO SCH (09:49)
[2022-10-21] MEDS: guaiFENesin 600 MG TABCR PO SCH ×2 (09:49→20:42)
[2022-10-21] MEDS: INSULIN ASPART PER UNIT CHARGE SC SCH ×4 (09:50→20:35)
[2022-10-21] MEDS: LANTUS PER UNIT CHARGE SQ SCH ×2 (09:52→20:36)
[2022-10-21 09:56] LABS: Hematocrit (blood only) 47.7 % (37.0-47.0); Hemoglobin 14.9 g/dl (12.0-16.0); Mean Corpuscular Hemoglobin 27.8 pg (25.0-34.0); Mean Corpuscular Hgb Conc 31.2 g/dL (32.0-36.0); Mean Platelet Volume 9.2 fL (9.4-12.4); Platelet Count 462 K/uL (130-400); RDW Coefficient of Variation 13.7 % (11.5-14.5); RDW Standard Deviation 44.7 fL (36.4-46.3); Red Blood Count 5.36 M/uL (4.20-5.40); White Blood Count 11.64 K/ul (4.8-10.8)
[2022-10-21 10:12] LABS: BUN Creatinine Ratio 25.3 (10-20); Calcium 9.1 mg/dl (8.5-10.1); Creatinine Clr Calc Pharmacy 68.9 ml/min; Est GFR (Non-African American) 72.5 ml/min; Potassium 4.8 mmol/L (3.5-5.1)
[2022-10-21] MEDS: methylPREDNISolone 40 MG in SYRINGE 0 ML IV SCH ×2 (11:18→20:43)
--- NOTE | 2022-10-21 11:19 | Hospitalist Progress Note ---
Date of Service October 21, 2022 Assessment & Plan (1) Acute and chronic respiratory failure with hypoxia: Plan: Secondary to enterovirus, leading to COPD exacerbation -CXR with no focal infiltrate -Continue Xopenex q 2 hours PRN - patient with episode of sinus tachycardia, which according to patient is chronic -Breo Ellipta 100/25 inhaled daily -Continue Solumedrol 40mg IV BID -Azithromycin 500mg IV now and 250mg IV daily -Mucinex BID -Incentive spirometry and Flutter valve -Continue supplemental O2 - goal saturation 88- 92% -BiPAP as needed for increased work of breathing -Tessalon as needed for cough -Clinically much improved today, still some wheeze on exam and some dry cough, more when she uses fluttervalve -Patient will need home Trilogy -Appreciate Pulm recs (2) Chronic obstructive pulmonary disease: Plan: Hx of COPD (PFTs in February 2022 with FEV1 0.8L/32% predicted), on supplemental O2 2L Patient continues to smoke 5-6 cigarettes per day. Has been adviced to quit tobacco (3) SVT (supraventricular tachycardia): Plan: Patient with episode of narrow complex tachycardia, likely sinus tachycardia -Patient admits to a history of tachycardia, which has been thoroughly investigated by cardiology, she said cardiology decided not to put her on any meds -Check Mg level, TSH -PCU admission for continuous cardiac monitoring -Gentle IVF with LR at 100mL/hr -Xopenex nebs PRN (4) GERD (gastroesophageal reflux disease): Plan: Chronic. -Protonix 40mg po daily (5) Anxiety: Plan: Chronic -Continue Venlafaxine 75mg po qHS -Patient may need some PRN anxiolytic - will continue to monitor for need (6) Hypercholesterolemia: Plan: Chronic -Continue Crestor 5mg po weekly (7) Hypothyroidism: Plan: Chronic. -Check TSH -Continue Synthroid 75mcg po daily (8) Diabetes mellitus, type 2: Plan: Chronic. Fairly well controlled - last CgyK2U=1.7 on 05/16/22. Patient on Metformin therapy at home. -Monitor glucose in view of steroid therapy -Lantus 10u BID -ISS -Goal blood sugar 110 - 140 Plan Ppx - Lovenox Code -Full per discussion with patient, Dispo - monitor Admission and Anticipated Discharge Date Admission Date: October 17, 2022 Subjective patient seen and examined, her oxygen was weaned down to 2L, she still complains of mild wheeze and cough especially when she uses incentive spirometry Review of Systems Review of Systems: All systems reviewed are negative, apart from the ones contained in the history. Physical Exam Physical Exam: The patient is awake, alert and oriented 3, well developed and well nourished, normocephalic and atraumatic, lying in bed and in no acute distress. HEENT--PERRL, EOMI, mucous membranes and oropharynx mildly dry Neck--supple. No JVD. No bruits. Thyroid normal, trachea midline, no adenopathy. Heart--normal S1 and S2. No murmurs, rubs or gallops. Lungs--Reduced air entry on ausculation, some wheeze Abdomen--normal bowel sounds and soft. Mild epigastric and left sided abdominal pain Extremities--no cyanosis or clubbing. No edema. Dermatologic--normal skin turgor, normal color, no abnormal lymph nodes, no rash. Neurologic--cranial nerves II through XII grossly intact. Rheumatologic--normal range of motion. Psychiatric--normal affect. Results & Data Results & Data ([facility]) Vital Signs (Past 12 Hours) Vital Signs Temp Pulse Pulse Pulse Resp BP Pulse Ox 10/21/22 08:00 10/21/22 08:00 97 H 10/21/22 07:30 98.6 F 110 H 20 146/106 H 95 10/21/22 07:12 18 109 H 10/21/22 02:33 98.6 F 104 H 20 122/93 95 10/21/22 00:00 97 H 10/20/22 23:54 100 H 24 94 O2 Del Method O2 Flow Rate FiO2 10/21/22 08:00 Nasal Cannula 3 10/21/22 08:00 10/21/22 07:30 Nasal Cannula 3 10/21/22 07:12 Nasal Cannula 3 10/21/22 02:33 Nasal Cannula 3 10/21/22 00:00 10/20/22 23:54 30 PG Care Time/CCT Total # of Minutes Spent Total Time Spent with Patient: Total time spent is greater than 50% in coordination of care (as documented) at patient's floor/unit and/or counseling patient: Coding Level of Care Code 48111 SUB INP/OBS CARE 2/35MIN Diagnoses Acute and chronic respiratory failure with hypoxia J96.21 Chronic obstructive pulmonary disease J43.9 COPD type: emphysema Emphysema type: unspecified SVT (supraventricular tachycardia) I47.1 GERD (gastroesophageal reflux disease) K21.0 Esophagitis presence: with esophagitis Anxiety F41.9 Hypercholesterolemia E78.00 Hypothyroidism E03.9 Hypothyroidism type: acquired Diabetes mellitus, type 2 E11.9 Time Spent (min) 35 (1) Chronic obstructive pulmonary disease COPD type: emphysema Emphysema type: unspecified Qualified Code(s): J43.9 - Emphysema, unspecified (2) GERD (gastroesophageal reflux disease) Esophagitis presence: with esophagitis Qualified Code(s): K21.0 - Gastro- esophageal reflux disease with esophagitis (3) Hypothyroidism Hypothyroidism type: acquired Qualified Code(s): E03.9 - Hypothyroidism, unspecified
[2022-10-21] MEDS: dilTIAZem HCL 120 MG CAPCR PO SCH (11:39)
--- NOTE | 2022-10-21 12:40 | Pulmonology Progress Note ---
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 Glover as an outpatient, last note from 04/11/2022 personally reviewed PFT 02/22/2022 personally reviewed: Severe COPD with emphysema, air trapping, mild decrease in DLCO FVC 1.68 L 51%, FEV1 0.80 L 32%, FEV1/FVC 47%, RV 163%, TLC 93%, RV/TLC 156%, DLCO 69%, DLCO/VA 87% Plan: Continue with azithromycin Continue with Solu-Medrol to 40 mg every 12 given persistent wheezing Continue with nebulized inhalers Continue with Brovana and budesonide nebulized Mucinex with antitussive medication [id number] Continue with BiPAP nightly and as needed shortness of breath Case was discussed with RN and Dr Nash Please note the above document was generated using voice recognition software. It may contain grammatical, syntax or spelling errors.Any formal questions or concerns about the content, text or information contained within the body of this dictation should be directly addressed to the provider for clarification. Admission and Anticipated Discharge Date Admission Date: October 17, 2022 Subjective Patient seen and examined at bedside. No acute distress, no delusions overnight She was saturating 94% on 3 L nasal cannula. Overall she says she is feeling better. Denies any nausea vomiting, fair appetite Has been using BiPAP overnight. Review of Systems Review of Systems: All systems reviewed & are unremarkable except as noted in Subjective Physical Exam Physical Exam: Constitutional: No acute distress HEENT: EOMI, PERRLA Respiratory system: Decreased air entry bilaterally, no rhonchi, positive crackles bilateral lower lobes, positive expiratory wheeze bilaterally CVS: S1-S2 positive, no murmurs or gallops Abdomen: Soft, nontender, nondistended, positive bowel sounds x4 Extremities: +2 pulses bilaterally radialis/ dorsalis pedis, no cyanosis, no milly ma Neuro: Awake alert oriented x3 Psych: Normal mood and affect G/U: No Peña Skin: no rashes, warm and dry Lymphatic: no cervical or axillary lymphadenopathy Results & Data Results & Data ([facility]) Vital Signs (Past 12 Hours) Vital Signs Temp Pulse Pulse Pulse Resp BP Pulse Ox 10/21/22 11:30 36.6 C 96 H 20 141/89 H 94 10/21/22 08:00 10/21/22 08:00 97 H 10/21/22 07:30 37 C 110 H 20 146/106 H 95 10/21/22 07:12 18 109 H 10/21/22 02:33 37.0 C 104 H 20 122/93 95 O2 Del Method O2 Flow Rate 10/21/22 11:30 Nasal Cannula 3 10/21/22 08:00 Nasal Cannula 3 10/21/22 08:00 10/21/22 07:30 Nasal Cannula 3 10/21/22 07:12 Nasal Cannula 3 10/21/22 02:33 Nasal Cannula 3 Laboratory Results 10/21/22 09:20 10/21/22 09:20 PG Care Time/CCT Total # of Minutes Spent Total Time Spent with Patient: Total time spent is greater than 50% in coordination of care (as documented) at patient's floor/unit and/or counseling patient: Coding Level of Care Code 32700 SUB INP/OBS CARE 2/35MIN Diagnoses Acute on chronic respiratory failure with hypoxia and hypercapnia J96.21; J96.22 COPD exacerbation J44.1 Current smoker F17.200 Encephalopathy G93.40
[2022-10-21] MEDS: ALBUT/IPRATROP 3MG/0.5MG NEB 3 ML VIAL NEB PRN (14:15)
[2022-10-21] MEDS: ENOXAPARIN INJ 40 MG/0.4 ML SYR SQ SCH (20:41)
[2022-10-21] MEDS: CYCLOBENZAPRINE HCL 5 MG TAB PO SCH (20:41)
[2022-10-21] MEDS: VENLAFAXINE HCL XR 75 MG CAPXR PO SCH (20:42)
[2022-10-21] MEDS: AZITHROMYCIN 250 MG in DEXTROSE 5% 250 ML IV SCH (22:54)
[2022-10-22] MEDS: LEVOTHYROXINE SODIUM 75 MCG TABLET PO SCH (05:44)
[2022-10-22] MEDS: guaiFENesin/DEXTROM SYRUP 200MG/20MG 10ML UDC PO SCH ×3 (05:44→20:55)
[2022-10-22] MEDS: LEVALBUTEROL 1.25MG/0.5ML NEB NEB SCH ×3 (07:12→22:42)
[2022-10-22] MEDS: IPRATROPIUM BROMIDE NEB SOLN 0.02% 2.5 ML VIAL INH SCH ×3 (07:12→22:41)
[2022-10-22] MEDS: FORMOTEROL 20 MCG/2 ML VIAL INH SCH ×2 (07:12→19:09)
[2022-10-22] MEDS: BUDESONIDE 0.25 MG/2 ML VIAL (PULMICORT) NEB SCH ×2 (07:13→19:09)
[2022-10-22] MEDS: guaiFENesin 600 MG TABCR PO SCH ×2 (08:17→20:50)
[2022-10-22] MEDS: dilTIAZem HCL 120 MG CAPCR PO SCH (08:18)
[2022-10-22] MEDS: INSULIN ASPART PER UNIT CHARGE SC SCH ×4 (08:18→20:28)
[2022-10-22] MEDS: cloNIDine HCL 0.1 MG TAB PO SCH (08:18)
[2022-10-22] MEDS: PANTOprazole 40 MG TAB PO SCH (08:18)
[2022-10-22] MEDS: LANTUS PER UNIT CHARGE SQ SCH ×2 (08:18→20:30)
[2022-10-22] MEDS: methylPREDNISolone 40 MG in SYRINGE 0 ML IV SCH (08:20)
[2022-10-22] MEDS ORDERED: ROSUVASTATIN CALCIUM 5 MG TAB PO SCH (09:00)
--- NOTE | 2022-10-22 10:51 | Pulmonology Progress Note ---
Date of Service October 22, 2022 Assessment & Plan (1) Acute on chronic respiratory failure with hypoxia and hypercapnia: (2) COPD exacerbation: (3) Current smoker: (4) Encephalopathy: Plan CT chest 10/18/2022 personally reviewed: Severe centrilobular and paraseptal emphysema appreciated bilaterally Minimally enlarged left hilar lymph node ABG 10/18/2022: 7.29/78/78 --> 7.40/61/63 on 25% --> 10/20/22 7.45/60/77 on 3 L -- Acute hypoxic hypercapnic respiratory failure Secondary to COPD exacerbation from entero-/rhinovirus infection Respiratory bio fire positive for entero/rhinovirus COVID-19 PCR, influenza A/B, RSV negative -- Severe COPD with emphysema On Advair and Spiriva at home Follows up with Dr. Glover as an outpatient, last note from 04/11/2022 personally reviewed PFT 02/22/2022 personally reviewed: Severe COPD with emphysema, air trapping, mild decrease in DLCO FVC 1.68 L 51%, FEV1 0.80 L 32%, FEV1/FVC 47%, RV 163%, TLC 93%, RV/TLC 156%, DLCO 69%, DLCO/VA 87% Plan: Continue with azithromycin Decrease Solu-Medrol to 40 mg on a daily basis Continue with nebulized inhalers Continue with Brovana and budesonide nebulized Mucinex with antitussive medication [id number] Continue with BiPAP nightly and as needed shortness of breath AVAPS machine has been ordered, case consultant working on it Case was discussed with RN Please note the above document was generated using voice recognition software. It may contain grammatical, syntax or spelling errors.Any formal questions or concerns about the content, text or information contained within the body of this dictation should be directly addressed to the provider for clarification. Admission and Anticipated Discharge Date Admission Date: October 17, 2022 Subjective Patient seen and examined at bedside. No acute distress, no episodes overnight. Patient was saturating 87-88% on room air. Overall she is feeling her shortness of breath is improved. She is bringing up phlegm now. Denies any nausea or vomiting No headache, no blurry vision Fair appetite Review of Systems Review of Systems: All systems reviewed & are unremarkable except as noted in Subjective Physical Exam Physical Exam: Constitutional: No acute distress HEENT: EOMI, PERRLA Respiratory system: Decreased air entry bilaterally, no rhonchi, positive crackles bilateral lower lobes, mild expiratory wheeze bilaterally (effectively improved) CVS: S1-S2 positive, no murmurs or gallops Abdomen: Soft, nontender, nondistended, positive bowel sounds x4 Extremities: +2 pulses bilaterally radialis/ dorsalis pedis, no cyanosis, no edema Neuro: Awake alert oriented x3 Psych: Normal mood and affect G/U: No Peña Skin: no rashes, warm and dry Lymphatic: no cervical or axillary lymphadenopathy Results & Data Results & Data ([facility]) Vital Signs (Past 12 Hours) Vital Signs Temp Pulse Pulse Resp BP Pulse Ox O2 Del Method 10/22/22 08:00 Nasal Cannula 10/22/22 08:00 90 10/22/22 07:53 37.3 C 88 18 119/93 95 Room Air 10/22/22 07:16 100 H 92 Nasal Cannula 10/22/22 03:29 90 23 95 10/22/22 02:40 37.1 C 86 19 115/68 95 BiPAP 10/22/22 00:00 88 10/21/22 23:14 93 H 21 95 BiPAP 10/21/22 22:51 37.0 C 93 H 18 147/98 H 96 CPAP O2 Flow Rate FiO2 10/22/22 08:00 3 10/22/22 08:00 10/22/22 07:53 10/22/22 07:16 2 10/22/22 03:29 2 10/22/22 02:40 10/22/22 00:00 10/21/22 23:14 2 10/21/22 22:51 Laboratory Results 10/21/22 09:20 10/21/22 09:20 PG Care Time/CCT Total # of Minutes Spent Total Time Spent with Patient: Total time spent is greater than 50% in coordination of care (as documented) at patient's floor/unit and/or counseling patient: Coding Level of Care Code 13055 SUB INP/OBS CARE 2/35MIN Diagnoses Acute on chronic respiratory failure with hypoxia and hypercapnia J96.21; J96.22 COPD exacerbation J44.1 Current smoker F17.200 Encephalopathy G93.40
--- NOTE | 2022-10-22 11:34 | Hospitalist Progress Note ---
Date of Service October 22, 2022 Assessment & Plan (1) Acute and chronic respiratory failure with hypoxia: Plan: Secondary to enterovirus, leading to COPD exacerbation -CXR with no focal infiltrate -Continue Xopenex q 2 hours PRN - patient with episode of sinus tachycardia, which according to patient is chronic -Breo Ellipta 100/25 inhaled daily -Continue Solumedrol 40mg IV daily -Azithromycin 250mg IV daily -Mucinex BID -Incentive spirometry and Flutter valve -Continue supplemental O2 - goal saturation 88- 92% -BiPAP nightly -Tessalon as needed for cough -Clinically much improved today -Patient will need home Trilogy, this has been ordered by Pulm -Appreciate Pulm recs (2) Chronic obstructive pulmonary disease: Plan: Hx of COPD (PFTs in February 2022 with FEV1 0.8L/32% predicted), on supplemental O2 2L Patient continues to smoke 5-6 cigarettes per day. Has been adviced to quit tobacco (3) SVT (supraventricular tachycardia): Plan: Patient with episode of narrow complex tachycardia, likely sinus tachycardia -Patient admits to a history of tachycardia, which has been thoroughly investigated by cardiology, she said cardiology decided not to put her on any meds -Check Mg level, TSH -PCU admission for continuous cardiac monitoring -Gentle IVF with LR at 100mL/hr -Xopenex nebs PRN (4) GERD (gastroesophageal reflux disease): Plan: Chronic. -Protonix 40mg po daily (5) Anxiety: Plan: Chronic -Continue Venlafaxine 75mg po qHS -Patient may need some PRN anxiolytic - will continue to monitor for need (6) Hypercholesterolemia: Plan: Chronic -Continue Crestor 5mg po weekly (7) Hypothyroidism: Plan: Chronic. -Check TSH -Continue Synthroid 75mcg po daily (8) Diabetes mellitus, type 2: Plan: Chronic. Fairly well controlled - last [id number]=7.7 on 05/16/22. Patient on Metformin therapy at home. -Monitor glucose in view of steroid therapy -Lantus 10u BID -ISS -Goal blood sugar 110 - 140 Plan Ppx - Lovenox Code -Full per discussion with patient, Dispo - monitor Admission and Anticipated Discharge Date Admission Date: October 17, 2022 Subjective patient seen and examined, feels much better, wheeze is better Review of Systems Review of Systems: All systems reviewed are negative, apart from the ones contained in the history. Physical Exam 2 Physical Exam: The patient is awake, alert and oriented 3, well developed and well nourished, normocephalic and atraumatic, lying in bed and in no acute distr ess. HEENT--PERRL, EOMI, mucous membranes and oropharynx mildly dry Neck--supple. No JVD. No bruits. Thyroid normal, trachea midline, no adenopathy. Heart--normal S1 and S2. No murmurs, rubs or gallops. Lungs--Reduced air entry on ausculation, some wheeze Abdomen--normal bowel sounds and soft. Mild epigastric and left sided abdominal pain Extremities--no cyanosis or clubbing. No edema. Dermatologic--normal skin turgor, normal color, no abnormal lymph nodes, no rash. Neurologic--cranial nerves II through XII grossly intact. Rheumatologic--normal range of motion. Psychiatric--normal affect. Results & Data Results & Data ([facility]) Vital Signs (Past 12 Hours) Vital Signs Temp Pulse Pulse Resp BP Pulse Ox O2 Del Method 10/22/22 10:00 99 Nasal Cannula 10/22/22 08:00 Nasal Cannula 10/22/22 08:00 90 10/22/22 07:53 99.1 F 88 18 119/93 95 Room Air 10/22/22 07:16 100 H 92 Nasal Cannula 10/22/22 03:29 90 23 95 10/22/22 02:40 98.8 F 86 19 115/68 95 BiPAP 10/22/22 00:00 88 O2 Flow Rate FiO2 10/22/22 10:00 3 10/22/22 08:00 3 10/22/22 08:00 10/22/22 07:53 10/22/22 07:16 2 10/22/22 03:29 2 10/22/22 02:40 10/22/22 00:00 PG Care Time/CCT Total # of Minutes Spent Total Time Spent with Patient: Total time spent is greater than 50% in coordination of care (as documented) at patient's floor/unit and/or counseling patient: Coding Level of Care Code 94598 SUB INP/OBS CARE 2/35MIN Diagnoses Acute and chronic respiratory failure with hypoxia J96.21 Chronic obstructive pulmonary disease J43.9 COPD type: emphysema Emphysema type: unspecified SVT (supraventricular tachycardia) I47.1 GERD (gastroesophageal reflux disease) K21.0 Esophagitis presence: with esophagitis Anxiety F41.9 Hypercholesterolemia E78.00 Hypothyroidism E03.9 Hypothyroidism type: acquired Diabetes mellitus, type 2 E11.9 Time Spent (min) 35 (1) Chronic obstructive pulmonary disease COPD type: emphysema Emphysema type: unspecified Qualified Code(s): J43.9 - Emphysema, unspecified (2) GERD (gastroesophageal reflux disease) Esophagitis presence: with esophagitis Qualified Code(s): K21.0 - Gastro- esophageal reflux disease with esophagitis (3) Hypothyroidism Hypothyroidism type: acquired Qualified Code(s): E03.9 - Hypothyroidism, unspecified
[2022-10-22] MEDS: BENZONATATE 100 MG CAPSULE PO PRN (14:21)
[2022-10-22] MEDS: ALBUT/IPRATROP 3MG/0.5MG NEB 3 ML VIAL NEB PRN (14:25)
[2022-10-22] MEDS: CYCLOBENZAPRINE HCL 5 MG TAB PO SCH (20:54)
[2022-10-22] MEDS: ENOXAPARIN INJ 40 MG/0.4 ML SYR SQ SCH (20:54)
[2022-10-22] MEDS: VENLAFAXINE HCL XR 75 MG CAPXR PO SCH (20:55)
[2022-10-22] MEDS: AZITHROMYCIN 250 MG in DEXTROSE 5% 250 ML IV SCH (22:03)
[2022-10-23] MEDS: LEVOTHYROXINE SODIUM 75 MCG TABLET PO SCH (06:01)
[2022-10-23] MEDS: guaiFENesin/DEXTROM SYRUP 200MG/20MG 10ML UDC PO SCH (06:01)
[2022-10-23 06:36] LABS: Hematocrit (blood only) 43.7 % (37.0-47.0); Hemoglobin 14.1 g/dl (12.0-16.0); Mean Corpuscular Hemoglobin 28.2 pg (25.0-34.0); Mean Corpuscular Hgb Conc 32.3 g/dL (32.0-36.0); Mean Corpuscular Volume 87.4 fL (80.0-100.0); Mean Platelet Volume 9.1 fL (9.4-12.4); Platelet Count 368 K/uL (130-400); RDW Coefficient of Variation 13.5 % (11.5-14.5); RDW Standard Deviation 43.3 fL (36.4-46.3); White Blood Count 12.86 K/ul (4.8-10.8)
[2022-10-23 06:55] LABS: BUN Creatinine Ratio 27.2 (10-20); Calcium 8.8 mg/dl (8.5-10.1); Creatinine Clr Calc Pharmacy 70.9 ml/min; Est GFR (African American) 86.5 ml/min; Est GFR (Non-African American) 74.6 ml/min; Potassium 4.3 mmol/L (3.5-5.1)
[2022-10-23] MEDS: FORMOTEROL 20 MCG/2 ML VIAL INH SCH (07:07)
[2022-10-23] MEDS: LEVALBUTEROL 1.25MG/0.5ML NEB NEB SCH (07:07)
[2022-10-23] MEDS: BUDESONIDE 0.25 MG/2 ML VIAL (PULMICORT) NEB SCH (07:07)
[2022-10-23] MEDS: IPRATROPIUM BROMIDE NEB SOLN 0.02% 2.5 ML VIAL INH SCH (07:07)
[2022-10-23] MEDS: cloNIDine HCL 0.1 MG TAB PO SCH (07:48)
[2022-10-23] MEDS: guaiFENesin 600 MG TABCR PO SCH (07:48)
[2022-10-23] MEDS: INSULIN ASPART PER UNIT CHARGE SC SCH ×2 (07:48→11:47)
[2022-10-23] MEDS: dilTIAZem HCL 120 MG CAPCR PO SCH (07:48)
[2022-10-23] MEDS: LANTUS PER UNIT CHARGE SQ SCH (07:48)
--- NOTE | 2022-10-23 08:15 | Pulmonology Progress Note ---
Date of Service October 23, 2022 Assessment & Plan (1) Acute on chronic respiratory failure with hypoxia and hypercapnia: (2) COPD exacerbation: Plan Impression: 67-year-old female with ongoing tobacco abuse admitted with acute exacerbation of chronic obstructive pulmonary disease. She is clinically improved at this point time and feels back to her baseline. Recommendations: 1. Acute exacerbation of COPD: Doing well clinically. We will transition azithromycin to oral with plans to complete a 5-day course. Changed from Solu- Medrol to prednisone 20 mg a day also for 5 days. Discontinue Perforomist and budesonide and transition to Breo and Incruse. The patient can resume her Spiriva and Advair on discharge. Patient had been referred to pulmonary rehab previously but was unable to complete the course due to conflicting logistical issues. When she is stable, she will be referred to the program she is a good candidate. Given frequent exacerbations (this is her third episode of bronchitis in the last several months), she may be a candidate for chronic azithromycin therapy. 2. Hypoxemia: Patient was using oxygen at night. Two-step will be required prior to discharge to determine whether or not the patient requires supplemental oxygen during the day. 3. Smoking cessation: The patient is interested in smoking cessation. She will be referred to the smoking cessation program postdischarge. 4. Hypercarbic respiratory failure: The patient has an elevated CO2 during this hospitalization which is new compared to her prior hospitalizations. Unclear if she will require nocturnal noninvasive positive pressure ventilation in the outpatient setting or not. She is tolerating BiPAP at night reasonably well currently so it seems reasonable to continue for now. We will see if case management can get her set up with AVAPS or BiPAP at discharge and reassess in the outpatient setting as to whether or not its required on a long-term basis. Patient appears to be doing well clinically at this point time and may be approaching discharge. I would be happy to see her back in the pulmonary clinic in the next 2 to 3 weeks to ensure that she is responding appropriately. Admission and Anticipated Discharge Date Admission Date: October 17, 2022 Subjective Patient seen and examined. Reviewed. Discussed with off going glazing superintendent. Patient is awake alert and sitting up in bed. She states she feels better. She feels back to her baseline. She did use BiPAP last night. She tolerated reasonably well. She is not reporting any significant cough or sputum production. No wheezing. She has been up to the bedside chair and is ambulatory in the room. She is down to her baseline oxygen requirement. Review of Systems Review of Systems: All systems reviewed & are unremarkable except as noted in Subjective Physical Exam Constitutional: WD/WN, vitals as above Neck: trachea midline, no thyromegaly Respiratory: no respiratory distress, no labored breathing, no cough and not tachypneic Auscultation: + diminished lung sounds; no crackles and no wheezes Cardiovascular: RRR, no murmur, no edema Gastrointestinal (Abdomen): normal bowel sounds, soft, nontender, no hepatosplenomegaly Musculoskeletal: Extremities: extremities normal to inspection Skin: no rashes, warm and dry Neurologic: Nonfocal exam Lymphatic: no cervical lymphadenopathy Results & Data Results & Data ([facility]) Vital Signs (Past 12 Hours) Vital Signs Temp Pulse Pulse Resp BP Pulse Ox O2 Del Method 10/23/22 08:05 79 10/23/22 08:01 Nasal Cannula 10/23/22 07:15 85 18 93 BiPAP 10/23/22 03:40 85 18 94 10/23/22 03:31 36.8 C 87 19 159/89 H 97 BiPAP 10/23/22 01:58 92 H 10/23/22 01:37 Nasal Cannula, BiPAP 10/22/22 23:40 95 H 20 141/90 H 98 Room Air 10/22/22 23:10 97 H 28 H 99 10/22/22 22:43 68 20 96 Nasal Cannula O2 Flow Rate FiO2 10/23/22 08:05 10/23/22 08:01 2 10/23/22 07:15 4 10/23/22 03:40 4 10/23/22 03:31 10/23/22 01:58 10/23/22 01:37 3 10/22/22 23:40 10/22/22 23:10 3 10/22/22 22:43 3 Critical Care Results & Data Vital Signs (Past 12 Hours) Vital Signs Temp Pulse Pulse Resp BP Pulse Ox O2 Del Method 10/23/22 08:05 79 10/23/22 08:01 Nasal Cannula 10/23/22 07:15 85 18 93 BiPAP 10/23/22 03:40 85 18 94 10/23/22 03:31 36.8 C 87 19 159/89 H 97 BiPAP 10/23/22 01:58 92 H 10/23/22 01:37 Nasal Cannula, BiPAP 10/22/22 23:40 95 H 20 141/90 H 98 Room Air 10/22/22 23:10 97 H 28 H 99 10/22/22 22:43 68 20 96 Nasal Cannula O2 Flow Rate FiO2 10/23/22 08:05 10/23/22 08:01 2 10/23/22 07:15 4 10/23/22 03:40 4 10/23/22 03:31 10/23/22 01:58 10/23/22 01:37 3 10/22/22 23:40 10/22/22 23:10 3 10/22/22 22:43 3 Lab & Micro Results (Past 24 Hours) RBC 5.00 M/uL (4.20-5.40) 10/23/22 WBC 12.86 K/ul (4.8-10.8) H 10/23/22 Hgb 14.1 g/dl (12.0-16.0) 10/23/22 Hct 43.7 % (37.0-47.0) 10/23/22 MCV 87.4 fL (80.0-100.0) 10/23/22 MCH 28.2 pg (25.0-34.0) 10/23/22 MCHC 32.3 g/dL (32.0-36.0) 10/23/22 RDW Standard Deviation 43.3 fL (36.4-46.3) 10/23/22 RDW Coefficient of Variation 13.5 % (11.5-14.5) 10/23/22 Plt Count 368 K/uL (130-400) 10/23/22 MPV 9.1 fL (9.4-12.4) L 10/23/22 Na 142 mmol/L (136-145) 10/23/22 K 4.3 mmol/L (3.5-5.1) 10/23/22 Cl 101 mmol/L (98-107) 10/23/22 CO2 38 mmol/L (21-32) H 10/23/22 Anion Gap 3 (3-11) 10/23/22 BUN 22 mg/dl (6-23) 10/23/22 Creatinine 0.81 mg/dl (0.6-1.2) 10/23/22 Estimated GFR ( Amer) 86.5 ml/min 10/23/22 Estimated GFR (Non-Af Amer) 74.6 ml/min 10/23/22 BUN/Creatinine Ratio 27.2 (10-20) H 10/23/22 Glu 82 mg/dl (70-99(Fasting)) 10/23/22 Ca 8.8 mg/dl (8.5-10.1) 10/23/22 Calcium Level 8.8 mg/dl (8.5-10.1) 10/23/22 06:11 I & O Totals 24 Hours 10/22/22 10/23/22 10/24/22 06:59 06:59 06:59 Intake Total 252.5 / 252.5 972.5 / 972.5 Output Total 400 / 400 Balance -147.5 / -147.5 972.5 / 972.5 Cumulative 10/17/22 15:56 thru 10/23/22 00:05 Intake Total 4377.5 Output Total 825 Balance 3552.5 RT Ventilator Mngmt (Last Documented) Ventilator Ordered Settings Respiratory Rate 18 10/23/22 07:15 Fraction of Inspired Oxygen 3 10/22/22 23:10 Ventilator - PT Measurements Respiratory Rate 18 PG Care Time/CCT Total # of Minutes Spent Total Time Spent with Patient: Total time spent is greater than 50% in coordination of care (as documented) at patient's floor/unit and/or counseling patient: Coding Level of Care Code 98349 SUB INP/OBS CARE 2/35MIN Diagnoses Acute on chronic respiratory failure with hypoxia and hypercapnia J96.21; J96.22 COPD exacerbation J44.1
[2022-10-23] MEDS: PANTOprazole 40 MG TAB PO SCH (08:40)
[2022-10-23] MEDS ORDERED: methylPREDNISolone 40 MG in SYRINGE 0 ML IV SCH (09:00)
[2022-10-23] MEDS ORDERED: predniSONE 20 MG TAB PO SCH (09:00)
[2022-10-23] MEDS ORDERED: FLUTICASONE/VILANTEROL 100/25MCG 14 PUFFS/INHALER INH SCH (09:00)
[2022-10-23] MEDS ORDERED: UMECLIDINIUM BROMIDE 62.5MCG/BLISTER 7 PUFFS/INHALER INH SCH (09:00)
[2022-10-23] MEDS ORDERED: AZITHROMYCIN 250 MG TAB PO SCH (09:00)
[2022-10-23 11:57] VITALS: BP 151/90; TEMP 98.1; O2SAT 94
[2022-10-23 13:48] VITALS: PULSE 91
--- NOTE | 2022-10-23 13:55 | Discharge Summary ---
Date of Service October 23, 2022 Admission HPI Per Admitting Provider Luz Maria Adrian is a 67yo female with chronic hypoxemic/hypercarbic respiratory failure secondary to severe COPD on 2L O2 at night. She had PFTs performed on 02/22/2022 with FEV1 of 0.8L/32% predicted, FVC of 1.68L/51% predicted. She follows with Pulmonary medicine - last seen in April 2022. She presents today with 4-5 days of progressive cough productive for yellow/thick sputum, RAMIRES and wheezing. She reports becoming short of breath with minimal exertion, chest tightness. Patient has been using her home nebulizer at least three times daily which improves her symptoms for approximately 1 hour. She has been taking Tussin and using her supplemental O2 during the daytime as well as at night. She has also been on oral steroids for the last 2 days. Denies chest pain, palpitations, fever, chills, night sweats, abdominal pain, nausea, vomiting, diarrhea or constipation. Denies prior VTE. Upon arrival to the ER patient tachycardic with HR of 132, saturating 87% on room air. She was placed on supplemental O2 by NC at 3L with improvement in saturation to 92%. With increased work of breathing. ER Course: Solumedrol 40mg IV Albuterol 3mL Principal Diagnosis acute copd exacerbation Discharge Exam The patient is awake, alert and oriented 3, well developed and well nourished, normocephalic and atraumatic, lying in bed and in no acute distress. HEENT--PERRL, EOMI, mucous membranes and oropharynx mildly dry Neck--supple. No JVD. No bruits. Thyroid normal, trachea midline, no adenopathy. Heart--normal S1 and S2. No murmurs, rubs or gallops. Lungs--Reduced air entry on ausculation, some wheeze Abdomen--normal bowel sounds and soft. Mild epigastric and left sided abdominal pain Extremities--no cyanosis or clubbing. No edema. Dermatologic--normal skin turgor, normal color, no abnormal lymph nodes, no rash. Neurologic--cranial nerves II through XII grossly intact. Rheumatologic--normal range of motion. Psychiatric--normal affect. Discharge Data Allergies Allergy/AdvReac Type Severity Reaction Status Date / Time bee venom protein (honey bee) Allergy Severe HIVES AND Verified 10/17/22 18:37 ANAPHYLAXIS Penicillins Allergy Severe HIVES Verified 10/17/22 18:37 Sulfa (Sulfonamide Allergy Severe High Verified 10/17/22 18:37 Antibiotics) fever, broke out with spider veins all over grass pollen Allergy Intermediate hay fever Verified 10/17/22 18:37 symptoms doxycycline AdvReac Intermediate Gastrointestinal Verified 10/17/22 18:37 Upset Consultations 10/17/22 18:38 ED Decision to Admit Stat 10/18/22 15:48 Consult Pulmonology Routine Ordered Studies 10/18/22 07:27 CT angio chest PE protocol Urgent Hospital Course (1) Acute and chronic respiratory failure with hypoxia: Secondary to enterovirus, leading to COPD exacerbation -CXR with no focal infiltrate -Continue Xopenex q 2 hours PRN - patient with episode of sinus tachycardia, which according to patient is chronic -Breo Ellipta 100/25 inhaled daily -Continue Solumedrol 40mg IV daily -Azithromycin 250mg IV daily -Mucinex BID -Incentive spirometry and Flutter valve -Continue supplemental O2 - goal saturation 88- 92% -BiPAP nightly -Tessalon as needed for cough -Clinically much improved today -Patient will need home Trilogy, this has been ordered by Pulm -Appreciate Pulm recs -D/c on Prednisone 20mg daily for 5 days, Azithromycin 250mg daily for 5 days, resume home inhalers (2) Chronic obstructive pulmonary disease: Hx of COPD (PFTs in February 2022 with FEV1 0.8L/32% predicted), on supplemental O2 2L Patient continues to smoke 5-6 cigarettes per day. Has been adviced to quit tobacco (3) SVT (supraventricular tachycardia): Patient with episode of narrow complex tachycardia, likely sinus tachycardia -Patient admits to a history of tachycardia, which has been thoroughly investigated by cardiology, she said cardiology decided not to put her on any meds -Check Mg level, TSH -PCU admission for continuous cardiac monitoring -Gentle IVF with LR at 100mL/hr -Xopenex nebs PRN -Will start her on cardizem PO, will also ask her to follow up with her replenishment analyst -I am worried her persistent tachycardia might lead to cardiomyopathy (4) GERD (gastroesophageal reflux disease): Chronic. -Protonix 40mg po daily (5) Anxiety: Chronic -Continue Venlafaxine 75mg po qHS -Patient may need some PRN anxiolytic - will continue to monitor for need (6) Hypercholesterolemia: Chronic -Continue Crestor 5mg po weekly (7) Hypothyroidism: Chronic. -Check TSH -Continue Synthroid 75mcg po daily (8) Diabetes mellitus, type 2: Chronic. Fairly well controlled - last [id number]=1.7 on 05/16/22. Patient on Metformin therapy at home. -Monitor glucose in view of steroid therapy -Lantus 10u BID -ISS -Goal blood sugar 110 - 140 Plan Ppx - Lovenox Code -Full per discussion with patient, Dispo - monitor Total Time Total Time Spent Total Time Spent (In Minutes): 35 Discharge Plan Discharge Items Patient Disposition: Home - Self-Care Reason For Visit: SOB Discharge Diagnosis: COPD Exacerbation Activity: Resume your previous activity Non-emergency contact: Primary Care Provider and Program Rep Call non-emergency contact if: you have any medication questions and your symptoms worsen Follow-up/Referrals: Jaime Niño III, CRNP [Primary Care Provider] - 10/26/22 9:20 am Diet: Regular Addtl Attending Provider Instructions: please make appointment to follow up with Pulmonology as soon as possible Also make appointment to follow up with your replenishment analyst regarding your fast heart beats Pending Studies at Discharge: No Stand-Alone Forms: My [facility] [employer], Smoking Cessation Medications and DC Order Prescriptions: New azithromycin 250 mg Tablet 250 mg PO QAM 5 Days Qty: 5 0RF prednisone 20 mg Tablet 20 mg PO DAILY 5 Days Qty: 5 0RF Incruse Ellipta 62.5 mcg/actuation Blister With Device 1 inh inhalation DAILY Qty: 30 0RF clonidine HCl 0.1 mg Tablet 0.1 mg PO DAILY 30 Days Qty: 30 0RF diltiazem HCl [Cardizem CD] 120 mg Capsule,Extended Release 24hr 120 mg PO QAM 30 Days Qty: 30 0RF Continued epinephrine [EpiPen] 0.3 mg/0.3 mL auto-injector 0.3 mg IM Q3H PRN (Reason: Anaphylaxis) Qty: 1 2RF omeprazole 40 mg capsule,delayed release(DR/EC) 40 mg PO DAILY PRN (Reason: Acid Reflux) Qty: 30 5RF albuterol sulfate [ProAir HFA] 90 mcg/actuation HFA aerosol inhaler 1 - 2 puff INHALATION Q4 PRN (Reason: Shortness Of Breath) Qty: 8.5 1RF levothyroxine 75 mcg tablet 75 mcg PO QAM Qty: 90 1RF clobetasol 0.05 % ointment 1 appln TOP BID PRN (Reason: Skin Irritation) cyclobenzaprine 5 mg tablet 5 mg PO HS Qty: 90 3RF ipratropium-albuterol 0.5 mg-3 mg(2.5 mg base)/3 mL solution for nebulization 3 ml inhalation QID PRN (Reason: wheezing) Qty: 90 0RF venlafaxine [Effexor XR] 75 mg capsule,extended release 24hr 75 mg PO HS metformin 500 mg tablet extended release 24 hr 500 mg PO HS rosuvastatin 5 mg tablet 5 mg PO WK Label Comments: takes sunday am Spiriva Respimat 1.25 mcg/actuation mist 2 puff inhalation QPM Advair HFA 115-21 mcg/actuation HFA aerosol inhaler 2 puff inhalation BID Rx Instructions: INHALE 2 PUFFS TWICE A DAY. Discharge Orders: Discharge Order (Routine); Ordered 10/23/22 Ordered By: Dain Nash Admission Data Admit Date/Time: 10/17/22 19:47 Attending Provider: Dain Nash Admit Provider: Mabel Cole Primary Care Provider: Jaime Niño III Other Providers: Mabel Cole ; Mackenzie Piedra Other Interventions: Discharge Summary Assessment (RN) Last Done: 10/23/22 13:46 Coding Level of Care Code HOSP INP/OBS DISCH >30 MIN Diagnoses Acute and chronic respiratory failure with hypoxia J96.21 Chronic obstructive pulmonary disease J43.9 COPD type: emphysema Emphysema type: unspecified SVT (supraventricular tachycardia) I47.1 GERD (gastroesophageal reflux disease) K21.0 Esophagitis presence: with esophagitis Anxiety F41.9 Hypercholesterolemia E78.00 Hypothyroidism E03.9 Hypothyroidism type: acquired Diabetes mellitus, type 2 E11.9 Time Spent (min) 35
== END 2022-10-23 15:24 | disposition home or self-care (01) | DRG 190 ==
LOC: ED 15:56 → SUATTDRO 19:47 → EDINP 19:47 → 2E 22:10

== ENCOUNTER 2024-07-28 08:31 | Inpatient (IN) ==
[2024-07-28] MEDS: ASPIRIN CHEW 324 MG PO STA (09:25)
[2024-07-28] MEDS: ALBUT/IPRATROP 3MG/0.5MG NEB 3 ML VIAL NEB STA (09:25)
[2024-07-28 09:29] LABS: Hemoglobin 13.3 g/dl (12.0-16.0); Mean Corpuscular Hemoglobin 27.8 pg (25.0-34.0); Mean Corpuscular Hgb Conc 32.4 g/dL (32.0-36.0); Mean Corpuscular Volume 85.8 fL (80.0-100.0); Mean Platelet Volume 9.3 fL (9.4-12.4); Platelet Count 327 K/uL (130-400); RDW Coefficient of Variation 13.8 % (11.5-14.5); RDW Standard Deviation 43.3 fL (36.4-46.3); Red Blood Count 4.78 M/uL (4.20-5.40); White Blood Count 26.86 K/ul (4.8-10.8)
[2024-07-28 09:48] LABS: Anion Gap 6 (3-11); BUN Creatinine Ratio 15.9 (10-20); Blood Urea Nitrogen 17 mg/dl (6-23); Calcium 9.2 mg/dl (8.6-10.3); Carbon Dioxide 30 mmol/L (21-32); Chloride 103 mmol/L (98-107); Glucose 208 mg/dl (70-99(Fasting)); Lipase 11 U/L (11-82); Potassium 4.9 mmol/L (3.5-5.1); Sodium 139 mmol/L (136-145)
[2024-07-28 09:51] LABS: Basophils # (auto) 0.04 K/uL (0.00-0.20); Basophils % (auto) 0.1 %; Immature Granulocytes # (auto) 0.27 K/uL (0.01-0.20); Lymphocytes # (auto) 0.43 K/uL (1.20-3.40); Lymphocytes % (auto) 1.6 %; Monocytes # (auto) 1.61 K/uL (0.11-0.59); Neutrophils # (auto) 24.51 K/uL (1.40-6.50); Neutrophils % (auto) 91.3 %
[2024-07-28 09:55] LABS: Troponin I High Sensitivity 6.4 pg/ml (0-14)
[2024-07-28 10:06] LABS: INR 0.9 (0.9-1.1); Partial Thromboplastin Time 27 Seconds (21-31); Prothrombin Time 10.3 Seconds (9.0-12.0)
--- NOTE | 2024-07-28 10:06 | XRay Report ---
XR chest 1V portable CLINICAL HISTORY: Chest pain, nonspecific COMPARISON STUDY: Chest radiograph October 17, 2022. Chest CT May 29, 2024. FINDINGS: Lung volumes are normal. There has been interval development of left basilar opacity. There is no pneumothorax or pleural effusion. Cardiac size is normal. Mediastinal contours are normal. The re is no evidence for pulmonary edema. IMPRESSION: Interval development of left basilar airspace opacity suggestive of pneumonia. Post treat ment radiographs to ensure resolution are recommended. ACT 112: Negative or not required by law. Electronically signed by: Brian Nieto M.D. 07/28/2024 10:04 AM
[2024-07-28 10:13] LABS: D Dimer 650 ug/L FEU (0-500)
[2024-07-28] MEDS: AZITHROMYCIN 250 MG TAB PO ONE (10:23)
[2024-07-28] MEDS: cefTRIAXone SODIUM 2,000 MG/50 ML BAG IV STA (10:23)
[2024-07-28] MEDS: SODIUM CHLORIDE 0.9% 1,000 ML IV SCH (10:29)
[2024-07-28 10:30] LABS: Adenovirus PCR Not Detected (NotDetected); Bordetella parapertussis PCR Not Detected (NotDetected); Bordetella pertussis PCR Not Detected (NotDetected); Chlamydia pneumoniae PCR Not Detected (NotDetected); Coronavirus 229E PCR Not Detected (NotDetected); Coronavirus CoV-2 (COVID19)PCR Not Detected (NotDetected); Coronavirus HKU1 PCR Not Detected (NotDetected); Coronavirus NL63 PCR Not Detected (NotDetected); Coronavirus OC43PCR Not Detected (NotDetected); Human Metapneumovirus PCR Not Detected (NotDetected); Influenza A PCR Not Detected (NotDetected); Influenza B PCR Not Detected (NotDetected); Mycoplasma pneumoniae PCR Not Detected (NotDetected); Parainfluenza Virus 1 PCR Not Detected (NotDetected); Parainfluenza Virus 2 PCR Not Detected (NotDetected); Parainfluenza Virus 3 PCR Not Detected (NotDetected); Parainfluenza Virus 4 PCR Not Detected (NotDetected); Respiratory Syncytial VirusPCR Not Detected (NotDetected); Rhinovirus/Enterovirus PCR Not Detected (NotDetected)
[2024-07-28] MEDS: OPTIRAY 320 125ml IV ONE (10:40)
[2024-07-28 11:08] LABS: Base Excess VBG -1.9 mEq/L; HCO3 VBG 24 mmol/L; Oxygen Saturation VBG < 60.0 %; PCO2 VBG 46 mmHg (38-50); PO2 VBG 34 mmHg; pH VBG 7.33 (7.36-7.41)
--- NOTE | 2024-07-28 11:41 | CT Scan Report ---
CT ANGIOGRAPHY OF THE CHEST, PULMONARY EMBOLUS PROTOCOL CLINICAL HISTORY: Shortness of breath. Evaluate for pulmonary embolus. COMPARISON STUDY: Chest CT May 29, 2024. Chest radiograph performed earlier today. TECHNIQUE: Following IV administration of 112 mL of Optiray, helical axial images of the chest were o btained utilizing the pulmonary embolus protocol. Maximal intensity projections and sagittal and cor onal reformats were viewed on an independent 3D workstation. IV contrast was administered without co mplication. Automated exposure control was utilized for the study. A dose lowering technique was ut ilized adhering to the principles of ALARA. CT DOSE: 949.23 mGy.cm FINDINGS: Mildly enlarged left hilar lymph nodes measure up to 1.5 x 0.4 cm. There are no pulmonary emboli. Emphysema is present. There is no pneumothorax or pleural effusion. Dense consolidation withi n the posterior basal segment of the left lower lobe has developed since CT of May 29, 2024. An indeterminate 7 mm left upper lobe nodule on image 184 of [address] of May 29, 2024. There is no central obstructing mass. A 5 mm right upper lobe nodule on image 143 is new since that exam. Right upper lobe airspace opacities shown on prior CT have resolved. IMPRESSION: 1. No pulmonary emboli identified. 2. Dense left lower lobe consolidation consistent with pneumonia. 3. 7 mm left upper lobe pulmonary nodule, unchanged since CT of May 29, 2024. This remains inde terminate and imaging follow-up as per the recommendations on that exam are recommended. 4. 5 mm right upper lobe nodule which is new since prior study. This is likely infectious but should be assessed on follow-up CT to ensure resolution. 5. Left hilar adenopathy, likely reactive. These nodes should be assessed on follow-up CT to ensure r esolution. ACT 112: Negative or not required by law. Electronically signed by: Brian Nieto M.D. 07/28/2024 11:38 AM
[2024-07-28] MEDS: predniSONE 50 MG TAB PO STA (12:27)
--- NOTE | 2024-07-28 12:51 | History & Physical Report ---
Date of Service July 28, 2024 Assessment & Plan (1) Left lower lobe pneumonia: Plan: Worsening SOB/dyspnea that began on 07/27 BioFire negative Chest CTA revealed dense LLL consolidation consistent with pneumonia; no pulmonary emboli notified Both ageindeterminate and new pulmonary nodules noted on CTA Rocephin + azithromycin q24h (2) Sepsis: Plan: Leukocytosis at 26.86 with a neutrophil predominance; afebrile Lactate 3.4--> 3.5 on arrival; trend Procalcitonin elevated at 7.48 Patient is normotensive on arrival; however increased oxygen demands requiring oxy mask + tachycardic + tachypneic Blood cultures ordered x 2 drawn after antibiotics given in the ED NSS 2000 mL IV bolus to meet ideal body weight (30cc/kg) Antibiotics (as above) (3) Acute exacerbation of chronic obstructive pulmonary disease: Plan: Promote good pulmonary hygiene Incentive spirometry, flutter valve Guaifenesin 600 mg p.o. BID DuoNeb as needed (4) Hypoxia: Plan: ABG ordered, pending Supplemental oxygen as needed to maintain SpO2 89-92% Continuous pulse oximetry (5) Type II diabetes mellitus with manifestations: Plan: Last A1c at 8.1% on 01/03/2024 Patient normally takes Lantus 26u QAM Will switch to Lantus 13 u BID while inpatient SSI with target BSG range 110-140mg/dL, CF 30, carb ratio 10 T2DM diet BSG ACHS Adjust regimen as needed Pharmacy glycemic consult in the setting of steroid use AM A1c (6) Depression with anxiety: Plan: Ativan 0.5 mg IV q8h (7) Sinus tachycardia: (8) Former tobacco use: (9) Hypothyroidism: (10) Idiopathic polyneuropathy: (11) Acute respiratory failure with hypoxia and hypercapnia: Plan Disposition: Admit to PCU telemetry Full code T2DM diet VTE PPx: Lovenox 40 mg SQ q24h History of Present Illness Chief Complaint: SOB/dyspnea Primary Care Provider: Jaime Niño, FATOU, BRIEN Luz Maria is a pleasant 69-year-old female with PMH of COPD, anxiety, former tobacco use, GERD, depression, anxiety, hypothyroidism, T2DM, PAD, and lumbar radiculopathy. She presented on 07/28 for SOB/dyspnea that began the day prior. Patient was feeling fine until yesterday evening when she developed both SOB at rest and with exertion (worse with exertion). She decided to lay down and went on her BiPAP, which did improve her symptoms somewhat. Normally, she uses BiPAP at night or whenever she takes a nap; supplemental oxygen with BiPAP (2L NC). The breathing is usually worse when she is flat on her back, and she tends to lay on her side. No sick contacts. She then woke up again this morning, and her symptoms were somewhat worse; SOB/dyspnea at rest as well as upper left chest pain. She began developing a productive cough while in the ED this afternoon. No hemoptysis. Additionally, she does endorse pleuritic CP. Patient reports she took her regular morning medicine today, but did not take her Lantus as she did not have anything to eat this morning. Patient manages her own medicine at home; recent change in medications. No history of DVT/PE. Patient is a former tobacco cigarette smoker but quit 1 year ago. She denies any recent alcohol use. In regard to her PCN allergy, she reports she has not had a reaction since high school (around 50 years ago), and she reports that she only developed a rash/hives while in high school; no history of anaphylaxis. Patient is tachycardic around 119 bpm at time of admission; SpO2 95% on 2L NC. ED course: Acetaminophen 1000 mg IV DuoNeb 3 mL Prednisone 50 mg p.o. Aspirin 324 mg p.o. Azithromycin 500 mg p.o. Rocephin 2000 mg IV Ativan 0.5 mg p.o. NSS 1000 mL IV ROS: Patient endorses lightheadedness with walking, SOB at rest and with exertion, orthopnea, left-sided CP, pleuritic CP, nausea & vomiting x 1 (after taking Tylenol overnight), and abdominal cramping. Patient denies fever, chills, night-sweats, falls, syncope, headache, chest palpations, changes in urinary/bowel habits, burning with urination, blood in the urine/stool, or numbness/tingling in the arms or legs. Allergies Allergy/AdvReac Type Severity Reaction Status Date / Time bee venom protein (honey bee) Allergy Severe HIVES AND Verified 07/28/24 13:38 ANAPHYLAXIS Penicillins Allergy Severe HIVES Verified 07/28/24 13:38 Sulfa (Sulfonamide Allergy Severe High Verified 07/28/24 13:38 Antibiotics) fever, broke out with spider veins all over grass pollen Allergy Intermediate hay fever Verified 07/28/24 13:38 symptoms doxycycline AdvReac Intermediate Gastrointestinal Verified 07/28/24 13:38 Upset Home Medications Medication Instructions Recorded Confirmed Type blood sugar diagnostic (True 08/14/23 05/06/24 History Metrix Glucose Test Strip) cyclobenzaprine 5 mg tablet 5 mg PO HS #90 tabs 02/05/24 07/28/24 Rx epinephrine 0.3 mg/0.3 mL 0.3 mg (0.3 mL) IM Q3H PRN 02/14/24 07/28/24 Rx injection, auto-injector (EpiPen) Anaphylaxis #1 ea albuterol sulfate 90 mcg/actuation 1 - 2 puff inhalation Q4 PRN 02/29/24 07/28/24 Rx aerosol inhaler (ProAir HFA) Shortness Of Breath #8.5 grams clonidine HCl 0.1 mg tablet 0.1 mg PO DAILY #90 tabs 03/03/24 07/28/24 Rx diltiazem HCl 120 mg 120 mg PO QAM #90 caps 03/03/24 07/28/24 Rx capsule,extended release 24 hr (Cardizem CD) pen needle, diabetic 32 gauge x #100 ea 04/24/24 05/06/24 Rx 5/32" (Pen Needle) insulin glargine 100 unit/mL (3 26 unit (0.26 mL) subcut DAILY 90 04/28/24 07/28/24 Rx mL) subcutaneous pen ( #30 mL Solostar U-100 Insulin) fluticasone propionate 115 2 puff inhalation BID #12 grams 05/16/24 07/28/24 Rx mcg-salmeterol 21 mcg/actuation HFA inhaler (Advair HFA) levothyroxine 75 mcg tablet 75 mcg PO QAM #90 tabs 05/28/24 07/28/24 Rx umeclidinium 62.5 mcg/actuation 1 inh inhalation DAILY 07/28/24 07/28/24 History blister powder for inhalation (Incruse Ellipta) venlafaxine 75 mg capsule,extended 75 mg PO DAILY 11/18/24 11/18/24 History release 24 hr Past Med/Surg History Problem List (Updated 07/29/24 @ 07:33 by Hunter Alba MD) Acute respiratory failure with hypoxia and hypercapnia Hypoxia (Acute) Pneumonia (Acute) Sepsis Hypoxia Sinus tachycardia Former tobacco use Left lower lobe pneumonia Diarrhea Chronic diarrhea Adrenal nodule Vitamin D insufficiency Chronic hypercapnic respiratory failure Encephalopathy Current smoker Tobacco abuse PAD (peripheral artery disease) Acute exacerbation of chronic obstructive pulmonary disease (Acute) Lumbosacral radiculopathy at L4 Idiopathic polyneuropathy Lichen sclerosus et atrophicus Vulvar dermatitis Urinary incontinence Type II diabetes mellitus with manifestations (Chronic) Chronic obstructive pulmonary disease Hypothyroidism (Chronic) Tobacco use (Chronic) Restless legs syndrome Obesity (Chronic) Nocturnal hypoxia (Chronic) Memory loss (Chronic) Lumbar canal stenosis (Chronic) Hypercholesterolemia (Chronic) Gastropathy (Chronic) Depression with anxiety (Chronic) Chronic reflux esophagitis (Chronic) Allergy to bugs (Chronic) History of colon polyps (Chronic) Vision loss, right eye (Acute) Anxiety (Chronic) GERD (gastroesophageal reflux disease) (Chronic) Medical History Depression with anxiety COPD (chronic obstructive pulmonary disease) controlled w/ daily inhaler use, prn neb/inhaler use Diabetes Idiopathic polyneuropathy PAD (peripheral artery disease) Hx of encephalopathy pt not aware, denies Hx of respiratory failure acute on chronic History of COVID-19 (2021) no hosp, resolved Adrenal mass benign, no changes in yrs, monitoring SVT (supraventricular tachycardia) hx>>controlled w/ diltiazem; states has a "normally fast heart rate" at all times History of anesthesia reaction states she did not receive enough anesthesia with 1st cataract sx on right eye Acute exacerbation of chronic obstructive pulmonary disease HX>>last exacerbation 08/2023, no hospitalization hx of severe exacerbation in Sep 2021--had to be hospitalized and intubated---pt states she has made a full recovery---does use inhalers daily/prn and nebulizer prn, oxgyen 1 L n/c at hs PAC (premature atrial contraction) Overweight History of colon polyps Osteoarthritis Fibromyalgia Kidney stones hx of GERD (gastroesophageal reflux disease) Hypothyroidism Cardiac murmur follows with Dr. Colon Sleep apnea BIPAP Surgical History Hx of left cataract extraction Hx of oral surgery dental implants History of dilatation and curettage History of total right knee replacement (TKR) History of umbilical hernia repair History of colonoscopy History of tooth extraction History of wisdom tooth extraction Hx of eye surgery left laser for retinal bleed History of right cataract extraction during procedure "pupil was damaged and no longer dilates" Family History Aunt History of anesthesia reaction "her heart stopped with any anesthesia"--no one else in the family has any issues Grandmother (Paternal) Family history of diabetes mellitus Grandfather (Maternal) Family hx of colon cancer Colon cancer Father Heart disease Stroke Mother Dementia Diabetes Macular degeneration Alzheimer disease Autoimmune disease Brother Squamous cell carcinoma of skin Atrial fibrillation Bladder cancer Other Basal cell carcinoma Denies family history of Ovarian cancer Prostate cancer Myocardial infarction Breast cancer Social History Smoking Status: Former smoker Tobacco Type: Cigarettes Age Started Using Tobacco: 18; Age Quit Using Tobacco: 68; packs per day: 0.25; Second Hand Exposure: No; Do You Dip or Chew Tobacco: No; Hx Alcohol Use: Yes Alcohol type: wine and hard liquor Alcohol Intake Frequency: Monthly or Less Hx Substance Use: No Preferred Language: Spanish Communication Ability: Effective Visual Impairment: No Limitations Hearing Ability: Normal Design Engineering Specialist Required: No Beliefs That Will Affect Care: None marital status: Current Living Situation: Spouse current occupational status: retired How many Children do You have: 2 Other Information That Helps Us Care for You: No Feels Safe at Home: Yes Safety Concerns: Feels Safe At This Time Childhood Exposure to Second-Hand Smoke: Yes Diet: regular Diet Comment: no specific diet caffeine: Yes during the past year weight has: increased > 10 lbs Dental Care, Regularly: Yes Physical Activity Frequency: Does not Exercise Seatbelt Use: always Sunscreen Use: Yes Do you think of yourself as: straight/heterosexual Assistive Devices: BiPap, Glasses and Nebulizer Review of Systems Review of Systems: See HPI above Physical Exam Physical Exam: General: Mild respiratory distress; pleasant affect; at bedside; non- toxic appearing; cooperative; SpO2 98% on 4L NC HEENT: normocephalic, atraumatic; no scleral icterus; PERRLA; vision and hearing grossly intact Neck: supple; no lymphadenopathy; trachea midline Skin: warm, dry without signs of tenting; no cyanosis; no rashes, bruising, lesions, or erythema noted CV: chest wall NTP; RR, mildly tachycardic around 106 bpm; S1/S2 normal; no murmurs/rubs/gallops; pulses intact and symmetric at radial, DP, and PT Lungs: Mild respiratory distress; conversational dyspnea; symmetrical chest wall expansion; diminished breath sounds in lower lung mina bilaterally; inspiratory wheeze appreciated ABD: Soft, NTP; BS present; no rebound/guarding; no distention MSK: no tics or fasciculations; no edema noted in the LEs b/l, nonerythematous Neuro: A&Ox3; normal mood and affect; fluent speech; no focal deficits; sensation intact and symmetric in lower extremities bilaterally Results & Data Results & Data Vital Signs (Past 12 Hours) Vital Signs Temp Pulse Pulse Resp BP BP Pulse Ox 07/28/24 11:30 119 H 24 120/89 94 07/28/24 09:56 121 H 22 134/78 95 07/28/24 09:18 93 07/28/24 08:53 118 H 07/28/24 08:39 37.1 C 125 H 22 109/72 96 07/28/24 08:32 93 O2 Del Method O2 Flow Rate 07/28/24 11:30 Room Air 07/28/24 09:56 Room Air 2 07/28/24 09:18 Room Air 07/28/24 08:53 07/28/24 08:39 Room Air 07/28/24 08:32 Room Air Laboratory Results Abnormal lab results 07/28/24 07/28/24 07/28/24 Range/Units 08:51 10:56 11:55 WBC 26.86 H (4.8-10.8) K/ul MPV 9.3 L (9.4-12.4) fL Neut # (Auto) 24.51 H (1.40-6.50) K/uL Lymph # (Auto) 0.43 L (1.20-3.40) K/uL [place] # (Auto) 1.61 H (0.11-0.59) K/uL Immature Gran # (Auto) 0.27 H (0.01-0.20) K/uL D-Dimer 650 H* (0-500) ug/L FEU VBG pH 7.33 L (7.36-7.41) Glucose 208 H (70-99(Fasting)) mg/dl Lactate 3.4 H* 3.5 H* (0.4-2.0) mmol/L Diagnostic Findings Chest X-Ray 07/28/24 09:18 XR chest 1V portable CLINICAL HISTORY: Chest pain, nonspecific COMPARISON STUDY: Chest radiograph October 17, 2022. Chest CT May 29, 2024. FINDINGS: Lung volumes are normal. There has been interval development of left basilar opacity. There is no pneumothorax or pleural effusion. Cardiac size is normal. Mediastinal contours are normal. There is no evidence for pulmonary edema. IMPRESSION: Interval development of left basilar airspace opacity suggestive of pneumonia. Post treatment radiographs to ensure resolution are recommended. ACT 112: Negative or not required by law. Electronically signed by: Brian Nieto M.D. 07/28/2024 10:04 AM Chest CTA 07/28/24 10:19 CT ANGIOGRAPHY OF THE CHEST, PULMONARY EMBOLUS PROTOCOL CLINICAL HISTORY: Shortness of breath. Evaluate for pulmonary embolus. COMPARISON STUDY: Chest CT May 29, 2024. Chest radiograph performed earlier today. TECHNIQUE: Following IV administration of 112 mL of Optiray, helical axial images of the chest were obtained utilizing the pulmonary embolus protocol. Maximal intensity projections and sagittal and coronal reformats were viewed on an independent 3D workstation. IV contrast was administered without complication. Automated exposure control was utilized for the study. A dose lowering technique was utilized adhering to the principles of ALARA. CT DOSE: 949.23 mGy.cm FINDINGS: Mildly enlarged left hilar lymph nodes measure up to 1.5 x 0.4 cm. Th ere are no pulmonary emboli. Emphysema is present. There is no pneumothorax or pleural effusion. Dense consolidation within the posterior basal segment of the left lower lobe has developed since CT of May 29, 2024. An indeterminate 7 mm left upper lobe nodule on image 184 of [address] of May 29, 2024. There is no central obstructing mass. A 5 mm right upper lobe nodule on image 143 is new since that exam. Right upper lobe airspace opacities shown on prior CT have resolved. IMPRESSION: 1. No pulmonary emboli identified. 2. Dense left lower lobe consolidation consistent with pneumonia. 3. 7 mm left upper lobe pulmonary nodule, unchanged since CT of May 29, 2024. This remains indeterminate and imaging follow-up as per the recommendations on that exam are recommended. 4. 5 mm right upper lobe nodule which is new since prior study. This is likely infectious but should be assessed on follow-up CT to ensure resolution. 5. Left hilar adenopathy, likely reactive. These nodes should be assessed on follow-up CT to ensure resolution. ACT 112: Negative or not required by law. Electronically signed by: Brian Nieto M.D. 07/28/2024 11:38 AM ECG Additional Comments: ECG revealed sinus tachycardia at 122 bpm; QTc 413 Code Status & VTE Plan Code Status Full code VTE Prophylaxis Plan VTE Prophylaxis will be ordered: Yes Critical Care Time Critical Care Time: Yes Total Critical Care Time: 40 Supervising Physician Co-Signing Physician Notes I personally saw and examined the patient. I independently reviewed the labs, EKG, imaging, problem list, medication list, past medical history and family history. I verified all haro points and agree with Efren Blackwell PA-C with the following exceptions and/or additions: 69 year old female presents to the ER with shortness of breath. Previously needed intubated for similar symptoms. Onset 2 days ago with cough and shortness of breath. Inhalers and BiPAP at home not helping O/E A&Ox3, HS increased rate, normal rhythm, no murmurs, Using accessory muscles, increased respiratory rate, Chest bibasal crackles, reduced air entry bilaterally, mild end expiratory wheeze posteriorly, Abdo SNT, no pedal edema A/P Acute respiratory failure with hypoxia and hypercapnia - sudden worsening shortness of breath in the ER, ABG confirming worsening respiratory acidosis with hypercapnia despite increased respiratory rate. Patient started on BiPAP 12/5 with subsequently repeat ABG improved. VBG with AM labs although tiring overnight appears to be less of an issue now she is on BiPAP and hypercapnia is improving. NPO overnight until respiratory distress improved. Sepsis /community acquired pneumonia - ceftriaxone + azithromycin, Biofire negative, sepsis fluid bolus given although not hypotensive and lactate < 4. Suspect elevated lactate mostly due to hypoxia and now appears to be improving, no need to repeat COPD exacerbation - no overt wheezing on exam but given sever CAP and hypercapnia will treat with duonebs q4h, formoterol/budesonide NEB BID, Solu- medrol 40mg IV BID, sputum culture PG Care Time/CCT Total # of Minutes Spent Total Time Spent with Patient: Total time spent is greater than 50% in coordination of care (as documented) at patient's floor/unit and/or counseling patient: Critical Care Time: Yes Total Critical Care Time: 40 C[place] [address] INT INP/OBS CARE 3/75MIN Patient Type Established Medical Decision Making High Complexity Diagnoses Left lower lobe pneumonia J18.9 Sepsis A41.9 Acute exacerbation of chronic obstructive pulmonary disease J44.1 Hypoxia R09.02 Type II diabetes mellitus with manifestations E11.8 Depression with anxiety F41.8 Sinus tachycardia R00.0 Former tobacco use Z87.891 Acquired hypothyroidism E03.9 Hypothyroidism type: acquired Idiopathic polyneuropathy G60.9 Acute respiratory failure with hypoxia and hypercapnia J96.01; J96.02 Additional Codes Critical Care Time - Critical Care Time: Yes ([id number]) (9) Hypothyroidism Hypothyroidism type: acquired Qualified Code(s): E03.9 - Hypothyroidism, unspecified
[2024-07-28] MEDS: LORazepam 0.5 MG TAB PO STA (12:58)
[2024-07-28] MEDS: ACETAMINOPHEN 1,000 MG/100 ML VIAL IV STA (12:58)
[2024-07-28] MEDS: LANTUS PER UNIT CHARGE SQ STA (14:01)
[2024-07-28] MEDS ORDERED: PHARMACY GLYCEMIC MGMT CONSULT PRN ×2 (14:42→16:05)
[2024-07-28] MEDS: PLASMA-LYTE A 1,000 ML IV ONE (15:01)
[2024-07-28] MEDS ORDERED: CARBOHYDRATES FOR HYPOGLYCEMIA PO PRN ×2 (15:15→16:05)
[2024-07-28] MEDS ORDERED: GLUCAGON FOR INJ 1 MG VIAL SQ PRN ×2 (15:15→16:05)
[2024-07-28] MEDS ORDERED: DEXTROSE 50% 50 ML SYRINGE IV PRN ×2 (15:15→16:05)
[2024-07-28] MEDS ORDERED: GLUCOSE 10 TAB/TUBE PO PRN ×2 (15:15→16:05)
[2024-07-28] MEDS ORDERED: GLUCOSE 40% GEL 15 GM TUBE PO PRN ×2 (15:15→16:05)
--- NOTE | 2024-07-28 15:16 | Emergency Department Note ---
History of Present Illness General Chief Complaint: Shortness of Breath/Dyspnea Stated Complaint: SOB, UPPER BACK PAIN, CHEST TIGHTNESS, COPD, 94 OX Time Seen by Provider: 07/28/24 09:11 History of Present Illness Provider Complaint: shortness of breath and cough Onset (ago): day(s) (2) Consistency/Duration: + progressively worsening Maximum Pain Intensity: 3 Relieved By: + nothing Exacerbated By: + exertion and + coughing Known history of: COPD Associated symptoms: + cough and + chest congestion; no fever, no orthopnea, no paresthesias or no hemoptysis HPI Narrative: Patient states her inhalers and the BiPAP that she uses at night have not been helping Related Data Home oxygen amount: none Home Medications Medication Instructions Recorded Confirmed Type blood sugar diagnostic (True 08/14/23 05/06/24 History Metrix Glucose Test Strip) cyclobenzaprine 5 mg tablet 5 mg PO HS #90 tabs 02/05/24 07/28/24 Rx epinephrine 0.3 mg/0.3 mL 0.3 mg (0.3 mL) IM Q3H PRN 02/14/24 07/28/24 Rx injection, auto-injector (EpiPen) Anaphylaxis #1 ea albuterol sulfate 90 mcg/actuation 1 - 2 puff inhalation Q4 PRN 02/29/24 07/28/24 Rx aerosol inhaler (ProAir HFA) Shortness Of Breath #8.5 grams clonidine HCl 0.1 mg tablet 0.1 mg PO DAILY #90 tabs 03/03/24 07/28/24 Rx diltiazem HCl 120 mg 120 mg PO QAM #90 caps 03/03/24 07/28/24 Rx capsule,extended release 24 hr (Cardizem CD) pen needle, diabetic 32 gauge x #100 ea 04/24/24 05/06/24 Rx 5/32" (Pen Needle) insulin glargine 100 unit/mL (3 26 unit (0.26 mL) subcut DAILY 90 04/28/24 07/28/24 Rx mL) subcutaneous pen (Lantus days #30 mL Solostar U-100 Insulin) fluticasone propionate 115 2 puff inhalation BID #12 grams 05/16/24 07/28/24 Rx mcg-salmeterol 21 mcg/actuation HFA inhaler (Advair HFA) levothyroxine 75 mcg tablet 75 mcg PO QAM #90 tabs 05/28/24 07/28/24 Rx umeclidinium 62.5 mcg/actuation 1 inh inhalation DAILY 07/28/24 07/28/24 History blister powder for inhalation (Incruse Ellipta) venlafaxine 75 mg capsule,extended 75 mg PO DAILY 07/28/24 07/28/24 History release 24 hr Allergies Allergy/AdvReac Type Severity Reaction Status Date / Time bee venom protein (honey bee) Allergy Severe HIVES AND Verified 07/28/24 13:38 ANAPHYLAXIS Penicillins Allergy Severe HIVES Verified 07/28/24 13:38 Sulfa (Sulfonamide Allergy Severe High Verified 07/28/24 13:38 Antibiotics) fever, broke out with spider veins all over grass pollen Allergy Intermediate hay fever Verified 07/28/24 13:38 symptoms doxycycline AdvReac Intermediate Gastrointestinal Verified 07/28/24 13:38 Upset Past Med/Surg History Problem List (Updated 07/28/24 @ 15:16 by Sanchez Lopez MD) Hypoxia (Acute) Pneumonia (Acute) Sepsis Hypoxia Sinus tachycardia Former tobacco use Left lower lobe pneumonia Diarrhea Chronic diarrhea Adrenal nodule Vitamin D insufficiency Chronic hypercapnic respiratory failure Encephalopathy Current smoker Tobacco abuse PAD (peripheral artery disease) Acute exacerbation of chronic obstructive pulmonary disease (Acute) Lumbosacral radiculopathy at L4 Idiopathic polyneuropathy Lichen sclerosus et atrophicus Vulvar dermatitis Urinary incontinence Type II diabetes mellitus with manifestations (Chronic) Chronic obstructive pulmonary disease Hypothyroidism (Chronic) Tobacco use (Chronic) Restless legs syndrome Obesity (Chronic) Nocturnal hypoxia (Chronic) Memory loss (Chronic) Lumbar canal stenosis (Chronic) Hypercholesterolemia (Chronic) Gastropathy (Chronic) Depression with anxiety (Chronic) Chronic reflux esophagitis (Chronic) Allergy to bugs (Chronic) History of colon polyps (Chronic) Vision loss, right eye (Acute) Anxiety (Chronic) GERD (gastroesophageal reflux disease) (Chronic) Medical History Depression with anxiety COPD (chronic obstructive pulmonary disease) controlled w/ daily inhaler use, prn neb/inhaler use Diabetes Idiopathic polyneuropathy PAD (peripheral artery disease) Hx of encephalopathy pt not aware, denies Hx of respiratory failure acute on chronic History of COVID-19 (2021) no hosp, resolved Adrenal mass benign, no changes in yrs, monitoring SVT (supraventricular tachycardia) hx>>controlled w/ diltiazem; states has a "normally fast heart rate" at all times History of anesthesia reaction states she did not receive enough anesthesia with 1st cataract sx on right eye Acute exacerbation of chronic obstructive pulmonary disease HX>>last exacerbation 08/2023, no hospitalization hx of severe exacerbation in Sep 2021--had to be hospitalized and intubated---pt states she has made a full recovery---does use inhalers daily/prn and nebulizer prn, oxgyen 1 L n/c at hs PAC (premature atrial contraction) Overweight History of colon polyps Osteoarthritis Fibromyalgia Kidney stones hx of GERD (gastroesophageal reflux disease) Hypothyroidism Cardiac murmur follows with Dr. Colon Sleep apnea BIPAP Surgical History Hx of left cataract extraction Hx of oral surgery dental implants History of dilatation and curettage History of total right knee replacement (TKR) History of umbilical hernia repair History of colonoscopy History of tooth extraction History of wisdom tooth extraction Hx of eye surgery left laser for retinal bleed History of right cataract extraction during procedure "pupil was damaged and no longer dilates" Family History Aunt History of anesthesia reaction "her heart stopped with any anesthesia"--no one else in the family has any issues Grandmother (Paternal) Family history of diabetes mellitus Grandfather (Maternal) Family hx of colon cancer Colon cancer Father Heart disease Stroke Mother Dementia Diabetes Macular degeneration Alzheimer disease Autoimmune disease Brother Squamous cell carcinoma of skin Atrial fibrillation Bladder cancer Other Basal cell carcinoma Denies family history of Ovarian cancer Prostate cancer Myocardial infarction Breast cancer Social History Smoking Status: Former smoker Tobacco Type: Cigarettes Age Started Using Tobacco: 18; Age Quit Using Tobacco: 68; packs per day: 0.25; Second Hand Exposure: No; Do You Dip or Chew Tobacco: No; Hx Alcohol Use: Yes Alcohol type: wine and hard liquor Alcohol Intake Frequency: Monthly or Less Hx Substance Use: No Preferred Language: Maltese Communication Ability: Effective Visual Impairment: No Limitations Hearing Ability: Normal Daub Color Mixer Required: No Beliefs That Will Affect Care: None marital status: Current Living Situation: Spouse current occupational status: retired How many Children do You have: 2 Feels Safe at Home: Yes Childhood Exposure to Second-Hand Smoke: Yes Diet: regular Diet Comment: no specific diet caffeine: Yes during the past year weight has: increased > 10 lbs Dental Care, Regularly: Yes Physical Activity Frequency: Does not Exercise Seatbelt Use: always Sunscreen Use: Yes Do you think of yourself as: straight/heterosexual Assistive Devices: BiPap, Glasses and Nebulizer Physical Exam 2 Vital Signs: Vital Signs - 24 hr 07/28/24 08:32 07/28/24 08:32 07/28/24 08:39 Temperature 37.1 C Temperature Source Skin Pulse Rate 125 H Pulse Rate [Apical ] Pulse Rhythm [Apic al] Pulse Strength [Ap ical] Respiratory Rate 22 Respiratory Effort / Characteristics Short of Breath Non-Labored Sponta neous Labored Respiratory Depth Normal Respiratory Patter n Blood Pressure 109/72 Blood Pressure [Le ft Arm] Blood Pressure Linh n 84 Blood Pressure Linh n [Left Arm] Blood Pressure Pos ition [Left Arm] Pulse Oximetry 93 96 Oxygen Delivery Me thod Room Air Room Air Oxygen Flow Rate Sepsis Recent Feve r Within 48 Hours No Sepsis New/Unexpla ined Change in Men devin Status N/A Sepsis Action Take n by Nursing No Action Required 07/28/24 08:53 07/28/24 09:18 07/28/24 09:56 Temperature Temperature Source Pulse Rate 118 H Pulse Rate [Apical ] 121 H Pulse Rhythm [Apic al] Pulse Strength [Ap ical] Respiratory Rate 22 Respiratory Effort / Characteristics Respiratory Depth Respiratory Patter n Blood Pressure Blood Pressure [Le ft Arm] 134/78 Blood Pressure Linh n Blood Pressure Linh n [Left Arm] 96 Blood Pressure Pos ition [Left Arm] Pulse Oximetry 93 95 Oxygen Delivery Me thod Room Air Room Air Oxygen Flow Rate 2 Sepsis Recent Feve r Within 48 Hours Sepsis New/Unexpla ined Change in Men devin Status Sepsis Action Take n by Nursing 07/28/24 11:30 07/28/24 12:55 07/28/24 13:03 Temperature Temperature Source Pulse Rate 104 H Pulse Rate [Apical ] 119 H 106 H Pulse Rhythm [Apic al] Regular Regular Pulse Strength [Ap ical] Normal Normal Respiratory Rate 24 26 H Respiratory Effort / Characteristics Non-Labored Sponta neous Non-Labored Sponta neous Respiratory Depth Normal Normal Respiratory Patter n Regular Regular Blood Pressure Blood Pressure [Le ft Arm] 120/89 125/75 Blood Pressure Linh n Blood Pressure Linh n [Left Arm] 99 91 Blood Pressure Pos ition [Left Arm] Semi-fowlers Semi-fowlers Pulse Oximetry 94 97 Oxygen Delivery Me thod Room Air Nasal Cannula Oxygen Flow Rate 2 Sepsis Recent Feve r Within 48 Hours Sepsis New/Unexpla ined Change in Men devin Status Sepsis Action Take n by Nursing 07/28/24 13:09 07/28/24 13:12 07/28/24 14:04 Temperature Temperature Source Pulse Rate Pulse Rate [Apical ] 113 H Pulse Rhythm [Apic al] Regular Pulse Strength [Ap ical] Normal Respiratory Rate 34 H 26 H 30 H Respiratory Effort / Characteristics Spontaneous Access ory Muscle Use Lab ored Spontaneous Labore d Spontaneous Labore d Respiratory Depth Normal Normal Normal Respiratory Patter n Tachypnea Tachypnea Tachypnea Blood Pressure Blood Pressure [Le ft Arm] 111/72 Blood Pressure Linh n Blood Pressure Linh n [Left Arm] 85 Blood Pressure Pos ition [Left Arm] Lying Pulse Oximetry 97 98 98 Oxygen Delivery Me thod Nasal Cannula Nasal Cannula Oxymask Oxygen Flow Rate 2 4 4 Sepsis Recent Feve r Within 48 Hours Sepsis New/Unexpla ined Change in Men devin Status Sepsis Action Take n by Nursing Physical Exam: Physical Exam GENERAL: oriented to person, place, and time. appears well-developed and well- nourished. HENT: Exam performed. - Head: Normocephalic and atraumatic. EYES: Conjunctivae and EOM are normal. Right eye exhibits no discharge. Left eye exhibits no discharge. No scleral icterus. NECK: Normal range of motion. Neck supple. No JVD present. CV: Tachycardic rate, regular rhythm, normal heart sounds and intact distal pulses. There is no peripheral edema. Palpable radial pulses bue. PULM/CHEST: Expiratory wheezes bilaterally. ABD: The abdomen is soft. There is no tenderness. NEURO: Motor and sensation grossly intact. SKIN: Skin is warm and dry. He is not diaphoretic. PSYCH: normal mood and affect. Behavior is normal. Judgment and thought content normal. Course Course 09: The patient was evaluated in room B2. A complete history and physical exam was performed Cardiac monitoring: An order was placed for continuous cardiac monitoring. The monitor shows a rate of 120 with sinus tachycardia rhythm interpreted by me 1025: Patient became hypoxic on room air. Supplemental oxygen was applied which improved the patient's oxygen saturations. Patient's initial lactic acid 3.4. White blood cell count 26. Chest x-ray viewed by me shows a lower lobe infiltrate. Patient will be treated with 2 L normal saline based off her ideal body weight for 30 cc/kg normal saline bolus as well as IV Rocephin and oral azithromycin. D-dimer was elevated. Will obtain CT of the chest rule out PE. 1220: Vital signs stable on supplemental oxygen via nasal cannula. CT of the chest negative for PE but does confirm infiltrate. [facility]. Administered Medications Discontinued Medications Albuterol (Albut/Ipratrop 3mg/0.5mg Neb 3 Ml Vial) 3 ml NEB NOW STA; Protocol Stop: 07/28/24 09:19 Last Admin: 07/28/24 09:25 Dose: 3 ml Documented By: HS Aspirin (Aspirin Chew 324 Mg) 324 mg PO NOW STA Stop: 07/28/24 09:19 Last Admin: 07/28/24 09:25 Dose: 324 mg Documented By: HS Azithromycin (Azithromycin 250 Mg Tab) 500 mg PO NOW ONE Stop: 07/28/24 10:20 Last Admin: 07/28/24 10:23 Dose: 500 mg Documented By: HS Sodium Chloride (Nss) 1,000 mls @ 999 mls/hr IV .Q1H1M ISMAEL Stop: 07/28/24 12:30 Last Infusion: 07/28/24 13:47 Dose: Infused Documented By: Admin: 07/28/24 10:29 Dose: 999 mls/hr Documented By: Infusion: 07/28/24 10:29 Dose: Infused Documented By: Admin: 07/28/24 10:29 Dose: 999 mls/hr Documented By: HS Ceftriaxone Sodium (Rocephin) 2,000 mg in 50 mls @ 100 mls/hr IV NOW STA Stop: 07/28/24 10:48 Last Infusion: 07/28/24 13:47 Dose: Infused Documented By: Admin: 07/28/24 10:23 Dose: 100 mls/hr Documented By: HS Acetaminophen (Ofirmev) 1,000 mg in 100 mls @ 400 mls/hr IV NOW STA Stop: 07/28/24 12:57 Last Infusion: 07/28/24 13:47 Dose: Infused Documented By: G Admin: 07/28/24 12:58 Dose: 400 mls/hr Documented By: Parenteral Electrolytes (Plasma-Lyte A Ph 7.4) 1,000 mls @ 999 mls/hr IV .Q1H1M ONE Stop: 07/28/24 15:40 Last Admin: 07/28/24 15:01 Dose: Not Given Documented By: Insulin Glargine (Lantus Per Unit Charge) 13 units SQ NOW STA Stop: 07/28/24 13:38 Last Admin: 07/28/24 14:01 Dose: 13 units Documented By: Co-signed By: YONI Ioversol (Optiray 320 125ml) 112 ml IV ONCE ONE Stop: 07/28/24 10:41 Last Admin: 07/28/24 10:40 Dose: 112 ml Documented By: MAU Lorazepam (Lorazepam 0.5 Mg Tab) 0.5 mg PO NOW STA Stop: 07/28/24 12:44 Last Admin: 07/28/24 12:58 Dose: 0.5 mg Documented By: Prednisone (Prednisone 50 Mg Tab) 50 mg PO NOW STA Stop: 07/28/24 12:20 Last Admin: 07/28/24 12:27 Dose: 50 mg Documented By: Medical Decision Making Laboratory Data Attestation: I reviewed the patient's lab results. 07/28/24 08:51 07/28/24 08:51 Lab Results 07/28/24 07/28/24 07/28/24 Range/Units 08:51 09:26 10:56 WBC 26.86 H (4.8-10.8) K/ul RBC 4.78 (4.20-5.40) M/uL Hgb 13.3 (12.0-16.0) g/dl Hct 41.0 (37.0-47.0) % MCV 85.8 (80.0-100.0) fL MCH 27.8 (25.0-34.0) pg MCHC 32.4 (32.0-36.0) g/dL RDW Std Deviation 43.3 (36.4-46.3) fL RDW Coeff of Palak 13.8 (11.5-14.5) % Plt Count 327 (130-400) K/uL MPV 9.3 L (9.4-12.4) fL Immature Gran % (Auto) 1.0 % Neut % (Auto) 91.3 % Lymph % (Auto) 1.6 % [place] % (Auto) 6.0 % Eos % (Auto) 0.0 % Baso % (Auto) 0.1 % Neut # (Auto) 24.51 H (1.40-6.50) K/uL Lymph # (Auto) 0.43 L (1.20-3.40) K/uL [place] # (Auto) 1.61 H (0.11-0.59) K/uL Eos # (Auto) 0.00 (0.00-0.50) K/uL Baso # (Auto) 0.04 (0.00-0.20) K/uL Immature Gran # (Auto) 0.27 H (0.01-0.20) K/uL PT 10.3 (9.0-12.0) Seconds INR 0.9 (0.9-1.1) APTT 27 (21-31) Seconds PTT Ratio 1.0 D-Dimer 650 H* (0-500) ug/L FEU VBG pH 7.33 L (7.36-7.41) VBG pCO2 46 (38-50) mmHg VBG pO2 34 mmHg VBG HCO3 24 mmol/L VBG O2 Saturation < 60.0 % VBG Base Excess -1.9 mEq/L Sodium 139 (136-145) mmol/L Potassium 4.9 (3.5-5.1) mmol/L Chloride 103 (98-107) mmol/L Carbon Dioxide 30 (21-32) mmol/L Anion Gap 6 (3-11) BUN 17 (6-23) mg/dl Creatinine 1.07 (0.6-1.2) mg/dl Est Cr Clr Drug Dosing Not Reportable eGFR 55.88 BUN/Creatinine Ratio 15.9 (10-20) Glucose 208 H (70-99(Fasting)) mg/dl Lactate 3.4 H* (0.4-2.0) mmol/L Calcium 9.2 (8.6-10.3) mg/dl Troponin I High Sens 6.4 (0-14) pg/ml B-Natriuretic Peptide 73 (0-100) pg/ml Lipase 11 (11-82) U/L Procalcitonin 7.48 H (0-0.5) ng/ml Adenovirus (PCR) Not Detected (NotDetected) B. pertussis DNA (PCR) Not Detected (NotDetected) B.parapertussis DNA PCR Not Detected (NotDetected) C. pneumoniae DNA (PCR) Not Detected (NotDetected) Coronavirus OC43 (PCR) Not Detected (NotDetected) Coronavirus HKU1 (PCR) Not Detected (NotDetected) Coronavirus 229E (PCR) Not Detected (NotDetected) SARS-CoV-2 (PCR) Not Detected (NotDetected) Coronavirus NL63 (PCR) Not Detected (NotDetected) Human Metapneumovir PCR Not Detected (NotDetected) Influenza Type A (PCR) Not Detected (NotDetected) Influenza Type B (PCR) Not Detected (NotDetected) M. pneumoniae (PCR) Not Detected (NotDetected) Parainfluenza 1 (PCR) Not Detected (NotDetected) Parainfluenza 2 (PCR) Not Detected (NotDetected) Parainfluenza 3 (PCR) Not Detected (NotDetected) Parainfluenza 4 (PCR) Not Detected (NotDetected) RSV (PCR) Not Detected (NotDetected) Entero/Rhino (PCR) Not Detected (NotDetected) 07/28/24 07/28/24 Range/Units 11:55 14:44 WBC (4.8-10.8) K/ul RBC (4.20-5.40) M/uL Hgb (12.0-16.0) g/dl Hct (37.0-47.0) % MCV (80.0-100.0) fL MCH (25.0-34.0) pg MCHC (32.0-36.0) g/dL RDW Std Deviation (36.4-46.3) fL RDW Coeff of Palak (11.5-14.5) % Plt Count (130-400) K/uL MPV (9.4-12.4) fL Immature Gran % (Auto) % Neut % (Auto) % Lymph % (Auto) % [place] % (Auto) % Eos % (Auto) % Baso % (Auto) % Neut # (Auto) (1.40-6.50) K/uL Lymph # (Auto) (1.20-3.40) K/uL [place] # (Auto) (0.11-0.59) K/uL Eos # (Auto) (0.00-0.50) K/uL Baso # (Auto) (0.00-0.20) K/uL Immature Gran # (Auto) (0.01-0.20) K/uL PT (9.0-12.0) Seconds INR (0.9-1.1) APTT (21-31) Seconds PTT Ratio D-Dimer (0-500) ug/L FEU VBG pH (7.36-7.41) VBG pCO2 (38-50) mmHg VBG pO2 mmHg VBG HCO3 mmol/L VBG O2 Saturation % VBG Base Excess mEq/L Sodium (136-145) mmol/L Potassium (3.5-5.1) mmol/L Chloride (98-107) mmol/L Carbon Dioxide (21-32) mmol/L Anion Gap (3-11) BUN (6-23) mg/dl Creatinine (0.6-1.2) mg/dl Est Cr Clr Drug Dosing eGFR BUN/Creatinine Ratio (10-20) Glucose (70-99(Fasting)) mg/dl Lactate 3.5 H* 2.1 H* (0.4-2.0) mmol/L Calcium (8.6-10.3) mg/dl Troponin I High Sens (0-14) pg/ml B-Natriuretic Peptide (0-100) pg/ml Lipase (11-82) U/L Procalcitonin (0-0.5) ng/ml Adenovirus (PCR) (NotDetected) B. pertussis DNA (PCR) (NotDetected) B.parapertussis DNA PCR (NotDetected) C. pneumoniae DNA (PCR) (NotDetected) Coronavirus OC43 (PCR) (NotDetected) Coronavirus HKU1 (PCR) (NotDetected) Coronavirus 229E (PCR) (NotDetected) SARS-CoV-2 (PCR) (NotDetected) Coronavirus NL63 (PCR) (NotDetected) Human Metapneumovir PCR (NotDetected) Influenza Type A (PCR) (NotDetected) Influenza Type B (PCR) (NotDetected) M. pneumoniae (PCR) (NotDetected) Parainfluenza 1 (PCR) (NotDetected) Parainfluenza 2 (PCR) (NotDetected) Parainfluenza 3 (PCR) (NotDetected) Parainfluenza 4 (PCR) (NotDetected) RSV (PCR) (NotDetected) Entero/Rhino (PCR) (NotDetected) Imaging Data Attestation: I personally reviewed and interpreted this imaging study as follows: My Impression: Chest x-ray: Lower lobe infiltrate Radiologist's Impression: Chest X-Ray 07/28/24 09:18 XR chest 1V portable CLINICAL HISTORY: Chest pain, nonspecific COMPARISON STUDY: Chest radiograph October 17, 2022. Chest CT May 29, 2024. FINDINGS: Lung volumes are normal. There has been interval development of left basilar opacity. There is no pneumothorax or pleural effusion. Cardiac size is normal. Mediastinal contours are normal. There is no evidence for pulmonary edema. IMPRESSION: Interval development of left basilar airspace opacity suggestive of pneumonia. Post treatment radiographs to ensure resolution are recommended. ACT 112: Negative or not required by law. Electronically signed by: Brian Nieto M.D. 07/28/2024 10:04 AM Chest CTA 07/28/24 10:19 CT ANGIOGRAPHY OF THE CHEST, PULMONARY EMBOLUS PROTOCOL CLINICAL HISTORY: Shortness of breath. Evaluate for pulmonary embolus. COMPARISON STUDY: Chest CT May 29, 2024. Chest radiograph performed earlier today. TECHNIQUE: Following IV administration of 112 mL of Optiray, helical axial images of the chest were obtained utilizing the pulmonary embolus protocol. Maximal intensity projections and sagittal and coronal reformats were viewed on an independent 3D workstation. IV contrast was administered without complication. Automated exposure control was utilized for the study. A dose lowering technique was utilized adhering to the principles of ALARA. CT DOSE: 949.23 mGy.cm FINDINGS: Mildly enlarged left hilar lymph nodes measure up to 1.5 x 0.4 cm. There are no pulmonary emboli. Emphysema is present. There is no pneumothorax or pleural effusion. Dense consolidation within the posterior basal segment of the left lower lobe has developed since CT of May 29, 2024. An indeterminate 7 mm left upper lobe nodule on image 184 of [address] of May 29, 2024. There is no central obstructing mass. A 5 mm right upper lobe nodule on image 143 is new since that exam. Right upper lobe airspace opacities shown on prior CT have resolved. IMPRESSION: 1. No pulmonary emboli identified. 2. Dense left lower lobe consolidation consistent with pneumonia. 3. 7 mm left upper lobe pulmonary nodule, unchanged since CT of May 29, 2024. This remains indeterminate and imaging follow-up as per the recommendations on that exam are recommended. 4. 5 mm right upper lobe nodule which is new since prior study. This is likely infectious but should be assessed on follow-up CT to ensure resolution. 5. Left hilar adenopathy, likely reactive. These nodes should be assessed on follow-up CT to ensure resolution. ACT 112: Negative or not required by law. Electronically signed by: Brian Nieto M.D. 07/28/2024 11:38 AM ECG Data Attestation: I personally reviewed and interpreted this ECG as follows: Interpretation: Sinus tachycardia with a rate of 122. VT 150 QRS [address] elevation or ST depression. [facility] Narrative 0911: The patient was evaluated in room B2. A complete history and physical exam was performed Cardiac monitoring: An order was placed for continuous cardiac monitoring. The monitor shows a rate of 120 with sinus tachycardia rhythm interpreted by id 1025: Patient became hypoxic on room air. Supplemental oxygen was applied which improved the patient's oxygen saturations. Patient's initial lactic acid 3.4. White blood cell count 26. Chest x-ray viewed by id shows a lower lobe infiltrate. Patient will be treated with 2 L normal saline based off her ideal body weight for 30 cc/kg normal saline bolus as well as IV Rocephin and oral azithromycin. D-dimer was elevated. Will obtain CT of the chest rule out PE. 1220: Vital signs stable on supplemental oxygen via nasal cannula. CT of the chest negative for PE but does confirm infiltrate. [facility]. Impression & Plan Pneumonia, Hypoxia Critical Care Time Critical Care Time: Yes Total Critical Care Time: 70 I have personally spent greater than 70 minutes of critical care time in the direct management of this patient. This includes bedside care, interpretation of diagnostic studies, and testing, discussion with consultants, patient, and family members, and other required patient management activities. This 70 minutes is in excess of all separately billable procedures. Discharge Plan Visit Data Chief Complaint: Shortness of Breath/Dyspnea Stated Complaint: SOB, UPPER BACK PAIN, CHEST TIGHTNESS, COPD, 94 OX ED Provider: Sanchez Lopez Discharge Problem: Pneumonia, Hypoxia Patient Disposition: Admitted As Inpatient Forms Stand Alone Forms: [facility] Prescriptions Prescriptions: No Action cyclobenzaprine 5 mg tablet 5 mg PO HS Qty: 90 3RF epinephrine [EpiPen] 0.3 mg/0.3 mL auto-injector 0.3 mg IM Q3H PRN (Reason: Anaphylaxis) Qty: 1 2RF albuterol sulfate [ProAir HFA] 90 mcg/actuation HFA aerosol inhaler 1 - 2 puff INHALATION Q4 PRN (Reason: Shortness Of Breath) Qty: 8.5 1RF clonidine HCl 0.1 mg tablet 0.1 mg PO DAILY Qty: 90 3RF diltiazem HCl [Cardizem CD] 120 mg capsule,extended release 24hr 120 mg PO QAM Qty: 90 3RF (DME) pen needle, diabetic [Pen Needle] 32 gauge x 5/32" needle See Rx Instructions .ROUTE .COMPLEX Qty: 100 1RF Dose Instruction: As directed, daily for insulin Rx Instructions: As directed, daily for insulin Advair HFA 115-21 mcg/actuation HFA aerosol inhaler 2 puff inhalation BID Qty: 12 3RF Rx Instructions: INHALE 2 PUFFS TWICE A DAY. levothyroxine 75 mcg tablet 75 mcg PO QAM Qty: 90 1RF (DME) True Metrix Glucose Test Strip Strip See Rx Instructions .Route Rx Instructions: test 1 time daily insulin glargine [Lantus Solostar U-100 Insulin] 100 unit/mL (3 mL) insulin pen 26 unit subcut DAILY 90 Days Qty: 30 1RF venlafaxine 75 mg capsule,extended release 24hr 75 mg PO DAILY Rx Instructions: TAKE 1 CAPSULE BY MOUTH DAILY Incruse Ellipta 62.5 mcg/actuation blister with device 1 inh inhalation DAILY Rx Instructions: INHALE 1 PUFF DAILY. Referrals Referrals: Jaime Niño III, CRNP [Primary Care Provider] - Discharge Problem: Pneumonia Qualifiers: Pneumonia type: due to unspecified organism Laterality: left Lung location: l ower lobe of lung Qualified Code(s): J18.9 - Pneumonia, unspecified organism
--- NOTE | 2024-07-28 15:23 | Pharmacy Report ---
Pharmacy Glycemic Short Note 2 - Date of Service July 28, 2024 - Glycemic Short BSG Results (Last 24 hours): 07/28/24 08:51 Glucose 208 H OUTPATIENT ANTIDIABETIC REGIMEN: * Lantus 26 units daily ASSESSMENT: * 69 year old admitted with shortness of breath/COPD exacerbation. Received prednisone 50 mg x 1 in ER - pharmacy consulted for glycemic management. * Fasting BSG 208 mg/dl - received Lantus 13 units x 1 in ER, will order additional 13 units of Lantus tonight to make up home dose. Will reassess basal insulin tomorrow and likely transition to once daily dosing. Unclear if po prednisone will be continued. PLAN FOR INPATIENT GLYCEMIC CONTROL: * Hold outpatient oral diabetes medications * Basal insulin * Lantus 13 units SQ BID * Bolus insulin * NovoLog per scale ACHS or Q6hrs while NPO * Goal Range: Low 110 mg/dL - High 140 mg/dL * Correction Factor: 25 mg/dL/unit * Nutritional / Prandial insulin per carb ratio of 1 unit per 10 grams CHO consumed
[2024-07-28] MEDS: LORazepam 1 MG/1 ML SYR ED Inj Use ONE (15:24)
[2024-07-28] MEDS ORDERED: ACETAMINOPHEN 325 MG TAB PO PRN (16:05)
[2024-07-28] MEDS ORDERED: ONDANSETRON INJ 2 MG/ML 2 ML VIAL IV PRN (16:05)
[2024-07-28] MEDS ORDERED: ALBUT/IPRATROP 3MG/0.5MG NEB 3 ML VIAL NEB PRN (16:05)
[2024-07-28 16:06] LABS: iSTAT Arterial Blood Gas HCO3 22 meg/L (19-24); iSTAT Arterial Blood Gas pCO2 54 mmHg (35-46); iSTAT Arterial Blood Gas pH 7.22 (7.35-7.45); iSTAT Arterial Blood Gas pO2 117 mmHg (80-95); iSTAT Carbon Dioxide 24 mmol/L (24-31); iSTAT Hematocrit 44 % (37-47); iSTAT Potassium 4.8 mmol/L (3.3-5.0); iSTAT Sample Type Arterial; iSTAT Sodium 139 mmol/L (135-144)
[2024-07-28] MEDS ORDERED: INSULIN ASPART PER UNIT CHARGE SC SCH (16:30)
[2024-07-28] MEDS: LORazepam 2 MG/1 ML VIAL IV STA (16:38)
[2024-07-28] MEDS: ALBUT/IPRATROP 3MG/0.5MG NEB 3 ML VIAL NEB SCH (16:49)
[2024-07-28] MEDS: BUDESONIDE 0.5 MG/2 ML VIAL (PULMICORT) NEB SCH (18:07)
[2024-07-28] MEDS: FORMOTEROL 20 MCG/2 ML VIAL NEB SCH (18:07)
[2024-07-28 18:54] LABS: iSTAT Arterial Blood Gas HCO3 24 meg/L (19-24); iSTAT Arterial Blood Gas pCO2 46 mmHg (35-46); iSTAT Arterial Blood Gas pH 7.31 (7.35-7.45); iSTAT Arterial Blood Gas pO2 128 mmHg (80-95); iSTAT Carbon Dioxide 25 mmol/L (24-31); iSTAT Hematocrit 38 % (37-47); iSTAT Hemoglobin 12.9 g/dl (12.0-16.0); iSTAT Potassium 4.9 mmol/L (3.3-5.0); iSTAT Sodium 138 mmol/L (135-144)
[2024-07-28] MEDS: INSULIN ASPART PER UNIT CHARGE SC SCH (20:03)
[2024-07-28] MEDS: guaiFENesin 600 MG TABCR PO SCH (20:15)
[2024-07-28] MEDS: CYCLOBENZAPRINE HCL 5 MG TAB PO SCH (20:16)
[2024-07-28] MEDS: VENLAFAXINE HCL XR 75 MG CAPXR PO SCH (20:16)
[2024-07-28] MEDS: ENOXAPARIN INJ 40 MG/0.4 ML SYR SQ SCH (20:16)
[2024-07-28] MEDS: methylPREDNISolone 40 MG in SYRINGE 0 ML IV SCH (20:17)
[2024-07-28] MEDS: LANTUS PER UNIT CHARGE SC SCH (20:18)
[2024-07-28] MEDS ORDERED: LORazepam 2 MG/1 ML VIAL IV PRN (21:00)
[2024-07-28] MEDS ORDERED: LANTUS PER UNIT CHARGE SQ SCH (21:00)
--- NOTE | 2024-07-28 21:51 | Electrocardiogram Report ---
Test Reason : Blood Pressure : */* mmHG Vent. Rate : 122 BPM Atrial Rate : 122 BPM P-R Int : 150 ms QRS Dur : 72 ms QT Int : 290 ms P-R-T Axes : 75 -17 62 degrees QTcB Int : 413 ms Sinus tachycardia Otherwise normal ECG When compared with ECG of 17-Oct-2022 20:50, No significant change Confirmed by Gerson Colon ([id number]) on 07/28/2024 9:51:16 PM Referred By: REFERRED SELF Confirmed By: Gerson Colon
[2024-07-29] MEDS: INSULIN ASPART PER UNIT CHARGE SC SCH (00:05)
[2024-07-29] MEDS: ALBUT/IPRATROP 3MG/0.5MG NEB 3 ML VIAL NEB SCH (02:17)
[2024-07-29] MEDS: LEVOTHYROXINE SODIUM 75 MCG TABLET PO SCH (05:33)
[2024-07-29 06:34] LABS: Base Excess VBG 0.8 mEq/L; HCO3 VBG 27 mmol/L; Oxygen Saturation VBG 90.8 %; PCO2 VBG 46 mmHg (38-50); PO2 VBG 57 mmHg; pH VBG 7.37 (7.36-7.41)
[2024-07-29 06:44] LABS: Hematocrit (blood only) 37.3 % (37.0-47.0); Mean Corpuscular Hemoglobin 27.1 pg (25.0-34.0); Mean Corpuscular Hgb Conc 32.2 g/dL (32.0-36.0); Mean Corpuscular Volume 84.2 fL (80.0-100.0); Mean Platelet Volume 9.3 fL (9.4-12.4); Platelet Count 294 K/uL (130-400); RDW Coefficient of Variation 14.2 % (11.5-14.5); RDW Standard Deviation 43.7 fL (36.4-46.3); Red Blood Count 4.43 M/uL (4.20-5.40); White Blood Count 24.54 K/ul (4.8-10.8)
[2024-07-29 07:05] LABS: Basophils # (auto) 0.06 K/uL (0.00-0.20); Basophils % (auto) 0.2 %; Immature Granulocytes # (auto) 0.27 K/uL (0.01-0.20); Immature Granulocytes % (auto) 1.1 %; Lymphocytes # (auto) 0.71 K/uL (1.20-3.40); Lymphocytes % (auto) 2.9 %; Monocytes % (auto) 3.3 %; Neutrophils % (auto) 92.5 %; Toxic Vacuolation 1+
[2024-07-29 07:13] LABS: BUN Creatinine Ratio 20.8 (10-20); Calcium 8.8 mg/dl (8.6-10.3); Creatinine Clr Calc Pharmacy 82.4 ml/min; Potassium 4.3 mmol/L (3.5-5.1)
[2024-07-29] MEDS: UMECLIDINIUM BROMIDE 62.5MCG/BLISTER 7 PUFFS/INHALER INH SCH (08:38)
[2024-07-29] MEDS: AZITHROMYCIN 250 MG TAB PO SCH (08:39)
[2024-07-29] MEDS: cloNIDine HCL 0.1 MG TAB PO SCH (08:39)
[2024-07-29] MEDS: dilTIAZem HCL 120 MG CAPCR PO SCH (08:40)
[2024-07-29] MEDS: LANTUS PER UNIT CHARGE SC SCH (08:45)
[2024-07-29] MEDS ORDERED: FLUTICASONE/VILANTEROL 200/25MCG 14 PUFFS/INHALER INH SCH (09:00)
[2024-07-29] MEDS ORDERED: AZITHROMYCIN 500 MG in DEXTROSE 5% 250 ML IV ONE (10:20)
[2024-07-29] MEDS ORDERED: AZITHROMYCIN 500 MG in SODIUM CHLORIDE 0.9% 250 ML IV SCH (10:30)
[2024-07-29] MEDS: cefTRIAXone SODIUM 2,000 MG/50 ML BAG IV SCH (11:35)
--- NOTE | 2024-07-29 12:50 | Hospitalist Progress Note ---
Date of Service July 29, 2024 Assessment & Plan (1) Left lower lobe pneumonia: (2) Sepsis: (3) Acute exacerbation of chronic obstructive pulmonary disease: (4) Hypoxia: (5) Type II diabetes mellitus with manifestations: (6) Depression with anxiety: (7) Former tobacco use: (8) Hypothyroidism: (9) Acute respiratory failure with hypoxia and hypercapnia: Plan 69-year-old female with past medical history of COPD with chronic hyper Now with BiPAP at bedtime, history of tobacco use, hypothyroidism, type 2 diabetes mellitus, sinus tachycardia, essential hypertension who presents to the ED with shortness of breath and exertional dyspnea and hypoxia and was found to have a l eft lower lobe pneumonia #Sepsis secondary to left lower lobe pneumonia, present on admission #Acute on chronic hypoxic and hypercapnic respiratory failure #Acute exacerbation of COPD #Pulmonary nodule 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 Chase negative Chest CTA revealed dense LLL consolidation consistent with pneumonia; no pulmonary emboli notified Both ageindeterminate and new pulmonary nodules noted on CTA Continue IV ceftriaxone plus oral Zithromax (day 1 on 07/28/2024) Continue Solu-Medrol 40 mg IV twice daily BiPAP at bedtime Use oxygen as needed to keep saturations between 89 to 92% Check 2D echo Patient uses Incruse Ellipta and Advair twice daily at home Continue Ellipta Continue Brovana plus budesonide nebulizers Change DuoNebs to Xopenex as needed given tachycardia Monitor heart rate #Essential hypertension #Chronic sinus tachycardia EKG and telemetry showing sinus tachycardia CTA shows no PE Patient has seen cardiology in the past for sinus tachycardia and is currently on Cardizem 120 mg p.o. daily Continue clonidine 0.1 mg p.o. daily Change DuoNebs to Xopenex as needed given tachycardia Monitor heart rate on telemetry Follow-up echo report #Insulin-dependent type 2 diabetes mellitus A1c is pending Continue Lantus 14 units twice daily Pharmacy managing glycemic control #Hypothyroidism TSH in December 2023 was 2.015 Continue levothyroxine 75 mcg p.o. daily #Anxiety/depression Continue Effexor 75 mg p.o. nightly Ativan as needed CODE STATUS: Full code DVT prophylaxis: Lovenox 40 mg subcutaneous daily Care plan discussed with patient, nursing staff and updated at bedside Admission and Anticipated Discharge Date Admission Date: July 28, 2024 Subjective Patient seen and examined Labs and radiology reviewed at bedside Patient states she feels better today compared to when she came in She uses BiPAP at home at bedtime and also when she takes naps She is currently off the BiPAP and is not requiring oxygen: She does get short of breath when she is trying to ambulate She tells me that her heart rate is always elevated EKG reviewed and shows sinus tachycardia Telemetry monitoring reviewed and shows sinus tachycardia Patient denies any fever, chills, chest pain, nausea, vomiting, diarrhea, abdominal pain. Social history: She denies current tobacco use. Denies alcohol use. Lives at home with her . Ambulates with a walker Review of Systems Review of Systems: As per subjective Physical Exam Physical Exam: General: No acute distress Psych: Awake and alert HEENT: Anicteric sclera, moist oral mucosa CVS: Tachycardic Lungs: Bilateral air entry, expiratory wheezing noted, no use of accessory muscles noted Abdomen: Soft, nontender, no rebound, no guarding Ext: No lower extremity edema, no calf tenderness Neuro: No focal motor deficits noted Results & Data Results & Data Vital Signs (Past 12 Hours) Vital Signs Temp Pulse Pulse Resp BP Pulse Ox O2 Del Method 07/29/24 11:11 36.7 C 115 H 20 126/76 93 Room Air 07/29/24 11:05 116 H 20 Room Air 07/29/24 09:14 Room Air 07/29/24 07:25 113 H 07/29/24 07:20 36.9 C 119 H 22 125/59 L 96 BiPAP 07/29/24 07:17 118 H 23 95 07/29/24 07:17 118 H 23 BiPAP 07/29/24 02:37 36.8 C 114 H 18 149/77 H 96 BiPAP 07/29/24 02:19 106 H 23 98 07/29/24 02:18 106 H 23 99 BiPAP FiO2 07/29/24 11:11 07/29/24 11:05 93 07/29/24 09:14 07/29/24 07:25 07/29/24 07:20 07/29/24 07:17 28 07/29/24 07:17 95 07/29/24 02:37 07/29/24 02:19 28 07/29/24 02:18 28 Laboratory Results 07/28/24 07/28/2424 08:51 09:26 10:56 WBC 26.86 H RBC 4.78 Hgb 13.3 POC Hgb Hct 41.0 POC Hct MCV 85.8 MCH 27.8 MCHC 32.4 RDW Std Deviation 43.3 RDW Coeff of Palak 13.8 Plt Count 327 MPV 9.3 L Immature Gran % (Auto) 1.0 Neut % (Auto) 91.3 Lymph % (Auto) 1.6 Pickett % (Auto) 6.0 Eos % (Auto) 0.0 Baso % (Auto) 0.1 Neut # (Auto) 24.51 H Lymph # (Auto) 0.43 L Pickett # (Auto) 1.61 H Eos # (Auto) 0.00 Baso # (Auto) 0.04 Immature Gran # (Auto) 0.27 H Toxic Vacuolation PT 10.3 INR 0.9 APTT 27 PTT Ratio 1.0 D-Dimer 650 H* Specimen Type POC pH POC pCO2 POC pO2 POC HCO3 POC Total CO2 POC Base Excess POC ABG O2 Sat VBG pH 7.33 L VBG pCO2 46 VBG pO2 34 VBG HCO3 24 VBG O2 Saturation < 60.0 VBG Base Excess -1.9 POC Sodium Sodium 139 POC Potassium Potassium 4.9 Chloride 103 Carbon Dioxide 30 Anion Gap 6 BUN 17 Creatinine 1.07 Est Cr Clr Drug Dosing Not Reportable eGFR 55.88 BUN/Creatinine Ratio 15.9 Glucose 208 H POC Glucose Lactate 3.4 H* Calcium 9.2 Troponin I High Sens 6.4 B-Natriuretic Peptide 73 Lipase 11 Procalcitonin 7.48 H Nasal Screen MRSA (PCR) Adenovirus (PCR) Not Detected B. pertussis DNA (PCR) Not Detected B.parapertussis DNA PCR Not Detected C. pneumoniae DNA (PCR) Not Detected Coronavirus OC43 (PCR) Not Detected Coronavirus HKU1 (PCR) Not Detected Coronavirus 229E (PCR) Not Detected SARS-CoV-2 (PCR) Not Detected Coronavirus NL63 (PCR) Not Detected Human Metapneumovir PCR Not Detected Influenza Type A (PCR) Not Detected Influenza Type B (PCR) Not Detected M. pneumoniae (PCR) Not Detected Parainfluenza 1 (PCR) Not Detected Parainfluenza 2 (PCR) Not Detected Parainfluenza 3 (PCR) Not Detected Parainfluenza 4 (PCR) Not Detected RSV (PCR) Not Detected Entero/Rhino (PCR) Not Detected Bld Cult ID Panel PCR 07/28/24 07/28/24 07/28/24 11:55 14:43 14:44 WBC RBC Hgb POC Hgb Hct POC Hct MCV MCH MCHC RDW Std Deviation RDW Coeff of Palak Plt Count MPV Immature Gran % (Auto) Neut % (Auto) Lymph % (Auto) Pickett % (Auto) Eos % (Auto) Baso % (Auto) Neut # (Auto) Lymph # (Auto) Pickett # (Auto) Eos # (Auto) Baso # (Auto) Immature Gran # (Auto) Toxic Vacuolation PT INR APTT PTT Ratio D-Dimer Specimen Type POC pH POC pCO2 POC pO2 POC HCO3 POC Total CO2 POC Base Excess POC ABG O2 Sat VBG pH VBG pCO2 VBG pO2 VBG HCO3 VBG O2 Saturation VBG Base Excess POC Sodium Sodium POC Potassium Potassium Chloride Carbon Dioxide Anion Gap BUN Creatinine Est Cr Clr Drug Dosing eGFR BUN/Creatinine Ratio Glucose POC Glucose Lactate 3.5 H* 2.1 H* Calcium Troponin I High Sens B-Natriuretic Peptide Lipase Procalcitonin Nasal Screen MRSA (PCR) Adenovirus (PCR) B. pertussis DNA (PCR) B.parapertussis DNA PCR C. pneumoniae DNA (PCR) Coronavirus OC43 (PCR) Coronavirus HKU1 (PCR) Coronavirus 229E (PCR) SARS-CoV-2 (PCR) Coronavirus NL63 (PCR) Human Metapneumovir PCR Influenza Type A (PCR) Influenza Type B (PCR) M. pneumoniae (PCR) Parainfluenza 1 (PCR) Parainfluenza 2 (PCR) Parainfluenza 3 (PCR) Parainfluenza 4 (PCR) RSV (PCR) Entero/Rhino (PCR) Bld Cult ID Panel PCR PCR Panel Negative 07/28/24 07/28/24 07/28/24 15:22 16:25 18:57 WBC RBC Hgb POC Hgb 15.0 12.9 Hct POC Hct 44 38 MCV MCH MCHC RDW Std Deviation RDW Coeff of Palak Plt Count MPV Immature Gran % (Auto) Neut % (Auto) Lymph % (Auto) Pickett % (Auto) Eos % (Auto) Baso % (Auto) Neut # (Auto) Lymph # (Auto) Pickett # (Auto) Eos # (Auto) Baso # (Auto) Immature Gran # (Auto) Toxic Vacuolation PT INR APTT PTT Ratio D-Dimer Specimen Type Arterial POC pH 7.22 L 7.31 L POC pCO2 54 H 46 POC pO2 117 H 128 H POC HCO3 22 24 POC Total CO2 24 25 POC Base Excess -5.0 -3.0 POC ABG O2 Sat 98.0 H 99.0 H VBG pH VBG pCO2 VBG pO2 VBG HCO3 VBG O2 Saturation VBG Base Excess POC Sodium 139 138 Sodium POC Potassium 4.8 4.9 Potassium Chloride Carbon Dioxide Anion Gap BUN Creatinine Est Cr Clr Drug Dosing eGFR BUN/Creatinine Ratio Glucose POC Glucose 184 H Lactate Calcium Troponin I High Sens B-Natriuretic Peptide Lipase Procalcitonin Nasal Screen MRSA (PCR) Adenovirus (PCR) B. pertussis DNA (PCR) B.parapertussis DNA PCR C. pneumoniae DNA (PCR) Coronavirus OC43 (PCR) Coronavirus HKU1 (PCR) Coronavirus 229E (PCR) SARS-CoV-2 (PCR) Coronavirus NL63 (PCR) Human Metapneumovir PCR Influenza Type A (PCR) Influenza Type B (PCR) M. pneumoniae (PCR) Parainfluenza 1 (PCR) Parainfluenza 2 (PCR) Parainfluenza 3 (PCR) Parainfluenza 4 (PCR) RSV (PCR) Entero/Rhino (PCR) Bld Cult ID Panel PCR 07/28/24 07/28/24 07/28/24 19:54 23:56 Unknown WBC RBC Hgb POC Hgb Hct POC Hct MCV MCH MCHC RDW Std Deviation RDW Coeff of Palak Plt Count MPV Immature Gran % (Auto) Neut % (Auto) Lymph % (Auto) Pickett % (Auto) Eos % (Auto) Baso % (Auto) Neut # (Auto) Lymph # (Auto) Pickett # (Auto) Eos # (Auto) Baso # (Auto) Immature Gran # (Auto) Toxic Vacuolation PT INR APTT PTT Ratio D-Dimer Specimen Type POC pH POC pCO2 POC pO2 POC HCO3 POC Total CO2 POC Base Excess POC ABG O2 Sat VBG pH VBG pCO2 VBG pO2 VBG HCO3 VBG O2 Saturation VBG Base Excess POC Sodium Sodium POC Potassium Potassium Chloride Carbon Dioxide Anion Gap BUN Creatinine Est Cr Clr Drug Dosing eGFR BUN/Creatinine Ratio Glucose POC Glucose 193 H 168 H Lactate Calcium Troponin I High Sens B-Natriuretic Peptide Lipase Procalcitonin Nasal Screen MRSA (PCR) Negative Adenovirus (PCR) B. pertussis DNA (PCR) B.parapertussis DNA PCR C. pneumoniae DNA (PCR) Coronavirus OC43 (PCR) Coronavirus HKU1 (PCR) Coronavirus 229E (PCR) SARS-CoV-2 (PCR) Coronavirus NL63 (PCR) Human Metapneumovir PCR Influenza Type A (PCR) Influenza Type B (PCR) M. pneumoniae (PCR) Parainfluenza 1 (PCR) Parainfluenza 2 (PCR) Parainfluenza 3 (PCR) Parainfluenza 4 (PCR) RSV (PCR) Entero/Rhino (PCR) Bld Cult ID Panel PCR 07/29/24 07/29/24 07/29/24 06:19 06:23 07:07 WBC 24.54 H RBC 4.43 Hgb 12.0 POC Hgb Hct 37.3 POC Hct MCV 84.2 MCH 27.1 MCHC 32.2 RDW Std Deviation 43.7 RDW Coeff of Palak 14.2 Plt Count 294 MPV 9.3 L Immature Gran % (Auto) 1.1 Neut % (Auto) 92.5 Lymph % (Auto) 2.9 Pickett % (Auto) 3.3 Eos % (Auto) 0.0 Baso % (Auto) 0.2 Neut # (Auto) 22.70 H Lymph # (Auto) 0.71 L Pickett # (Auto) 0.80 H Eos # (Auto) 0.00 Baso # (Auto) 0.06 Immature Gran # (Auto) 0.27 H Toxic Vacuolation 1+ PT INR APTT PTT Ratio D-Dimer Specimen Type POC pH POC pCO2 POC pO2 POC HCO3 POC Total CO2 POC Base Excess POC ABG O2 Sat VBG pH 7.37 VBG pCO2 46 VBG pO2 57 VBG HCO3 27 VBG O2 Saturation 90.8 VBG Base Excess 0.8 POC Sodium Sodium 140 POC Potassium Potassium 4.3 Chloride 106 Carbon Dioxide 27 Anion Gap 7 BUN 16 Creatinine 0.77 D Est Cr Clr Drug Dosing 82.4 eGFR 82.93 BUN/Creatinine Ratio 20.8 H Glucose 209 H POC Glucose 192 H Lactate Calcium 8.8 Troponin I High Sens B-Natriuretic Peptide Lipase Procalcitonin Nasal Screen MRSA (PCR) Adenovirus (PCR) B. pertussis DNA (PCR) B.parapertussis DNA PCR C. pneumoniae DNA (PCR) Coronavirus OC43 (PCR) Coronavirus HKU1 (PCR) Coronavirus 229E (PCR) SARS-CoV-2 (PCR) Coronavirus NL63 (PCR) Human Metapneumovir PCR Influenza Type A (PCR) Influenza Type B (PCR) M. pneumoniae (PCR) Parainfluenza 1 (PCR) Parainfluenza 2 (PCR) Parainfluenza 3 (PCR) Parainfluenza 4 (PCR) RSV (PCR) Entero/Rhino (PCR) Bld Cult ID Panel PCR 07/29/24 07/29/24 11:06 16:05 WBC RBC Hgb POC Hgb Hct POC Hct MCV MCH MCHC RDW Std Deviation RDW Coeff of Palak Plt Count MPV Immature Gran % (Auto) Neut % (Auto) Lymph % (Auto) Pickett % (Auto) Eos % (Auto) Baso % (Auto) Neut # (Auto) Lymph # (Auto) Pickett # (Auto) Eos # (Auto) Baso # (Auto) Immature Gran # (Auto) Toxic Vacuolation PT INR APTT PTT Ratio D-Dimer Specimen Type POC pH POC pCO2 POC pO2 POC HCO3 POC Total CO2 POC Base Excess POC ABG O2 Sat VBG pH VBG pCO2 VBG pO2 VBG HCO3 VBG O2 Saturation VBG Base Excess POC Sodium Sodium POC Potassium Potassium Chloride Carbon Dioxide Anion Gap BUN Creatinine Est Cr Clr Drug Dosing eGFR BUN/Creatinine Ratio Glucose POC Glucose 149 H 165 H Lactate Calcium Troponin I High Sens B-Natriuretic Peptide Lipase Procalcitonin Nasal Screen MRSA (PCR) Adenovirus (PCR) B. pertussis DNA (PCR) B.parapertussis DNA PCR C. pneumoniae DNA (PCR) Coronavirus OC43 (PCR) Coronavirus HKU1 (PCR) Coronavirus 229E (PCR) SARS-CoV-2 (PCR) Coronavirus NL63 (PCR) Human Metapneumovir PCR Influenza Type A (PCR) Influenza Type B (PCR) M. pneumoniae (PCR) Parainfluenza 1 (PCR) Parainfluenza 2 (PCR) Parainfluenza 3 (PCR) Parainfluenza 4 (PCR) RSV (PCR) Entero/Rhino (PCR) Bld Cult ID Panel PCR Diagnostic Findings Chest X-Ray 07/28/24 09:18 XR chest 1V portable CLINICAL HISTORY: Chest pain, nonspecific COMPARISON STUDY: Chest radiograph October 17, 2022. Chest CT May 29, 2024. FINDINGS: Lung volumes are normal. There has been interval development of left basilar opacity. There is no pneumothorax or pleural effusion. Cardiac size is normal. Mediastinal contours are normal. There is no evidence for pulmonary edema. IMPRESSION: Interval development of left basilar airspace opacity suggestive of pneumonia. Post treatment radiographs to ensure resolution are recommended. ACT 112: Negative or not required by law. Electronically signed by: Brian Nieto M.D. 07/28/2024 10:04 AM Chest CTA 07/28/24 10:19 CT ANGIOGRAPHY OF THE CHEST, PULMONARY EMBOLUS PROTOCOL CLINICAL HISTORY: Shortness of breath. Evaluate for pulmonary embolus. COMPARISON STUDY: Chest CT May 29, 2024. Chest radiograph performed earlier today. TECHNIQUE: Following IV administration of 112 mL of Optiray, helical axial ratna ges of the chest were obtained utilizing the pulmonary embolus protocol. Maximal intensity projections and sagittal and coronal reformats were viewed on an independent 3D workstation. IV contrast was administered without complication. Automated exposure control was utilized for the study. A dose lowering technique was utilized adhering to the principles of ALARA. CT DOSE: 949.23 mGy.cm FINDINGS: Mildly enlarged left hilar lymph nodes measure up to 1.5 x 0.4 cm. There are no pulmonary emboli. Emphysema is present. There is no pneumothorax or pleural effusion. Dense consolidation within the posterior basal segment of the left lower lobe has developed since CT of May 29, 2024. An indeterminate 7 mm left upper lobe nodule on image 184 of [address] of May 29, 2024. There is no central obstructing mass. A 5 mm right upper lobe nodule on image 143 is new since that exam. Right upper lobe airspace opacities shown on prior CT have resolved. IMPRESSION: 1. No pulmonary emboli identified. 2. Dense left lower lobe consolidation consistent with pneumonia. 3. 7 mm left upper lobe pulmonary nodule, unchanged since CT of May 29, 2024. This remains indeterminate and imaging follow-up as per the recommendations on that exam are recommended. 4. 5 mm right upper lobe nodule which is new since prior study. This is likely infectious but should be assessed on follow-up CT to ensure resolution. 5. Left hilar adenopathy, likely reactive. These nodes should be assessed on follow-up CT to ensure resolution. ACT 112: Negative or not required by law. Electronically signed by: Brian Nieto M.D. 07/28/2024 11:38 AM PG Care Time/CCT Total # of Minutes Spent Total Time Spent with Patient: Total time spent is greater than 50% in coordination of care (as documented) at patient's floor/unit and/or counseling patient: Coding Level of Care Code 40331 SUB INP/OBS CARE 3/50MIN Diagnoses Left lower lobe pneumonia J18.9 Sepsis A41.9 Acute exacerbation of chronic obstructive pulmonary disease J44.1 Hypoxia R09.02 Type II diabetes mellitus with manifestations E11.8 Depression with anxiety F41.8 Former tobacco use Z87.891 Acquired hypothyroidism E03.9 Hypothyroidism type: acquired Acute respiratory failure with hypoxia and hypercapnia J96.01; J96.02 (8) Hypothyroidism Hypothyroidism type: acquired Qualified Code(s): E03.9 - Hypothyroidism, unspecified
[2024-07-29 14:02] LABS: A calco-baum cmplx NotReported Not Detected (NotDetected); Bact fragilis Not Reported Not Detected (NotDetected); Blood Culture Id Panel PCR Panel Negative (NotDetected); C auris Not Reported Not Detected (NotDetected); Calbicans Not Reported Not Detected (NotDetected); Candida glabrata Not Reported Not Detected (NotDetected); Candida krusei Not Reported Not Detected (NotDetected); Cneoformans/gatti Not Reported Not Detected (NotDetected); Cparapsilosis Not Reported Not Detected (NotDetected); E cloacae compx Not Reported Not Detected (NotDetected); Efaecalis Not Reported Not Detected (NotDetected); Efaecium Not Reported Not Detected (NotDetected); Enterobacterales Not Reported Not Detected (NotDetected); Escherichia coli Not Reported Not Detected (NotDetected); H influenzae Not Reported Not Detected (NotDetected); K aerogenes Not Reported Not Detected (NotDetected); Koxytoca Not Reported Not Detected (NotDetected); Kpneumoniae grp Not Reported Not Detected (NotDetected); Lmonocyt Not Reported Not Detected (NotDetected); N meningitidis Not Reported Not Detected (NotDetected); P aeruginosa Not Reported Not Detected (NotDetected); Proteus spp Not Reported Not Detected (NotDetected); Salmonella spp Not Reported Not Detected (NotDetected); Staph lugdunensis Not Reported Not Detected (NotDetected); Staph spp. Not Reported Not Detected (NotDetected); Staphaureus Not Reported Not Detected (NotDetected); Staphepi Not Reported Not Detected (NotDetected); Stenmaltophilia Not Reported Not Detected (NotDetected); Strep agal(GrpB) Not Reported Not Detected (NotDetected); Strep pneum Not Reported Not Detected (NotDetected); Strep pyog (GrpA) Not Reported Not Detected (NotDetected); Strep spp Not Reported Not Detected (NotDetected)
[2024-07-29] MEDS: INFLUENZA VACC TS2024-25(65y+)/PF (IIV3) 0.5mL Syr IM ONE (17:34)
--- NOTE | 2024-07-29 17:40 | XCELERA ---
[id number]
[2024-07-29] MEDS ORDERED: LEVALBUTEROL HCL 0.63 MG/3 ML NEB NEB PRN (17:52)
[2024-07-29 18:13] LABS: Estimated Average Glucose 197 mg/dl; Hemoglobin A1C 8.5 % (4.5-5.6)
[2024-07-29] MEDS: dilTIAZem HCl 60 MG TAB PO ONE (18:39)
[2024-07-29] MEDS: dilTIAZem HCl 60 MG TAB PO SCH (23:28)
[2024-07-30 06:44] LABS: Hemoglobin 12.2 g/dl (12.0-16.0); Mean Corpuscular Hemoglobin 27.2 pg (25.0-34.0); Mean Corpuscular Hgb Conc 32.1 g/dL (32.0-36.0); Mean Corpuscular Volume 84.6 fL (80.0-100.0); Mean Platelet Volume 9.5 fL (9.4-12.4); Platelet Count 312 K/uL (130-400); RDW Coefficient of Variation 14.4 % (11.5-14.5); RDW Standard Deviation 44.5 fL (36.4-46.3); Red Blood Count 4.49 M/uL (4.20-5.40); White Blood Count 15.47 K/ul (4.8-10.8)
[2024-07-30 07:12] LABS: BUN Creatinine Ratio 27.2 (10-20); Calcium 8.9 mg/dl (8.6-10.3); Creatinine Clr Calc Pharmacy 68.7 ml/min; Potassium 4.5 mmol/L (3.5-5.1)
[2024-07-30 07:14] LABS: Basophils # (auto) 0.01 K/uL (0.00-0.20); Basophils % (auto) 0.1 %; Dohle Bodies 2+; Immature Granulocytes # (auto) 0.13 K/uL (0.01-0.20); Immature Granulocytes % (auto) 0.8 %; Lymphocytes # (auto) 0.62 K/uL (1.20-3.40); Monocytes # (auto) 0.44 K/uL (0.11-0.59); Monocytes % (auto) 2.8 %; Neutrophils # (auto) 14.27 K/uL (1.40-6.50); Neutrophils % (auto) 92.3 %
[2024-07-30 07:25] LABS: Thyroid Stimulating Hormone 0.985 uIu/ml (0.300-4.500)
[2024-07-30 07:33] LABS: INR 0.9 (0.9-1.1); Prothrombin Time 10.3 Seconds (9.0-12.0)
--- NOTE | 2024-07-30 07:35 | Electrocardiogram Report ---
Test Reason : Blood Pressure : */* mmHG Vent. Rate : 133 BPM Atrial Rate : 136 BPM P-R Int : * ms QRS Dur : 78 ms QT Int : 284 ms P-R-T Axes : * 69 60 degrees QTcB Int : 422 ms Poor data quality, interpretation may be adversely affected Atrial fibrillation with rapid ventricular response Nonspecific ST abnormality Abnormal ECG When compared with ECG of 28-Jul-2024 08:49, Atrial fibrillation has replaced Sinus rhythm Confirmed by Gerson Colon ([id number]) on 07/30/2024 7:34:33 AM Referred By: REFERRED SELF Confirmed By: Gerson Colon
--- NOTE | 2024-07-30 07:35 | Electrocardiogram Report ---
Test Reason : Blood Pressure : */* mmHG Vent. Rate : 120 BPM Atrial Rate : 141 BPM P-R Int : * ms QRS Dur : 78 ms QT Int : 288 ms P-R-T Axes : * 53 61 degrees QTcB Int : 407 ms Poor data quality, interpretation may be adversely affected Atrial fibrillation with rapid ventricular response Abnormal ECG When compared with ECG of 29-Jul-2024 17:42, No significant change was found Confirmed by Gerson Colon ([id number]) on 07/30/2024 7:34:45 AM Referred By: REFERRED SELF Confirmed By: Gerson Colon
[2024-07-30] MEDS: LANTUS PER UNIT CHARGE SC SCH (08:43)
[2024-07-30] MEDS: CYANOCOBALAMIN 1000 MCG/ML VIAL IM SCH (10:18)
[2024-07-30] MEDS: VITAMIN B COMPLEX TAB PO SCH (10:18)
--- NOTE | 2024-07-30 12:17 | Hospitalist Progress Note ---
Date of Service July 30, 2024 Assessment & Plan (1) Left lower lobe pneumonia: (2) Sepsis: (3) Acute exacerbation of chronic obstructive pulmonary disease: (4) Hypoxia: (5) Type II diabetes mellitus with manifestations: (6) Depression with anxiety: (7) Former tobacco use: (8) Hypothyroidism: (9) Acute respiratory failure with hypoxia and hypercapnia: (10) Atrial fibrillation with rapid ventricular response: Plan 69-year-old female with past medical history of COPD with chronic hyper Now with BiPAP at bedtime, history of tobacco use, hypothyroidism, type 2 diabetes mellitus, sinus tachycardia, essential hypertension who presents to the ED with shortness of breath and exertional dyspnea and hypoxia and was found to have a left lower lobe pneumonia #Sepsis secondary to left lower lobe pneumonia, present on admission #Acute on chronic hypoxic and hypercapnic respiratory failure #Acute exacerbation of COPD #Pulmonary nodule Outpatient web content executive is Dr. Andi Chase negative Blood cultures from admission growing gram-positive bacilli in 1 bottle Check repeat blood cultures ID consulted: ID believes this might be a contaminant, await further ID recommendations Chest CTA revealed dense LLL consolidation consistent with pneumonia; no pulmonary emboli notified Both ageindeterminate and new pulmonary nodules noted on CTA Continue IV ceftriaxone plus oral Zithromax (day 3) Continue Solu-Medrol 40 mg IV twice daily BiPAP at bedtime Use oxygen as needed to keep saturations between 89 to 92% Patient uses Incruse Ellipta and Advair twice daily at home Continue Ellipta Continue Brovana plus budesonide nebulizers Continue Xopenex nebulizer as needed Monitor heart rate #Essential hypertension # A-fib with RVR: New onset CTA shows no PE Echo shows normal left ventricular size and systolic function, EF of 65%, no regional wall motion abnormalities, no left ventricular hypertrophy. Patient went into atrial fibrillation overnight on 07/29/2024 Continue Cardizem 60 mg p.o. 3 times daily Continue clonidine 0.1 mg p.o. daily Change DuoNebs to Xopenex as needed Cardiology consulted: Await application development consultant recommendations Continue telemetry monitoring #Insulin-dependent type 2 diabetes mellitus A1c is 8.5 Continue Lantus 18 units twice daily Pharmacy managing glycemic control #Hypothyroidism TSH is 0.985 Continue levothyroxine 75 mcg p.o. daily #Anxiety/depression Continue Effexor 75 mg p.o. nightly Ativan as needed CODE STATUS: Full code DVT prophylaxis: Lovenox 40 mg subcutaneous daily Care plan discussed with patient, nursing staff Admission and Anticipated Discharge Date Admission Date: July 28, 2024 Subjective Patient seen and examined Labs reviewed Cultures reviewed Overnight events reviewed: Patient went into atrial fibrillation with RVR Telemetry reviewed: She is in A-fib which is rate controlled in the 90s Patient reports improvement in her shortness of breath. Denies any cough, fever or chills Physical Exam Physical Exam: General: No acute distress Psych: Awake and alert HEENT: Anicteric sclera, moist oral mucosa CVS: Irregular rate and rhythm Lungs: Bilateral air entry, no wheezing noted, no use of accessory muscles noted Abdomen: Soft, nontender, no rebound, no guarding Ext: No lower extremity edema, no calf tenderness Neuro: No focal motor deficits noted Results & Data Results & Data Vital Signs (Past 12 Hours) Vital Signs Temp Pulse Pulse Resp BP Pulse Ox O2 Del Method 07/30/24 11:22 36.9 C 101 H 18 143/84 H 94 Room Air 07/30/24 10:10 Room Air 07/30/24 07:00 36.8 C 92 H 16 140/80 97 BiPAP 07/30/24 06:59 89 07/30/24 06:55 81 26 H 95 BiPAP 07/30/24 06:55 81 26 H 95 07/30/24 03:05 81 21 97 07/30/24 02:21 36.5 C 99 H 18 101/62 96 BiPAP 07/30/24 00:19 99 H 96 BiPAP FiO2 07/30/24 11:22 07/30/24 10:10 07/30/24 07:00 07/30/24 06:59 07/30/24 06:55 24 07/30/24 06:55 24 07/30/24 03:05 24 07/30/24 02:21 07/30/24 00:19 Laboratory Results Laboratory Results - last 24 hr 07/28/24 07/29/24 07/29/24 14:43 06:19 16:05 WBC RBC Hgb Hct MCV MCH MCHC RDW Std Deviation RDW Coeff of Palak Plt Count MPV Immature Gran % (Auto) Neut % (Auto) Lymph % (Auto) Hyde % (Auto) Eos % (Auto) Baso % (Auto) Neut # (Auto) Lymph # (Auto) Hyde # (Auto) Eos # (Auto) Baso # (Auto) Immature Gran # (Auto) Dohle Bodies PT INR Sodium Potassium Chloride Carbon Dioxide Anion Gap BUN Creatinine Est Cr Clr Drug Dosing eGFR BUN/Creatinine Ratio Glucose POC Glucose 165 H Estimat Average Glucose 197 Hemoglobin A1c 8.5 H Lactate Calcium Magnesium Vitamin B12 TSH Bld Cult ID Panel PCR PCR Panel Negative 07/29/24 07/30/24 07/30/24 20:10 06:24 07:19 WBC 15.47 H RBC 4.49 Hgb 12.2 Hct 38.0 MCV 84.6 MCH 27.2 MCHC 32.1 RDW Std Deviation 44.5 RDW Coeff of Palak 14.4 Plt Count 312 MPV 9.5 Immature Gran % (Auto) 0.8 Neut % (Auto) 92.3 Lymph % (Auto) 4.0 Hyde % (Auto) 2.8 Eos % (Auto) 0.0 Baso % (Auto) 0.1 Neut # (Auto) 14.27 H Lymph # (Auto) 0.62 L Hyde # (Auto) 0.44 Eos # (Auto) 0.00 Baso # (Auto) 0.01 Immature Gran # (Auto) 0.13 Dohle Bodies 2+ PT 10.3 INR 0.9 Sodium 140 Potassium 4.5 Chloride 108 H Carbon Dioxide 24 Anion Gap 8 BUN 25 H Creatinine 0.92 Est Cr Clr Drug Dosing 68.7 eGFR 66.98 BUN/Creatinine Ratio 27.2 H Glucose 223 H POC Glucose 223 H 218 H Estimat Average Glucose Hemoglobin A1c Lactate 1.4 Calcium 8.9 Magnesium 2.0 Vitamin B12 237 TSH 0.985 Bld Cult ID Panel PCR 07/30/24 11:16 WBC RBC Hgb Hct MCV MCH MCHC RDW Std Deviation RDW Coeff of Palak Plt Count MPV Immature Gran % (Auto) Neut % (Auto) Lymph % (Auto) Hyde % (Auto) Eos % (Auto) Baso % (Auto) Neut # (Auto) Lymph # (Auto) Hyde # (Auto) Eos # (Auto) Baso # (Auto) Immature Gran # (Auto) Dohle Bodies PT INR Sodium Potassium Chloride Carbon Dioxide Anion Gap BUN Creatinine Est Cr Clr Drug Dosing eGFR BUN/Creatinine Ratio Glucose POC Glucose 233 H Estimat Average Glucose Hemoglobin A1c Lactate Calcium Magnesium Vitamin B12 TSH Bld Cult ID Panel PCR PG Care Time/CCT Total # of Minutes Spent Total Time Spent with Patient: Total time spent is greater than 50% in coordination of care (as documented) at patient's floor/unit and/or counseling patient: Coding Level of Care Code 41689 SUB INP/OBS CARE 3/50MIN Diagnoses Left lower lobe pneumonia J18.9 Sepsis A41.9 Acute exacerbation of chronic obstructive pulmonary disease J44.1 Hypoxia R09.02 Type II diabetes mellitus with manifestations E11.8 Depression with anxiety F41.8 Former tobacco use Z87.891 Acquired hypothyroidism E03.9 Hypothyroidism type: acquired Acute respiratory failure with hypoxia and hypercapnia J96.01; J96.02 Atrial fibrillation with rapid ventricular response I48.91 (8) Hypothyroidism Hypothyroidism type: acquired Qualified Code(s): E03.9 - Hypothyroidism, unspecified
--- NOTE | 2024-07-30 12:42 | Infectious Disease Consult ---
Date of Consultation July 30, 2024 Assessment & Plan (1) Acute respiratory failure with hypoxia and hypercapnia: (2) Acute exacerbation of chronic obstructive pulmonary disease: (3) Pneumonia: (4) Bacteremia: Plan ID Problem List: 1. BCx from 07/18 positive for Bacillus cereus in 1 of 2 sets, suspect contaminant 2. LLL pneumonia 3. COPD with exacerbation 4. Reported allergies to antibiotics: penicillin allergy, she reports she has not had a reaction since high school (around 50 years ago), and she reports that she only developed a rash/hives while in high school; no history of anaphylaxis; sulfa (fever/rash); doxycycline (GI upset) Impression: Luz Maria Adrian is a 69-year-old woman with history of COPD (on home BiPAP with 2L nc when sleeping), anxiety, former tobacco use, GERD, T2DM, PAD, lumbar radiculopathy who presents to [facility] on 07/28 for shortness of breath, found to have LLL pneumonia, BCx from 07/18 positive for Bacillus cereus in 1 of 2 sets. ID is consulted for BCx + Bacillus cereus. She developed shortness of breath on 07/27 then developed a productive cough on 07/28. Upon presentation to the ED, VS T37.1 HR 125 BP 109/72 SpO2 96% on RA. Her hypoxemia worsenedand she was placed on NRB then BiPAP. Labs showed WBC 26.86 Cr 1.06 procal 7.48. Chest CTA revealed dense LLL consolidation consistent with pneumonia; no pulmonary emboli; both age-indeterminate and new pulmonary nodules. She was given prednisone, azithromycin, and ceftriaxone. On 07/29, afebrile, WBC improved to 15.47 and patient was weaned to room air. 07/29 TTE: EF 65-70%, no RMAs; no significant valvular stenosis/regurgitation though valves not well-visualized, technically difficult study. BCx from 07/18 positive for Bacillus cereus in 1 of 2 sets; 07/29 BCx obtained and pending. Discussion Pt with LLL pneumonia and COPD exacerbation, and has been improving on antibiotics and steroids with improvement in WBC count and resolution of hypoxemia. In this setting, pts BCx from 07/18 positive for Bacillus cereus in 1 of 2 sets; 07/29 BCx obtained and pending. Bacillus spp in BCx is often a contaminant, though can at times reflect serious infection (especially in pts with chronic catheter, malignancy, etc.). Discussed with Dr. Trejo on 07/30, pt is overall feeling better than when she came to the hospital. Pt without reported hardware/cardiac devices/lines. TTE poor quality study though without obvious valvular abnormalities. Pt without reported GI symptoms to suggest foodborne illness. Given pt without risk factors for complicated bacteremia and given pt feeling better in the absence of targeted treatment, suspect contaminant and would hold off on additional antibiotics at this time. Would follow repeat BCx to ensure remains negative (and if persistently positive or develops GI symptoms, would reevaluate for more serious infection and obtain CT A/P, as per below). Would continue treatment for pneumonia and COPD as you are. May obtain sputum Cx if producing, though given pts improvement it would be reasonable to continue ceftriaxone (rather than broaden). MRSA nares negative. Recommendations: - Continue treatment for pneumonia (ceftriaxone/azithromycin) and COPD exacerbation as you are. Would hold off on broadening antibiotics at this time - Obtain sputum Cx if able - F/u 07/29 BCx until finalized to ensure clearance. Suspect B. cereus is contaminant. If BCx persistently positive, would reengage ID, obtain CT A/P - If develops fevers, clinical worsening, or GI symptoms, obtain CT A/P - Ensure close follow up with primary care after discharge Plan discussed with Dr. Trejo Thank you for letting ID participate in the care of this patient. ID will sign off at this time. If questions, please contact [facility] at [phone]. Margie Millan MD, MHS Infectious Diseases [facility] direct line: [phone] Consultation Information This patient recommendation is based on a telemedicine consult request which was completed asynchronously through chart review and information provided by the primary physician. The patient was not seen or examined today. The evaluation is consultative in nature and all patient care and treatment decisions can either be accepted or rejected by the patient's primary hospital-based treating physician using their own independent medical judgment for their patient. Fish Bailer contact information: Please call [facility] Call Center . (Phone Number For Physician Use Only) Time Spent Reviewing Chart: 31+ minutes History of Present Illness Reason for Consultation: BCx from 11/8 positive for Bacillus cereus in 1 of 2 sets Attending Physician: Raymond Trejo MD History of Present Illness PLEASE NOTE: E-consult was performed for this visit given limited telepresenter availability today. Luz Maria Adrian is a 69-year-old woman with history of COPD (on home BiPAP with 2L nc when sleeping), anxiety, former tobacco use, GERD, T2DM, PAD, lumbar radiculopathy who presents to [facility] on 07/28 for shortness of breath, found to have LLL pneumonia, BCx from 07/18 positive for Bacillus cereus in 1 of 2 sets. ID is consulted for BCx + Bacillus cereus. She developed shortness of breath on 07/27 then developed a productive cough on 07/28. Upon presentation to the ED, VS T37.1 HR 125 BP 109/72 SpO2 96% on RA. Her hypoxemia worsenedand she was placed on NRB then BiPAP. Labs showed WBC 26.86 Cr 1.06 procal 7.48. Chest CTA revealed dense LLL consolidation consistent with pneumonia; no pulmonary emboli; both age-indeterminate and new pulmonary nodules. She was given prednisone, azithromycin, and ceftriaxone. On 07/29, afebrile, WBC improved to 15.47 and patient was weaned to room air. 07/29 TTE: EF 65-70%, no RMAs; no significant valvular stenosis/regurgitation though valves not well-visualized, technically difficult study. BCx from 07/18 positive for Bacillus cereus in 1 of 2 sets; 07/29 BCx obtained and pending. Discussed with Dr. Trejo on 07/30, pt is overall feeling better than when she came to the hospital. Pt without reported hardware/cardiac devices/lines. Allergies Allergy/AdvReac Type Severity Reaction Status Date / Time bee venom protein (honey bee) Allergy Severe HIVES AND Verified 07/28/24 13:38 ANAPHYLAXIS Penicillins Allergy Severe HIVES Verified 07/28/24 13:38 Sulfa (Sulfonamide Allergy Severe High Verified 07/28/24 13:38 Antibiotics) fever, broke out with spider veins all over grass pollen Allergy Intermediate hay fever Verified 07/28/24 13:38 symptoms doxycycline AdvReac Intermediate Gastrointestinal Verified 07/28/24 13:38 Upset Home Medications Medication Instructions Recorded Confirmed Type blood sugar diagnostic (True 08/14/23 05/06/24 History Metrix Glucose Test Strip) cyclobenzaprine 5 mg tablet 5 mg PO HS #90 tabs 02/05/24 07/28/24 Rx epinephrine 0.3 mg/0.3 mL 0.3 mg (0.3 mL) IM Q3H PRN 02/14/24 07/28/24 Rx injection, auto-injector (EpiPen) Anaphylaxis #1 ea albuterol sulfate 90 mcg/actuation 1 - 2 puff inhalation Q4 PRN 02/29/24 07/28/24 Rx aerosol inhaler (ProAir HFA) Shortness Of Breath #8.5 grams clonidine HCl 0.1 mg tablet 0.1 mg PO DAILY #90 tabs 03/03/24 07/28/24 Rx diltiazem HCl 120 mg 120 mg PO QAM #90 caps 03/03/24 07/28/24 Rx capsule,extended release 24 hr (Cardizem CD) pen needle, diabetic 32 gauge x #100 ea 04/24/24 05/06/24 Rx 5/32" (Pen Needle) insulin glargine 100 unit/mL (3 26 unit (0.26 mL) subcut DAILY 90 04/28/24 07/28/24 Rx mL) subcutaneous pen (Lantus days #30 mL Solostar U-100 Insulin) fluticasone propionate 115 2 puff inhalation BID #12 grams 05/16/24 07/28/24 Rx mcg-salmeterol 21 mcg/actuation HFA inhaler (Advair HFA) levothyroxine 75 mcg tablet 75 mcg PO QAM #90 tabs 05/28/24 07/28/24 Rx umeclidinium 62.5 mcg/actuation 1 inh inhalation DAILY 07/28/24 07/28/24 History blister powder for inhalation (Incruse Ellipta) venlafaxine 75 mg capsule,extended 75 mg PO DAILY 07/28/24 07/28/24 History release 24 hr Patient History Medical History Depression with anxiety COPD (chronic obstructive pulmonary disease) controlled w/ daily inhaler use, prn neb/inhaler use Diabetes Idiopathic polyneuropathy PAD (peripheral artery disease) Hx of encephalopathy pt not aware, denies Hx of respiratory failure acute on chronic History of COVID-19 (2022) no hosp, resolved Adrenal mass benign, no changes in yrs, monitoring SVT (supraventricular tachycardia) hx>>controlled w/ diltiazem; states has a "normally fast heart rate" at all times History of anesthesia reaction states she did not receive enough anesthesia with 1st cataract sx on right eye Acute exacerbation of chronic obstructive pulmonary disease HX>>last exacerbation 08/2023, no hospitalization hx of severe exacerbation in Sep 2021--had to be hospitalized and intubated---pt states she has made a full recovery---does use inhalers daily/prn and nebulizer prn, oxgyen 1 L n/c at hs PAC (premature atrial contraction) Overweight History of colon polyps Osteoarthritis Fibromyalgia Kidney stones hx of GERD (gastroesophageal reflux disease) Hypothyroidism Cardiac murmur follows with Dr. Colon Sleep apnea BIPAP Surgical History Hx of left cataract extraction Hx of oral surgery dental implants History of dilatation and curettage History of total right knee replacement (TKR) History of umbilical hernia repair History of colonoscopy History of tooth extraction History of wisdom tooth extraction Hx of eye surgery left laser for retinal bleed History of right cataract extraction during procedure "pupil was damaged and no longer dilates" Family History Aunt History of anesthesia reaction "her heart stopped with any anesthesia"--no one else in the family has any issues Grandmother (Paternal) Family history of diabetes mellitus Grandfather (Maternal) Family hx of colon cancer Colon cancer Father Heart disease Stroke Mother Dementia Diabetes Macular degeneration Alzheimer disease Autoimmune disease Brother Squamous cell carcinoma of skin Atrial fibrillation Bladder cancer Other Basal cell carcinoma Denies family history of Ovarian cancer Prostate cancer Myocardial infarction Breast cancer Social History Smoking Status: Former smoker Tobacco Type: Cigarettes Age Started Using Tobacco: 18; Age Quit Using Tobacco: 68; packs per day: 0.25; Second Hand Exposure: No; Do You Dip or Chew Tobacco: No; Hx Alcohol Use: Yes Alcohol type: wine and hard liquor Alcohol Intake Frequency: Monthly or Less Hx Substance Use: No Preferred Language: Lao Communication Ability: Effective Visual Impairment: No Limitations Hearing Ability: Normal Flake Miller Wheat And Oats Required: No Beliefs That Will Affect Care: None marital status: Current Living Situation: Spouse current occupational status: retired How many Children do You have: 2 Other Information That Helps Us Care for You: No Feels Safe at Home: Yes Safety Concerns: Feels Safe At This Time Childhood Exposure to Second-Hand Smoke: Yes Diet: regular Diet Comment: no specific diet caffeine: Yes during the past year weight has: increased > 10 lbs Dental Care, Regularly: Yes Physical Activity Frequency: Does not Exercise Seatbelt Use: always Sunscreen Use: Yes Do you think of yourself as: straight/heterosexual Assistive Devices: BiPap, Cane and Oxygen - at Night Results & Data Vital Signs (Past 12 Hours) Vital Signs Temp Pulse Pulse Resp BP Pulse Ox O2 Del Method 07/30/24 11:22 36.9 C 101 H 18 143/84 H 94 Room Air 07/30/24 10:10 Room Air 07/30/24 07:00 36.8 C 92 H 16 140/80 97 BiPAP 07/30/24 06:59 89 07/30/24 06:55 81 26 H 95 BiPAP 07/30/24 06:55 81 26 H 95 07/30/24 03:05 81 21 97 07/30/24 02:21 36.5 C 99 H 18 101/62 96 BiPAP FiO2 07/30/24 11:22 07/30/24 10:10 07/30/24 07:00 07/30/24 06:59 07/30/24 06:55 24 07/30/24 06:55 24 07/30/24 03:05 24 07/30/24 02:21 Diagnostic Findings Diagnostics: 07/29 TTE EF 65-70%, no RMAs; no significant valvular stenosis/regurgitation though valves not well-visualized, technically difficult study 07/28 CTA chest 1. No pulmonary emboli identified. 2. Dense left lower lobe consolidation consistent with pneumonia. 3. 7 mm left upper lobe pulmonary nodule, unchanged since CT of May 29, 2024. This remains indeterminate and imaging follow-up as per the recommenda tions on that exam are recommended. 4. 5 mm right upper lobe nodule which is new since prior study. This is likely infectious but should be assessed on follow-up CT to ensure resolution. 5. Left hilar adenopathy, likely reactive. These nodes should be assessed on follow-up CT to ensure resolution. Micro Data: 07/29 BCx x2: PEND 07/28 MRSA nares: neg 07/28 respiratory pathogen panel: neg 07/28 BCx x2: Bacillus cereus in 1 of 2 sets Antibiotic Summary: ceftriaxone (07/28 present) azithromycin (07/28 present) (3) Pneumonia Laterality: left Lung location: lower lobe of lung Pneumonia type: due to unspecified organism Qualified Code(s): J18.9 - Pneumonia, unspecified organism
--- NOTE | 2024-07-30 12:46 | Cardiology Consultation ---
Date of Consultation July 30, 2024 Assessment & Plan (1) Atrial fibrillation with rapid ventricular response: (2) Left lower lobe pneumonia: (3) Chronic hypercapnic respiratory failure: Plan ASSESSMENT/PLAN: 1. Atrial fibrillation: New diagnosis this hospital stay, although presented with sinus tachycardia. She seems to be asymptomatic. We discussed the diagnosis in detail and treatment strategies. Heart rate seems improved with minor increase in diltiazem. Would further titrate diltiazem and consider diltiazem CD 240 mg daily tomorrow. Recommend therapeutic anticoagulation for stroke risk reduction. Can be discharged on Eliquis 5 mg twice daily. Can init iate Eliquis now or use heparin drip if there is concern for potential procedure while here. We discussed other treatment strategies such as rhythm control, cardioversion, or ablation. Recommend rate control strategy for now. 2. Pneumonia: As per primary hospitalist service and ID. 3. Chronic hypercapnic respiratory failure/COPD: Is managed at home with BiPAP at night. She follows with pulmonology in the outpatient setting. She appears euvolemic. 4. Disposition: Cardiology will continue to follow. Patient care communicated with primary hospitalist, Dr. Trejo. Thank you for allowing me to participate in the care of your patient. Please call for any other questions or concerns. Sincerely, Elmo Colon M.D. History of Present Illness Reason for Consultation: new onset afib Requesting Physician: Raymond Trejo MD Attending Physician: Raymond Trejo MD History of Present Illness Ms Adrian is a very pleasant 69-year-old female with a history significant for sinus tachycardia, type 2 diabetes, COPD, dyslipidemia, and hypothyroidism. She had been seen in the outpatient cardiology office in 2020 and again in 2022 for sinus tachycardia for which she was asymptomatic. She was admitted on 07/28/2024 with left lower lobe pneumonia and sepsis. She is also being treated for an acute exacerbation of COPD. Her initial ECG demonstrated sinus tachycardia but while here, developed atrial fibrillation with rapid ventricular response. She denies palpitations, chest pain, or any new symptoms. She originally presented for worsening dyspnea on exertion. She had significant dyspnea even walking from room to room in her home, and once again presented in sinus rhythm. She has a nonproductive cough on occasion. She denied fevers. She has had some left-sided chest pain after coughing and she vomited a couple of days ago, but this has since resolved. She denies orthopnea, edema, palpitations, syncope, near syncope. She denies a history of TIA or stroke. At home, she takes diltiazem CD1 120 mg daily. Here, diltiazem was ordered as 60 mg 3 times daily starting last night. Her heart rate has improved while in A-fib with this minor change in diltiazem. She denies melena, hematochezia, hematuria, or other bleeding. Review of systems: As above. Family history: 2 brothers with atrial fibrillation. Father with CHF and atrial fibrillation. Social history: She quit smoking in 2022 after 1 pack/day since the age of 17. Occasional alcohol. No drugs. Lives at home with her . Has 2 daughters. Grandchildren. 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 Unaccompanied. Allergies Allergy/AdvReac Type Severity Reaction Status Date / Time bee venom protein (honey bee) Allergy Severe HIVES AND Verified 07/28/24 13:38 ANAPHYLAXIS Penicillins Allergy Severe HIVES Verified 07/28/24 13:38 Sulfa (Sulfonamide Allergy Severe High Verified 07/28/24 13:38 Antibiotics) fever, broke out with spider veins all over grass pollen Allergy Intermediate hay fever Verified 07/28/24 13:38 symptoms doxycycline AdvReac Intermediate Gastrointestinal Verified 07/28/24 13:38 Upset Home Medications Medication Instructions Recorded Confirmed Type blood sugar diagnostic (True 08/14/23 05/06/24 History Metrix Glucose Test Strip) cyclobenzaprine 5 mg tablet 5 mg PO HS #90 tabs 02/05/24 07/28/24 Rx epinephrine 0.3 mg/0.3 mL 0.3 mg (0.3 mL) IM Q3H PRN 02/14/24 07/28/24 Rx injection, auto-injector (EpiPen) Anaphylaxis #1 ea albuterol sulfate 90 mcg/actuation 1 - 2 puff inhalation Q4 PRN 02/29/24 07/28/24 Rx aerosol inhaler (ProAir HFA) Shortness Of Breath #8.5 grams clonidine HCl 0.1 mg tablet 0.1 mg PO DAILY #90 tabs 03/03/24 07/28/24 Rx diltiazem HCl 120 mg 120 mg PO QAM #90 caps 03/03/24 07/28/24 Rx capsule,extended release 24 hr (Cardizem CD) pen needle, diabetic 32 gauge x #100 ea 04/24/24 05/06/24 Rx 5/32" (Pen Needle) insulin glargine 100 unit/mL (3 26 unit (0.26 mL) subcut DAILY 90 04/28/24 07/28/24 Rx mL) subcutaneous pen (Lantus days #30 mL Solostar U-100 Insulin) fluticasone propionate 115 2 puff inhalation BID #12 grams 05/16/24 07/28/24 Rx mcg-salmeterol 21 mcg/actuation HFA inhaler (Advair HFA) levothyroxine 75 mcg tablet 75 mcg PO QAM #90 tabs 05/28/24 07/28/24 Rx umeclidinium 62.5 mcg/actuation 1 inh inhalation DAILY 07/28/24 07/28/24 History blister powder for inhalation (Incruse Ellipta) venlafaxine 75 mg capsule,extended 75 mg PO DAILY 07/28/24 07/28/24 History release 24 hr Problem List (Updated 07/30/24 @ 13:03 by Gerson Colon MD) Atrial fibrillation with rapid ventricular response Bacteremia Acute respiratory failure with hypoxia and hypercapnia Hypoxia (Acute) Pneumonia (Acute) Sepsis Hypoxia Sinus tachycardia Former tobacco use Left lower lobe pneumonia Diarrhea Chronic diarrhea Adrenal nodule Vitamin D insufficiency Chronic hypercapnic respiratory failure Encephalopathy Current smoker Tobacco abuse PAD (peripheral artery disease) Acute exacerbation of chronic obstructive pulmonary disease (Acute) Lumbosacral radiculopathy at L4 Idiopathic polyneuropathy Lichen sclerosus et atrophicus Vulvar dermatitis Urinary incontinence Type II diabetes mellitus with manifestations (Chronic) Chronic obstructive pulmonary disease Hypothyroidism (Chronic) Tobacco use (Chronic) Restless legs syndrome Obesity (Chronic) Nocturnal hypoxia (Chronic) Memory loss (Chronic) Lumbar canal stenosis (Chronic) Hypercholesterolemia (Chronic) Gastropathy (Chronic) Depression with anxiety (Chronic) Chronic reflux esophagitis (Chronic) Allergy to bugs (Chronic) History of colon polyps (Chronic) Vision loss, right eye (Acute) Anxiety (Chronic) GERD (gastroesophageal reflux disease) (Chronic) Patient History Medical History Depression with anxiety COPD (chronic obstructive pulmonary disease) controlled w/ daily inhaler use, prn neb/inhaler use Diabetes Idiopathic polyneuropathy PAD (peripheral artery disease) Hx of encephalopathy pt not aware, denies Hx of respiratory failure acute on chronic History of COVID-19 (2021) no hosp, resolved Adrenal mass benign, no changes in yrs, monitoring SVT (supraventricular tachycardia) hx>>controlled w/ diltiazem; states has a "normally fast heart rate" at all times History of anesthesia reaction states she did not receive enough anesthesia with 1st cataract sx on right eye Acute exacerbation of chronic obstructive pulmonary disease HX>>last exacerbation 08/2023, no hospitalization hx of severe exacerbation in Sep 2021--had to be hospitalized and intubated---pt states she has made a full recovery---does use inhalers daily/prn and nebulizer prn, oxgyen 1 L n/c at hs PAC (premature atrial contraction) Overweight History of colon polyps Osteoarthritis Fibromyalgia Kidney stones hx of GERD (gastroesophageal reflux disease) Hypothyroidism Cardiac murmur follows with Dr. Colon Sleep apnea BIPAP Surgical History Hx of left cataract extraction Hx of oral surgery dental implants History of dilatation and curettage History of total right knee replacement (TKR) History of umbilical hernia repair History of colonoscopy History of tooth extraction History of wisdom tooth extraction Hx of eye surgery left laser for retinal bleed History of right cataract extraction during procedure "pupil was damaged and no longer dilates" Family History Aunt History of anesthesia reaction "her heart stopped with any anesthesia"--no one else in the family has any issues Grandmother (Paternal) Family history of diabetes mellitus Grandfather (Maternal) Family hx of colon cancer Colon cancer Father Heart disease Stroke Mother Dementia Diabetes Macular degeneration Alzheimer disease Autoimmune disease Brother Squamous cell carcinoma of skin Atrial fibrillation Bladder cancer Other Basal cell carcinoma Denies family history of Ovarian cancer Prostate cancer Myocardial infarction Breast cancer Social History Smoking Status: Former smoker Tobacco Type: Cigarettes Age Started Using Tobacco: 18; Age Quit Using Tobacco: 68; packs per day: 0.25; Second Hand Exposure: No; Do You Dip or Chew Tobacco: No; Hx Alcohol Use: Yes Alcohol type: wine and hard liquor Alcohol Intake Frequency: Monthly or Less Hx Substance Use: No Preferred Language: Maori Communication Ability: Effective Visual Impairment: No Limitations Hearing Ability: Normal Pediatric Nephrologist Required: No Beliefs That Will Affect Care: None marital status: Current Living Situation: Spouse current occupational status: retired How many Children do You have: 2 Other Information That Helps Us Care for You: No Feels Safe at Home: Yes Safety Concerns: Feels Safe At This Time Childhood Exposure to Second-Hand Smoke: Yes Diet: regular Diet Comment: no specific diet caffeine: Yes during the past year weight has: increased > 10 lbs Dental Care, Regularly: Yes Physical Activity Frequency: Does not Exercise Seatbelt Use: always Sunscreen Use: Yes Do you think of yourself as: straight/heterosexual Assistive Devices: BiPap, Cane and Oxygen - at Night Physical Exam Physical Exam: Gen.: No acute distress. Alert and oriented. HEENT: Anicteric sclera. Neck: No JVD. No bruits. Normal carotid upstrokes bilaterally. Cardiac: Irregularly irregular. Normal S1-S2. No murmurs, rubs, or gallops. Pulmonary: Decreased breath sounds bilaterally with scant expiratory wheezing. Otherwise clear to auscultation. Abdomen: Soft, nontender, nondistended, with normoactive bowel sounds. No bruits noted. Extremities: 2+ radial pulses bilaterally. 2+ posterior tibialis pulses bilaterally. No significant pitting edema or cyanosis. Psychiatric: Affect appears appropriate. Results & Data Vital Signs (Past 12 Hours) Vital Signs Temp Pulse Pulse Resp BP Pulse Ox O2 Del Method 07/30/24 11:22 36.9 C 101 H 18 143/84 H 94 Room Air 07/30/24 10:10 Room Air 07/30/24 07:00 36.8 C 92 H 16 140/80 97 BiPAP 07/30/24 06:59 89 07/30/24 06:55 81 26 H 95 BiPAP 07/30/24 06:55 81 26 H 95 07/30/24 03:05 81 21 97 07/30/24 02:21 36.5 C 99 H 18 101/62 96 BiPAP FiO2 07/30/24 11:22 07/30/24 10:10 07/30/24 07:00 07/30/24 06:59 07/30/24 06:55 24 07/30/24 06:55 24 07/30/24 03:05 24 07/30/24 02:21 Laboratory Results Laboratory Results - last 24 hr 07/28/24 07/29/24 07/29/24 14:43 06:19 16:05 WBC RBC Hgb Hct MCV MCH MCHC RDW Std Deviation RDW Coeff of Palak Plt Count MPV Immature Gran % (Auto) Neut % (Auto) Lymph % (Auto) [place] % (Auto) Eos % (Auto) Baso % (Auto) Neut # (Auto) Lymph # (Auto) [place] # (Auto) Eos # (Auto) Baso # (Auto) Immature Gran # (Auto) Dohle Bodies PT INR Sodium Potassium Chloride Carbon Dioxide Anion Gap BUN Creatinine Est Cr Clr Drug Dosing eGFR BUN/Creatinine Ratio Glucose POC Glucose 165 H Estimat Average Glucose 197 Hemoglobin A1c 8.5 H Lactate Calcium Magnesium Vitamin B12 TSH Bld Cult ID Panel PCR PCR Panel Negative 07/29/24 07/30/24 07/30/24 20:10 06:24 07:19 WBC 15.47 H RBC 4.49 Hgb 12.2 Hct 38.0 MCV 84.6 MCH 27.2 MCHC 32.1 RDW Std Deviation 44.5 RDW Coeff of Palak 14.4 Plt Count 312 MPV 9.5 Immature Gran % (Auto) 0.8 Neut % (Auto) 92.3 Lymph % (Auto) 4.0 [place] % (Auto) 2.8 Eos % (Auto) 0.0 Baso % (Auto) 0.1 Neut # (Auto) 14.27 H Lymph # (Auto) 0.62 L [place] # (Auto) 0.44 Eos # (Auto) 0.00 Baso # (Auto) 0.01 Immature Gran # (Auto) 0.13 Dohle Bodies 2+ PT 10.3 INR 0.9 Sodium 140 Potassium 4.5 Chloride 108 H Carbon Dioxide 24 Anion Gap 8 BUN 25 H Creatinine 0.92 Est Cr Clr Drug Dosing 68.7 eGFR 66.98 BUN/Creatinine Ratio 27.2 H Glucose 223 H POC Glucose 223 H 218 H Estimat Average Glucose Hemoglobin A1c Lactate 1.4 Calcium 8.9 Magnesium 2.0 Vitamin B12 237 TSH 0.985 Bld Cult ID Panel PCR 07/30/24 11:16 WBC RBC Hgb Hct MCV MCH MCHC RDW Std Deviation RDW Coeff of Palak Plt Count MPV Immature Gran % (Auto) Neut % (Auto) Lymph % (Auto) [place] % (Auto) Eos % (Auto) Baso % (Auto) Neut # (Auto) Lymph # (Auto) [place] # (Auto) Eos # (Auto) Baso # (Auto) Immature Gran # (Auto) Dohle Bodies PT INR Sodium Potassium Chloride Carbon Dioxide Anion Gap BUN Creatinine Est Cr Clr Drug Dosing eGFR BUN/Creatinine Ratio Glucose POC Glucose 233 H Estimat Average Glucose Hemoglobin A1c Lactate Calcium Magnesium Vitamin B12 TSH Bld Cult ID Panel PCR Diagnostic Findings Telemetry personally reviewed: Atrial fibrillation with RVR today. Blood cultures 07/28/2024 1 of 2 growing Bacillus cereus. ECGs personally reviewed: ECG 07/28/2024 8:49 AM: Sinus tachycardia 122 bpm. ECG 07/29/2024 at 1742: A-fib with RVR 133 bpm. ECG 07/29/20242012: A-fib with RVR 120 bpm. PVC versus aberrantly conducted complex. ECG 07/30/2024 8:19 AM: A-fib 99 bpm. Echo 07/29/2024: Normal LV size, wall motion, systolic function. EF 65-70%. No LVH. No significant valvular stenosis/regurgitation. Valves were not well- seen. History and physical report reviewed. Labs reviewed and notable for normal high-sensitivity troponin x 1, normal BNP, normal potassium, normal renal function, hyperglycemia, leukocytosis, normal hemoglobin. Infectious disease consult reviewed. ID suspects blood culture is a contaminant. Medications Administered Current Inpatient Medications Acetaminophen (Acetaminophen 325 Mg Tab) 650 mg PO Q4H PRN PRN Reason: Pain or Fever Stop: 08/27/24 16:04 Azithromycin (Azithromycin 250 Mg Tab) 500 mg PO QAM [facility] Stop: 07/31/24 08:59 Last Admin: 07/30/24 08:37 Dose: 500 mg Budesonide (Budesonide 0.5 Mg/2 Ml Vial (Pulmicort)) 0.5 mg NEB BIDR [facility] Stop: 08/27/24 18:59 Last Admin: 07/30/24 06:54 Dose: 0.5 mg Clonidine HCl (Clonidine Hcl 0.1 Mg Tab) 0.1 mg PO DAILY [facility] Stop: 08/28/24 08:59 Last Admin: 07/30/24 08:37 Dose: 0.1 mg Cyanocobalamin (Cyanocobalamin 1000 Mcg/Ml Vial) 1,000 mcg IM QAM [facility] Stop: 08/01/24 08:59 Last Admin: 07/30/24 10:18 Dose: 1,000 mcg Cyclobenzaprine HCl (Cyclobenzaprine Hcl 5 Mg Tab) 5 mg PO HS [facility] Stop: 08/27/24 20:59 Last Admin: 07/29/24 20:20 Dose: 5 mg Dextrose (Dextrose 50% 50 Ml Syringe) 25 - 50 ml IV UD PRN; Protocol PRN Reason: Hypoglycemia Protocol Stop: 08/27/24 15:14 Diltiazem HCl (Diltiazem Hcl 60 Mg Tab) 60 mg PO TID [facility] Stop: 08/28/24 22:59 Last Admin: 07/30/24 08:37 Dose: 60 mg Enoxaparin Sodium (Enoxaparin Inj 40 Mg/0.4 Ml Syr) 40 mg SQ Q24H [facility] Stop: 08/27/24 20:59 Last Admin: 07/29/24 20:20 Dose: 40 mg Formoterol Fumarate (Formoterol 20 Mcg/2 Ml Vial) 20 mcg NEB BIDR [facility] Stop: 08/27/24 18:59 Last Admin: 07/30/24 06:54 Dose: 20 mcg Glucagon (Glucagon For Inj 1 Mg Vial) 1 mg SQ UD PRN; Protocol PRN Reason: Hypoglycemia Protocol Stop: 08/27/24 15:14 Glucose (Glucose 40% Gel 15 Gm Tube) 15 - 30 gm PO UD PRN; Protocol PRN Reason: Hypoglycemia Protocol Stop: 08/27/24 15:14 Glucose (Glucose 10 Tab/Tube) 4 - 8 tab PO UD PRN; Protocol PRN Reason: Hypoglycemia Protocol Stop: 08/27/24 15:14 Guaifenesin (Guaifenesin 600 Mg Tabcr) 600 mg PO BID [facility] Stop: 08/27/24 20:59 Last Admin: 07/30/24 08:37 Dose: 600 mg Ceftriaxone Sodium (Rocephin) 2,000 mg in 50 mls @ 100 mls/hr IV Q24H [facility] Stop: 08/03/24 10:29 Last Infusion: 07/30/24 11:00 Dose: Infused Methylprednisolone 40 mg/ (Syringe) 0.64 mls @ 1.5 mls/min IV Q12H [facility] Stop: 08/27/24 20:59 Last Admin: 07/30/24 08:36 Dose: 1.5 mls/min Insulin Aspart (Insulin Aspart Per Unit Charge) 0 units SC ACHS [facility] Stop: 08/27/24 16:29 Last Admin: 07/30/24 11:53 Dose: 15 units Insulin Glargine (Lantus Per Unit Charge) 18 units SC BID [facility] Stop: 08/29/24 08:59 Last Admin: 07/30/24 08:43 Dose: 18 units Levalbuterol HCl (Levalbuterol Hcl 0.63 Mg/3 Ml Neb) 0.63 mg NEB Q6H PRN; Protocol PRN Reason: Shortness Of Breath Or Wheezing Stop: 08/28/24 17:51 Levothyroxine Sodium (Levothyroxine Sodium 75 Mcg Tablet) 75 mcg PO DAILYBB [facility] Stop: 08/28/24 06:29 Last Admin: 07/30/24 05:40 Dose: 75 mcg Lorazepam (Lorazepam 2 Mg/1 Ml Vial) 0.5 mg IV Q8H PRN PRN Reason: Anxiety Stop: 08/27/24 20:59 Miscellaneous (Carbohydrates For Hypoglycemia ) 15 - 30 gm PO UD PRN PRN Reason: Hypoglycemia Treatment Stop: 08/27/24 15:14 Miscellaneous Information (Pharmacy Glycemic Mgmt Consult) 1 each N/A UD PRN; Protocol PRN Reason: Consult Stop: 08/27/24 14:41 Ondansetron HCl (Ondansetron Inj 2 Mg/Ml 2 Ml Vial) 4 mg IV Q6H PRN PRN Reason: Nausea Stop: 08/27/24 16:04 Umeclidinium [place] (Umeclidinium [place] 62.5mcg/Blister 7 Puffs/Inhaler) 1 puffs INH DAILY [facility] Stop: 08/28/24 08:59 Last Admin: 07/30/24 08:36 Dose: 1 puffs Venlafaxine HCl (Venlafaxine Hcl Xr 75 Mg Capxr) 75 mg PO HS [facility] Stop: 08/27/24 20:59 Last Admin: 07/29/24 20:20 Dose: 75 mg Vitamin B Complex (Vitamin B Complex Tab) 1 tab PO QAM [facility] Stop: 08/29/24 08:59 Last Admin: 07/30/24 10:18 Dose: 1 tab PG Care Time/CCT Total # of Minutes Spent Total Time Spent with Patient: Total time spent is greater than 50% in coordination of care (as documented) at patient's floor/unit and/or counseling patient: Coding Level of Care Code 57230 INT INP/OBS CARE 3/75MIN Diagnoses Atrial fibrillation with rapid ventricular response I48.91 Left lower lobe pneumonia J18.9 Chronic hypercapnic respiratory failure J96.12
--- NOTE | 2024-07-30 13:00 | Pharmacy Report ---
Pharmacy Glycemic Short Note 2 - Date of Service July 30, 2024 - Glycemic Short BSG Results (Last 24 hours): 07/29/24 07/29/24 07/30/24 16:05 20:10 06:24 Glucose 223 H POC Glucose 165 H 223 H 07/30/24 07/30/24 07:19 11:16 Glucose POC Glucose 218 H 233 H OUTPATIENT ANTIDIABETIC REGIMEN: * Lantus 26 units daily ASSESSMENT: 07/30 * Lantus 18 units sq bid. * changing the carb ratio to 5 g * patient on methylprednisolone 40 mg bid 07/29 * Lantus 15 units sq bid * CF 20, Carb ratio 7 * patient on methylprednisolone 40 mg bid 07/28 * 69 year old admitted with shortness of breath/COPD exacerbation. Received prednisone 50 mg x 1 in ER - pharmacy consulted for glycemic management. * Fasting BSG 208 mg/dl - received Lantus 13 units x 1 in ER, will order additional 13 units of Lantus tonight to make up home dose. Will reassess basal insulin tomorrow and likely transition to once daily dosing. Unclear if po prednisone will be continued. PLAN FOR INPATIENT GLYCEMIC CONTROL: * Hold outpatient oral diabetes medications * Basal insulin * Lantus 18 units SQ BID * Bolus insulin * NovoLog per scale ACHS or Q6hrs while NPO * Goal Range: Low 110 mg/dL - High 140 mg/dL * Correction Factor: 20 mg/dL/unit * Nutritional / Prandial insulin per carb ratio of 1 unit per 7 grams CHO consumed
[2024-07-30] MEDS: APIXABAN 5 MG TABLET PO SCH (20:39)
--- NOTE | 2024-07-30 21:50 | Electrocardiogram Report ---
Test Reason : Blood Pressure : */* mmHG Vent. Rate : 99 BPM Atrial Rate : 416 BPM P-R Int : * ms QRS Dur : 76 ms QT Int : 342 ms P-R-T Axes : * 56 51 degrees QTcB Int : 438 ms Atrial fibrillation Abnormal ECG When compared with ECG of 29-Jul-2024 20:13, No significant change was found Confirmed by Gerson Colon ([id number]) on 07/30/2024 9:50:23 PM Referred By: REFERRED SELF Confirmed By: Gerson Colon
--- NOTE | 2024-07-30 21:51 | Electrocardiogram Report ---
Test Reason : Blood Pressure : */* mmHG Vent. Rate : 89 BPM Atrial Rate : 89 BPM P-R Int : 158 ms QRS Dur : 76 ms QT Int : 350 ms P-R-T Axes : 86 57 73 degrees QTcB Int : 425 ms Poor data quality, interpretation may be adversely affected Normal sinus rhythm Premature atrial complexes When compared with ECG of 30-Jul-2024 08:19, Sinus rhythm has replaced Atrial fibrillation Confirmed by Gerson Colon ([id number]) on 07/30/2024 9:50:55 PM Referred By: REFERRED SELF Confirmed By: Gerson Colon
[2024-07-31 08:02] LABS: Basophils # (auto) 0.03 K/uL (0.00-0.20); Basophils % (auto) 0.3 %; Hematocrit (blood only) 37.6 % (37.0-47.0); Immature Granulocytes # (auto) 0.25 K/uL (0.01-0.20); Immature Granulocytes % (auto) 2.2 %; Lymphocytes # (auto) 0.82 K/uL (1.20-3.40); Lymphocytes % (auto) 7.3 %; Mean Corpuscular Hemoglobin 26.7 pg (25.0-34.0); Mean Corpuscular Hgb Conc 31.9 g/dL (32.0-36.0); Mean Corpuscular Volume 83.6 fL (80.0-100.0); Mean Platelet Volume 9.4 fL (9.4-12.4); Monocytes # (auto) 0.25 K/uL (0.11-0.59); Monocytes % (auto) 2.2 %; Neutrophils # (auto) 9.86 K/uL (1.40-6.50); Platelet Count 359 K/uL (130-400); RDW Coefficient of Variation 14.2 % (11.5-14.5); RDW Standard Deviation 43.3 fL (36.4-46.3); White Blood Count 11.21 K/ul (4.8-10.8)
[2024-07-31 08:14] LABS: Calcium 8.8 mg/dl (8.6-10.3); Creatinine Clr Calc Pharmacy 71.8 ml/min; Magnesium 2.1 mg/dl (1.7-2.4); Potassium 4.6 mmol/L (3.5-5.1)
[2024-07-31] MEDS: dilTIAZem HCL 240 MG CAPCR PO SCH (08:14)
--- NOTE | 2024-07-31 09:49 | Hospitalist Progress Note ---
Date of Service July 31, 2024 Assessment & Plan (1) Left lower lobe pneumonia: (2) Sepsis: (3) Acute exacerbation of chronic obstructive pulmonary disease: (4) Hypoxia: (5) Type II diabetes mellitus with manifestations: (6) Depression with anxiety: (7) Former tobacco use: (8) Hypothyroidism: (9) Acute respiratory failure with hypoxia and hypercapnia: (10) Atrial fibrillation with rapid ventricular response: Plan 69-year-old female with past medical history of COPD with chronic hyper Now with BiPAP at bedtime, history of tobacco use, hypothyroidism, type 2 diabetes mellitus, sinus tachycardia, essential hypertension who presents to the ED with shortness of breath and exertional dyspnea and hypoxia and was found to have a left lower lobe pneumonia #Sepsis secondary to left lower lobe pneumonia, present on admission #Acute on chronic hypoxic and hypercapnic respiratory failure #Acute exacerbation of COPD #Pulmonary nodule Outpatient lithography contact worker is Dr. 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 As per ID, if patient develops fevers, clinically worsening or has GI symptoms and to obtain CT abdomen pelvis. Chest CTA revealed dense LLL consolidation consistent with pneumonia; no pulmonary emboli notified Both ageindeterminate and new pulmonary nodules noted on CTA Continue IV ceftriaxone plus oral Zithromax (day 4) Reduce Solu-Medrol from 40 mg to 30 mg IV twice daily BiPAP at bedtime Use oxygen as needed to keep saturations between 89 to 92% Patient uses Incruse Ellipta and Advair twice daily at home Continue Ellipta Continue Brovana plus budesonide nebulizers Continue Xopenex nebulizer scheduled 3 times daily and as needed Monitor heart rate #Essential hypertension # A-fib with RVR: New onset CTA shows no PE Echo shows normal left ventricular size and systolic function, EF of 65%, no regional wall motion abnormalities, no left ventricular hypertrophy. Patient went into atrial fibrillation overnight on 07/29/2024 Cardiology saw the patient and have recommended anticoagulation with apixaban 5 mg p.o. twice daily and increasing Cardizem to Cardizem CD 240 mg daily She has spontaneously reverted to sinus rhythm on 07/30/2024 Continue clonidine 0.1 mg p.o. daily Continue telemetry monitoring Await further cardiology recommendations #Insulin-dependent type 2 diabetes mellitus A1c is 8.5 Continue Lantus 18 units twice daily Pharmacy managing glycemic control #Hypothyroidism TSH is 0.985 Continue levothyroxine 75 mcg p.o. daily #Anxiety/depression Continue Effexor 75 mg p.o. nightly Ativan as needed CODE STATUS: Full code DVT prophylaxis: Lovenox 40 mg subcutaneous daily Physical therapy consult for discharge recommendations Care plan discussed with patient, nursing staff Admission and Anticipated Discharge Date Admission Date: July 28, 2024 Subjective Patient seen and examined Labs reviewed Cultures reviewed Telemetry reviewed: Patient currently in sinus rhythm Patient states at rest she feels fine but gets short of breath when she is try ing to ambulate. She feels weak and tired She wants to work with physical therapy Physical Exam Physical Exam: General: No acute distress Psych: Awake and alert HEENT: Anicteric sclera, moist oral mucosa CVS: Irregular rate and rhythm Lungs: Bilateral air entry, mild expiratory wheezing noted, no use of accessory muscles noted Abdomen: Soft, nontender, no rebound, no guarding Ext: No lower extremity edema, no calf tenderness Neuro: No focal motor deficits noted Results & Data Results & Data Vital Signs (Past 12 Hours) Vital Signs Temp Pulse Pulse Resp BP Pulse Ox O2 Del Method 07/31/24 08:45 86 07/31/24 07:37 80 18 158/92 H 95 BiPAP 07/31/24 07:08 90 20 95 BiPAP 07/31/24 02:54 36.2 C L 79 18 129/72 95 BiPAP 07/31/24 02:45 76 19 96 07/30/24 22:44 36.5 C 80 18 154/81 H 96 BiPAP 07/30/24 22:37 83 FiO2 07/31/24 08:45 07/31/24 07:37 07/31/24 07:08 40 07/31/24 02:54 07/31/24 02:45 24 07/30/24 22:44 07/30/24 22:37 Laboratory Results Laboratory Results - last 24 hr 07/30/24 07/30/24 07/30/24 11:16 16:59 20:08 WBC RBC Hgb Hct MCV MCH MCHC RDW Std Deviation RDW Coeff of Palak Plt Count MPV Immature Gran % (Auto) Neut % (Auto) Lymph % (Auto) [place] % (Auto) Eos % (Auto) Baso % (Auto) Neut # (Auto) Lymph # (Auto) [place] # (Auto) Eos # (Auto) Baso # (Auto) Immature Gran # (Auto) Sodium Potassium Chloride Carbon Dioxide Anion Gap BUN Creatinine Est Cr Clr Drug Dosing eGFR BUN/Creatinine Ratio Glucose POC Glucose 233 H 143 H 153 H Calcium Magnesium 07/31/24 07/31/24 07:11 07:18 WBC 11.21 H RBC 4.50 Hgb 12.0 Hct 37.6 MCV 83.6 MCH 26.7 MCHC 31.9 L RDW Std Deviation 43.3 RDW Coeff of Palak 14.2 Plt Count 359 MPV 9.4 Immature Gran % (Auto) 2.2 Neut % (Auto) 88.0 Lymph % (Auto) 7.3 [place] % (Auto) 2.2 Eos % (Auto) 0.0 Baso % (Auto) 0.3 Neut # (Auto) 9.86 H Lymph # (Auto) 0.82 L [place] # (Auto) 0.25 Eos # (Auto) 0.00 Baso # (Auto) 0.03 Immature Gran # (Auto) 0.25 H Sodium 142 Potassium 4.6 Chloride 109 H Carbon Dioxide 27 Anion Gap 6 BUN 29 H Creatinine 0.88 Est Cr Clr Drug Dosing 71.8 eGFR 70.65 BUN/Creatinine Ratio 33.0 H Glucose 186 H POC Glucose 170 H Calcium 8.8 Magnesium 2.1 PG Care Time/CCT Total # of Minutes Spent Total Time Spent with Patient: Total time spent is greater than 50% in coordination of care (as documented) at patient's floor/unit and/or counseling patient: Coding Level of Care Code 93175 SUB INP/OBS CARE 2/35MIN Diagnoses Left lower lobe pneumonia J18.9 Sepsis A41.9 Acute exacerbation of chronic obstructive pulmonary disease J44.1 Hypoxia R09.02 Type II diabetes mellitus with manifestations E11.8 Depression with anxiety F41.8 Former tobacco use Z87.891 Acquired hypothyroidism E03.9 Hypothyroidism type: acquired Acute respiratory failure with hypoxia and hypercapnia J96.01; J96.02 Atrial fibrillation with rapid ventricular response I48.91 (8) Hypothyroidism Hypothyroidism type: acquired Qualified Code(s): E03.9 - Hypothyroidism, unspecified
--- NOTE | 2024-07-31 10:54 | Cardiology Progress Note ---
Date of Service July 31, 2024 Assessment & Plan (1) Atrial fibrillation with rapid ventricular response: (2) Left lower lobe pneumonia: (3) Chronic hypercapnic respiratory failure: Plan ASSESSMENT/PLAN: 1. Paroxysmal atrial fibrillation: New diagnosis this hospital stay, although presented with sinus tachycardia. Asymptomatic. Spontaneously converted to sinus rhythm on 07/30/2024. Continue diltiazem CD 240 mg daily, as increased dose of diltiazem improved heart rate and she is likely to have recurrent episodes in the future. Recommend therapeutic anticoagulation for stroke risk reduction. Tolerating Eliquis 5 mg twice daily. 2. Pneumonia: As per primary hospitalist service and ID. 3. Chronic hypercapnic respiratory failure/COPD: Is managed at home with BiPAP at night. She follows with pulmonology in the outpatient setting. She appears euvolemic. 4. Disposition: Cardiology will sign off at this time. Please call with any further questions or concerns. Admission and Anticipated Discharge Date Admission Date: July 28, 2024 Subjective Patient seen this morning. She continues to have dyspnea on exertion. She s tates it has not improved. She denies shortness of breath at rest, orthopnea. She continues to have intermittent chest pain with coughing episodes. She denies exertional chest pain. She denies edema, syncope, near syncope, palpitations. She converted to sinus rhythm shortly after noon yesterday and did not notice any difference in how she felt. She was unaccompanied. Physical Exam Physical Exam: Gen.: No acute distress. Alert and oriented. HEENT: Anicteric sclera. Neck: No JVD. Cardiac: Regular. Normal S1-S2. No murmurs, rubs, or gallops. Pulmonary: Decreased breath sounds bilaterally with bilateral expiratory wheezing. Abdomen: Soft, nontender, nondistended, with normoactive bowel sounds. No bruits noted. Extremities: 2+ radial pulses bilaterally. 2+ posterior tibialis pulses bilaterally. No edema. No cyanosis. Psychiatric: Affect appears appropriate. Results & Data Vital Signs (Past 12 Hours) Vital Signs Temp Pulse Pulse Resp BP Pulse Ox O2 Del Method 07/31/24 08:45 86 07/31/24 07:37 80 18 158/92 H 95 BiPAP 07/31/24 07:08 90 20 95 BiPAP 07/31/24 02:54 36.2 C L 79 18 129/72 95 BiPAP 07/31/24 02:45 76 19 96 FiO2 07/31/24 08:45 07/31/24 07:37 07/31/24 07:08 40 07/31/24 02:54 07/31/24 02:45 24 Intake & Output 07/29/24 07/30/24 07/31/24 08/01/24 06:59 06:59 06:59 06:59 Intake Total 1150 / 1150 1320 / 1320 530 / 530 Balance 1150 / 1150 1320 / 1320 530 / 530 Weight 234 lb 11.195 oz 233 lb 1.586 oz 233 lb 1.516 oz Laboratory Results Laboratory Results - last 24 hr 07/30/24 07/30/24 07/30/24 11:16 16:59 20:08 WBC RBC Hgb Hct MCV MCH MCHC RDW Std Deviation RDW Coeff of Palak Plt Count MPV Immature Gran % (Auto) Neut % (Auto) Lymph % (Auto) [place] % (Auto) Eos % (Auto) Baso % (Auto) Neut # (Auto) Lymph # (Auto) [place] # (Auto) Eos # (Auto) Baso # (Auto) Immature Gran # (Auto) Sodium Potassium Chloride Carbon Dioxide Anion Gap BUN Creatinine Est Cr Clr Drug Dosing eGFR BUN/Creatinine Ratio Glucose POC Glucose 233 H 143 H 153 H Calcium Magnesium 07/31/24 07/31/24 07:11 07:18 WBC 11.21 H RBC 4.50 Hgb 12.0 Hct 37.6 MCV 83.6 MCH 26.7 MCHC 31.9 L RDW Std Deviation 43.3 RDW Coeff of Palak 14.2 Plt Count 359 MPV 9.4 Immature Gran % (Auto) 2.2 Neut % (Auto) 88.0 Lymph % (Auto) 7.3 [place] % (Auto) 2.2 Eos % (Auto) 0.0 Baso % (Auto) 0.3 Neut # (Auto) 9.86 H Lymph # (Auto) 0.82 L [place] # (Auto) 0.25 Eos # (Auto) 0.00 Baso # (Auto) 0.03 Immature Gran # (Auto) 0.25 H Sodium 142 Potassium 4.6 Chloride 109 H Carbon Dioxide 27 Anion Gap 6 BUN 29 H Creatinine 0.88 Est Cr Clr Drug Dosing 71.8 eGFR 70.65 BUN/Creatinine Ratio 33.0 H Glucose 186 H POC Glucose 170 H Calcium 8.8 Magnesium 2.1 Diagnostic Findings Telemetry personally reviewed: Atrial fibrillation converted to sinus rhythm on 07/30/2024 at 12:19 PM. Has remained in sinus rhythm. Labs reviewed notable for stable renal function, normal potassium, normal hemoglobin, improved leukocytosis. Repeat blood cultures from 07/30/2024 negative x 2. Medications Administered Current Inpatient Medications Acetaminophen (Acetaminophen 325 Mg Tab) 650 mg PO Q4H PRN PRN Reason: Pain or Fever Stop: 08/27/24 16:04 Apixaban (Apixaban 5 Mg Tablet) 5 mg PO BID ISMAEL Stop: 08/29/24 20:59 Last Admin: 07/31/24 08:16 Dose: 5 mg Budesonide (Budesonide 0.5 Mg/2 Ml Vial (Pulmicort)) 0.5 mg NEB BIDR ISMAEL Stop: 08/27/24 18:59 Last Admin: 07/31/24 07:08 Dose: 0.5 mg Clonidine HCl (Clonidine Hcl 0.1 Mg Tab) 0.1 mg PO DAILY ISMAEL Stop: 08/28/24 08:59 Last Admin: 07/31/24 08:15 Dose: 0.1 mg Cyanocobalamin (Cyanocobalamin 1000 Mcg/Ml Vial) 1,000 mcg IM QAM ISMAEL Stop: 08/01/24 08:59 Last Admin: 07/31/24 08:18 Dose: 1,000 mcg Cyclobenzaprine HCl (Cyclobenzaprine Hcl 5 Mg Tab) 5 mg PO HS ISMAEL Stop: 08/27/24 20:59 Last Admin: 07/30/24 20:35 Dose: 5 mg Dextrose (Dextrose 50% 50 Ml Syringe) 25 - 50 ml IV UD PRN; Protocol PRN Reason: Hypoglycemia Protocol Stop: 08/27/24 15:14 Diltiazem HCl (Diltiazem Hcl 240 Mg Capcr) 240 mg PO QAM ISMAEL Stop: 08/30/24 08:59 Last Admin: 07/31/24 08:14 Dose: 240 mg Formoterol Fumarate (Formoterol 20 Mcg/2 Ml Vial) 20 mcg NEB BIDR ISMAEL Stop: 08/27/24 18:59 Last Admin: 07/31/24 07:08 Dose: 20 mcg Glucagon (Glucagon For Inj 1 Mg Vial) 1 mg SQ UD PRN; Protocol PRN Reason: Hypoglycemia Protocol Stop: 08/27/24 15:14 Glucose (Glucose 40% Gel 15 Gm Tube) 15 - 30 gm PO UD PRN; Protocol PRN Reason: Hypoglycemia Protocol Stop: 08/27/24 15:14 Glucose (Glucose 10 Tab/Tube) 4 - 8 tab PO UD PRN; Protocol PRN Reason: Hypoglycemia Protocol Stop: 08/27/24 15:14 Guaifenesin (Guaifenesin 600 Mg Tabcr) 600 mg PO BID [facility] Stop: 08/27/24 20:59 Last Admin: 07/31/24 08:15 Dose: 600 mg Ceftriaxone Sodium (Rocephin) 2,000 mg in 50 mls @ 100 mls/hr IV Q24H [facility] Stop: 08/03/24 10:29 Last Infusion: 07/30/24 11:00 Dose: Infused Methylprednisolone 30 mg/ (Syringe) 0.48 mls @ 1.5 mls/min IV Q12H [facility] Stop: 08/30/24 19:59 Insulin Aspart (Insulin Aspart Per Unit Charge) 0 units SC ACHS [facility] Stop: 08/27/24 16:29 Last Admin: 07/31/24 08:10 Dose: 12 units Insulin Glargine (Lantus Per Unit Charge) 18 units SC BID [facility] Stop: 08/29/24 08:59 Last Admin: 07/31/24 08:09 Dose: 18 units Levalbuterol HCl (Levalbuterol Hcl 0.63 Mg/3 Ml Neb) 0.63 mg NEB Q6H PRN; Protocol PRN Reason: Shortness Of Breath Or Wheezing Stop: 08/28/24 17:51 Levothyroxine Sodium (Levothyroxine Sodium 75 Mcg Tablet) 75 mcg PO DAILYBB [facility] Stop: 08/28/24 06:29 Last Admin: 07/31/24 06:06 Dose: 75 mcg Lorazepam (Lorazepam 2 Mg/1 Ml Vial) 0.5 mg IV Q8H PRN PRN Reason: Anxiety Stop: 08/27/24 20:59 Miscellaneous (Carbohydrates For Hypoglycemia ) 15 - 30 gm PO UD PRN PRN Reason: Hypoglycemia Treatment Stop: 08/27/24 15:14 Miscellaneous Information (Pharmacy Glycemic Mgmt Consult) 1 each N/A UD PRN; Protocol PRN Reason: Consult Stop: 08/27/24 14:41 Ondansetron HCl (Ondansetron Inj 2 Mg/Ml 2 Ml Vial) 4 mg IV Q6H PRN PRN Reason: Nausea Stop: 08/27/24 16:04 Umeclidinium Allgood (Umeclidinium Allgood 62.5mcg/Blister 7 Puffs/Inhaler) 1 puffs INH DAILY ISMAEL Stop: 08/28/24 08:59 Last Admin: 07/31/24 08:17 Dose: 1 puffs Venlafaxine HCl (Venlafaxine Hcl Xr 75 Mg Capxr) 75 mg PO HS ISMAEL Stop: 08/27/24 20:59 Last Admin: 07/30/24 20:36 Dose: 75 mg Vitamin B Complex (Vitamin B Complex Tab) 1 tab PO QAM ISMAEL Stop: 08/29/24 08:59 Last Admin: 07/31/24 08:15 Dose: 1 tab PG Care Time/CCT Total # of Minutes Spent Total Time Spent with Patient: Total time spent is greater than 50% in coordination of care (as documented) at patient's floor/unit and/or counseling patient: Coding Level of Care Code 38203 SUB INP/OBS CARE 3/50MIN Diagnoses Atrial fibrillation with rapid ventricular response I48.91 Left lower lobe pneumonia J18.9 Chronic hypercapnic respiratory failure J96.12
[2024-07-31] MEDS: LEVALBUTEROL HCL 0.63 MG/3 ML NEB NEB STA (15:16)
[2024-07-31] MEDS: LEVALBUTEROL HCL 0.63 MG/3 ML NEB NEB SCH (19:30)
[2024-07-31] MEDS: methylPREDNISolone 30 MG in SYRINGE 0 ML IV SCH (20:44)
[2024-08-01 08:00] LABS: Hematocrit (blood only) 38.5 % (37.0-47.0); Hemoglobin 12.6 g/dl (12.0-16.0); Mean Corpuscular Hemoglobin 26.8 pg (25.0-34.0); Mean Corpuscular Hgb Conc 32.7 g/dL (32.0-36.0); Mean Corpuscular Volume 81.9 fL (80.0-100.0); Mean Platelet Volume 9.2 fL (9.4-12.4); Platelet Count 355 K/uL (130-400); RDW Coefficient of Variation 13.9 % (11.5-14.5); RDW Standard Deviation 41.3 fL (36.4-46.3); White Blood Count 10.91 K/ul (4.8-10.8)
[2024-08-01 08:07] LABS: Albumin Globulin Ratio 1.1 (0.9-2); Albumin Level 3.2 gm/dl (3.4-5.0); BUN Creatinine Ratio 32.2 (10-20); Bilirubin,Total 0.3 mg/dl (0.2-1.0); Calcium 8.6 mg/dl (8.6-10.3); Creatinine Clr Calc Pharmacy 69.9 ml/min; Globulin 2.8 gm/dl (2.5-4.0); Magnesium 2.1 mg/dl (1.7-2.4); Potassium 4.8 mmol/L (3.5-5.1)
[2024-08-01 08:23] LABS: Basophils # (auto) 0.09 K/uL (0.00-0.20); Basophils % (auto) 0.8 %; Immature Granulocytes # (auto) 0.71 K/uL (0.01-0.20); Immature Granulocytes % (auto) 6.5 %; Lymphocytes # (auto) 0.99 K/uL (1.20-3.40); Lymphocytes % (auto) 9.1 %; Monocytes # (auto) 0.66 K/uL (0.11-0.59); Neutrophils # (auto) 8.46 K/uL (1.40-6.50); Neutrophils % (auto) 77.6 %; Polychromasia 1+
[2024-08-01] MEDS: LANTUS PER UNIT CHARGE SC SCH ×2 (08:56→20:10)
--- NOTE | 2024-08-01 09:51 | Hospitalist Progress Note ---
Date of Service August 01, 2024 Assessment & Plan (1) Left lower lobe pneumonia: (2) Sepsis: (3) Acute exacerbation of chronic obstructive pulmonary disease: (4) Hypoxia: (5) Type II diabetes mellitus with manifestations: (6) Depression with anxiety: (7) Former tobacco use: (8) Hypothyroidism: (9) Acute respiratory failure with hypoxia and hypercapnia: (10) Atrial fibrillation with rapid ventricular response: Plan 69-year-old female with past medical history of COPD with chronic hyper Now with BiPAP at bedtime, history of tobacco use, hypothyroidism, type 2 diabetes mellitus, sinus tachycardia, essential hypertension who presents to the ED with shortness of breath and exertional dyspnea and hypoxia and was found to have a left lower lobe pneumonia #Sepsis secondary to left lower lobe pneumonia, present on admission #Acute on chronic hypoxic and hypercapnic respiratory failure #Acute exacerbation of COPD #Pulmonary nodule 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 As per ID, if patient develops fevers, clinically worsening or has GI symptoms and to obtain CT abdomen pelvis. Chest CTA revealed dense LLL consolidation consistent with pneumonia; no pulmonary emboli notified Both ageindeterminate and new pulmonary nodules noted on CTA Patient has finished 3 days of oral azithromycin 500 mg daily Continue IV ceftriaxone (day 5/7) Reduce Solu-Medrol from 30 mg to 20 mg IV twice daily BiPAP at bedtime Use oxygen as needed to keep saturations between 89 to 92% Patient uses Incruse Ellipta and Advair twice daily at home Continue Ellipta Continue Brovana plus budesonide nebulizers Continue Xopenex nebulizer scheduled 4 times daily and as needed Monitor heart rate #Essential hypertension # A-fib with RVR: New onset CTA shows no PE Echo shows normal left ventricular size and systolic function, EF of 65%, no regional wall motion abnormalities, no left ventricular hypertrophy. Patient went into atrial fibrillation overnight on 07/29/2024 Cardiology saw the patient and have recommended anticoagulation with apixaban 5 mg p.o. twice daily and increasing Cardizem to Cardizem CD 240 mg daily She has spontaneously reverted to sinus rhythm on 07/30/2024 Cardiology has signed off at present Continue clonidine 0.1 mg p.o. daily Continue telemetry monitoring Outpatient follow-up with cardiology #Insulin-dependent type 2 diabetes mellitus A1c is 8.5 Continue Lantus Pharmacy managing glycemic control #Hypothyroidism TSH is 0.985 Continue levothyroxine 75 mcg p.o. daily #Anxiety/depression Continue Effexor 75 mg p.o. nightly Ativan as needed CODE STATUS: Full code DVT prophylaxis: Lovenox 40 mg subcutaneous daily Physical therapy saw the patient and recommended home health services on discharge Care plan discussed with patient, nursing staff Admission and Anticipated Discharge Date Admission Date: July 28, 2024 Subjective Patient seen and examined Labs reviewed Cultures reviewed Telemetry reviewed: Patient currently in sinus rhythm Patient states she worked with physical therapy and walked on the unit. She gets short winded while ambulating. Patient is willing to try nebulizer to see if that helps with her breathing She denies any fever, chills Patient does state that overall she is better than when she came in No productive cough Physical Exam Physical Exam: General: No acute distress Psych: Awake and alert HEENT: Anicteric sclera, moist oral mucosa CVS: Irregular rate and rhythm Lungs: Bilateral air entry, mild expiratory wheezing noted, no use of accessory muscles noted Abdomen: Soft, nontender, no rebound, no guarding Ext: No lower extremity edema, no calf tenderness Results & Data Results & Data Vital Signs (Past 12 Hours) Vital Signs Temp Pulse Pulse Resp BP Pulse Ox O2 Del Method 08/01/24 08:29 36.7 C 72 18 138/69 96 BiPAP 08/01/24 07:19 83 20 96 BiPAP 08/01/24 07:19 83 20 96 08/01/24 04:05 36.8 C 65 20 145/77 H 94 BiPAP 08/01/24 03:37 80 20 95 07/31/24 22:45 36.9 C 84 23 162/89 H 95 BiPAP 07/31/24 22:38 83 FiO2 08/01/24 08:29 08/01/24 07:19 24 08/01/24 07:19 24 08/01/24 04:05 08/01/24 03:37 24 07/31/24 22:45 07/31/24 22:38 Laboratory Results Laboratory Results - last 24 hr 07/31/24 07/31/24 07/31/24 11:17 16:14 20:16 WBC RBC Hgb Hct MCV MCH MCHC RDW Std Deviation RDW Coeff of Palak Plt Count MPV Immature Gran % (Auto) Neut % (Auto) Lymph % (Auto) [place] % (Auto) Eos % (Auto) Baso % (Auto) Neut # (Auto) Lymph # (Auto) [place] # (Auto) Eos # (Auto) Baso # (Auto) Immature Gran # (Auto) Polychromasia Sodium Potassium Chloride Carbon Dioxide Anion Gap BUN Creatinine Est Cr Clr Drug Dosing eGFR BUN/Creatinine Ratio Glucose POC Glucose 182 H 127 H 293 H Calcium Magnesium Total Bilirubin AST ALT Alkaline Phosphatase Total Protein Albumin Globulin Albumin/Globulin Ratio 08/01/24 08/01/24 07:21 07:31 WBC 10.91 H RBC 4.70 Hgb 12.6 Hct 38.5 MCV 81.9 MCH 26.8 MCHC 32.7 RDW Std Deviation 41.3 RDW Coeff of Palak 13.9 Plt Count 355 MPV 9.2 L Immature Gran % (Auto) 6.5 Neut % (Auto) 77.6 Lymph % (Auto) 9.1 [place] % (Auto) 6.0 Eos % (Auto) 0.0 Baso % (Auto) 0.8 Neut # (Auto) 8.46 H Lymph # (Auto) 0.99 L [place] # (Auto) 0.66 H Eos # (Auto) 0.00 Baso # (Auto) 0.09 Immature Gran # (Auto) 0.71 H Polychromasia 1+ Sodium 142 Potassium 4.8 Chloride 108 H Carbon Dioxide 29 Anion Gap 5 BUN 29 H Creatinine 0.90 Est Cr Clr Drug Dosing 69.9 eGFR 68.77 BUN/Creatinine Ratio 32.2 H Glucose 194 H POC Glucose 92 Calcium 8.6 Magnesium 2.1 Total Bilirubin 0.3 AST 9 L ALT 10 Alkaline Phosphatase 64 Total Protein 6.0 Albumin 3.2 L Globulin 2.8 Albumin/Globulin Ratio 1.1 PG Care Time/CCT Total # of Minutes Spent Total Time Spent with Patient: Total time spent is greater than 50% in coordination of care (as documented) at patient's floor/unit and/or counseling patient: Coding Level of Care Code 52063 SUB INP/OBS CARE 2/35MIN Diagnoses Left lower lobe pneumonia J18.9 Sepsis A41.9 Acute exacerbation of chronic obstructive pulmonary disease J44.1 Hypoxia R09.02 Type II diabetes mellitus with manifestations E11.8 Depression with anxiety F41.8 Former tobacco use Z87.891 Acquired hypothyroidism E03.9 Hypothyroidism type: acquired Acute respiratory failure with hypoxia and hypercapnia J96.01; J96.02 Atrial fibrillation with rapid ventricular response I48.91 (8) Hypothyroidism Hypothyroidism type: acquired Qualified Code(s): E03.9 - Hypothyroidism, unspecified
[2024-08-01] MEDS: LEVALBUTEROL HCL 0.63 MG/3 ML NEB NEB SCH (10:18)
--- NOTE | 2024-08-01 11:46 | Pharmacy Report ---
Pharmacy Glycemic Short Note 2 - Date of Service August 01, 2024 - Glycemic Short BSG Results (Last 24 hours): 07/31/24 07/31/24 08/01/24 16:14 20:16 07:21 Glucose POC Glucose 127 H 293 H 92 08/01/24 08/01/24 07:31 11:16 Glucose 194 H POC Glucose 239 H OUTPATIENT ANTIDIABETIC REGIMEN: * Lantus 26 units daily ASSESSMENT: 08/01 * Patient received total of 81 units of insulin yesterday, of which 36 units were basal insulin * Fasting BSG 92 mg/dL - will scale back slightly on basal today with scale. Continues on solumedrol 30 mg bid * No change to CF/CR 07/30 * Lantus 18 units sq bid. * changing the carb ratio to 5 g * patient on methylprednisolone 40 mg bid 07/29 * Lantus 15 units sq bid * CF 20, Carb ratio 7 * patient on methylprednisolone 40 mg bid 07/28 * 69 year old admitted with shortness of breath/COPD exacerbation. Received prednisone 50 mg x 1 in ER - pharmacy consulted for glycemic management. * Fasting BSG 208 mg/dl - received Lantus 13 units x 1 in ER, will order additional 13 units of Lantus tonight to make up home dose. Will reassess basal insulin tomorrow and likely transition to once daily dosing. Unclear if po prednisone will be continued. PLAN FOR INPATIENT GLYCEMIC CONTROL: * Hold outpatient oral diabetes medications * Basal insulin * Lantus 12-18 units SQ BID * Bolus insulin * NovoLog per scale ACHS or Q6hrs while NPO * Goal Range: Low 110 mg/dL - High 140 mg/dL * Correction Factor: 15 mg/dL/unit * Nutritional / Prandial insulin per carb ratio of 1 unit per 5 grams CHO consumed
[2024-08-01] MEDS: methylPREDNISolone 20 MG in SYRINGE 0 ML IV SCH (20:00)
[2024-08-02 07:15] LABS: Hematocrit (blood only) 42.2 % (37.0-47.0); Hemoglobin 13.6 g/dl (12.0-16.0); Mean Corpuscular Hemoglobin 26.7 pg (25.0-34.0); Mean Corpuscular Hgb Conc 32.2 g/dL (32.0-36.0); Mean Corpuscular Volume 82.7 fL (80.0-100.0); Mean Platelet Volume 9.1 fL (9.4-12.4); Nucleated RBC # (auto) 0.03 K/uL (0.00-0.12); Nucleated RBC % (auto) 0.2 %; Platelet Count 404 K/uL (130-400); RDW Coefficient of Variation 13.9 % (11.5-14.5); RDW Standard Deviation 42.1 fL (36.4-46.3); White Blood Count 13.52 K/ul (4.8-10.8)
[2024-08-02 07:55] LABS: BUN Creatinine Ratio 30.9 (10-20); Calcium 8.8 mg/dl (8.6-10.3); Creatinine Clr Calc Pharmacy 67.2 ml/min; Magnesium 2.2 mg/dl (1.7-2.4); Potassium 4.7 mmol/L (3.5-5.1)
--- NOTE | 2024-08-02 09:13 | Hospitalist Progress Note ---
Date of Service August 02, 2024 Assessment & Plan (1) Left lower lobe pneumonia: (2) Sepsis: (3) Acute exacerbation of chronic obstructive pulmonary disease: (4) Hypoxia: (5) Type II diabetes mellitus with manifestations: (6) Depression with anxiety: (7) Former tobacco use: (8) Hypothyroidism: (9) Acute respiratory failure with hypoxia and hypercapnia: (10) Atrial fibrillation with rapid ventricular response: Plan 69-year-old female with past medical history of COPD with chronic hyper Now with BiPAP at bedtime, history of tobacco use, hypothyroidism, type 2 diabetes mellitus, sinus tachycardia, essential hypertension who presents to the ED with shortness of breath and exertional dyspnea and hypoxia and was found to have a left lower lobe pneumonia #Sepsis secondary to left lower lobe pneumonia, present on admission #Acute on chronic hypoxic and hypercapnic respiratory failure #Acute exacerbation of COPD #Pulmonary nodule Outpatient conference service coordinator is Dr. 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 As per ID, if patient develops fevers, clinically worsening or has GI symptoms and to obtain CT abdomen pelvis. Chest CTA revealed dense LLL consolidation consistent with pneumonia; no pulmonary emboli notified Both ageindeterminate and new pulmonary nodules noted on CTA Patient has finished 3 days of oral azithromycin 500 mg daily Continue IV ceftriaxone (day 6/7) Stop IV Solu-Medrol and switch to oral prednisone 50 mg daily with slow taper BiPAP at bedtime Use oxygen as needed to keep saturations between 89 to 92% Patient uses Incruse Ellipta and Advair twice daily at home Continue Ellipta Continue Brovana plus budesonide nebulizers Continue Xopenex nebulizer scheduled 4 times daily and as needed Monitor heart rate #Essential hypertension # A-fib with RVR: New onset CTA shows no PE Echo shows normal left ventricular size and systolic function, EF of 65%, no regional wall motion abnormalities, no left ventricular hypertrophy. Patient went into atrial fibrillation overnight on 07/29/2024 Cardiology saw the patient and have recommended anticoagulation with apixaban 5 mg p.o. twice daily and increasing Cardizem to Cardizem CD 240 mg daily She has spontaneously reverted to sinus rhythm on 07/30/2024 Cardiology has signed off at present Continue clonidine 0.1 mg p.o. daily Continue telemetry monitoring Outpatient follow-up with cardiology #Insulin-dependent type 2 diabetes mellitus A1c is 8.5 Continue Lantus Pharmacy managing glycemic control #Hypothyroidism TSH is 0.985 Continue levothyroxine 75 mcg p.o. daily #Anxiety/depression Continue Effexor 75 mg p.o. nightly Ativan as needed CODE STATUS: Full code DVT prophylaxis: Lovenox 40 mg subcutaneous daily Physical therapy saw the patient and recommended home health services on discharge Discharge planning Home with home health services likely 08/04/2024 if medically stable Care plan discussed with patient, nursing staff Admission and Anticipated Discharge Date Admission Date: July 28, 2024 Subjective Patient seen and examined Labs reviewed Cultures reviewed Telemetry reviewed: Patient currently in sinus rhythm Patient states she is feeling better today, nebulizer did help with her breathing. She still has a dry cough, no sputum production. Denies any fever or chills. Denies any nausea, vomiting or abdominal pain Denies any diarrhea Physical Exam Physical Exam: General: No acute distress Psych: Awake and alert HEENT: Anicteric sclera, moist oral mucosa CVS: Irregular rate and rhythm Lungs: Bilateral air entry, mild expiratory wheezing noted, no use of accessory muscles noted Abdomen: Soft, nontender, no rebound, no guarding Ext: No lower extremity edema, no calf tenderness Results & Data Results & Data Vital Signs (Past 12 Hours) Vital Signs Temp Pulse Pulse Resp BP Pulse Ox O2 Del Method 08/02/24 07:23 36.7 C 79 20 154/71 H 96 BiPAP 08/02/24 06:22 78 18 96 BiPAP 08/02/24 06:22 87 18 96 08/02/24 03:00 36.6 C 77 18 167/93 H 96 BiPAP 08/02/24 02:42 88 20 96 08/01/24 23:10 36.9 C 86 20 181/73 H 95 BiPAP 08/01/24 22:53 90 08/01/24 22:53 87 20 95 FiO2 08/02/24 07:23 08/02/24 06:22 24 08/02/24 06:22 24 08/02/24 03:00 08/02/24 02:42 24 08/01/24 23:10 08/01/24 22:53 08/01/24 22:53 24 Laboratory Results Laboratory Results - last 24 hr 08/01/24 08/01/24 08/01/24 11:16 16:08 19:33 WBC RBC Hgb Hct MCV MCH MCHC RDW Std Deviation RDW Coeff of [place] Plt Count MPV Absolute Nucleated RBC Nucleated RBC % (auto) Sodium Potassium Chloride Carbon Dioxide Anion Gap BUN Creatinine Est Cr Clr Drug Dosing eGFR BUN/Creatinine Ratio Glucose POC Glucose 239 H 102 H 355 H* Calcium Magnesium 08/02/24 08/02/24 06:33 07:04 WBC 13.52 H RBC 5.10 Hgb 13.6 Hct 42.2 MCV 82.7 MCH 26.7 MCHC 32.2 RDW Std Deviation 42.1 RDW Coeff of Palak 13.9 Plt Count 404 H MPV 9.1 L Absolute Nucleated RBC 0.03 Nucleated RBC % (auto) 0.2 Sodium 142 Potassium 4.7 Chloride 106 Carbon Dioxide 31 Anion Gap 5 BUN 29 H Creatinine 0.94 Est Cr Clr Drug Dosing 67.2 eGFR 65.28 BUN/Creatinine Ratio 30.9 H Glucose 175 H POC Glucose 109 H Calcium 8.8 Magnesium 2.2 PG Care Time/CCT Total # of Minutes Spent Total Time Spent with Patient: Total time spent is greater than 50% in coordination of care (as documented) at patient's floor/unit and/or counseling patient: Coding Level of Care Code 11711 SUB INP/OBS CARE 235MIN Diagnoses Left lower lobe pneumonia J18.9 Sepsis A41.9 Acute exacerbation of chronic obstructive pulmonary disease J44.1 Hypoxia R09.02 Type II diabetes mellitus with manifestations E11.8 Depression with anxiety F41.8 Former tobacco use Z87.891 Acquired hypothyroidism E03.9 Hypothyroidism type: acquired Acute respiratory failure with hypoxia and hypercapnia J96.01; J96.02 Atrial fibrillation with rapid ventricular response I48.91 (8) Hypothyroidism Hypothyroidism type: acquired Qualified Code(s): E03.9 - Hypothyroidism, unspecified
[2024-08-02] MEDS: predniSONE 50 MG TAB PO SCH (09:30)
[2024-08-03] MEDS: LANTUS PER UNIT CHARGE SC SCH ×2 (08:37→21:00)
--- NOTE | 2024-08-03 09:35 | Hospitalist Progress Note ---
Date of Service August 03, 2024 Assessment & Plan (1) Left lower lobe pneumonia: (2) Sepsis: (3) Acute exacerbation of chronic obstructive pulmonary disease: (4) Hypoxia: (5) Type II diabetes mellitus with manifestations: (6) Depression with anxiety: (7) Former tobacco use: (8) Hypothyroidism: (9) Acute respiratory failure with hypoxia and hypercapnia: (10) Atrial fibrillation with rapid ventricular response: Plan 69-year-old female with past medical history of COPD with chronic hyper Now with BiPAP at bedtime, history of tobacco use, hypothyroidism, type 2 diabetes mellitus, sinus tachycardia, essential hypertension who presents to the ED with shortness of breath and exertional dyspnea and hypoxia and was found to have a left lower lobe pneumonia #Sepsis secondary to left lower lobe pneumonia, present on admission #Acute on chronic hypoxic and hypercapnic respiratory failure #Acute exacerbation of COPD #Pulmonary nodule Outpatient electronic typesetting machine operator is Dr. Andi Chase negative Blood cultures from admission growing Bacillus cereus: As per ID this is a contaminant Repeat blood cultures have been negative ID saw the patient and recommended continuing present antibiotic treatment for COPD exacerbation/pneumonia. As per ID, if patient develops fevers, clinically worsening or has GI symptoms and to obtain CT abdomen pelvis. Chest CTA revealed dense LLL consolidation consistent with pneumonia; no pulmonary emboli notified Both ageindeterminate and new pulmonary nodules noted on CTA Patient has finished 3 days of oral azithromycin 500 mg daily Continue IV ceftriaxone (day 7): Last dose today IV Solu-Medrol was stopped on 08/02/2024 and she has been transition to prednisone 50 mg daily with slow taper starting 08/03/2024 BiPAP at bedtime Use oxygen as needed to keep saturations between 89 to 92% Patient uses Incruse Ellipta and Advair twice daily at home Continue Ellipta Continue Brovana plus budesonide nebulizers Continue Xopenex nebulizer scheduled 4 times daily and as needed #Essential hypertension # A-fib with RVR: New onset CTA shows no PE Echo shows normal left ventricular size and systolic function, EF of 65%, no regional wall motion abnormalities, no left ventricular hypertrophy. Patient went into atrial fibrillation overnight on 07/29/2024 Cardiology saw the patient and have recommended anticoagulation with apixaban 5 mg p.o. twice daily and increasing Cardizem to Cardizem CD 240 mg daily She has spontaneously reverted to sinus rhythm on 07/30/2024 Cardiology has signed off at present Continue clonidine 0.1 mg p.o. daily Stop telemetry monitoring and transfer to [facility] Outpatient follow-up with cardiology #Insulin-dependent type 2 diabetes mellitus A1c is 8.5 Continue Lantus Pharmacy managing glycemic control #Hypothyroidism TSH is 0.985 Continue levothyroxine 75 mcg p.o. daily #Anxiety/depression Continue Effexor 75 mg p.o. nightly Ativan as needed CODE STATUS: Full code DVT prophylaxis: Lovenox 40 mg subcutaneous daily Physical therapy saw the patient and recommended home health services on discharge Discharge planning Home with home health services likely tomorrow if medically stable Care plan discussed with patient, nursing staff Admission and Anticipated Discharge Date Admission Date: July 28, 2024 Subjective Patient seen and examined Telemetry reviewed: Patient currently in sinus rhythm Patient states that she felt better after using nebulizer which helps with her breathing. Overall she feels much better since admission. She is concerned about going home with her ambulation. I have advised her to walk around the unit with her walker and nursing assistance: Patient will ask her nurse today to help her walk today. She denies any fever, chills, nausea, vomiting, diarrhea, abdominal pain Physical Exam Physical Exam: General: No acute distress Psych: Awake and alert HEENT: Anicteric sclera, moist oral mucosa CVS: Irregular rate and rhythm Lungs: Bilateral air entry, mild expiratory wheezing noted, no use of accessory muscles noted Abdomen: Soft, nontender, no rebound, no guarding Ext: No lower extremity edema, no calf tenderness Results & Data Results & Data Vital Signs (Past 12 Hours) Vital Signs Temp Pulse Pulse Resp BP Pulse Ox O2 Del Method 08/03/24 07:25 36.5 C 74 18 139/76 97 BiPAP 08/03/24 07:05 81 18 98 08/03/24 07:05 81 18 98 BiPAP 08/03/24 03:20 36.4 C L 73 17 143/87 H 97 BiPAP 08/03/24 03:12 75 18 95 08/03/24 00:11 78 08/02/24 23:39 36.7 C 70 19 145/79 H 96 BiPAP FiO2 08/03/24 07:25 08/03/24 07:05 24 08/03/24 07:05 24 08/03/24 03:20 08/03/24 03:12 24 08/03/24 00:11 08/02/24 23:39 Laboratory Results Laboratory Results - last 24 hr 08/02/24 08/02/24 08/02/24 11:09 16:22 19:35 POC Glucose 170 H 196 H 262 H 08/03/24 07:17 POC Glucose 79 PG Care Time/CCT Total # of Minutes Spent Total Time Spent with Patient: Total time spent is greater than 50% in coordination of care (as documented) at patient's floor/unit and/or counseling patient: Coding Level of Care Code 73590 SUB INP/OBS CARE 2MIN Diagnoses Left lower lobe pneumonia J18.9 Sepsis A41.9 Acute exacerbation of chronic obstructive pulmonary disease J44.1 Hypoxia R09.02 Type II diabetes mellitus with manifestations E11.8 Depression with anxiety F41.8 Former tobacco use Z87.891 Acquired hypothyroidism E03.9 Hypothyroidism type: acquired Acute respiratory failure with hypoxia and hypercapnia J96.01; J96.02 Atrial fibrillation with rapid ventricular response I48.91 (8) Hypothyroidism Hypothyroidism type: acquired Qualified Code(s): E03.9 - Hypothyroidism, unspecified
[2024-08-03] MEDS: cefTRIAXone SODIUM 2,000 MG/50 ML BAG IV STA (12:51)
--- NOTE | 2024-08-03 14:50 | Pharmacy Report ---
Pharmacy Glycemic Short Note 2 - Date of Service August 03, 2024 - Glycemic Short BSG Results (Last 24 hours): 08/02/24 08/02/24 08/03/24 16:22 19:35 07:17 POC Glucose 196 H 262 H 79 08/03/24 11:37 POC Glucose 108 H OUTPATIENT ANTIDIABETIC REGIMEN: * Lantus 26 units daily ASSESSMENT: 08/03 * Transitioned to prednisone 50 mg daily yesterday- BSGS [phone] mg/dL with 87 units of total insulin * Fasting trending downward- 79 mg/dL today- will loosen lantus 20-50% * Continue current novolog parameters as prandial BSGs trended upward throughout day yesterday- monitor 08/01 * Patient received total of 81 units of insulin yesterday, of which 36 units were basal insulin * Fasting BSG 92 mg/dL - will scale back slightly on basal today with scale. Continues on solumedrol 30 mg bid * No change to CF/CR 07/30 * Lantus 18 units sq bid. * changing the carb ratio to 5 g * patient on methylprednisolone 40 mg bid 07/29 * Lantus 15 units sq bid * CF 20, Carb ratio 7 * patient on methylprednisolone 40 mg bid 07/28 * 69 year old admitted with shortness of breath/COPD exacerbation. Received prednisone 50 mg x 1 in ER - pharmacy consulted for glycemic management. * Fasting BSG 208 mg/dl - received Lantus 13 units x 1 in ER, will order additional 13 units of Lantus tonight to make up home dose. Will reassess basal insulin tomorrow and likely transition to once daily dosing. Unclear if po prednisone will be continued. PLAN FOR INPATIENT GLYCEMIC CONTROL: * Hold outpatient oral diabetes medications * Basal insulin * Lantus 10 units this AM, 7-15 units HS per scale- re-assess in AM * Bolus insulin * NovoLog per scale ACHS or Q6hrs while NPO * Goal Range: Low 110 mg/dL - High 140 mg/dL * Correction Factor: 15 mg/dL/unit * Nutritional / Prandial insulin per carb ratio of 1 unit per 5 grams CHO consumed
[2024-08-03 15:34] VITALS: TEMP 97.9
[2024-08-04 07:57] LABS: Hemoglobin 13.9 g/dl (12.0-16.0); Mean Corpuscular Hemoglobin 26.7 pg (25.0-34.0); Mean Corpuscular Hgb Conc 32.3 g/dL (32.0-36.0); Mean Corpuscular Volume 82.5 fL (80.0-100.0); Platelet Count 432 K/uL (130-400); RDW Coefficient of Variation 14.2 % (11.5-14.5); RDW Standard Deviation 41.6 fL (36.4-46.3); Red Blood Count 5.21 M/uL (4.20-5.40); White Blood Count 14.92 K/ul (4.8-10.8)
[2024-08-04 08:17] LABS: BUN Creatinine Ratio 27.1 (10-20); Calcium 8.6 mg/dl (8.6-10.3); Magnesium 2.2 mg/dl (1.7-2.4); Potassium 4.5 mmol/L (3.5-5.1)
[2024-08-04 08:29] LABS: Basophils # (auto) 0.14 K/uL (0.00-0.20); Basophils % (auto) 0.9 %; Eosinophils # (auto) 0.12 K/uL (0.00-0.50); Eosinophils % (auto) 0.8 %; Immature Granulocytes # (auto) 1.09 K/uL (0.01-0.20); Immature Granulocytes % (auto) 7.3 %; Lymphocytes # (auto) 3.73 K/uL (1.20-3.40); Monocytes # (auto) 1.44 K/uL (0.11-0.59); Monocytes % (auto) 9.7 %; Neutrophils % (auto) 56.3 %
[2024-08-04] MEDS ORDERED: LANTUS PER UNIT CHARGE SC SCH (09:00)
[2024-08-04] MEDS: LANTUS PER UNIT CHARGE SC SCH (09:05)
[2024-08-04 10:48] VITALS: PULSE 88; RESP 16; O2SAT 96
--- NOTE | 2024-08-04 13:18 | Discharge Summary ---
Discharge Summary Date of Service August 04, 2024 Principal Dx & Hospital Course #1 = Principal Diagnosis (1) Left lower lobe pneumonia: (2) Sepsis: (3) Acute exacerbation of chronic obstructive pulmonary disease: (4) Hypoxia: (5) Type II diabetes mellitus with manifestations: (6) Depression with anxiety: (7) Former tobacco use: (8) Hypothyroidism: (9) Acute respiratory failure with hypoxia and hypercapnia: (10) Atrial fibrillation with rapid ventricular response: Plan 69-year-old female with past medical history of COPD with chronic hyper Now with BiPAP at bedtime, history of tobacco use, hypothyroidism, type 2 diabetes mellitus, sinus tachycardia, essential hypertension who presents to the ED with shortness of breath and exertional dyspnea and hypoxia and was found to have a left lower lobe pneumonia #Sepsis secondary to left lower lobe pneumonia, present on admission #Acute on chronic hypoxic and hypercapnic respiratory failure #Acute exacerbation of COPD #Pulmonary nodule Outpatient mortar carrier is Dr. Andi NathanFirellen negative Blood cultures from admission growing Bacillus cereus: As per ID this is a contaminant Repeat blood cultures have been negative ID saw the patient and recommended continuing present antibiotic treatment for COPD exacerbation/pneumonia. As per ID, if patient develops fevers, clinically worsening or has GI symptoms and to obtain CT abdomen pelvis. Chest CTA revealed dense LLL consolidation consistent with pneumonia; no pulmonary emboli notified Both ageindeterminate and new pulmonary nodules noted on CTA Patient has finished 3 days of oral azithromycin 500 mg daily and 7 days of IV ceftriaxone IV Solu-Medrol was stopped on 08/02/2024 and she has been transition to prednisone 50 mg daily and will be transition to a steroid taper on discharge BiPAP at bedtime Patient had 2 steps study done by respiratory therapy and she does not need oxygen for home use during the day Patient uses Incruse Ellipta and Advair twice daily at home and will continue with that Continue Ellipta Albuterol nebulizers as needed at home Outpatient follow-up with pulmonology on discharge #Essential hypertension # A-fib with RVR: New onset CTA shows no PE Echo shows normal left ventricular size and systolic function, EF of 65%, no regional wall motion abnormalities, no left ventricular hypertrophy. Patient went into atrial fibrillation overnight on 07/29/2024 Cardiology saw the patient and have recommended anticoagulation with apixaban 5 mg p.o. twice daily and increasing Cardizem to Cardizem CD 240 mg daily She has spontaneously reverted to sinus rhythm on 07/30/2024 Cardiology has signed off at present Continue clonidine 0.1 mg p.o. daily Outpatient follow-up with cardiology #Insulin-dependent type 2 diabetes mellitus A1c is 8.5 Continue Lantus home dose Outpatient follow-up with endocrinology on discharge #Hypothyroidism TSH is 0.985 Continue levothyroxine 75 mcg p.o. daily Outpatient follow-up with endocrinology on discharge #Anxiety/depression Continue Effexor 75 mg p.o. nightly Outpatient follow-up with PCP Patient seen and examined today. She is ambulating with nursing staff with a walker. She does not need home oxygen. She is stable for discharge home with home health services. I discussed home health service with the patient and she is in agreement with it. I have gone over the discharge care plan, medications and follow-up with the patient in great detail and answered all her questions. This discharge took greater than 30 minutes to coordinate Admission HPI Per Admitting Provider Luz Maria is a pleasant 69-year-old female with PMH of COPD, anxiety, former tobacco use, GERD, depression, anxiety, hypothyroidism, T2DM, PAD, and lumbar radiculopathy. She presented on 07/28 for SOB/dyspnea that began the day prior. Patient was feeling fine until yesterday evening when she developed both SOB at rest and with exertion (worse with exertion). She decided to lay down and went on her BiPAP, which did improve her symptoms somewhat. Normally, she uses BiPAP at night or whenever she takes a nap; supplemental oxygen with BiPAP (2L NC). The breathing is usually worse when she is flat on her back, and she tends to lay on her side. No sick contacts. She then woke up again this morning, and her symptoms were somewhat worse; SOB/dyspnea at rest as well as upper left chest pain. She began developing a productive cough while in the ED this afternoon. No hemoptysis. Additionally, she does endorse pleuritic CP. Patient reports she took her regular morning medicine today, but did not take her Lantus as she did not have anything to eat this morning. Patient manages her own medicine at home; recent change in medications. No history of DVT/PE. Patient is a former tobacco cigarette smoker but quit 1 year ago. She denies any recent alcohol use. In regard to her PCN allergy, she reports she has not had a reaction since high school (around 50 years ago), and she reports that she only developed a rash/hives while in high school; no history of anaphylaxis. Patient is tachycardic around 119 bpm at time of admission; SpO2 95% on 2L NC. ED course: Acetaminophen 1000 mg IV DuoNeb 3 mL Prednisone 50 mg p.o. Aspirin 324 mg p.o. Azithromycin 500 mg p.o. Rocephin 2000 mg IV Ativan 0.5 mg p.o. NSS 1000 mL IV Discharge Exam General: No acute distress Psych: Awake and alert HEENT: Anicteric sclera, moist oral mucosa CVS: regular rate and rhythm Lungs: Bilateral air entry, no wheezing noted, no use of accessory muscles noted Abdomen: Soft, nontender, no rebound, no guarding Ext: No lower extremity edema, no calf tenderness Discharge Plan Discharge Items Patient Disposition: Home - Home Health Services Reason For Visit: LLL PNA, HYPOXIA, SEPSIS Discharge Diagnosis: # Left lower lobe pneumonia with sepsis #Acute on chronic hypoxic and hypercapnic respiratory failure #Acute exacerbation of COPD #Pulmonary nodule #Essential hypertension # Paroxysmal atrial fibrillation: New onset #Insulin-dependent type 2 diabetes mellitus #Hypothyroidism #Anxiety/depression Activity: As commented below Activity Comment: As tolerated with assistance Non-emergency contact: Primary Care Provider Call non-emergency contact if: you have any medication questions, your symptoms worsen and you have a fever Follow-up/Referrals: Mando Roberts MD [Physician] - 08/19/24 10:00 am Gerson Colon MD [Physician] - (SPOKE WITH JANAY AT THE OFFICE, SHE WILL HAVE CARDIO TEAM CALL PATIENT WITH A HOSTPITAL FOLLOW UP.) Jaime Niño III, CRNP [Primary Care Provider] - 08/14/24 3:00 pm Andi Glover MD [Physician] - (JANAY FROM SCHEDULING, WILL HAVE PULMONARY CALL PATIENT WITH A HOSPITAL FOLLOW UP IN 1-2 WEEKS.) Diet: Carb Consistent or DM2 and Heart Healthy Addtl Attending Provider Instructions: DISCHARGE INSTRUCTION TO PATIENT/FAMILY: Follow-up with your primary care provider within 1 week regarding: Posthospital discharge, medication review, medication refills and follow-up on all your medical problems Please take all your discharge medications, discharge information and discharge instructions to all your doctors appointments. Avoid all NSAIDs including ibuprofen, Motrin, Advil, Aleve, naproxen, meloxicam, Toradol, diclofenac Your A1c is 8.5. Please follow-up with your medical sonographer Dr. Mando Roberts (Lukas Rojas PA-C) regarding diabetes, hypothyroidism and adrenal nodule and discussion of GLP-1 Steroid taper is as follows: Prednisone 40 mg daily x 3 days starting 08/05/2024, then switch to prednisone 30 mg daily x 3 days, then switch to prednisone 20 mg daily x 3 days, then switch to prednisone 10 mg daily x 3 days and then stop prednisone Follow-up with your outpatient mortar carrier Dr. Andi Glover in 1 to 2 weeks time Follow-up with remedial teacher as outpatient regarding paroxysmal atrial fibrillation Labs through PCP in 1 to 2 weeks: CBC with Dif, CMP, Mg Pending Studies at Discharge: No Stand-Alone Forms: My [facility], Smoking Cessation Medications and DC Order Prescriptions: New Eliquis 5 mg Tablet 5 mg PO BID Qty: 60 0RF diltiazem HCl 240 mg Capsule,Extended Release 24hr 240 mg PO QAM Qty: 30 0RF vitamin B complex [Vitamins B Complex] Capsule 1 cap PO QAM Qty: 30 0RF Rx Instructions: Available [id number] prednisone 10 mg tablet 10 mg PO DIRECTED Qty: 30 0RF Rx Instructions: see taper instructions Prednisone 40 mg p.o. daily x 3 days starting 08/05/2024, then switch to prednisone 30 mg p.o. daily x 3 days, then switch to prednisone 20 mg p.o. daily x 3 days, then switch to prednisone 10 mg p.o. daily x 3 days and then stop prednisone albuterol sulfate 1.25 mg/3 mL solution for nebulization 1.25 mg inhalation TID PRN (Reason: bronchospasm/WHEEZING/SHORTNESS OF BREATH) Qty: 90 0RF Continued cyclobenzaprine 5 mg tablet 5 mg PO HS Qty: 90 3RF epinephrine [EpiPen] 0.3 mg/0.3 mL auto-injector 0.3 mg IM Q3H PRN (Reason: Anaphylaxis) Qty: 1 2RF albuterol sulfate [ProAir HFA] 90 mcg/actuation HFA aerosol inhaler 1 - 2 puff INHALATION Q4 PRN (Reason: Shortness Of Breath) Qty: 8.5 1RF clonidine HCl 0.1 mg tablet 0.1 mg PO DAILY Qty: 90 3RF (DME) pen needle, diabetic [Pen Needle] 32 gauge x 5/32" needle See Rx Instructions .ROUTE .COMPLEX Qty: 100 1RF Dose Instruction: As directed, daily for insulin Rx Instructions: As directed, daily for insulin Advair HFA 115-21 mcg/actuation HFA aerosol inhaler 2 puff inhalation BID Qty: 12 3RF Rx Instructions: INHALE 2 PUFFS TWICE A DAY. levothyroxine 75 mcg tablet 75 mcg PO QAM Qty: 90 1RF (DME) True Metrix Glucose Test Strip Strip See Rx Instructions .Route Rx Instructions: test 1 time daily insulin glargine [Lantus Solostar U-100 Insulin] 100 unit/mL (3 mL) insulin pen 26 unit subcut DAILY 90 Days Qty: 30 1RF venlafaxine 75 mg capsule,extended release 24hr 75 mg PO DAILY Rx Instructions: TAKE 1 CAPSULE BY MOUTH DAILY Incruse Ellipta 62.5 mcg/actuation blister with device 1 inh inhalation DAILY Rx Instructions: INHALE 1 PUFF DAILY. Discontinued diltiazem HCl [Cardizem CD] 120 mg capsule,extended release 24hr 120 mg PO QAM Qty: 90 3RF Discharge Orders: Discharge Order (Routine); Ordered 08/04/24 Ordered By: Raymond Macias/Other Patient Handouts: Prednisone Oral Tablet, Diltiazem Extended Release Oral Capsule, Managing Type 2 Diabetes Admission Data Admit Date/Time: 07/28/24 13:32 Attending Provider: Raymond Trejo Admit Provider: Hunter Alba Primary Care Provider: Jaime Niño III Other Providers: Hunter Alba; Gerson Colon Other Interventions: Discharge Summary Assessment (RN) Last Done: 08/04/24 11:25 Hospital Stay Data Consultations 07/28/24 12:20 ED Decision to Admit Stat 07/30/24 09:00 Consult Cardiology Routine 07/30/24 10:32 Consult Infectious Diseases Routine Diagnostic Imagining Performed 07/28/24 10:19 CT angio chest PE protocol Stat Chest X-Ray 07/28/24 09:18 XR chest 1V portable CLINICAL HISTORY: Chest pain, nonspecific COMPARISON STUDY: Chest radiograph October 17, 2022. Chest CT May 29, 2024. FINDINGS: Lung volumes are normal. There has been interval development of left basilar opacity. There is no pneumothorax or pleural effusion. Cardiac size is normal. Mediastinal contours are normal. There is no evidence for pulmonary edema. IMPRESSION: Interval development of left basilar airspace opacity suggestive of pneumonia. Post treatment radiographs to ensure resolution are recommended. ACT 112: Negative or not required by law. Electronically signed by: Brian Nieto M.D. 07/28/2024 10:04 AM Chest CTA 07/28/24 10:19 CT ANGIOGRAPHY OF THE CHEST, PULMONARY EMBOLUS PROTOCOL CLINICAL HISTORY: Shortness of breath. Evaluate for pulmonary embolus. COMPARISON STUDY: Chest CT May 29, 2024. Chest radiograph performed earlier today. TECHNIQUE: Following IV administration of 112 mL of Optiray, helical axial images of the chest were obtained utilizing the pulmonary embolus protocol. Maximal intensity projections and sagittal and coronal reformats were viewed on an independent 3D workstation. IV contrast was administered without complication. Automated exposure control was utilized for the study. A dose lowering technique was utilized adhering to the principles of ALARA. CT DOSE: 949.23 mGy.cm FINDINGS: Mildly enlarged left hilar lymph nodes measure up to 1.5 x 0.4 cm. There are no pulmonary emboli. Emphysema is present. There is no pneumothorax or pleural effusion. Dense consolidation within the posterior basal segment of the left lower lobe has developed since CT of May 29, 2024. An indeterminate 7 mm left upper lobe nodule on image 184 of [address] of May 29, 2024. There is no central obstructing mass. A 5 mm right upper lobe nodule on image 143 is new since that exam. Right upper lobe airspace opacities shown on prior CT have resolved. IMPRESSION: 1. No pulmonary emboli identified. 2. Dense left lower lobe consolidation consistent with pneumonia. 3. 7 mm left upper lobe pulmonary nodule, unchanged since CT of May 29, 2024. This remains indeterminate and imaging follow-up as per the recommendat ions on that exam are recommended. 4. 5 mm right upper lobe nodule which is new since prior study. This is likely infectious but should be assessed on follow-up CT to ensure resolution. 5. Left hilar adenopathy, likely reactive. These nodes should be assessed on follow-up CT to ensure resolution. ACT 112: Negative or not required by law. Electronically signed by: Brian Nieto M.D. 07/28/2024 11:38 AM Laboratory Results - last 24 hr 08/03/24 08/03/24 08/04/24 16:50 20:04 07:08 WBC 14.92 H RBC 5.21 Hgb 13.9 Hct 43.0 MCV 82.5 MCH 26.7 MCHC 32.3 RDW Std Deviation 41.6 RDW Coeff of [place] 14.2 Plt Count 432 H MPV 9.0 L Immature Gran % (Auto) 7.3 Neut % (Auto) 56.3 Lymph % (Auto) 25.0 [place] % (Auto) 9.7 Eos % (Auto) 0.8 Baso % (Auto) 0.9 Neut # (Auto) 8.40 H Lymph # (Auto) 3.73 H [place] # (Auto) 1.44 H Eos # (Auto) 0.12 Baso # (Auto) 0.14 Immature Gran # (Auto) 1.09 H Sodium 143 Potassium 4.5 Chloride 106 Carbon Dioxide 32 Anion Gap 5 BUN 26 H Creatinine 0.96 Est Cr Clr Drug Dosing 67.0 eGFR 63.65 BUN/Creatinine Ratio 27.1 H Glucose 59 L POC Glucose 301 H* 210 H Calcium 8.6 Magnesium 2.2 08/04/24 08/04/24 08:00 11:36 WBC RBC Hgb Hct MCV MCH MCHC RDW Std Deviation RDW Coeff of [place] Plt Count MPV Immature Gran % (Auto) Neut % (Auto) Lymph % (Auto) [place] % (Auto) Eos % (Auto) Baso % (Auto) Neut # (Auto) Lymph # (Auto) [place] # (Auto) Eos # (Auto) Baso # (Auto) Immature Gran # (Auto) Sodium Potassium Chloride Carbon Dioxide Anion Gap BUN Creatinine Est Cr Clr Drug Dosing eGFR BUN/Creatinine Ratio Glucose POC Glucose 71 82 Calcium Magnesium Pending Results Patient Have Any Pending Studies at Discharge: No Discharge Instructions Given to Patient (Per Discharging Provider) DISCHARGE INSTRUCTION TO PATIENT/FAMILY: Follow-up with your primary care provider within 1 week regarding: Posthospital discharge, medication review, medication refills and follow-up on all your medical problems Please take all your discharge medications, discharge information and discharge instructions to all your doctors appointments. Avoid all NSAIDs including ibuprofen, Motrin, Advil, Aleve, naproxen, meloxicam, Toradol, diclofenac Your A1c is 8.5. Please follow-up with your medical sonographer Dr. Mando Roberts (Lukas Rojas PA-C) regarding diabetes, hypothyroidism and adrenal nodule and discussion of GLP-1 Steroid taper is as follows: Prednisone 40 mg daily x 3 days starting 08/05/2024, then switch to prednisone 30 mg daily x 3 days, then switch to prednisone 20 mg daily x 3 days, then switch to prednisone 10 mg daily x 3 days and then stop prednisone Follow-up with your outpatient mortar carrier Dr. Andi Glover in 1 to 2 weeks time Follow-up with remedial teacher as outpatient regarding paroxysmal atrial fibrillation Labs through PCP in 1 to 2 weeks: CBC with Dif, CMP, Mg Total Time Total Time Spent Total Time Spent (In Minutes): 40 minutes Coding Level of Care Code 59011 INP/OBS DISCH >30 MIN Diagnoses Left lower lobe pneumonia J18.9 Sepsis A41.9 Acute exacerbation of chronic obstructive pulmonary disease J44.1 Hypoxia R09.02 Type II diabetes mellitus with manifestations E11.8 Depression with anxiety F41.8 Former tobacco use Z87.891 Acquired hypothyroidism E03.9 Hypothyroidism type: acquired Acute respiratory failure with hypoxia and hypercapnia J96.01; J96.02 Atrial fibrillation with rapid ventricular response I48.91
[2024-08-04 15:33] VITALS: BP 145/80
== END 2024-08-04 15:33 | disposition home health service (06) | DRG 871 ==
LOC: ED 08:31 → SUATTDRO 13:32 → 2S 13:32 → 3N 08-03 11:27

== ENCOUNTER 2024-09-17 08:29 | Inpatient (IN) ==
[2024-09-17] MEDS ORDERED: VANCOMYCIN CONSULT ACTIVE PRN (08:40)
--- NOTE | 2024-09-17 08:52 | Emergency Department Note ---
Impression & Plan Cellulitis and abscess of neck, Pawel's angina syndrome ED Provider Note CHIEF COMPLAINT: Postoperative swelling HISTORY OF PRESENT ILLNESS: This 69-year-old female patient presents to the emergency department via private dosing for postoperative swelling to the neck. She reports dental surgery with extractions and implants on 09/12. She states since that time she has noticed some swelling worsening this morning. She reports she is able to maintain her own secretions, is afebrile and is able to complete full sentences. She states no SHOB, chest pain, trismus, or pain with ROM of the neck. REVIEW OF SYSTEMS: A review of systems was performed with positives and pertinent negatives listed in the history of present illness. All other systems were reviewed and are negative. ALLERGIES: See below MEDICATIONS: See below PMH: See below PHYSICAL EXAM: VITALS: Vitals are noted on the nurse's note and reviewed by myself. Vital signs stable. GENERAL: 69-year-old female, in no acute distress, nondiaphoretic, well- developed well-nourished. SKIN: Erythema, with edema extending from the bottom of the patients face to mid neck. Firm, warm, and TTP. HEAD: Normocephalic atraumatic. EYES: Pupils equal round and reactive to light and accommodation. Conjunctivae without injection, sclerae without icterus. Extraocular movements intact. MOUTH: Mucous membranes moist. No tonsillary hypertrophy. Pharynx without erythema or exudate. Uvula midline. Airway patent. Tongue does not deviate. No trismus. No sublingual edema. NECK: Erythema, with edema extending from the bottom of the patients face to mid neck. Firm, warm, and TTP. HEART: Regular rate and rhythm without murmurs gallops or rubs. LUNGS: Clear to auscultation bilaterally without wheezes, rales or rhonchi. No retractions or accessory muscle use. MUSCULOSKELETAL: No muscle atrophy, erythema, or edema noted. Normal gait. Strength 5/5 throughout. NEURO: Patient was alert and oriented to person place and time. No focal neurological deficits. MEDICAL DECISION MAKING: The patient is a pleasant 69-year-old female who arrives to the emergency department for evaluation of the above-stated complaint. Upon examination it appears the patient does have findings consistent with Pawel's angina. A saline lock was established, CBC, CMP, blood cultures, lactate, procalcitonin, were obtained. CBC shows leukocytosis 15.53, with a stable hemoglobin and hematocrit. Elevated glucose, 333 due to uncontrolled diabetes. Lactate 2.2 with repeat after IV hydration 1.3. Procalcitonin 0.15. Chest x-ray was obtained which per my interpretation shows no obvious sign of cardiopulmonary process. EKG shows sinus tachycardia at a rate of 103bpm with no ST elevation, depression, or ectopy. Previous for comparision from 08/03 shows no PAC's. The patient was taken to CT immediately after IV placement. CT imaging of the soft tissue of the neck does show findings consistent with a significant cellulitis, as well as a 3 cm abscess. Mild oral pharyngeal narrowing with edema of the epiglottis is also noted as well as reactive submandibular lymphadenopathy. I contacted Dr. Piotr Willis, from [facility] [place] who stated the patient should be admitted to medicine, with IV antibiotics. He reported he will come in to evaluate the patient and plans to take the patient to the OR. The patient was started on IV vancomycin, and cefepime. I spoke with Dr. Mimi ramachandran regarding the patient's Eliquis administration this morning. She stated should the patient need Kcentra, it should not be administered unless 30 minutes prior to surgical procedure. Dr. Willis was notified of this information. I contacted case management to facilitate admission to the hospital with the [facility] hospitalist service. Dr. Alba was informed of the patient's status, and findings. He did agree to admit the patient under his care. Please refer to his documentation for further patient workup. DIFFERENTIAL DIAGNOSIS: Dental caries, dental abscess, Ludwigs angina, Vincent angina, dental fracture, facial cellulitis, parotitis, osteomyelitis, sinus infection, peritonsillar abscess. The patient's case was discussed with Dr. Alonso, who agreed with my evaluation and treatment plan. Continuous cardiac monitor technician: Order was placed for continuous cardiac monitor technician. Patient was placed on the cardiac monitor technician. Patient was noted to be in sinus tachycardia at an initial rate of 110 bpm. The chart was completed utilizing [employer] voice recognition software. Grammatical errors, random word insertions, pronoun errors, and incomplete sentences are an occasional consequence of this system due to software limitations, ambient noise, and hardware issues. Any formal questions or concerns about the content, text, or information contained within the body of this dictation should be directly addressed to the physician for clarification. Past Med/Surg History Problem List (Updated 09/17/24 @ 16:15 by BRIEN Harrington) Pawel's angina syndrome (Acute) Sepsis Cellulitis and abscess of neck (Acute) Dyspnea on exertion Paroxysmal atrial fibrillation Uncontrolled type 2 diabetes mellitus with hyperglycemia Atrial fibrillation with rapid ventricular response Former tobacco use Chronic diarrhea Adrenal nodule Vitamin D insufficiency Chronic hypercapnic respiratory failure Encephalopathy Tobacco abuse PAD (peripheral artery disease) Lumbosacral radiculopathy at L4 Idiopathic polyneuropathy Lichen sclerosus et atrophicus Urinary incontinence Type II diabetes mellitus with manifestations (Chronic) Chronic obstructive pulmonary disease (Chronic) Hypothyroidism (Chronic) Tobacco use (Chronic) Restless legs syndrome Obesity (Chronic) Lumbar canal stenosis (Chronic) Hypercholesterolemia (Chronic) Gastropathy (Chronic) Depression with anxiety (Chronic) Chronic reflux esophagitis (Chronic) Anxiety (Chronic) GERD (gastroesophageal reflux disease) (Chronic) Medical History Nocturnal hypoxia Allergy to bugs History of colon polyps Vision loss, right eye Depression with anxiety COPD (chronic obstructive pulmonary disease) controlled w/ daily inhaler use, prn neb/inhaler use Diabetes Idiopathic polyneuropathy PAD (peripheral artery disease) Hx of encephalopathy pt not aware, denies Hx of respiratory failure acute on chronic History of COVID-19 (2021) no hosp, resolved Adrenal mass benign, no changes in yrs, monitoring SVT (supraventricular tachycardia) hx>>controlled w/ diltiazem; states has a "normally fast heart rate" at all times History of anesthesia reaction states she did not receive enough anesthesia with 1st cataract sx on right eye Acute exacerbation of chronic obstructive pulmonary disease HX>>last exacerbation 08/2023, no hospitalization hx of severe exacerbation in Sep 2021--had to be hospitalized and intubated---pt states she has made a full recovery---does use inhalers daily/prn and nebulizer prn, oxgyen 1 L n/c at hs PAC (premature atrial contraction) Overweight History of colon polyps Osteoarthritis Fibromyalgia Kidney stones hx of GERD (gastroesophageal reflux disease) Hypothyroidism Cardiac murmur follows with Dr. Colon Sleep apnea BIPAP Surgical History Hx of left cataract extraction Hx of oral surgery dental implants History of dilatation and curettage History of total right knee replacement (TKR) History of umbilical hernia repair History of colonoscopy History of tooth extraction History of wisdom tooth extraction Hx of eye surgery left laser for retinal bleed History of right cataract extraction during procedure "pupil was damaged and no longer dilates" Family History Aunt History of anesthesia reaction "her heart stopped with any anesthesia"--no one else in the family has any issues Grandmother (Paternal) Family history of diabetes mellitus Grandfather (Maternal) Family hx of colon cancer Colon cancer Father Heart disease Stroke Mother Dementia Diabetes Macular degeneration Alzheimer disease Autoimmune disease Brother Squamous cell carcinoma of skin Atrial fibrillation Bladder cancer Other Basal cell carcinoma Denies family history of Ovarian cancer Prostate cancer Myocardial infarction Breast cancer Social History Smoking Status: Former smoker Tobacco Type: Cigarettes Age Started Using Tobacco: 18; Age Quit Using Tobacco: 68; packs per day: 0.25; Second Hand Exposure: No; Do You Dip or Chew Tobacco: No; Hx Alcohol Use: No Hx Substance Use: No Preferred Language: Yakut Communication Ability: Effective Visual Impairment: No Limitations Hearing Ability: Normal Rn Delivery Required: No Beliefs That Will Affect Care: None marital status: Current Living Situation: Spouse current occupational status: retired How many Children do You have: 2 Other Information That Helps Us Care for You: No Feels Safe at Home: Yes Safety Concerns: Feels Safe At This Time Childhood Exposure to Second-Hand Smoke: Yes Diet: regular Diet Comment: no specific diet caffeine: Yes during the past year weight has: increased > 10 lbs Dental Care, Regularly: Yes Physical Activity Frequency: Does not Exercise Seatbelt Use: always Sunscreen Use: Yes Do you think of yourself as: straight/heterosexual Assistive Devices: BiPap and Cane Allergies Allergies Allergy/AdvReac Type Severity Reaction Status Date / Time bee venom protein (honey bee) Allergy Severe HIVES AND Verified 09/17/24 09:24 ANAPHYLAXIS Penicillins Allergy Severe HIVES Verified 09/17/24 09:24 Sulfa (Sulfonamide Allergy Severe High Verified 09/17/24 09:24 Antibiotics) fever, broke out with spider veins all over grass pollen Allergy Intermediate hay fever Verified 09/17/24 09:24 symptoms doxycycline AdvReac Intermediate Gastrointestinal Verified 09/17/24 09:24 Upset Home Meds Home Medications Medication Instructions Recorded Confirmed blood sugar diagnostic (True 08/14/23 09/08/24 Metrix Glucose Test Strip) umeclidinium 62.5 mcg/actuation 1 inh inhalation QAM 07/28/24 09/17/24 blister powder for inhalation (Incruse Ellipta) venlafaxine 75 mg capsule,extended 75 mg PO HS 07/28/24 09/17/24 release 24 hr cholecalciferol (vitamin D3) 10 10 mcg PO DAILY 08/20/24 09/17/24 mcg (400 unit) capsule albuterol sulfate 90 mcg/actuation 1 - 2 puff inhalation Q4H PRN 09/17/24 09/17/24 aerosol inhaler SOB/Wheezing cefadroxil 500 mg capsule 500 mg PO BID 09/17/24 09/17/24 famotidine 40 mg tablet (Pepcid) 40 mg PO BID PRN Acid Reflux 09/17/24 09/17/24 insulin glargine 100 unit/mL (3 22 unit subcut QAM 09/17/24 09/17/24 mL) subcutaneous pen (Lantus Solostar U-100 Insulin) rosuvastatin 5 mg tablet (Crestor) 5 mg PO WK 09/17/24 09/17/24 Previous Rx's Medication Instructions Recorded cyclobenzaprine 5 mg tablet 5 mg PO HS #90 tabs 02/05/24 epinephrine 0.3 mg/0.3 mL 0.3 mg (0.3 mL) IM Q3H PRN 02/14/24 injection, auto-injector (EpiPen) Anaphylaxis #1 ea clonidine HCl 0.1 mg tablet 0.1 mg PO DAILY #90 tabs 03/03/24 pen needle, diabetic 32 gauge x #100 ea 04/24/2432" (Pen Needle) fluticasone propionate 115 2 puff inhalation BID #12 grams 05/16/24 mcg-salmeterol 21 mcg/actuation HFA inhaler (Advair HFA) levothyroxine 75 mcg tablet 75 mcg PO QAM #90 tabs 05/28/24 albuterol sulfate 1.25 mg/3 mL 1.25 mg (3 mL) inhalation TID PRN 08/04/24 solution for nebulization bronchospasm/WHEEZING/SHORTNESS OF BREATH #90 mL vitamin B complex (Vitamins B 1 cap PO QAM #30 caps 08/04/24 Complex capsule) apixaban 5 mg tablet (Eliquis) 5 mg PO BID #60 tabs 09/04/24 diltiazem HCl 240 mg 240 mg PO QAM #30 caps 09/04/24 capsule,extended release 24 hr Results & Data (ED) Vital Signs Vital Signs - 24 hr 09/17/24 08:31 09/17/24 08:57 09/17/24 09:15 Temperature 36.5 C Temperature Source Temporal Artery Scan Pulse Rate 124 H 110 H 111 H Pulse Rate from SpO2 Sensor Pulse Rhythm Regular Respiratory Rate 18 20 Respiratory Effort / Characteristics Non-Labored Spontaneous Respiratory Depth Normal Blood Pressure 100/64 Blood Pressure Mean 76 Blood Pressure Position Sitting Pulse Oximetry 95 93 Oxygen Delivery Method Room Air Room Air Sepsis Recent Fever Within 48 Hours No Sepsis New/Unexplained Change in Mental Status No Sepsis Action Taken by Nursing No Action Required 09/17/24 09:15 09/17/24 09:30 09/17/24 09:51 Temperature Temperature Source Pulse Rate 111 H 111 H 108 H Pulse Rate from SpO2 Sensor Pulse Rhythm Respiratory Rate 19 18 Respiratory Effort / Characteristics Respiratory Depth Blood Pressure 135/77 160/105 H 108/78 Blood Pressure Mean 95 150 95 Blood Pressure Position Pulse Oximetry 91 95 94 Oxygen Delivery Method Room Air Sepsis Recent Fever Within 48 Hours Sepsis New/Unexplained Change in Mental Status Sepsis Action Taken by Nursing 09/17/24 10:00 09/17/24 10:09 Temperature Temperature Source Pulse Rate 107 H 105 H Pulse Rate from SpO2 Sensor 104 H Pulse Rhythm Respiratory Rate 20 20 Respiratory Effort / Characteristics Respiratory Depth Blood Pressure 132/86 132/86 Blood Pressure Mean 103 101 Blood Pressure Position Pulse Oximetry 96 97 Oxygen Delivery Method Sepsis Recent Fever Within 48 Hours Sepsis New/Unexplained Change in Mental Status Sepsis Action Taken by Halfway Medications Current Medication List: was personally reviewed by me Laboratory Data Attestation: I reviewed the patient's lab results. 09/17/24 08:44 09/17/24 08:44 Lab Results 09/17/24 Range/Units 08:44 WBC 15.53 H (4.8-10.8) K/ul RBC 5.32 (4.20-5.40) M/uL Hgb 14.4 (12.0-16.0) g/dl Hct 45.0 (37.0-47.0) % MCV 84.6 (80.0-100.0) fL MCH 27.1 (25.0-34.0) pg MCHC 32.0 (32.0-36.0) g/dL RDW Std Deviation 44.4 (36.4-46.3) fL RDW Coeff of Palak 14.5 (11.5-14.5) % Plt Count 475 H (130-400) K/uL MPV 9.0 L (9.4-12.4) fL Immature Gran % (Auto) 0.9 % Neut % (Auto) 83.3 % Lymph % (Auto) 9.2 % [place] % (Auto) 6.1 % Eos % (Auto) 0.1 % Baso % (Auto) 0.4 % Neut # (Auto) 12.95 H (1.40-6.50) K/uL Lymph # (Auto) 1.43 (1.20-3.40) K/uL [place] # (Auto) 0.94 H (0.11-0.59) K/uL Eos # (Auto) 0.01 (0.00-0.50) K/uL Baso # (Auto) 0.06 (0.00-0.20) K/uL Immature Gran # (Auto) 0.14 (0.01-0.20) K/uL Sodium 136 (136-145) mmol/L Potassium 4.4 (3.5-5.1) mmol/L Chloride 99 (98-107) mmol/L Carbon Dioxide 27 (21-32) mmol/L Anion Gap 10 (3-11) BUN 19 (6-23) mg/dl Creatinine 1.06 (0.6-1.2) mg/dl Est Cr Clr Drug Dosing 57.8 ml/min eGFR 56.51 BUN/Creatinine Ratio 17.9 (10-20) Glucose 333 H* (70-99(Fasting)) mg/dl Lactate 2.2 H* (0.4-2.0) mmol/L Calcium 9.8 (8.6-10.3) mg/dl Total Bilirubin 0.5 (0.2-1.0) mg/dl AST 13 (13-39) U/L ALT 16 (7-52) U/L Alkaline Phosphatase 106 H (34-104) U/L Total Protein 7.9 (6.0-8.3) gm/dl Albumin 4.4 (3.4-5.0) gm/dl Globulin 3.5 (2.5-4.0) gm/dl Albumin/Globulin Ratio 1.3 (0.9-2) Procalcitonin 0.15 (0-0.5) ng/ml Administered Medications Acetaminophen (Ofirmev) 1,000 mg in 100 mls @ 400 mls/hr IV Q8H PRN PRN Reason: Pain or Fever Stop: 09/20/24 11:31 Last Infusion: 09/17/24 14:08 Dose: Infused Documented By: Admin: 09/17/24 13:41 Dose: 400 mls/hr Documented By: CEF Discontinued Medications Cefepime HCl (Maxipime 2000mg) 2,000 mg in 20 mls @ 5 mls/min IV NOW STA; Protocol Stop: 09/17/24 08:43 Last Admin: 09/17/24 08:54 Dose: 5 mls/min Documented By: PHIL Vancomycin HCl 2,500 mg/ (Sodium Chloride) 550 mls @ 200 mls/hr IV NOW ONE Stop: 09/17/24 11:24 Last Infusion: 09/17/24 12:53 Dose: Infused Documented By: Admin: 09/17/24 09:23 Dose: 200 mls/hr Documented By: PHIL Metronidazole (Flagyl) 500 mg in 100 mls @ 100 mls/hr IV NOW STA; Protocol Stop: 09/17/24 09:39 Last Infusion: 09/17/24 10:18 Dose: Infused Documented By: Admin: 09/17/24 08:54 Dose: 100 mls/hr Documented By: PHIL Sodium Chloride (Nss) 1,000 mls @ 999 mls/hr IV .Q1H1M ONE Stop: 09/17/24 09:59 Last Infusion: 09/17/24 13:35 Dose: Infused Documented By: Admin: 09/17/24 09:11 Dose: 999 mls/hr Documented By: PHIL Sodium Chloride (Nss) 1,000 mls @ 999 mls/hr IV .Q1H1M ONE Stop: 09/17/24 12:08 Last Infusion: 09/17/24 13:35 Dose: Infused Documented By: Admin: 09/17/24 11:48 Dose: 999 mls/hr Documented By: LILIA Insulin Human Regular (Novolin-R Insulin Per Unit Charge) 0 units IV NOW STA Stop: 09/17/24 10:45 Last Admin: 09/17/24 11:44 Dose: 1.86 units Documented By: LILIA Co-signed By: VLADIMIR Ioversol (Optiray 320 100ml) 94 ml IV ONCE ONE Stop: 09/17/24 08:55 Last Admin: 09/17/24 08:54 Dose: 94 ml Documented By: MAU Imaging Data Attestation: I personally reviewed and interpreted this imaging study as follows: Radiologist's Impression: Soft Tissue Neck CT 09/17/24 08:38 CT soft tissue neck w con HISTORY: 69 years-old Female r/o ludwigs dysphagia with pain and swelling of the throat/neck. COMPARISON: CTA chest 07/28/2024 TECHNIQUE: Multiple axial CT images of the soft tissues of the neck were obtained with use of IV contrast. A dose lowering technique was used consistent with the principals of ALARA. FINDINGS: 2.3 x 1.3 x 3.2 cm peripherally enhancing fluid collection deep to the digastric musculature and appears to involve both the enlarged and heterogeneous left mylohyoid and geniohyoid musculature and adjacent myofascial margins. There is associated deep tissue and subcutaneous edema which tracks along the platysma myofascial margins involving both the sublingual and the ventricular spaces. Reactive 10 x 8 mm submental lymph node on image 227 series 3. Moderate oral pharyngeal narrowing. Unremarkable appearance of the glottis and subglottic airway. Edema involves the epiglottis and aryepiglottic folds. Unremarkable thyroid and parotid glands. The lung apices appear clear. Moderate pulmonary emphysema. Atherosclerosis of the carotid bulbs without high-grade stenosis. The imaged intracranial structures appear unremarkable. Degenerative changes of the spine. No large dental caries or periapical cysts. Several dental implants are noted. IMPRESSION: 1. Cellulitis of the neck with inflammation involving the submandibular and sublingual spaces. A 3 cm peripherally enhancing fluid collection suggestive of an abscess involves the left mylohyoid and geniohyoid musculature. A necrotic malignancy considered less likely. 2. Mild oral pharyngeal narrowing with edema of the epiglottis. 3. Reactive submandibular lymphadenopathy. ACT 112: Negative or not required by law. The above report was generated using voice recognition software. It may contain grammatical, syntax or spelling errors. Electronically signed by: Jose Cao M.D. 09/17/2024 9:33 AM Chest X-Ray 09/17/24 10:35 XR chest 1V portable CLINICAL HISTORY: pre-op, sepsis, CHF COMPARISON STUDY: 08/22/2024 FINDINGS: Heart size and pulmonary vasculature are normal. No effusion, consolidation, or pneumothorax. IMPRESSION: No acute findings. ACT 112: Negative or not required by law. Electronically signed by: Fermin Sylvester M.D. 09/17/2024 11:06 AM Discharge Plan Visit Data Chief Complaint: Swelling/Edema to Extremity Stated Complaint: EDEMA NECK, HARD TO SWALLOW, ORAL SURG ED Provider: Saleem Alonso ED Midlevel Provider: Stephanie Aviles Discharge Problem: Cellulitis and abscess of neck, Pawel's angina syndrome Patient Disposition: Admitted As Inpatient Discharge Instructions Interventions: ED Discharge Assessment Last Done: 09/17/24 11:33
[2024-09-17] MEDS: metroNIDAZOLE 500 MG/100 ML BAG IV STA (08:54)
[2024-09-17] MEDS: OPTIRAY 320 100ml IV ONE (08:54)
[2024-09-17] MEDS: CEFEPIME 2000MG 2,000 MG/20 ML SYR IV STA (08:54)
[2024-09-17 09:11] LABS: Basophils # (auto) 0.06 K/uL (0.00-0.20); Basophils % (auto) 0.4 %; Eosinophils # (auto) 0.01 K/uL (0.00-0.50); Eosinophils % (auto) 0.1 %; Hemoglobin 14.4 g/dl (12.0-16.0); Immature Granulocytes # (auto) 0.14 K/uL (0.01-0.20); Immature Granulocytes % (auto) 0.9 %; Lymphocytes # (auto) 1.43 K/uL (1.20-3.40); Lymphocytes % (auto) 9.2 %; Mean Corpuscular Hemoglobin 27.1 pg (25.0-34.0); Mean Corpuscular Volume 84.6 fL (80.0-100.0); Monocytes # (auto) 0.94 K/uL (0.11-0.59); Monocytes % (auto) 6.1 %; Neutrophils # (auto) 12.95 K/uL (1.40-6.50); Neutrophils % (auto) 83.3 %; Platelet Count 475 K/uL (130-400); RDW Coefficient of Variation 14.5 % (11.5-14.5); RDW Standard Deviation 44.4 fL (36.4-46.3); Red Blood Count 5.32 M/uL (4.20-5.40); White Blood Count 15.53 K/ul (4.8-10.8)
[2024-09-17] MEDS: SODIUM CHLORIDE 0.9% 1,000 ML IV ONE ×2 (09:11→11:48)
[2024-09-17] MEDS: VANCOMYCIN HCL 2,500 MG in SODIUM CHLORIDE 0.9% 500 ML IV ONE (09:23)
[2024-09-17 09:34] LABS: Albumin Globulin Ratio 1.3 (0.9-2); Albumin Level 4.4 gm/dl (3.4-5.0); BUN Creatinine Ratio 17.9 (10-20); Bilirubin,Total 0.5 mg/dl (0.2-1.0); Calcium 9.8 mg/dl (8.6-10.3); Creatinine Clr Calc Pharmacy 57.8 ml/min; Globulin 3.5 gm/dl (2.5-4.0); Potassium 4.4 mmol/L (3.5-5.1); Total Protein 7.9 gm/dl (6.0-8.3)
--- NOTE | 2024-09-17 09:34 | CT Scan Report ---
CT soft tissue neck w con HISTORY: 69 years-old Female r/o ludwigs dysphagia with pain and swelling of the throat/neck. COMPARISON: CTA chest 07/28/2024 TECHNIQUE: Multiple axial CT images of the soft tissues of the neck were obtained with use of IV cont rast. A dose lowering technique was used consistent with the principals of KEVEN. FINDINGS: 2.3 x 1.3 x 3.2 cm peripherally enhancing fluid collection deep to the digastric musculature and appe ars to involve both the enlarged and heterogeneous left mylohyoid and geniohyoid musculature and conor cent myofascial margins. There is associated deep tissue and subcutaneous edema which tracks along th e platysma myofascial margins involving both the sublingual and the ventricular spaces. Reactive 10 x 8 mm submental lymph node on image 227 series 3. Moderate oral pharyngeal narrowing. Unremarkable ap pearance of the glottis and subglottic airway. Edema involves the epiglottis and aryepiglottic folds. Unremarkable thyroid and parotid glands. The lung apices appear clear. Moderate pulmonary emphysema. Atherosclerosis of the carotid bulbs with out high-grade stenosis. The imaged intracranial structures appear unremarkable. Degenerative changes of the spine. No large dental caries or periapical cysts. Several dental implants are noted. IMPRESSION: 1. Cellulitis of the neck with inflammation involving the submandibular and sublingual spaces. A 3 cm peripherally enhancing fluid collection suggestive of an abscess involves the left mylohyoid and gen iohyoid musculature. A necrotic malignancy considered less likely. 2. Mild oral pharyngeal narrowing with edema of the epiglottis. 3. Reactive submandibular lymphadenopathy. ACT 112: Negative or not required by law. The above report was generated using voice recognition software. It may contain grammatical, syntax o r spelling errors. Electronically signed by: Jose Cao M.D. 09/17/2024 9:33 AM
--- NOTE | 2024-09-17 09:48 | Emergency Department Note ---
ED Visit Note I was consulted by the Advanced Practice Provider,BRIEN Andrade. I personally made/approved the management plan and take responsibility for the patient management. I performed a substantive portion of the visit. This includes the aspects of: -History/Physical/Personally seeing the patient -MDM .
--- NOTE | 2024-09-17 10:53 | History & Physical Report ---
Date of Service September 17, 2024 Assessment & Plan (1) Sepsis: Plan: Secondary to cellulitis and abscess - ENT consult pending CXR pending Lactate 2.2 and not hypotensive therefore does not meet criteria for IV fluids, however given ongoing tachycardia despite taking AM diltiazem and recent history of paroxysmal a. fib will give 2nd L bolus Empiric antibiotics as below Follow up blood cultures (2) Cellulitis and abscess of neck: Plan: Last ate 7am, Last took Eliquis 7am. Will need Kcentra prior to operation - request surgery co-ordinate with Dr Le with planning for this. NPO pending surgical decision Allergy to penicillin - hives, Treat empirically with vancomycin, cefepime + metronidazole (3) Paroxysmal atrial fibrillation: Plan: Current sinus tachycardia on monitor, EKG pending Took diltiazem this morning, will continue daily (do not hold pre-operatively) Holding Eliquis in anticipation of surgical management (4) Uncontrolled type 2 diabetes mellitus with hyperglycemia: Plan: HbA1C 9.0 in August, no need to repeat Glucose 333, will repeat BSG and give IV insulin with a correction factor of 50 now Novolog ACHS Lantus reduce dose to 10 units while inpatient diet and NPO, hold if glucose < 100 (5) Chronic hypercapnic respiratory failure: Plan: BiPAP HS Plan Hypothyroidism - TSH WNL in August, continue levothyroxine Anxiety - continue venlafaxine VTE Prophylaxis - Resume Eliquis when ok from surgical stand point, SCDs Diet - NPO pending surgical decision Disposition - admit to PCU Admission and Anticipated Discharge Date Admission Date: September 17, 2024 History of Present Illness Chief Complaint: Neck swelling and erythema Primary Care Provider: Jaime Niño, III, BRIEN Luz Maria Adrian is a 69 year old female who presents to the ER with neck swelling and erythema following dental surgery. She had dental extraction and implant surgery performed on September 12, 2024 (5 days ago). She was on pre-operative azithromycin starting 2 days prior to this surgery. She started noticing neck swelling and erythema starting 3 days ago. No fever or chills. She was started on cefadroxil but despite this continued to get worse and was advised by her dental surgeon to come to the ER today. She last took Eliquis at 7am when she also last ate yoghurt. Allergies Allergy/AdvReac Type Severity Reaction Status Date / Time bee venom protein (honey bee) Allergy Severe HIVES AND Verified 09/18/24 12:12 ANAPHYLAXIS Penicillins Allergy Severe HIVES Verified 09/18/24 12:12 Sulfa (Sulfonamide Allergy Severe High Verified 09/18/24 12:12 Antibiotics) fever, broke out with spider veins all over grass pollen Allergy Intermediate hay fever Verified 09/18/24 12:12 symptoms doxycycline AdvReac Intermediate Gastrointestinal Verified 09/18/24 12:12 Upset Home Medications Medication Instructions Recorded Confirmed Type blood sugar diagnostic (True 08/14/23 09/08/24 History Metrix Glucose Test Strip) cyclobenzaprine 5 mg tablet 5 mg PO HS #90 tabs 02/05/24 09/17/24 Rx epinephrine 0.3 mg/0.3 mL 0.3 mg (0.3 mL) IM Q3H PRN 02/14/24 09/17/24 Rx injection, auto-injector (EpiPen) Anaphylaxis #1 ea clonidine HCl 0.1 mg tablet 0.1 mg PO DAILY #90 tabs 03/03/24 09/17/24 Rx pen needle, diabetic 32 gauge x #100 ea 04/24/24 09/08/24 Rx 5/32" (Pen Needle) fluticasone propionate 115 2 puff inhalation BID #12 grams 05/16/24 09/17/24 Rx mcg-salmeterol 21 mcg/actuation HFA inhaler (Advair HFA) levothyroxine 75 mcg tablet 75 mcg PO QAM #90 tabs 05/28/24 09/17/24 Rx umeclidinium 62.5 mcg/actuation 1 inh inhalation QAM 07/28/24 09/17/24 History blister powder for inhalation (Incruse Ellipta) venlafaxine 75 mg capsule,extended 75 mg PO HS 07/28/24 09/17/24 History release 24 hr albuterol sulfate 1.25 mg/3 mL 1.25 mg (3 mL) inhalation TID PRN 08/04/24 09/17/24 Rx solution for nebulization bronchospasm/WHEEZING/SHORTNESS OF BREATH #90 mL vitamin B complex (Vitamins B 1 cap PO QAM #30 caps 08/04/24 09/17/24 Rx Complex capsule) cholecalciferol (vitamin D3) 10 10 mcg PO DAILY 08/20/24 09/17/24 History mcg (400 unit) capsule apixaban 5 mg tablet (Eliquis) 5 mg PO BID #60 tabs 09/04/24 09/17/24 Rx diltiazem HCl 240 mg 240 mg PO QAM #30 caps 09/04/24 09/17/24 Rx capsule,extended release 24 hr albuterol sulfate 90 mcg/actuation 1 - 2 puff inhalation Q4H PRN 09/17/24 09/17/24 History aerosol inhaler SOB/Wheezing cefadroxil 500 mg capsule 500 mg PO BID 09/17/24 09/17/24 History famotidine 40 mg tablet (Pepcid) 40 mg PO BID PRN Acid Reflux 09/17/24 09/17/24 History insulin glargine 100 unit/mL (3 26 unit subcut QAM 09/17/24 09/18/24 History mL) subcutaneous pen (Lantus Solostar U-100 Insulin) rosuvastatin 5 mg tablet (Crestor) 5 mg PO WK 09/17/24 09/17/24 History Past Med/Surg History Problem List (Updated 09/17/24 @ 16:15 by BRIEN Harrington) Pawel's angina syndrome (Acute) Sepsis Cellulitis and abscess of neck (Acute) Dyspnea on exertion Paroxysmal atrial fibrillation Uncontrolled type 2 diabetes mellitus with hyperglycemia Atrial fibrillation with rapid ventricular response Former tobacco use Chronic diarrhea Adrenal nodule Vitamin D insufficiency Chronic hypercapnic respiratory failure Encephalopathy Tobacco abuse PAD (peripheral artery disease) Lumbosacral radiculopathy at L4 Idiopathic polyneuropathy Lichen sclerosus et atrophicus Urinary incontinence Type II diabetes mellitus with manifestations (Chronic) Chronic obstructive pulmonary disease (Chronic) Hypothyroidism (Chronic) Tobacco use (Chronic) Restless legs syndrome Obesity (Chronic) Lumbar canal stenosis (Chronic) Hypercholesterolemia (Chronic) Gastropathy (Chronic) Depression with anxiety (Chronic) Chronic reflux esophagitis (Chronic) Anxiety (Chronic) GERD (gastroesophageal reflux disease) (Chronic) Medical History Nocturnal hypoxia Allergy to bugs History of colon polyps Vision loss, right eye Depression with anxiety COPD (chronic obstructive pulmonary disease) controlled w/ daily inhaler use, prn neb/inhaler use Diabetes Idiopathic polyneuropathy PAD (peripheral artery disease) Hx of encephalopathy pt not aware, denies Hx of respiratory failure acute on chronic History of COVID-19 (2021) no hosp, resolved Adrenal mass benign, no changes in yrs, monitoring SVT (supraventricular tachycardia) hx>>controlled w/ diltiazem; states has a "normally fast heart rate" at all times History of anesthesia reaction states she did not receive enough anesthesia with 1st cataract sx on right eye Acute exacerbation of chronic obstructive pulmonary disease HX>>last exacerbation 08/2023, no hospitalization hx of severe exacerbation in Sep 2021--had to be hospitalized and intubated---pt states she has made a full recovery---does use inhalers daily/prn and nebulizer prn, oxgyen 1 L n/c at hs PAC (premature atrial contraction) Overweight History of colon polyps Osteoarthritis Fibromyalgia Kidney stones hx of GERD (gastroesophageal reflux disease) Hypothyroidism Cardiac murmur follows with Dr. Colon Sleep apnea BIPAP Surgical History Hx of left cataract extraction Hx of oral surgery dental implants History of dilatation and curettage History of total right knee replacement (TKR) History of umbilical hernia repair History of colonoscopy History of tooth extraction History of wisdom tooth extraction Hx of eye surgery left laser for retinal bleed History of right cataract extraction during procedure "pupil was damaged and no longer dilates" Family History Aunt History of anesthesia reaction "her heart stopped with any anesthesia"--no one else in the family has any issues Grandmother (Paternal) Family history of diabetes mellitus Grandfather (Maternal) Family hx of colon cancer Colon cancer Father Heart disease Stroke Mother Dementia Diabetes Macular degeneration Alzheimer disease Autoimmune disease Brother Squamous cell carcinoma of skin Atrial fibrillation Bladder cancer Other Basal cell carcinoma Denies family history of Ovarian cancer Prostate cancer Myocardial infarction Breast cancer Social History Smoking Status: Former smoker Tobacco Type: Cigarettes Age Started Using Tobacco: 18; Age Quit Using Tobacco: 68; packs per day: 0.25; Second Hand Exposure: No; Do You Dip or Chew Tobacco: No; Hx Alcohol Use: No Hx Substance Use: No Preferred Language: Tajik Communication Ability: Effective Visual Impairment: No Limitations Hearing Ability: Normal 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 Beliefs That Will Affect Care: None marital status: Current Living Situation: Spouse current occupational status: retired How many Children do You have: 2 Feels Safe at Home: Yes Childhood Exposure to Second-Hand Smoke: Yes Diet: regular Diet Comment: no specific diet caffeine: Yes during the past year weight has: increased > 10 lbs Dental Care, Regularly: Yes Physical Activity Frequency: Does not Exercise Seatbelt Use: always Sunscreen Use: Yes Do you think of yourself as: straight/heterosexual Assistive Devices: BiPap and Cane Review of Systems 2 Review of Systems: All systems reviewed & are unremarkable except as noted in HPI & below Physical Exam 2 Constitutional: WD/WN, vitals as above Eyes: + anicteric sclerae and + abnormal pupil size (Right side dilated chronically) ENMT: external ear and nose normal, oropharynx normal Respiratory: normal respiratory effort, lungs clear to auscultation Cardiovascular: Rate/Rhythm: regular rhythm and + tachycardic Heart Sounds: no murmur Extremities: normal capillary refill; no calf tenderness and no pedal edema Gastrointestinal (Abdomen): normal bowel sounds, soft, nontender, no hepatosplenomegaly Musculoskeletal: no cyanosis or clubbing, extremities motor strength 5/5 Skin: bilateral submandibular swelling, erythema and tenderness without fluctuance Neurologic: moves all extremities and awake; not confused Psychiatric: A+Ox3, euthymic affect Results & Data Results & Data Vital Signs (Past 12 Hours) Vital Signs Temp Pulse Resp BP Pulse Ox O2 Del Method 09/17/24 10:09 105 H 20 132/86 97 09/17/24 10:00 107 H 20 132/86 96 09/17/24 09:51 108 H 18 108/78 94 09/17/24 09:30 111 H 160/105 H 95 Room Air 09/17/24 09:15 111 H 19 135/77 91 09/17/24 09:15 111 H 09/17/24 08:57 110 H 20 93 Room Air 09/17/24 08:31 36.5 C 124 H 18 100/64 95 Room Air Laboratory Results Abnormal lab results 09/17/24 Range/Units 08:44 WBC 15.53 H (4.8-10.8) K/ul Plt Count 475 H (130-400) K/uL MPV 9.0 L (9.4-12.4) fL Neut # (Auto) 12.95 H (1.40-6.50) K/uL [place] # (Auto) 0.94 H (0.11-0.59) K/uL Glucose 333 H* (70-99(Fasting)) mg/dl Lactate 2.2 H* (0.4-2.0) mmol/L Alkaline Phosphatase 106 H (34-104) U/L Diagnostic Findings CT soft tissue neck w con HISTORY: 69 years-old Female r/o ludwigs dysphagia with pain and swelling of the throat/neck. COMPARISON: CTA chest 07/28/2024 TECHNIQUE: Multiple axial CT images of the soft tissues of the neck were obtained with use of IV contrast. A dose lowering technique was used consistent with the principals of KEVEN. FINDINGS: 2.3 x 1.3 x 3.2 cm peripherally enhancing fluid collection deep to the digastric musculature and appears to involve both the enlarged and heterogeneous left mylohyoid and geniohyoid musculature and adjacent myofascial margins. There is associated deep tissue and subcutaneous edema which tracks along the platysma myofascial margins involving both the sublingual and the ventricular spaces. Reactive 10 x 8 mm submental lymph node on image 227 series 3. Moderate oral pharyngeal narrowing. Unremarkable appearance of the glottis and subglottic airway. Edema involves the epiglottis and aryepiglottic folds. Unremarkable thyroid and parotid glands. The lung apices appear clear. Moderate pulmonary emphysema. Atherosclerosis of the carotid bulbs without high-grade stenosis. The imaged intracranial structures appear unremarkable. Degenerative changes of the spine. No large dental caries or periapical cysts. Several dental implants are noted. IMPRESSION: 1. Cellulitis of the neck with inflammation involving the submandibular and sublingual spaces. A 3 cm peripherally enhancing fluid collection suggestive of an abscess involves the left mylohyoid and geniohyoid musculature. A necrotic malignancy considered less likely. 2. Mild oral pharyngeal narrowing with edema of the epiglottis. 3. Reactive submandibular lymphadenopathy. Medications Administered ER Medications Given: Cefepime 2000mg IV Metronidazole 500mg IV Normal saline 1000ml bolus ECG Additional Comments: Ordered, not performed prior to admission Code Status & VTE Plan Code Status Full VTE Prophylaxis Plan VTE Prophylaxis will be ordered: Yes PG Care Time/CCT Total # of Minutes Spent Total Time Spent with Patient: Total time spent is greater than 50% in coordination of care (as documented) at patient's floor/unit and/or counseling patient: Coding Level of Care Code 87432 INT INP/OBS CARE 3/75MIN Diagnoses Sepsis A41.9 Cellulitis and abscess of neck L03.221; L02.11 Paroxysmal atrial fibrillation I48.0 Uncontrolled type 2 diabetes mellitus with hyperglycemia E11.65 Chronic hypercapnic respiratory failure J96.12
--- NOTE | 2024-09-17 11:08 | XRay Report ---
XR chest 1V portable CLINICAL HISTORY: pre-op, sepsis, CHF COMPARISON STUDY: 08/22/2024 FINDINGS: Heart size and pulmonary vasculature are normal. No effusion, consolidation, or pneumothora x. IMPRESSION: No acute findings. ACT 112: Negative or not required by law. Electronically signed by: Fermin Sylvester M.D. 09/17/2024 11:06 AM
[2024-09-17] MEDS: NovoLIN-R INSULIN PER UNIT CHARGE IV STA (11:44)
--- NOTE | 2024-09-17 12:19 | Pharmacy Report ---
Pharmacy PK ABX Note - Date of Service September 17, 2024 - Assessment and Plan Assessment 69 year old F receiving VANCOMYCIN + CEFEPIME + METRONIDAZOLE for treatment of sepsis from cellulitis of neck w/ abscess formation. Patient recently had dental surgery w/ implants. CT of neck showed inflammation of submandibular and sublingual spaces along w/ 3cm fluid collection/abscess. Pertinent microbiologic data includes: BLCXs x 2 Day # 1 of antimicrobial therapy. Plan Vancomycin * Loading dose: 2500 mg IV x 1 * Maintenance dose: 1250 mg IV every 24 hours * Regimen is predicted to achieve target AUC/ADRIAN of 400-600 mg/L.hr * Trough level ordered for: 09/19/24 Pharmacy will continue to follow and will adjust dose/frequency as necessary. Thank you. Pharmacy has transitioned to AUC monitoring for vancomycin. AUC/ARDIAN is the preferred PK/PD target and is associated with decreased risk of nephrotoxicity compared to traditional trough targets.
[2024-09-17] MEDS: ACETAMINOPHEN 1,000 MG/100 ML VIAL IV PRN (13:41)
--- NOTE | 2024-09-17 14:36 | Oral/Maxillofacial Consult ---
Date of Consultation September 17, 2024 Assessment & Plan (1) Sepsis: (2) Cellulitis and abscess of neck: (3) Pawel's angina syndrome: History of Present Illness Attending Physician: Hunter Alba MD History of Present Illness Oral Maxillofacial Surgery Exam Present Complaint: I have pain/swelling after dental extraction and implant surgery done on Sep 12 2024. Symptoms have been ongoing since Sun Sep 14--swelling started and getting worse Saw Dr Dejesus Sep [address] scan--Now acute submandibular left and anterior neck swelling. Evaluated in ER admitted for I&D and IV therapy Oral Exam: Finding--There is swelling left floor of the mouth, edema anterior floor of the mouth. Implants look good, no signs of infection or rejection. Stable in the bone at site 18 and 25 Imaging: The CT was reviewed, there were no abnormal findings other then the acute infection CT soft tissue neck w con HISTORY: 69 years-old Female r/o Pawel dysphagia with pain and swelling of the throat/neck. FINDINGS: 2.3 x 1.3 x 3.2 cm peripherally enhancing fluid collection deep to the digastric musculature and appears to involve both the enlarged and heterogeneous left mylohyoid and geniohyoid musculature and adjacent myofascial margins. There is associated deep tissue and subcutaneous edema which tracks along the platysma myofascial margins involving both the sublingual and the ventricular spaces. Reactive 10 x 8 mm submental lymph node on image 227 series 3. Moderate oral pharyngeal narrowing. Unremarkable appearance of the glottis and subglottic airway. Edema involves the epiglottis and aryepiglottic folds. Unremarkable thyroid and parotid glands. The lung apices appear clear. Moderate pulmonary emphysema. Atherosclerosis of the carotid bulbs without high-grade stenosis. The imaged intracranial structures appear unremarkable. Degenerative changes of the spine. No large dental caries or periapical cysts. Several dental implants are noted. IMPRESSION: 1. Cellulitis of the neck with inflammation involving the submandibular and sublingual spaces. A 3 cm peripherally enhancing fluid collection suggestive of an abscess involves the left mylohyoid and geniohyoid musculature. A necrotic malignancy considered less likely. 2. Mild oral pharyngeal narrowing with edema of the epiglottis. 3. Reactive submandibular lymphadenopathy. Soft tissue: The floor of the mouth anterior and side are swollen, tongue slightly elevated, No airway issues. The hard/soft palate, posterior pharyngeal area all with in normal limits, no pathology or abnormal findings noted. There is a large collection of drainable fluid submental and left submanadular area Oral Care: Overall oral care is good Occlusion: Class I Periodontal exam: Healthy gingival tissue without evidence of periodontal pathology. Head/Neck exam: Neck is supple, FROM, Able to extend and flex neck w/o difficulty, The Submental and left submandibular area very tender and swollen. No airway issues, suspect strong evidence of sleep apnea. Treatment Plan: Admission to medicine, Set up with general anesthesia in hospital for extraoral I&D of the submental and submandibular space abscess due to complexity of the procedure. Manage BS, hold Eliquis 36 hours for OR afternoon. I reviewed the treatment plan and consent with the patient and her Understanding was expressed. Time was given for questions regarding the surgery, risks and post op care. Discussed alternative to treatment--none PLAN EXTRAORAL I&D SUBMENTAL AND SUBGLANDULAR (LEFT) ABSCESS NPO HOLD ELIQUIS Risks discussed: Bleeding,Pain,swelling,infection, delayed healing, nerve injury to face,lips,tongue,chin area which could be permanent (rare). Scaring from I&D sites TMJ, jaw stiffness, change in bite (rare), ear pain (referred). Always the risk of the recently placed implants to fail Home care reviewed: follow up care with Dr Willis. follow up with Dr Dejesus for implants diet=[id number] dental. discussed activity level, driving/work while on Rx pain Meds. I & D to be set up Sep 18, 2024 in the early afternoon in OR Allergies Allergy/AdvReac Type Severity Reaction Status Date / Time bee venom protein (honey bee) Allergy Severe HIVES AND Verified 09/17/24 09:24 ANAPHYLAXIS Penicillins Allergy Severe HIVES Verified 09/17/24 09:24 Sulfa (Sulfonamide Allergy Severe High Verified 09/17/24 09:24 Antibiotics) fever, broke out with spider veins all over grass pollen Allergy Intermediate hay fever Verified 09/17/24 09:24 symptoms doxycycline AdvReac Intermediate Gastrointestinal Verified 09/17/24 09:24 Upset Home Medications Medication Instructions Recorded Confirmed Type blood sugar diagnostic (True 08/14/23 09/08/24 History Metrix Glucose Test Strip) cyclobenzaprine 5 mg tablet 5 mg PO HS #90 tabs 02/05/24 09/17/24 Rx epinephrine 0.3 mg/0.3 mL 0.3 mg (0.3 mL) IM Q3H PRN 02/14/24 09/17/24 Rx injection, auto-injector (EpiPen) Anaphylaxis #1 ea clonidine HCl 0.1 mg tablet 0.1 mg PO DAILY #90 tabs 03/03/24 09/17/24 Rx pen needle, diabetic 32 gauge x #100 ea 04/24/24 09/08/24 Rx 5/32" (Pen Needle) fluticasone propionate 115 2 puff inhalation BID #12 grams 05/16/24 09/17/24 Rx mcg-salmeterol 21 mcg/actuation HFA inhaler (Advair HFA) levothyroxine 75 mcg tablet 75 mcg PO QAM #90 tabs 05/28/24 09/17/24 Rx umeclidinium 62.5 mcg/actuation 1 inh inhalation QAM 07/28/24 09/17/24 History blister powder for inhalation (Incruse Ellipta) venlafaxine 75 mg capsule,extended 75 mg PO HS 07/28/24 09/17/24 History release 24 hr albuterol sulfate 1.25 mg/3 mL 1.25 mg (3 mL) inhalation TID PRN 08/04/24 09/17/24 Rx solution for nebulization bronchospasm/WHEEZING/SHORTNESS OF BREATH #90 mL vitamin B complex (Vitamins B 1 cap PO QAM #30 caps 08/04/24 09/17/24 Rx Complex capsule) cholecalciferol (vitamin D3) 10 10 mcg PO DAILY 08/20/24 09/17/24 History mcg (400 unit) capsule apixaban 5 mg tablet (Eliquis) 5 mg PO BID #60 tabs 09/04/24 09/17/24 Rx diltiazem HCl 240 mg 240 mg PO QAM #30 caps 09/04/24 09/17/24 Rx capsule,extended release 24 hr albuterol sulfate 90 mcg/actuation 1 - 2 puff inhalation Q4H PRN 09/17/24 09/17/24 History aerosol inhaler SOB/Wheezing cefadroxil 500 mg capsule 500 mg PO BID 09/17/24 09/17/24 History famotidine 40 mg tablet (Pepcid) 40 mg PO BID PRN Acid Reflux 09/17/24 09/17/24 History insulin glargine 100 unit/mL (3 22 unit subcut QAM 09/17/24 09/17/24 History mL) subcutaneous pen (Lantus Solostar U-100 Insulin) rosuvastatin 5 mg tablet (Crestor) 5 mg PO WK 09/17/24 09/17/24 History Patient History Medical History Nocturnal hypoxia Allergy to bugs History of colon polyps Vision loss, right eye Depression with anxiety COPD (chronic obstructive pulmonary disease) Diabetes Idiopathic polyneuropathy PAD (peripheral artery disease) Hx of encephalopathy Hx of respiratory failure History of COVID-19 (2021) Adrenal mass SVT (supraventricular tachycardia) History of anesthesia reaction Acute exacerbation of chronic obstructive pulmonary disease PAC (premature atrial contraction) Overweight History of colon polyps Osteoarthritis Fibromyalgia Kidney stones GERD (gastroesophageal reflux disease) Hypothyroidism Cardiac murmur Sleep apnea Surgical History Hx of left cataract extraction Hx of oral surgery History of dilatation and curettage History of total right knee replacement (TKR) History of umbilical hernia repair History of colonoscopy History of tooth extraction History of wisdom tooth extraction Hx of eye surgery History of right cataract extraction Family History Aunt History of anesthesia reaction Grandmother (Paternal) Family history of diabetes mellitus Grandfather (Maternal) Family hx of colon cancer Colon cancer Father Heart disease Stroke Mother Dementia Diabetes Macular degeneration Alzheimer disease Autoimmune disease Brother Squamous cell carcinoma of skin Atrial fibrillation Bladder cancer Other Basal cell carcinoma Denies family history of Ovarian cancer Prostate cancer Myocardial infarction Breast cancer Social History Smoking Status: Former smoker Tobacco Type: Cigarettes Age Started Using Tobacco: 18; Age Quit Using Tobacco: 68; packs per day: 0.25; Second Hand Exposure: No; Do You Dip or Chew Tobacco: No; Hx Alcohol Use: No Hx Substance Use: No Preferred Language: Georgian Communication Ability: Effective Visual Impairment: No Limitations Hearing Ability: Normal Professor Of Nursing Required: No Beliefs That Will Affect Care: None marital status: Current Living Situation: Spouse current occupational status: retired How many Children do You have: 2 Other Information That Helps Us Care for You: No Feels Safe at Home: Yes Safety Concerns: Feels Safe At This Time Childhood Exposure to Second-Hand Smoke: Yes Diet: regular Diet Comment: no specific diet caffeine: Yes during the past year weight has: increased > 10 lbs Dental Care, Regularly: Yes Physical Activity Frequency: Does not Exercise Seatbelt Use: always Sunscreen Use: Yes Do you think of yourself as: straight/heterosexual Assistive Devices: BiPap and Cane Results & Data Vital Signs (Past 12 Hours) Vital Signs Temp Pulse Pulse Resp BP BP Pulse Ox 09/17/24 13:05 09/17/24 13:03 94 H 18 162/75 H 91 09/17/24 10:09 105 H 20 132/86 97 09/17/24 10:00 107 H 20 132/86 96 09/17/24 09:51 108 H 18 108/78 94 09/17/24 09:30 111 H 160/105 H 95 09/17/24 09:15 111 H 19 135/77 91 09/17/24 09:15 111 H 09/17/24 08:57 110 H 20 93 09/17/24 08:31 36.5 C 124 H 18 100/64 95 Pulse Ox O2 Del Method O2 Del Method 09/17/24 13:05 91 Room Air 09/17/24 13:03 Room Air 09/17/24 10:09 09/17/24 10:00 09/17/24 09:51 09/17/24 09:30 Room Air 09/17/24 09:15 09/17/24 09:15 09/17/24 08:57 Room Air 09/17/24 08:31 Room Air PG Care Time/CCT Total # of Minutes Spent Total Time Spent with Patient: Total time spent is greater than 50% in coordination of care (as documented) at patient's floor/unit and/or counseling patient: Coding Level of Care Code 95699 OFFICE CONSULT LVL Diagnoses Sepsis without acute organ dysfunction, due to unspecified organism A41.9 Sepsis type: sepsis due to unspecified organism Sepsis acute organ dysfunction status: without acute organ dysfunction Cellulitis and abscess of neck L03.221; L02.11 Pawel's angina syndrome K12.2 (1) Sepsis Sepsis type: sepsis due to unspecified organism Sepsis acute organ dysfunction status: without acute organ dysfunction Qualified Code(s): A41.9 - Sepsis, unspecified organism
[2024-09-17] MEDS: CEFEPIME 2000MG 2,000 MG/20 ML SYR IV SCH (17:02)
[2024-09-17] MEDS: metroNIDAZOLE 500 MG/100 ML BAG IV SCH (17:02)
[2024-09-17] MEDS ORDERED: FAMOTIDINE 40 MG TABLET PO PRN (20:26)
[2024-09-17] MEDS ORDERED: GLUCOSE 40% GEL 15 GM TUBE PO PRN (20:28)
[2024-09-17] MEDS ORDERED: GLUCAGON FOR INJ 1 MG VIAL SQ PRN (20:28)
[2024-09-17] MEDS ORDERED: GLUCOSE 10 TAB/TUBE PO PRN (20:28)
[2024-09-17] MEDS ORDERED: DEXTROSE 50% 50 ML SYRINGE IV PRN (20:28)
[2024-09-17] MEDS ORDERED: CARBOHYDRATES FOR HYPOGLYCEMIA PO PRN (20:28)
[2024-09-17] MEDS: VENLAFAXINE HCL XR 75 MG CAPXR PO SCH (21:16)
[2024-09-17] MEDS: CYCLOBENZAPRINE HCL 5 MG TAB PO SCH (21:16)
[2024-09-17] MEDS: INSULIN ASPART PER UNIT CHARGE SC SCH (21:20)
[2024-09-17] MEDS: FLUTICASONE/VILANTEROL 200/25MCG 14 PUFFS/INHALER INH SCH (21:22)
[2024-09-18] MEDS: VANCOMYCIN HCL 1,250 MG in SODIUM CHLORIDE 0.9% 250 ML IV SCH ×2 (05:25→21:33)
[2024-09-18] MEDS: LEVOTHYROXINE SODIUM 75 MCG TABLET PO SCH (05:30)
[2024-09-18 06:47] LABS: Basophils # (auto) 0.03 K/uL (0.00-0.20); Basophils % (auto) 0.3 %; Eosinophils # (auto) 0.01 K/uL (0.00-0.50); Eosinophils % (auto) 0.1 %; Hematocrit (blood only) 37.5 % (37.0-47.0); Hemoglobin 11.9 g/dl (12.0-16.0); Immature Granulocytes # (auto) 0.06 K/uL (0.01-0.20); Immature Granulocytes % (auto) 0.6 %; Lymphocytes # (auto) 1.72 K/uL (1.20-3.40); Lymphocytes % (auto) 18.3 %; Mean Corpuscular Hgb Conc 31.7 g/dL (32.0-36.0); Mean Corpuscular Volume 85.2 fL (80.0-100.0); Monocytes # (auto) 0.99 K/uL (0.11-0.59); Monocytes % (auto) 10.5 %; Neutrophils # (auto) 6.58 K/uL (1.40-6.50); Neutrophils % (auto) 70.2 %; Platelet Count 408 K/uL (130-400); RDW Coefficient of Variation 14.3 % (11.5-14.5); RDW Standard Deviation 44.8 fL (36.4-46.3); White Blood Count 9.39 K/ul (4.8-10.8)
[2024-09-18 07:16] LABS: BUN Creatinine Ratio 16.2 (10-20); Calcium 8.4 mg/dl (8.6-10.3); Creatinine Clr Calc Pharmacy 82.6 ml/min; Potassium 4.2 mmol/L (3.5-5.1)
--- NOTE | 2024-09-18 07:30 | Electrocardiogram Report ---
Test Reason : Blood Pressure : */* mmHG Vent. Rate : 103 BPM Atrial Rate : 103 BPM P-R Int : 192 ms QRS Dur : 80 ms QT Int : 352 ms P-R-T Axes : 71 -54 46 degrees QTcB Int : 461 ms Poor data quality, interpretation may be adversely affected Sinus tachycardia Left axis deviation Abnormal ECG When compared with ECG of 30-Jul-2024 13:11, QRS axis Shifted left Confirmed by Jaxson Hawley ([id number]) on 09/18/2024 7:29:41 AM Referred By: Lukas Dejesus Confirmed By: Jaxson Hawley
--- NOTE | 2024-09-18 07:53 | Hospitalist Progress Note ---
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 Was on pre-op Azithro 2 days prior to surgery. Dental surgeon rec coming to ER. Lactic 2.2--> 1.3 following 2nd L bolus for tachycardia/hx paroxsymal afib. CXR negative for acute process CT Soft tissue neck noting cellulitis of the neck with inflammation involving the submandibular and sublingual spaces. A 3 cm peripherally enhancing fluid collection suggestive of an abscess involves the left mylohyoid and geniohyoid musculature. Mild oral pharyngeal narrowing with edema of the epiglottis.Reactive submandibular lymphadenopathy. Dr Willis, ENT consulted IV Abx: Vanco, Cefepime + Flagyl IV WBC improving, 15.5k--> 9.3k Remains afebrile. Blood cultures pending/no growth currently NPO for OR this afternoon with Dr Willis Hgb 14.4--> 11.9, acute anemia suspected 2nd to 2L IVF on admission. Home eliquis on hold for OR with Dr Willis today, to discuss with Dr Le prior to procedure as last dose eliquis 5mg AM 8 1gm IV mag to keep closer to 2 w/ hx paroxysmal afib IVF added NS @ 80cc/hr while NPO Dexamethasone 6mg IV x 1, no stridor but ok'd w/ ENT for swelling benefit/edema. Pharmacy consulted for glycemic assistance Tylenol IV effective for pain at this time, monitor for addition of PO if needed Monitor labs/exam on repeat, f/u blood cultures Also, supervising provider ordering metoprolol IV scheduled q6h while NPO but remains on cardiazem for HR control. Remains on telemetry (2) Cellulitis and abscess of neck: Plan: Last food intake 7AM 09/17 with her lexyqusukumar. Will need Kcentra as above, Dr Willis to message Dr Le with confirmation for OR time to provide prior to surgery and eliquis remains on hold for now and planning I&D with Dr Willis and will continue abx as outlined and f/u final cultures. Abx chosen given her hx PCN allergy (3) Paroxysmal atrial fibrillation: Plan: SR/Sinus tach on monitor. EKG w/ Sinus tachycardia, eliquis on hold as above TSH wnl in august but borderline and adding T4/T3 given synthroid use at baseline Metoprolol IV scheduled as above and continues on diltiazem daily Monitor on telemetry and ensure electrolyte replete. Eliquis to resume when safe post-op (4) Uncontrolled type 2 diabetes mellitus with hyperglycemia: Plan: HbA1C 9.0 Glu 333 on admission, likely 2nd to infection above Was given IV insulin and BSGs improved Consult placed for pharmacy for assistance managing given Dexamethasone and likely increase in BSGs but did decline her insulin for BSG 140 this morning to note Monitor BSGs, appreciate glycemic consult/assistance (5) Chronic hypercapnic respiratory failure: Plan: BiPAP HS CXR negative On room air this morning, did provide dose dexamethasone IV as above for swelling and adding incentive spirometer Plan Hypothyroidism - TSH WNL in August, continue levothyroxine. Checking T4/t3 as above--> WNL. Continues current Synthroid dosing Anxiety - continue venlafaxine VTE Prophylaxis - Resume Eliquis when ok from surgical stand point, SCDs for now Dispo: continued inpatient stay on IV abx, NPO for OR with Dr Willis. entrkaty to be provided prior to procedure Admission and Anticipated Discharge Date Admission Date: September 17, 2024 Supervising Physician Co-Signing Physician Notes The patient was not seen by me. The chart was reviewed. Case discussed with SORAIDA Gonzalez. Agree with assessment and plan Subjective Eval this morning, daughter at bedside. Pain controlled with ordered medications but does endorse had been difficult to swallow even a chicken noodle soup, yesterday difficult for liquids but was able to get some oral down last night and believes the antibiotics are working. Discussed likely multiple drains given concerns for ludwigs, will order IVF while NPO as not going to OR until this afternoon. Not seen Dr Willis, will discuss with him about a dose of dexamethasone pre-op. She declined/hesitant about insulin this morning for POC 140. Did discuss steroids/insulin and she does note on steroids her sugars will spike. Will cover. Questions/concerns addressed at this time. Physical Exam 2 Physical Exam: General: 69yo female sitting up in the bed, NAD, daughter at bedside, reports feeling slightly better than admission HEENT:+facial swelling, +erythema/induration to submandibular space with left>right neck swelling, no fluctuance of fluid collection no stridor but does report difficulty swallowing (improved from prior), slight swelling to floor of the mouth/tongue slightly elevated Resp: even/unlabored, slightly diminished in the bases but no wheezing/rales, on room air CV: RRR, slightly tachycardic to low 100s but sinus, no significant m/r/g, no pitting edema GI:+BS, soft/NT MSK/Neuro: nonfocal, not confused, answering questions appropriately Psych: AOx3, cooperative with exam but anxious for procedure Results & Data Results & Data Vital Signs (Past 12 Hours) Vital Signs Temp Pulse Pulse Resp BP Pulse Ox O2 Del Method 09/18/24 07:32 36.7 C 101 H 18 175/75 H 97 BiPAP 09/18/24 03:54 36.9 C 100 H 18 127/68 96 BiPAP 09/18/24 03:28 111 H 21 97 09/17/24 23:30 123 H 27 H 96 09/17/24 23:23 110 H 09/17/24 23:17 37.0 C 123 H 18 138/92 98 BiPAP 09/17/24 19:50 109 H O2 Flow Rate 09/18/24 07:32 09/18/24 03:54 09/18/24 03:28 2 09/17/24 23:30 2 09/17/24 23:23 09/17/24 23:17 09/17/24 19:50 Laboratory Results 09/18/24 06:04 09/18/24 06:04 Lactic 2.2--> 1.3 Procal 0.15 Mag 1.8 T4 1.02, T3 3.44 and wnl Diagnostic Findings Soft Tissue Neck CT 09/17/24 08:38 CT soft tissue neck w con HISTORY: 69 years-old Female r/o ludwigs dysphagia with pain and swelling of the throat/neck. COMPARISON: CTA chest 07/28/2024 TECHNIQUE: Multiple axial CT images of the soft tissues of the neck were obtained with use of IV contrast. A dose lowering technique was used consistent with the principals of KEVEN. FINDINGS: 2.3 x 1.3 x 3.2 cm peripherally enhancing fluid collection deep to the digastric musculature and appears to involve both the enlarged and heterogeneous left mylohyoid and geniohyoid musculature and adjacent myofascial margins. There is associated deep tissue and subcutaneous edema which tracks along the platysma myofascial margins involving both the sublingual and the ventricular spaces. Reactive 10 x 8 mm submental lymph node on image 227 series 3. Moderate oral pharyngeal narrowing. Unremarkable appearance of the glottis and subglottic airway. Edema involves the epiglottis and aryepiglottic folds. Unremarkable thyroid and parotid glands. The lung apices appear clear. Moderate pulmonary emphysema. Atherosclerosis of the carotid bulbs without high-grade stenosis. The imaged intracranial structures appear unremarkable. Degenerative changes of the spine. No large dental caries or periapical cysts. Several dental implants are noted. IMPRESSION: 1. Cellulitis of the neck with inflammation involving the submandibular and sublingual spaces. A 3 cm peripherally enhancing fluid collection suggestive of an abscess involves the left mylohyoid and geniohyoid musculature. A necrotic malignancy considered less likely. 2. Mild oral pharyngeal narrowing with edema of the epiglottis. 3. Reactive submandibular lymphadenopathy. ACT 112: Negative or not required by law. The above report was generated using voice recognition software. It may contain grammatical, syntax or spelling errors. Electronically signed by: Jose Cao M.D. 09/17/2024 9:33 AM Chest X-Ray 09/17/24 10:35 XR chest 1V portable CLINICAL HISTORY: pre-op, sepsis, CHF COMPARISON STUDY: 08/22/2024 FINDINGS: Heart size and pulmonary vasculature are normal. No effusion, consolidation, or pneumothorax. IMPRESSION: No acute findings. ACT 112: Negative or not required by law. Electronically signed by: Fermin Sylvester M.D. 09/17/2024 11:06 AM PG Care Time/CCT Total # of Minutes Spent Total Time Spent with Patient: Total time spent is greater than 50% in coordination of care (as documented) at patient's floor/unit and/or counseling patient: Coding Level of Care Code 02114 SUB INP/OBS CARE 3/50MIN Diagnoses Sepsis without acute organ dysfunction, due to unspecified organism A41.9 Sepsis acute organ dysfunction status: without acute organ dysfunction Sepsis type: sepsis due to unspecified organism Cellulitis and abscess of neck L03.221; L02.11 Paroxysmal atrial fibrillation I48.0 Uncontrolled type 2 diabetes mellitus with hyperglycemia E11.65 Chronic hypercapnic respiratory failure J96.12 (1) Sepsis Sepsis acute organ dysfunction status: without acute organ dysfunction Sepsis type: sepsis due to unspecified organism Qualified Code(s): A41.9 - Sepsis, unspecified organism
[2024-09-18] MEDS: dilTIAZem HCL 240 MG CAPCR PO SCH (09:30)
[2024-09-18] MEDS: UMECLIDINIUM BROMIDE 62.5MCG/BLISTER 7 PUFFS/INHALER INH SCH (09:30)
[2024-09-18] MEDS: LANTUS PER UNIT CHARGE SQ SCH ×2 (09:31→21:33)
[2024-09-18] MEDS: cloNIDine HCL 0.1 MG TAB PO SCH (09:35)
[2024-09-18] MEDS ORDERED: PHARMACY GLYCEMIC MGMT CONSULT PRN (09:51)
[2024-09-18] MEDS ORDERED: DEXAMETHASONE SOD INJ 4 MG/ML VIAL IV STA (10:05)
[2024-09-18] MEDS: SODIUM CHLORIDE 0.9% 1,000 ML IV SCH (10:37)
--- NOTE | 2024-09-18 11:12 | Pharmacy Report ---
Pharmacy Glycemic Short Note 2 - Date of Service September 18, 2024 - Glycemic Short BSG Results (Last 24 hours): 09/17/24 09/17/24 09/18/24 11:21 20:34 05:45 Glucose POC Glucose 233 H 166 H 140 H 09/18/24 06:04 Glucose 143 H POC Glucose OUTPATIENT ANTIDIABETIC REGIMEN: * Lantus 22 units Q AM * A1c = 9% 08/15/24 ASSESSMENT: * Type 2 diabetic admitted for sepsis secondary to Pawel's angina w/ neck abscess in setting of recent dental surgery/implant. * Patient is NPO for surgery w/ Dr Willis this afternoon * BSGs acceptable at this time * Will give ~ 50% outpt basal insulin at this time given NPO status and will be adding SQ rapid acting ACHS * Rapid acting insulin doses will be based upon weight and "moderate" stress level PLAN FOR INPATIENT GLYCEMIC CONTROL: * Hold outpatient oral diabetes medications * Basal insulin * Lantus 5 units SQ BID * Bolus insulin * NovoLog per scale ACHS or Q6hrs while NPO * Goal Range: Low 110 mg/dL - High 140 mg/dL * Correction Factor: 30 mg/dL/unit * Nutritional / Prandial insulin per carb ratio of 1 unit per 10 grams CHO consumed
[2024-09-18] MEDS: dexAMETHasone 6 MG in SYRINGE 0 ML IV ONE (11:35)
[2024-09-18] MEDS: INSULIN ASPART PER UNIT CHARGE SC SCH (11:50)
--- NOTE | 2024-09-18 11:50 | Anesthesiology Consultation ---
Date of Service September 18, 2024 Assessment & Plan Chart Review Chart Review: Acceptable Risk for Surgery and Patient NOT seen in Pre Admission Testing Consults Requested none History Surgery Operation Date: 09/18/24 12:30 Proposed Procedures p External Neck/Face Abscess Incision and Drainage - Piotr Willis DMD Height/Weight Height: 5 ft 5 in Weight: 99.4 kg Allergies Allergy/AdvReac Type Severity Reaction Status Date / Time bee venom protein (honey bee) Allergy Severe HIVES AND Verified 09/17/24 09:24 ANAPHYLAXIS Penicillins Allergy Severe HIVES Verified 09/17/24 09:24 Sulfa (Sulfonamide Allergy Severe High Verified 09/17/24 09:24 Antibiotics) fever, broke out with spider veins all over grass pollen Allergy Intermediate hay fever Verified 09/17/24 09:24 symptoms doxycycline AdvReac Intermediate Gastrointestinal Verified 09/17/24 09:24 Upset Medications Home Medications Medication Instructions Recorded Confirmed Last Taken blood sugar diagnostic (True 08/14/23 09/08/24 Unknown Metrix Glucose Test Strip) cyclobenzaprine 5 mg tablet 5 mg PO HS #90 tabs 02/05/24 09/17/24 09/16/24 epinephrine 0.3 mg/0.3 mL 0.3 mg (0.3 mL) IM Q3H PRN 02/14/24 09/17/24 Unknown injection, auto-injector (EpiPen) Anaphylaxis #1 ea clonidine HCl 0.1 mg tablet 0.1 mg PO DAILY #90 tabs 03/03/24 09/17/24 09/17/24 07:15 pen needle, diabetic 32 gauge x #100 ea 04/24/24 09/08/24 Unknown 5/32" (Pen Needle) fluticasone propionate 115 2 puff inhalation BID #12 grams 05/16/24 09/17/24 09/17/24 07:15 mcg-salmeterol 21 mcg/actuation HFA inhaler (Advair HFA) levothyroxine 75 mcg tablet 75 mcg PO QAM #90 tabs 05/28/24 09/17/24 09/17/24 07:15 umeclidinium 62.5 mcg/actuation 1 inh inhalation QAM 07/28/24 09/17/24 09/17/24 07:15 blister powder for inhalation (Incruse Ellipta) venlafaxine 75 mg capsule,extended 75 mg PO HS 07/28/24 09/17/24 09/16/24 release 24 hr albuterol sulfate 1.25 mg/3 mL 1.25 mg (3 mL) inhalation TID PRN 08/04/24 09/17/24 09/17/24 07:15 solution for nebulization bronchospasm/WHEEZING/SHORTNESS OF BREATH #90 mL vitamin B complex (Vitamins B 1 cap PO QAM #30 caps 08/04/24 09/17/24 09/17/24 07:15 Complex capsule) cholecalciferol (vitamin D3) 10 10 mcg PO DAILY 08/20/24 09/17/24 09/17/24 07:15 mcg (400 unit) capsule apixaban 5 mg tablet (Eliquis) 5 mg PO BID #60 tabs 09/04/24 09/17/24 09/17/24 07:15 diltiazem HCl 240 mg 240 mg PO QAM #30 caps 09/04/24 09/17/24 09/17/24 07:15 capsule,extended release 24 hr albuterol sulfate 90 mcg/actuation 1 - 2 puff inhalation Q4H PRN 09/17/24 09/17/24 09/17/24 07:15 aerosol inhaler SOB/Wheezing cefadroxil 500 mg capsule 500 mg PO BID 09/17/24 09/17/24 09/17/24 07:15 famotidine 40 mg tablet (Pepcid) 40 mg PO BID PRN Acid Reflux 09/17/24 09/17/24 Unknown insulin glargine 100 unit/mL (3 22 unit subcut QAM 09/17/24 09/17/24 09/17/24 07:15 mL) subcutaneous pen (Lantus Solostar U-100 Insulin) rosuvastatin 5 mg tablet (Crestor) 5 mg PO WK 09/17/24 09/17/24 09/14/24 Active Medications Generic Name Dose Route Start Last Admin Trade Name Freq PRN Reason Stop Dose Admin Clonidine HCl 0.1 mg 09/18/24 09:00 09/18/24 09:35 Clonidine Hcl 0.1 Mg Tab PO 10/18/24 08:59 0.1 mg DAILY ISMAEL Administration Cyclobenzaprine HCl 5 mg 09/17/24 21:00 09/17/24 21:16 Cyclobenzaprine Hcl 5 Mg Tab PO 10/17/24 20:59 5 mg HS ISMAEL Administration Diltiazem HCl 240 mg 09/18/24 09:00 09/18/24 09:30 Diltiazem Hcl 240 Mg Capcr PO 10/18/24 08:59 240 mg QAM ISMAEL Administration Fluticasone/Vilanterol 1 puffs 09/17/24 21:00 09/18/24 09:30 Fluticasone/Vilanterol 200/25mcg 14 Puffs/Inhaler INH 10/17/24 20:59 1 puffs DAILY ISMAEL Administration Acetaminophen 1,000 mg in 100 mls @ 400 mls/hr 09/17/24 11:32 09/17/24 14:08 Ofirmev IV 09/20/24 11:31 Infused Q8H PRN Infusion Pain or Fever Cefepime HCl 2,000 mg in 20 mls @ 5 mls/min 09/17/24 17:00 09/18/24 09:30 Maxipime 2000mg IV 09/24/24 16:59 5 mls/min Q8H ISMAEL Administration Protocol Metronidazole 500 mg in 100 mls @ 100 mls/hr 09/17/24 17:00 09/18/24 10:36 Flagyl IV 09/24/24 16:59 Infused Q8H ISMAEL Infusion Protocol Sodium Chloride 1,000 mls @ 80 mls/hr 09/18/24 10:00 09/18/24 10:37 Nss IV 09/19/24 09:59 80 mls/hr .[id number] ISMAEL Administration Insulin Aspart 0 units 09/18/24 12:00 09/18/24 11:50 Insulin Aspart Per Unit Charge SC 10/18/24 11:59 Not Given Q6 ISMAEL Levothyroxine Sodium 75 mcg 09/18/24 06:30 09/18/24 05:30 Levothyroxine Sodium 75 Mcg Tablet PO 10/18/24 06:29 75 mcg DAILYBB ISMAEL Administration Umeclidinium Spooner 1 puffs 09/18/24 09:00 09/18/24 09:30 Umeclidinium Spooner 62.5mcg/Blister 7 Puffs/Inhaler INH 10/18/24 08:59 1 puffs QAM ISMAEL Administration Venlafaxine HCl 75 mg 09/17/24 21:00 09/17/24 21:16 Venlafaxine Hcl Xr 75 Mg Capxr PO 10/17/24 20:59 75 mg HS ISMAEL Administration Past Medical History Medical History Nocturnal hypoxia Allergy to bugs History of colon polyps Vision loss, right eye Depression with anxiety COPD (chronic obstructive pulmonary disease) controlled w/ daily inhaler use, prn neb/inhaler use Diabetes Idiopathic polyneuropathy PAD (peripheral artery disease) Hx of encephalopathy pt not aware, denies Hx of respiratory failure acute on chronic History of COVID-19 (2021) no hosp, resolved Adrenal mass benign, no changes in yrs, monitoring SVT (supraventricular tachycardia) hx>>controlled w/ diltiazem; states has a "normally fast heart rate" at all times History of anesthesia reaction states she did not receive enough anesthesia with 1st cataract sx on right eye Acute exacerbation of chronic obstructive pulmonary disease HX>>last exacerbation 08/2023, no hospitalization hx of severe exacerbation in Sep 2021--had to be hospitalized and intubated---pt states she has made a full recovery---does use inhalers daily/prn and nebulizer prn, oxgyen 1 L n/c at hs PAC (premature atrial contraction) Overweight History of colon polyps Osteoarthritis Fibromyalgia Kidney stones hx of GERD (gastroesophageal reflux disease) Hypothyroidism Cardiac murmur follows with Dr. Colon Sleep apnea BIPAP Past Family History Family History Aunt History of anesthesia reaction "her heart stopped with any anesthesia"--no one else in the family has any issues Grandmother (Paternal) Family history of diabetes mellitus Grandfather (Maternal) Family hx of colon cancer Colon cancer Father Heart disease Stroke Mother Dementia Diabetes Macular degeneration Alzheimer disease Autoimmune disease Brother Squamous cell carcinoma of skin Atrial fibrillation Bladder cancer Other Basal cell carcinoma Denies family history of Ovarian cancer Prostate cancer Myocardial infarction Breast cancer Past Surgical History Surgical History Hx of left cataract extraction Hx of oral surgery dental implants History of dilatation and curettage History of total right knee replacement (TKR) History of umbilical hernia repair History of colonoscopy History of tooth extraction History of wisdom tooth extraction Hx of eye surgery left laser for retinal bleed History of right cataract extraction during procedure "pupil was damaged and no longer dilates" Social History Smoking Status: Former smoker tobacco type: cigarettes Do You Dip or Chew Tobacco: No Hx Alcohol Use: No Alcohol type: wine and hard liquor alcohol intake frequency: a few times a month Hx Substance Use: No substance use type: does not use Physical Exam Vital Signs Last Vital Signs Temp 36.7 C 09/18/24 10:51 Pulse 106 H 09/18/24 10:51 Resp 17 09/18/24 10:51 BP 139/84 09/18/24 10:51 Pulse Ox 95 09/18/24 10:51 O2 Del Method Room Air 09/18/24 10:51 O2 Flow Rate 2 09/18/24 03:28 Testing Laboratory Results 09/18/24 06:04 09/18/24 06:04 09/17/24 08:44 Aerobic Blood Culture - Preliminary Blood No growth in Aerobic bottle after 24 hours. 09/18/24 09/18/24 11:44 05:45 POC Glucose 110 H 140 H
[2024-09-18] MEDS: METOPROLOL TARTRATE 1 MG/ML VIAL IV SCH (12:00)
[2024-09-18] MEDS ORDERED: PROPOFOL IV EMULSION 10 MG/ML 20 ML VIAL IV ONE (12:23)
[2024-09-18] MEDS ORDERED: MIDAZOLAM HCL 1 MG/ML 2ML VIAL ONE (12:23)
[2024-09-18] MEDS ORDERED: ONDANSETRON INJ 2 MG/ML 2 ML VIAL ONE (12:23)
[2024-09-18] MEDS ORDERED: LIDOCAINE 2% 2 ML VIAL/AMP(20MG/ML) INFIL ONE (12:23)
[2024-09-18] MEDS ORDERED: fentaNYL citrate PF 100 MCG/2 ML VIAL ONE ×2 (12:23→13:43)
[2024-09-18] MEDS ORDERED: ROCURONIUM BROMIDE 10 MG/ML 5 ML VIAL IV ONE (12:26)
--- NOTE | 2024-09-18 13:10 | History & Physical Bridge Note ---
Date of Service September 18, 2024 History & Physical Bridge Note I have examined the patient, reviewed the History & Physical and in the interval since the performance of the History & Physical I have noted the following changes of clinical significance: no changes noted OK for the surgery I&D
[2024-09-18] MEDS: CHLORHEXIDINE GLUCONATE 0.12% 480 ML MT ONE (13:36)
[2024-09-18] MEDS: STERILE IRRIGATING OPTH SOLUTION (BSS) 15ML ONE (13:36)
[2024-09-18] MEDS: BUPIVACAINE/EPINEPHRINE 0.5% 1:200,000 1.8 ML CARP ONE (13:42)
[2024-09-18] MEDS ORDERED: SUGAMMADEX SODIUM 200 MG/2 ML VIAL IV ONE (13:46)
--- NOTE | 2024-09-18 14:15 | Post Operative Brief Note ---
PG Immediate Post Op with CF Date of Surgery September 18, 2024 Pre & Post Diagnosis Operation Date: 09/18/24 12:30 Pre-Op Diagnosis: Facial Cellulitis Post-Op Diagnosis: Facial Cellulitis I identified the patient and participated in the time-out.: Yes Procedure Operation Date: 09/18/24 12:30 Actual Procedures p External Neck/Face Abscess Incision and Drainage(Bilateral) - Piotr Willis DMD Surgeon Piotr Willis DMD Line Walker none Estimated Blood Loss 5 Findings Consistent with Post-Op Diagnosis swelling of the submental and submandibular area--hard and brawny in nature Specimens Specimen Description: none Drains Sendy Drain Anesthesia Type General Complications done Disposition Accompanied Patient To Recovery: Yes
--- NOTE | 2024-09-18 14:31 | Anesthesiology Progress Note ---
Date of Service September 18, 2024 Anesthesia Post Procedure Vital Signs Vital Signs: Temp Pulse Pulse Resp BP BP BP 09/18/24 14:25 82 14 132/94 09/18/24 14:15 100 H 16 128/96 09/18/24 14:05 36.4 C L 107 H 15 148/115 H 09/18/24 12:13 36.9 C 105 H 18 145/94 H 09/18/24 10:51 36.7 C 106 H 17 139/84 09/18/24 09:00 09/18/24 08:00 100 H 09/18/24 07:32 36.7 C 101 H 18 175/75 H 09/18/24 03:54 36.9 C 100 H 18 127/68 09/18/24 03:28 111 H 21 09/17/24 23:30 123 H 27 H 09/17/24 23:23 110 H 09/17/24 23:17 37.0 C 123 H 18 138/92 09/17/24 19:50 109 H 09/17/24 19:40 37.1 C 116 H 22 165/86 H 09/17/24 19:17 114 H 24 163/87 H 09/17/24 17:07 97 H 20 139/82 09/17/24 15:08 96 H 17 132/81 Pulse Ox O2 Del Method O2 Flow Rate 09/18/24 14:25 97 Oxymask 10 09/18/24 14:15 97 Oxymask 10 09/18/24 14:05 95 Oxymask 10 09/18/24 12:13 95 Room Air 09/18/24 10:51 95 Room Air 09/18/24 09:00 Room Air 09/18/24 08:00 09/18/24 07:32 97 BiPAP 09/18/24 03:54 96 BiPAP 09/18/24 03:28 97 2 09/17/24 23:30 96 2 09/17/24 23:23 09/17/24 23:17 98 BiPAP 09/17/24 19:50 09/17/24 19:40 96 Room Air 09/17/24 19:17 95 Room Air 09/17/24 17:07 96 Room Air 09/17/24 15:08 94 Room Air Pain Intensity Bilateral Neck: Pain Intensity: 3 Transfer of Care Handoff Completed per policy Notes Mental Status: alert / awake / arousable Patient Amnestic to Procedure: Yes Nausea / Vomiting: adequately controlled Pain: adequately controlled Airway Patency, RR, SpO2: stable & adequate BP & HR: stable & adequate Hydration State: stable & adequate Anesthetic Complications: no major complications apparent and Pt Satisfied with anesthetic care
[2024-09-18] MEDS: FAMOTIDINE 20 MG TAB ONE (14:49)
[2024-09-18] MEDS: FAMOTIDINE 20 MG TAB PO STA (14:49)
[2024-09-18] MEDS: fentaNYL citrate PF 100 MCG/2 ML VIAL IV PRN (14:54)
[2024-09-18] MEDS ORDERED: ATROPINE SULFATE 0.1 MG/ML 10ML SYR IV PRN (14:54)
[2024-09-18] MEDS: fentaNYL citrate PF 100 MCG/2 ML VIAL ONE (14:54)
[2024-09-18] MEDS ORDERED: ePHEDrine sulfate 50 MG/ML AMP IV PRN (14:54)
[2024-09-18] MEDS: LABETALOL HCL IV 5 MG/ML 20ML IV ONE (15:30)
--- NOTE | 2024-09-18 16:50 | Electrocardiogram Report ---
Test Reason : Blood Pressure : */* mmHG Vent. Rate : 82 BPM Atrial Rate : 82 BPM P-R Int : 214 ms QRS Dur : 80 ms QT Int : 394 ms P-R-T Axes : 73 27 50 degrees QTcB Int : 460 ms Sinus rhythm with 1st degree A-V block Otherwise normal ECG When compared with ECG of 17-Sep-2024 10:48, QRS axis Shifted right Confirmed by Johan Joe ([id number]) on 09/18/2024 4:50:10 PM Referred By: Lukas Dejesus Confirmed By: Johan Joe
[2024-09-19] MEDS: INSULIN ASPART PER UNIT CHARGE SC SCH (00:26)
[2024-09-19 04:36] LABS: Basophils # (auto) 0.01 K/uL (0.00-0.20); Basophils % (auto) 0.2 %; Hematocrit (blood only) 36.1 % (37.0-47.0); Hemoglobin 11.5 g/dl (12.0-16.0); Immature Granulocytes # (auto) 0.05 K/uL (0.01-0.20); Immature Granulocytes % (auto) 0.8 %; Lymphocytes # (auto) 0.85 K/uL (1.20-3.40); Lymphocytes % (auto) 12.9 %; Mean Corpuscular Hemoglobin 27.3 pg (25.0-34.0); Mean Corpuscular Hgb Conc 31.9 g/dL (32.0-36.0); Mean Corpuscular Volume 85.5 fL (80.0-100.0); Mean Platelet Volume 8.8 fL (9.4-12.4); Monocytes # (auto) 0.45 K/uL (0.11-0.59); Monocytes % (auto) 6.8 %; Neutrophils # (auto) 5.23 K/uL (1.40-6.50); Neutrophils % (auto) 79.3 %; Platelet Count 391 K/uL (130-400); RDW Coefficient of Variation 14.3 % (11.5-14.5); RDW Standard Deviation 44.4 fL (36.4-46.3); Red Blood Count 4.22 M/uL (4.20-5.40); White Blood Count 6.59 K/ul (4.8-10.8)
[2024-09-19 04:54] LABS: Albumin Globulin Ratio 1.2 (0.9-2); Albumin Level 3.3 gm/dl (3.4-5.0); BUN Creatinine Ratio 17.5 (10-20); Bilirubin,Total 0.3 mg/dl (0.2-1.0); Calcium 8.3 mg/dl (8.6-10.3); Creatinine Clr Calc Pharmacy 76.4 ml/min; Globulin 2.7 gm/dl (2.5-4.0); Magnesium 1.8 mg/dl (1.7-2.4); Potassium 4.5 mmol/L (3.5-5.1)
--- NOTE | 2024-09-19 07:28 | Pharmacy Report ---
Pharmacy PK ABX Note - Date of Service September 19, 2024 - Assessment and Plan Assessment 09/19: * Day #3 of Vancomycin, Cefepime and Metronidazole. * Afebrile and without leukocytosis. SCr 0.80 mg/dL. * No growth to date in blood cultures. Had I&D of neck abscess yesterday, no cultures pending. * Random vanc level this AM was subtherapeutic so dose will need increased. 09/17: 69 year old F receiving VANCOMYCIN + CEFEPIME + METRONIDAZOLE for treatment of sepsis from cellulitis of neck w/ abscess formation. Patient recently had dental surgery w/ implants. CT of neck showed inflammation of submandibular and sublingual spaces along w/ 3cm fluid collection/abscess. Pertinent micro biologic data includes: BLCXs x 2. Day # 1 of antimicrobial therapy. Plan Vancomycin * Current regimen: 1250 mg IV every 18 hours * Random level obtained 09/18/24 resulted as 11.5 mcg/mL. This is subtherapeutic with a predicted AUC/ADRIAN of < 400 mg/L.hr * Change to 1500 mg IV every 12 hours. Predicted AUC at steady state: 526 mg/L.hr * Repeat random level ordered for: 09/21/24 Cefepime * 2000 mg IV every 8 hours Metronidazole * 500 mg IV every 8 hours Pharmacy will continue to follow and will adjust dose/frequency as necessary. Thank you. Pharmacy has transitioned to AUC monitoring for vancomycin. AUC/ADRIAN is the preferred PK/PD target and is associated with decreased risk of nephrotoxicity compared to traditional trough targets.
--- NOTE | 2024-09-19 07:34 | Pharmacy Report ---
Pharmacy Glycemic Short Note 2 - Date of Service September 19, 2024 - Glycemic Short BSG Results (Last 24 hours): 09/18/24 09/18/24 09/18/24 11:44 14:11 16:22 Glucose POC Glucose 110 H 154 H 270 H 09/18/24 09/19/24 09/19/24 20:51 00:20 04:19 Glucose 199 H POC Glucose 247 H 217 H OUTPATIENT ANTIDIABETIC REGIMEN: * Lantus 22 units Q AM * A1c = 9% 08/15/24 ASSESSMENT: 09/19: * Luz Maria received 17 units of insulin yesterday, 5 of which were basal. BSGs were: [phone] mg/dL. * Patient did receive 6 mg of IV dexamethasone around noon yesterday. This has since been discontinued. However, expect steroid-induced hyperglycemia to persist for at least another 24 hours. * Patient is tolerating a T2DM diet. Underwent I&D of neck abscess in OR yesterday. Remains on Vanc, Cefepime, and Flagyl. * Will increase basal this AM and switch to once daily dosing in the AM to match home administration. This change is reflective of steroid administration and diet being ordered. * Plan to tighten both carb ratio and correction factor for now until steroid effect wears off. 09/18: * Type 2 diabetic admitted for sepsis secondary to Pawel's angina w/ neck abscess in setting of recent dental surgery/implant. * Patient is NPO for surgery w/ Dr Willis this afternoon * BSGs acceptable at this time * Will give ~ 50% outpt basal insulin at this time given NPO status and will be adding SQ rapid acting ACHS * Rapid acting insulin doses will be based upon weight and "moderate" stress level PLAN FOR INPATIENT GLYCEMIC CONTROL: * Basal insulin * Lantus 15 units SC Daily * Bolus insulin * NovoLog per scale ACHS or Q6hrs while NPO * Goal Range: Low 110 mg/dL - High 140 mg/dL * Correction Factor: 20 mg/dL/unit * Nutritional / Prandial insulin per carb ratio of 1 unit per 7 grams CHO consumed
--- NOTE | 2024-09-19 07:43 | Hospitalist Progress Note ---
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 Was on pre-op Azithro 2 days prior to surgery. Dental surgeon rec coming to ER. Lactic 2.2--> 1.3 following 2nd L bolus for tachycardia/hx paroxsymal afib. CXR negative for acute process CT Soft tissue neck noting cellulitis of the neck with inflammation involving the submandibular and sublingual spaces. A 3 cm peripherally enhancing fluid collection suggestive of an abscess involves the left mylohyoid and geniohyoid musculature. Mild oral pharyngeal narrowing with edema of the epiglottis.Reactive submandibular lymphadenopathy. Dr Willis, ENT consulted s/p External Neck/Face Abscess Incision and Drainage(Bilateral) - Piotr Willis, DMD on 09/18. Hannah drain in place Per discussion w/ Dr Willis, hematoma/evacuation Eliquis remains on hold. NSR on telemetry. Keeping electrolytes replete given hx pafib Continue IV Abx for another 24 hours until blood cultures NGTD x 48 hours -Remains on Vanco, Cefepime + Flagyl IV Afebrile WBC improving, 15.5k--> 9.3k --> 6.5k. Dexamethasone given for swelling/edema on 09/18, no stridor, defer ongoing dose s/p 2L IVF, now discontinued Diet advanced to minced/moist and tolerating Tylenol effective for pain and will continue. Ice/heat, massage as needed Dr Willis to see this afternoon, I did discuss w/ patient given allergy PCN/Sulfa, she HAS TOLERATED CLINDAMYCIN in the past, and likely will use at dc in AM. (2) Cellulitis and abscess of neck: Plan: As above, following dental procedure. s/p I&D, hannah draine above and continues on abx. IMPROVING on exam but remaining on abx another 24 hours and if negative plan to dc on PO abx to complete course for above (3) Paroxysmal atrial fibrillation: Plan: EKG w/ sinus tachycardia on admission, eliquis placed on hold for above and remains on hold given hematoma TSH wnl, T4/T3 added and wnl and remains on current synthroid dosing Cardiazem PO continued, metoprolol IV scheduled for now but likely will stop this afternoon, monitor response to tx above Keep electrolytes replete-- additioanl 1gm IV mag to keep closer to 2 Continue tele monitoring (4) Uncontrolled type 2 diabetes mellitus with hyperglycemia: Plan: HbA1C 9.0 , Glu 333 on admission given IV insulin w/ improvement Pharmacy consulted given dexamethasone use 09/18, appreciate assistance. BSG appear reasonable control and will continue to monitor (5) Chronic hypercapnic respiratory failure: Plan: BiPAP HS CXR negative Continue incentive spirometer, nebs as needed. Remains on RA, reports breathing stable/improved Monitor for issues, IVF now discontinued and maintaining hydration Plan Hypothyroidism - TSH WNL in August, T3/T4 checked and wnl and continues on current dosing VTE Prophylaxis - Eliquis remains on hold (Started in jul for new onset afib), given hematoma above continue SCDs for now (hgb stable on repeat/dilutional aspect from IVF provided for OR/NPO status) Dispo: continued inpatient stay on IV abx, hopeful dc in AM 09/20 Admission and Anticipated Discharge Date Admission Date: September 17, 2024 Supervising Physician Co-Signing Physician Notes The patient was not seen by me. The chart was reviewed. Case discussed with SORAIDA Gonzalez. Agree with assessment and plan Subjective Eval this morning, sitting up in bed, slight flushed to cheeks/mild headache this morning but pain much better, tylenol provided. Tolerating diet, discussed OR findings with hematoma, eliquis remains on hold and remain SR on monitor. IVF stopped. Improvement in swallowing. Scant dried blood to inferior left part of dressing, hannah drain to floor of mouth. Reports has used clindamycin in the past without issue and given hx PCN/Sulfa, likely will plan to dc in AM if blood cx remain negative with close follow up. She is fine w/ staying and on therapy at home from her hospitalization from pneumonia and doesn't want to go home/have to come right back. Questions/concerns addressed at this time. DC next 24-48hours pending course, Dr Willis to see this afternoon after 1. Physical Exam 2 Physical Exam: General: 69yo female sitting up in the bed, NAD reading her electronic tablet HEENT: decreased facial swelling/cellulitis, dressing in place with scant dried blood, hannah drain to floor of mouth, less swelling to submandibular space but remains with some induration Resp: even/unlabored, no wheezing/rales, on room air, no stridor CV:NSR, faint systolic murmur, no pitting edema, pulses present GI: +BS, soft/NT MSK/Neuro: not confused, answering questions appropriately Psych: AOx3, cooperative with exam Results & Data Results & Data Vital Signs (Past 12 Hours) Vital Signs Temp Pulse Pulse Resp BP BP Pulse Ox 09/19/24 06:10 78 123/65 09/19/24 03:36 36.4 C L 86 18 130/85 96 09/19/24 03:06 89 19 95 09/19/24 00:36 104/66 09/19/24 00:00 101 H 09/18/24 22:37 36.9 C 101 H 18 144/80 H 92 09/18/24 21:00 91 H 18 96 09/18/24 19:57 36.6 C 82 18 127/76 96 O2 Del Method O2 Flow Rate 09/19/24 06:10 09/19/24 03:36 CPAP 09/19/24 03:06 2 09/19/24 00:36 09/19/24 00:00 09/18/24 22:37 Room Air 09/18/24 21:00 2 09/18/24 19:57 Nasal Cannula 2.0 Laboratory Results 09/19/24 04:19 09/19/24 04:19 Mag 1.8 Random vancomycin level 11.5 PG Care Time/CCT Total # of Minutes Spent Total Time Spent with Patient: Total time spent is greater than 50% in coordination of care (as documented) at patient's floor/unit and/or counseling patient: Coding Level of Care Code 28781 SUB INP/OBS CARE 3/50MIN Diagnoses Sepsis without acute organ dysfunction, due to unspecified organism A41.9 Sepsis acute organ dysfunction status: without acute organ dysfunction Sepsis type: sepsis due to unspecified organism Cellulitis and abscess of neck L03.221; L02.11 Paroxysmal atrial fibrillation I48.0 Uncontrolled type 2 diabetes mellitus with hyperglycemia E11.65 Chronic hypercapnic respiratory failure J96.12 (1) Sepsis Sepsis acute organ dysfunction status: without acute organ dysfunction Sepsis type: sepsis due to unspecified organism Qualified Code(s): A41.9 - Sepsis, unspecified organism
[2024-09-19] MEDS: LANTUS PER UNIT CHARGE SQ SCH (09:00)
[2024-09-19] MEDS: MAGNESIUM SULFATE / D5W 1 GM/100 ML BAG IV ONE (10:47)
[2024-09-19] MEDS: VANCOMYCIN HCL 1,500 MG in SODIUM CHLORIDE 0.9% 500 ML IV SCH (11:23)
[2024-09-19] MEDS: ACETAMINOPHEN 325 MG TAB PO ONE (14:57)
--- NOTE | 2024-09-19 14:58 | Oral/Maxillofacial Progress Nt ---
Date of Service September 19, 2024 Assessment & Plan Admission and Anticipated Discharge Date Admission Date: September 17, 2024 Subjective Post Op infection evaluation 24 hours The infected hematoma area has resolved very well. Swelling is almost gone and the tissue is back to getting normal in size and texture Much less further drainage is noted. Drain will be removed on SundaySep 23 at 2:15 Infection has responded very well to the antibiotics, heat and the I and D. I requested that the patient continue with massage, heat and wound care. At this time the area is well healed and responded well to treatment. OK for home care on oral clindamycin RTC---SundaySep 23 at 2:15 Results & Data Vital Signs (Past 12 Hours) Vital Signs Temp Pulse Pulse Resp BP BP Pulse Ox 09/19/24 14:36 85 09/19/24 11:16 36.8 C 80 19 130/73 96 09/19/24 08:20 09/19/24 08:02 36.8 C 93 H 20 142/84 H 96 09/19/24 07:00 84 09/19/24 06:10 78 123/65 09/19/24 03:36 36.4 C L 86 18 130/85 96 09/19/24 03:06 89 19 95 O2 Del Method O2 Flow Rate 09/19/24 14:36 09/19/24 11:16 Room Air 09/19/24 08:20 Room Air 09/19/24 08:02 Room Air 09/19/24 07:00 09/19/24 06:10 09/19/24 03:36 CPAP 09/19/24 03:06 2 PG Care Time/CCT Total # of Minutes Spent Total Time Spent with Patient: Total time spent is greater than 50% in coordination of care (as documented) at patient's floor/unit and/or counseling patient: Coding Level of Care Code None
[2024-09-19] MEDS: ACETAMINOPHEN 500 MG TAB PO PRN (20:05)
[2024-09-20 03:03] VITALS: RESP 20; O2SAT 98
[2024-09-20 06:59] LABS: BUN Creatinine Ratio 19.5 (10-20); Calcium 8.2 mg/dl (8.6-10.3); Creatinine Clr Calc Pharmacy 73.4 ml/min; Magnesium 1.9 mg/dl (1.7-2.4); Potassium 3.7 mmol/L (3.5-5.1)
[2024-09-20 07:13] VITALS: BP 161/75; TEMP 97.3
--- NOTE | 2024-09-20 07:45 | Discharge Summary ---
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 Was on pre-op Azithro 2 days prior to surgery. Dental surgeon rec coming to ER. Lactic 2.2--> 1.3 following 2nd L bolus for tachycardia/hx paroxsymal afib. CXR negative for acute process CT soft tissue of the neck noting cellulitis of the neck with inflammation involving the submandibular and sublingual spaces. A 3 cm peripherally enhancing fluid collection suggestive of an abscess involves the left mylohyoid and geniohyoid musculature. Mild oral pharyngeal narrowing with edema of the epiglottis.Reactive submandibular lymphadenopathy. Eliquis placed on hold, last dose AM 09/16 IVF hydration provided as well as made NPO for surgery and was given 2L IVF with dose dexamethasone to help with swelling/edema ENT, Dr Willis consulted Placed on Vanco, Cefepime + Flagyl IV given allergy to PCN/sulfa abx s/p External Neck/Face Abscess Incision and Drainage(Bilateral) - Poitr Willis, DMD on 09/18. Per discussion w/ Dr Willis, hematoma/evacuation, no purulant drainage. [place] drain placed WBC 15.5k--> normalized on repeat and remained afebrile. Blood cultures remained NGTD Responded NICELY to abx, tolerating advancement of diet and discussed with Dr Willis given allergies and decision to dc on Clindamycin to complete course as tolerated this antibiotic in the past. Did discuss w/ patient about monitoring of diarrhea given recent abx use and recs for yogurts/notify provider w/ diarrhea. Room air prior to dc w/ improvement in swallowing. No stridor. Dr Willis removed hannah drain prior to dc and RTC scheduled. To return to ER if any worsening pain/redness/edema/diffulty swallowing or other sx concerning. (2) Cellulitis and abscess of neck: IMPROVING with abx/intervention above and continued on clinda PO at dc Blood cx NGTD x 48 hrs (3) Paroxysmal atrial fibrillation: EKG w/ sinus tachycardia on admission, and given metoprolol IV while NPO/continued on cardizem TSH/T4/T3 wnl and remained on Synthroid Kept electrolyte replete, stable at dc Per Dr Willis, ok to resume eliquis -- discussed w/ patient and can resume this evening or in AM and had remained in SINUS on telemetry with stable rates following dc of metoprolol IV scheduled (4) Uncontrolled type 2 diabetes mellitus with hyperglycemia: HbA1C 9.0 , Glu 333 on admission given IV insulin w/ improvement Pharmacy consulted given dexamethasone use 09/18, appreciate assistance. BSG appear reasonable control and no further steroids and to resume usual regimen at dc and f/u PCP (5) Chronic hypercapnic respiratory failure: BiPAP HS continued and CXR negative on admission. Remained on room air/lung exam stable at dc COntinue incentive spirometer and BiPAP hS at dc (hopefully improvement w/ home mask given facial cellulitis) Plan dc on clindamycin po, f/u ENT at dc Notes For Next Care Provider [place] drain discontinued prior to dc by Dr Willis, tolerating diet and dc on PO Clindamycin and told to monitor for any diarrhea given recent/multiple antibiotics Blood cultures NGTD from 09/17 at time of discharge and WBC normalized/no fever and pain well controlled with tylenol alone Medication Changes From Visit Clindamycin PO for another 7 days to complete course Admission HPI Per Admitting Provider Luz Maria Adrian is a 69 year old female who presents to the ER with neck swelling and erythema following dental surgery. She had dental extraction and implant surgery performed on September 12, 2024 (5 days ago). She was on pre-operative azithromycin starting 2 days prior to this surgery. She started noticing neck swelling and erythema starting 3 days ago. No fever or chills. She was started on cefadroxil but despite this continued to get worse and was advised by her dental surgeon to come to the ER today. She last took Eliquis at 7am when she also last ate yoghurt. Discharge Exam General: 69yo female sitting up in the bed, NAD reading her electronic tablet, much improved facial cellulitis/swelling/edema HEENT: decreased facial swelling/cellulitis, much improved, drain to floor of mouth, tongue normal/nontender, dressing to neck c/d/i -- hannah to be removed by ENT prior to dc Resp: even/unlabored, no wheezing/rales, on room air, no tachypnea CV: NSR on monitor, no significant m/r/g, no pitting edema or calf tenderness GI: +BS, soft/NT MSK/Neuro: not confused, answering questions appropriately Psych: AOx3, cooperative with exam Discharge Plan Discharge Items Patient Disposition: Home - Self-Care Reason For Visit: SEPSIS, FACIAL CELLULITIS AND ABSCESS Discharge Diagnosis: Facial Cellulitis following dental procedure Goals: You have been hospitalized for an urgent problem which required surgery. During your stay at [facility], we have made an effort to correct the problem that brought you to the hospital while keeping you as comfortable as possible. Surgery and medications were used to bring your condition under control and your discharge instructions will include directions for any medications you should take after leaving the hospital. Please make sure to follow the advice of your surgeon regarding follow up with the surgeon and with your primary care provider.You have been hospitalized for an urgent problem which required surgery. During your stay at [facility], we have made an effort to correct the problem that brought you to the hospital while keeping you as comfortable as possible. Surgery and medications were used to bring your condition under control and your discharge instructions will include directions for any medications you should take after leaving the hospital. Please make sure to follow the advice of your surgeon regarding follow up with the surgeon and with your primary care provider. Activity: As commented below Non-emergency contact: Primary Care Provider and Surgeon Call non-emergency contact if: you have any medication questions, your symptoms worsen, your pain is not controlled, your pain is worsening and your pain is unusual for you Follow-up/Referrals: Jaime Niño III, TOOL MAKER [Primary Care Provider] - Piotr Willis, DMD [Physician] - Diet: Carb Consistent or DM2 and Heart Healthy Addtl Attending Provider Instructions: You have been hospitalized for facial cellulitis and Dr Willis was consulted and you were taken to the OR for drainage of what appeared to be a hematoma but also continuing antibiotics for facial cellulitis which has improved. Per discussion with Dr Willis, you are to continue clindamycin for antibiotic given your prior allergies and should follow up with him as discussed for r emoval of the hannah drain. Please continue heat/massage and maintain dental hygiene and contact Dr Willis/PCP or return to ER if any increased redness/swelling/fever/chills, diffulty swallowing or for any other symptoms concerning for you. You should follow up with primary care to monitor your progress in the next week. Please monitor for any diarrhea on antibiotics and take a probiotic/eat yogurts but if significant diarrhea or increasing/foul stools should let your doctor know as antibiotics can cause infection caused cdiff as discussed. It has been a pleasure being a part of the medical team providing for you while you have been in the hospital. Take care! Pending Studies at Discharge: No Stand-Alone Forms: My [facility], Smoking Cessation Medications and DC Order Prescriptions: New clindamycin HCl 300 mg capsule 300 mg PO Q6H 7 Days Qty: 28 0RF Continued cyclobenzaprine 5 mg tablet 5 mg PO HS Qty: 90 3RF epinephrine [EpiPen] 0.3 mg/0.3 mL auto-injector 0.3 mg IM Q3H PRN (Reason: Anaphylaxis) Qty: 1 2RF clonidine HCl 0.1 mg tablet 0.1 mg PO DAILY Qty: 90 3RF Rx Instructions: Last filled 05/2024 x90 day supply, per pt she is still taking (DME) pen needle, diabetic [Pen Needle] 32 gauge x 5/32" needle See Rx Instructions .ROUTE .COMPLEX Qty: 100 1RF Dose Instruction: As directed, daily for insulin Rx Instructions: As directed, daily for insulin Advair HFA 115-21 mcg/actuation HFA aerosol inhaler 2 puff inhalation BID Qty: 12 3RF Rx Instructions: INHALE 2 PUFFS TWICE A DAY. levothyroxine 75 mcg tablet 75 mcg PO QAM Qty: 90 1RF Eliquis 5 mg tablet 5 mg PO BID Qty: 60 2RF diltiazem HCl 240 mg capsule,extended release 24hr 240 mg PO QAM Qty: 30 2RF Rx Instructions: Last filled 07/2024 x30 day supply, per pt still taking (DME) True Metrix Glucose Test Strip Strip See Rx Instructions .Route Rx Instructions: test 1 time daily cholecalciferol (vitamin D3) 10 mcg (400 unit) capsule 10 mcg PO DAILY venlafaxine 75 mg capsule,extended release 24hr 75 mg PO HS Rx Instructions: TAKE 1 CAPSULE BY MOUTH DAILY Incruse Ellipta 62.5 mcg/actuation blister with device 1 inh inhalation QAM Rx Instructions: INHALE 1 PUFF DAILY. vitamin B complex [Vitamins B Complex] Capsule 1 cap PO QAM Qty: 30 0RF Rx Instructions: Available [id number] albuterol sulfate 1.25 mg/3 mL solution for nebulization 1.25 mg inhalation TID PRN (Reason: bronchospasm/WHEEZING/SHORTNESS OF BREATH) Qty: 90 0RF albuterol sulfate 90 mcg/actuation Hfa Aerosol Inhaler 1 - 2 puff INHALATION Q4H PRN (Reason: SOB/Wheezing) famotidine [Pepcid] 40 mg tablet 40 mg PO BID PRN (Reason: Acid Reflux) rosuvastatin [Crestor] 5 mg tablet 5 mg PO WK Rx Instructions: Sunday insulin glargine [Lantus Solostar U-100 Insulin] 100 unit/mL (3 mL) insulin pen 26 unit subcut QAM Rx Instructions: Reduce dose to 22 units when you start Mounjaro or equivalent medication. Discontinued cefadroxil 500 mg capsule 500 mg PO BID Rx Instructions: Start Date 09/15/24 x7 day supply. As of 09/17/2024 pt has only takes 4 doses. Has 10 tablets left. Discharge Orders: Discharge Order (Routine); Ordered 09/20/24 Ordered By: Cristel Macias/Other Patient Handouts: ED Cellulitis, Facial Admission Data Admit Date/Time: 09/17/24 10:38 Attending Provider: Richardson Banerjee Admit Provider: Hunter Alba Primary Care Provider: Jaime Niño III Other Providers: Hunter Alba Other Interventions: Discharge Summary Assessment (RN) Last Done: 09/20/24 09:51 Hospital Stay Data Consultations 09/17/24 10:33 ED Decision to Admit Stat Procedures Performed Operation Date: 09/18/24 12:30 Actual Procedures p External Neck/Face Abscess Incision and Drainage(Bilateral) - Piotr Willis, DMD Diagnostic Imagining Performed Soft Tissue Neck CT 09/17/24 08:38 CT soft tissue neck w con HISTORY: 69 years-old Female r/o ludwigs dysphagia with pain and swelling of the throat/neck. COMPARISON: CTA chest 07/28/2024 TECHNIQUE: Multiple axial CT images of the soft tissues of the neck were obtained with use of IV contrast. A dose lowering technique was used consistent with the principals of KEVEN. FINDINGS: 2.3 x 1.3 x 3.2 cm peripherally enhancing fluid collection deep to the digastric musculature and appears to involve both the enlarged and heterogeneous left mylohyoid and geniohyoid musculature and adjacent myofascial margins. There is associated deep tissue and subcutaneous edema which tracks along the platysma myofascial margins involving both the sublingual and the ventricular spaces. Reactive 10 x 8 mm submental lymph node on image 227 series 3. Moderate oral pharyngeal narrowing. Unremarkable appearance of the glottis and subglottic airway. Edema involves the epiglottis and aryepiglottic folds. Unremarkable thyroid and parotid glands. The lung apices appear clear. Moderate pulmonary emphysema. Atherosclerosis of the carotid bulbs without high-grade stenosis. The imaged intracranial structures appear unremarkable. Degenerative changes of the spine. No large dental caries or periapical cysts. Several dental implants are noted. IMPRESSION: 1. Cellulitis of the neck with inflammation involving the submandibular and sublingual spaces. A 3 cm peripherally enhancing fluid collection suggestive of an abscess involves the left mylohyoid and geniohyoid musculature. A necrotic malignancy considered less likely. 2. Mild oral pharyngeal narrowing with edema of the epiglottis. 3. Reactive submandibular lymphadenopathy. ACT 112: Negative or not required by law. The above report was generated using voice recognition software. It may contain grammatical, syntax or spelling errors. Electronically signed by: Jose Cao M.D. 09/17/2024 9:33 AM Chest X-Ray 09/17/24 10:35 XR chest 1V portable CLINICAL HISTORY: pre-op, sepsis, CHF COMPARISON STUDY: 08/22/2024 FINDINGS: Heart size and pulmonary vasculature are normal. No effusion, consolidation, or pneumothorax. IMPRESSION: No acute findings. ACT 112: Negative or not required by law. Electronically signed by: Fermin Sylvester M.D. 09/17/2024 11:06 AM Discharge Instructions Given to Patient (Per Discharging Provider) You have been hospitalized for facial cellulitis and Dr Willis was consulted and you were taken to the OR for drainage of what appeared to be a hematoma but also continuing antibiotics for facial cellulitis which has improved. Per discussion with Dr Willis, you are to continue clindamycin for antibiotic given your prior allergies and should follow up with him as discussed for removal of the hannah drain. Please continue heat/massage and maintain dental hygiene and contact Dr Willis/PCP or return to ER if any increased redness/swelling/fever/chills, diffulty swallowing or for any other symptoms concerning for you. You should follow up with primary care to monitor your progress in the next wee k. Please monitor for any diarrhea on antibiotics and take a probiotic/eat yogurts but if significant diarrhea or increasing/foul stools should let your doctor know as antibiotics can cause infection caused cdiff as discussed. It has been a pleasure being a part of the medical team providing for you while you have been in the hospital. Take care! Supervising Physician Co-Signing Physician Notes The patient was not seen by me. The chart was reviewed. Case discussed with SORAIDA Gonzalez. Agree with assessment and plan Total Time Total Time Spent Total Time Spent (In Minutes): 45 Coding Level of Care Code 43877 INP/OBS DISCH >30 MIN Diagnoses Sepsis without acute organ dysfunction, due to unspecified organism A41.9 Sepsis acute organ dysfunction status: without acute organ dysfunction Sepsis type: sepsis due to unspecified organism Cellulitis and abscess of neck L03.221; L02.11 Paroxysmal atrial fibrillation I48.0 Uncontrolled type 2 diabetes mellitus with hyperglycemia E11.65 Chronic hypercapnic respiratory failure J96.12
--- NOTE | 2024-09-20 07:45 | Hospitalist Progress Note ---
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 Dental surgeon rec coming to ER. Lactic 2.2--> 1.3 following 2nd L bolus for tachycardia/hx paroxsymal afib. CXR negative for acute process CT Soft tissue neck noting cellulitis of the neck with inflammation involving the submandibular and sublingual spaces. A 3 cm peripherally enhancing fluid collection suggestive of an abscess involves the left mylohyoid and geniohyoid musculature. Mild oral pharyngeal narrowing with edema of the epiglottis.Reactive submandibular lymphadenopathy. Dr Willis, ENT consulted s/p External Neck/Face Abscess Incision and Drainage(Bilateral) - Piotr Willis, DMD on 09/18. Hannah drain in place Per discussion w/ Dr Willis, hematoma/evacuation Eliquis remains on hold. NSR on telemetry. Keeping electrolytes replete given hx pafib Continue IV Abx for another 24 hours until blood cultures NGTD x 48 hours -Remains on Vanco, Cefepime + Flagyl IV Afebrile WBC improving, 15.5k--> 9.3k --> 6.5k. Dexamethasone given for swelling/edema on 09/18, no stridor, defer ongoing dose s/p 2L IVF, now discontinued Diet advanced to minced/moist and tolerating Tylenol effective for pain and will continue. Ice/heat, massage as needed Dr Willis to see this afternoon, I did discuss w/ patient given allergy PCN/Sulfa, she HAS TOLERATED CLINDAMYCIN in the past, and likely will use at dc in AM. (2) Cellulitis and abscess of neck: Plan: As above, following dental procedure. s/p I&D, hannah draine above and continues on abx. IMPROVING on exam but remaining on abx another 24 hours and if negative plan to dc on PO abx to complete course for above (3) Paroxysmal atrial fibrillation: Plan: EKG w/ sinus tachycardia on admission, eliquis placed on hold for above and remains on hold given hematoma TSH wnl, T4/T3 added and wnl and remains on current synthroid dosing Cardiazem PO continued, metoprolol IV scheduled for now but likely will stop this afternoon, monitor response to tx above Keep electrolytes replete-- additioanl 1gm IV mag to keep closer to 2 Continue tele monitoring (4) Uncontrolled type 2 diabetes mellitus with hyperglycemia: Plan: HbA1C 9.0 , Glu 333 on admission given IV insulin w/ improvement Pharmacy consulted given dexamethasone use 09/18, appreciate assistance. BSG appear reasonable control and will continue to monitor (5) Chronic hypercapnic respiratory failure: Plan: BiPAP HS CXR negative Continue incentive spirometer, nebs as needed. Remains on RA, reports breathing stable/improved Monitor for issues, IVF now discontinued and maintaining hydration Plan Hypothyroidism - TSH WNL in August, T3/T4 checked and wnl and continues on current dosing VTE Prophylaxis - Eliquis remains on hold (Started in jul for new onset afib), given hematoma above continue SCDs for now (hgb stable on repeat/dilutional aspect from IVF provided for OR/NPO status) Dispo: continued inpatient stay on IV abx, hopeful dc in AM 09/20 Admission and Anticipated Discharge Date Admission Date: September 17, 2024 Results & Data Results & Data Vital Signs (Past 12 Hours) Vital Signs Temp Pulse Pulse Resp BP Pulse Ox O2 Del Method 09/20/24 07:12 36.3 C L 86 20 161/75 H 98 CPAP 09/20/24 03:01 91 H 20 98 09/20/24 02:56 36.8 C 83 18 135/80 96 CPAP 09/19/24 23:35 81 18 98 09/19/24 23:30 36.4 C L 78 18 140/73 98 CPAP 09/19/24 23:11 83 O2 Flow Rate 09/20/24 07:12 09/20/24 03:01 2 09/20/24 02:56 09/19/24 23:35 2 09/19/24 23:30 09/19/24 23:11 PG Care Time/CCT Total # of Minutes Spent Total Time Spent with Patient: Total time spent is greater than 50% in coordination of care (as documented) at patient's floor/unit and/or counseling patient: Coding Diagnoses Sepsis without acute organ dysfunction, due to unspecified organism A41.9 Sepsis type: sepsis due to unspecified organism Sepsis acute organ dysfunction status: without acute organ dysfunction Cellulitis and abscess of neck L03.221; L02.11 Paroxysmal atrial fibrillation I48.0 Uncontrolled type 2 diabetes mellitus with hyperglycemia E11.65 Chronic hypercapnic respiratory failure J96.12 (1) Sepsis Sepsis type: sepsis due to unspecified organism Sepsis acute organ dysfunction status: without acute organ dysfunction Qualified Code(s): A41.9 - Sepsis, unspecified organism
[2024-09-20] MEDS: LANTUS PER UNIT CHARGE SQ SCH (09:07)
--- NOTE | 2024-09-20 09:34 | Oral/Maxillofacial Progress Nt ---
Date of Service September 20, 2024 Assessment & Plan Admission and Anticipated Discharge Date Admission Date: September 17, 2024 Subjective I removed the drain this AM prior to her discharge. Excellent response to I&D. RTC for suture removal and follow up in [address] Willis Results & Data Vital Signs (Past 12 Hours) Vital Signs Temp Pulse Pulse Resp BP Pulse Ox O2 Del Method 09/20/24 07:12 36.3 C L 86 20 161/75 H 98 CPAP 09/20/24 05:41 61 09/20/24 03:01 91 H 20 98 09/20/24 02:56 36.8 C 83 18 135/80 96 CPAP 09/19/24 23:35 81 18 98 09/19/24 23:30 36.4 C L 78 18 140/73 98 CPAP 09/19/24 23:11 83 O2 Flow Rate 09/20/24 07:12 09/20/24 05:41 09/20/24 03:01 2 09/20/24 02:56 09/19/24 23:35 2 09/19/24 23:30 09/19/24 23:11 PG Care Time/CCT Total # of Minutes Spent Total Time Spent with Patient: Total time spent is greater than 50% in coordination of care (as documented) at patient's floor/unit and/or counseling patient: Coding Level of Care Code None
[2024-09-20 09:53] VITALS: PULSE 86
[2024-09-21] MEDS ORDERED: ROSUVASTATIN CALCIUM 5 MG TAB PO SCH (09:00)
--- NOTE | 2024-09-25 13:04 | Operative Report ---
[facility] Post Operative Report Pre & Post Diagnosis Operation Date: 09/18/24 12:30 Pre-Op Diagnosis: Facial Cellulitis and hematoma floor of the mouth and submental area Post-Op Diagnosis: Facial Cellulitis-the same I identified the patient and participated in the time-out.: Yes Procedure Operation Date: 09/18/24 12:30 Actual Procedures p External Neck/Face Abscess Incision and Drainage - Piotr Willis DMD Left hematoma floor of the mouth and submental area Surgeon Piotr Willis DMD Portable [employer] Operator none Estimated Blood Loss 5 Findings Consistent with Post-Op Diagnosis Specimens none Drains [place] Drain Anesthesia Type General Complications none at the time of the procedure Disposition Accompanied Patient To Recovery: Yes Indications significant swelling left jaw,chin, floor of the left mouth Description of Procedure Diagnoses Sepsis without acute organ dysfunction, due to unspecified organism A41.9 Cellulitis and abscess of neck L03.221; 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 A time out was take for patient ID, antibiotics, equipment and position verification once all agreed the procedure began. Local anesthesia using Marcaine with a vasoconstrictor ( 1.8 ml per site) given into left inferior alveolar nerve A throat pack was placed after the oral cavity was irrigated with saline. Once a surgical level of anesthesia was obtained and the local anesthesia was given time for the blocks the surgery was started. I turned my attention to the infection which was located in the left floor of the mouth and submental area. The tongue was elevated and there was also swelling associated with the implant placement site # 18-19 area ( see CT scan report) Incision and Drainage Using a 15 blade an incision was made medial to the alveolar ridge and lateral to the duct of the left submandibular gland. Once the incision was made a lot of dark clotted blood extruded from the site. This is most likely to restarting the Eliquis after the implant surgery # 18 area A curved hemostat was carefully placed into the space along the medial side of the lower jaw and into the submandibular/submental space. Some further drainage was now allowed to escape. It appears that the antibiotics resolve the acute infection but the hematoma was left to be drained. I palpated the chin and submental area and felt another collation of fluid- hematoma. A 15 blade was used in the skin line to open up the submental space. The hemostat was passed into the floor of the mouth and a 1/4 [place] was passed into the left floor of the mouth. More clotted blood was evaluated and the swelling was almost gone. At this time no further drainage was expressed. The area was irrigated with at least 200 ml of NS solution. The Drain was sutured with a few 4-0 Nylon sutures. This procedure evacuated the clotted blood from the FOM and submental space. I inspected the sites to insure all bleeding was controlled. I removed the throat pack and suctioned the throat. A gauze pressure dressing was placed on the left side and a pressure dressing placed over the drain on the submental area. All instrument and sponge count was correct. The patient was allowed to awake from the anesthesia. Once full awake the anesthesia tube was removed and the patient was taken to the recovery room with all vital sign stable. The patient tolerated the surgery very well. I will follow the patient in my office, Rx and instructions will be given upon discharge. I attest to the content of the Intraoperative Record and any orders documented therein. Any exceptions are noted below.
== END 2024-09-20 11:25 | disposition home or self-care (01) | DRG 854 ==
LOC: ED 08:29 → SUATTDRO 10:38 → EDINP 10:38 → 2E 19:17